=== PATIENT | male | born 1945 | race African-American/Black ===

== ENCOUNTER 2017-08-01 13:19 | Outpatient (CLI) | payer MEDICARE, MEDICAID ==
--- NOTE | 2017-08-01 15:31 | RAD ---
TWO VIEWS CHEST: Date: 08-01-17 Comparison: 05-01-15 History: Shortness of breath. FINDINGS: There is pulmonary vascular prominence, most significant in the region of the infrahilar region on th e right, a stable finding. There is perihilar and bibasilar interstitial prominence, left greater torsten n right, nonspecific and stable. No pneumothorax or pleural fluid. No lobar consolidation or alveolar edema. There is a questionable subtle nodule overlying the right lung apex at the level of the clavicle. IMPRESSION: 1. Question small nodular density in the right lung apex measuring in the 1.[address] examination to exclude an underlying right apical pulmonary nodule. 2. Stable interstitial prominence and pulmonary vascular prominence. Findings may be related to pulmo nary arterial hypertension. Code T POS: [facility]
== END 2017-08-01 13:20 | disposition home or self-care (01) ==
LOC: RAD 13:19
PROVIDERS: ATTEND Internal Medicine Critical Care Medicine
DX: R06.00 Dyspnea, unspecified (principal); R91.8 Other nonspecific abnormal finding of lung field
CPT/HCPCS: 71020

== ENCOUNTER 2017-09-05 12:34 | Outpatient (CLI) | payer MEDICARE, MEDICAID ==
--- NOTE | 2017-09-05 15:38 | CT ---
CT THORAX WITH IV CONTRAST: DATE: 09/05/17. HISTORY: Right apical pulmonary nodule noted on chest x-ray. COMPARISON: Chest x-ray on 08/01/17. FINDINGS: There is a noncalcified mass posterior aspect of the right upper lobe measuring 3.1 cm which is pleur al-based, and there is slight irregularity of the overlying posterior right third rib. There is a small pleural-based nodular density posterior aspect of the right lower lobe which measure s 13 mm x 6.5 mm. No additional discrete pulmonary nodule or mass is seen. There is minimal depende nt atelectasis bilaterally. A few peripheral blebs are seen at the medial aspect right upper lobe. Thoracic aorta is normal in caliber. No enlarged lymph nodes are seen by CT size criteria. There is a hypodense lesion at the anterior aspect lateral segment left hepatic lobe which was also s een on the prior CT thorax on 09/14/14. The right apical lesion was not seen on the prior exam. The remainder of the upper abdomen has a normal CT appearance. IMPRESSION: 1. Pleural-based right upper lobe mass posteriorly with slight irregularity of the inner table of th e right posterolateral third rib. Findings are worrisome for a neoplastic process. 2. Tiny pleural-based nodular density posterior aspect right lower lobe which could be related to a focal area of pleural thickening. CODE T POS: [facility]
[2017-09-05] MEDS ORDERED: Iopamidol 370 76% 100 ML VIAL ONE (16:22)
== END 2017-09-05 12:35 | disposition home or self-care (01) ==
LOC: CT 12:34
PROVIDERS: ATTEND Internal Medicine Critical Care Medicine
DX: R91.1 Solitary pulmonary nodule (principal); R91.8 Other nonspecific abnormal finding of lung field; J44.9 Chronic obstructive pulmonary disease, unspecified; G47.33 Obstructive sleep apnea (adult) (pediatric)
CPT/HCPCS: 71260

== ENCOUNTER 2017-09-14 07:27 | Day surgery (SDC) | payer MEDICARE, MEDICAID ==
[2017-09-13 14:19] VITALS: BMI 40.6
[2017-09-14 07:55] LABS: Hemoglobin 13.2 g/dL (14.0-18.0); Mean Corpuscular HGB CONC 30.4 g/dL (32.0-36.0); Mean Corpuscular Hemoglobin 29.5 pg (27.0-31.0); Mean Platelet Volume 7.2 fL (7.4-10.4); Platelet Count 269 thou/uL (130-400); Red Blood Cell (RBC) Count 4.48 mill/uL (4.70-6.10); White Blood Cell (WBC) Count 10.2 thou/uL (4.8-10.8)
[2017-09-14 08:00] LABS: INR-International Normal Ratio 0.9; PTT 27.3 SEC (22.9-36.1); Prothrombin Time 12.5 SEC (12.0-14.7)
[2017-09-14] MEDS ORDERED: Prevnar 13-Val Conj/PF 0.5 ML SYRINGE IM ONE (09:00)
[2017-09-14] MEDS ORDERED: FLU VACC TS2017-18 (>65YR) 0.5 ML SYRINGE IM ONE (09:00)
[2017-09-14 09:36] VITALS: BP 134/81; TEMP 98.1
[2017-09-14] MEDS ORDERED: Fentanyl 100 MCG/2 ML VIAL ONE (10:07)
[2017-09-14] MEDS ORDERED: Midazolam HCl 2 mg/2 ml Vial ONE (10:07)
[2017-09-14] MEDS ORDERED: Sodium Bicarbonate 2.4 MEQ/5 ML ONE (10:07)
--- NOTE | 2017-09-14 12:12 | RAD ---
SINGLE VIEW OF THE CHEST: COMPARISON: CT of the chest 09/14/17. HISTORY: Status post right upper lobe lung biopsy. FINDINGS: A single view of the chest shows a normal-size cardiomediastinal silhouette. There is a mass-like op acity in the right hilar region. No pneumothorax is seen. There is no evidence of consolidation or pleural effusion. IMPRESSION: 1. Status post right lung mass biopsy without evidence of complication. 2. Nodular-appearing region in the hilar region of the lung represents the patient's known lung mass . POS: [facility]
--- NOTE | 2017-09-14 12:16 | CT ---
CT GUIDED RIGHT LUNG MASS BIOPSY: HISTORY: Right lung mass. FINDINGS: After explaining the procedure and answering all questions, the patient was placed on the CT table in the left lateral decubitus position. A posterior approach was planned. A sterile technique, buffer ed local anesthesia, CT guidance, and a right posterior approach were used to carefully advance the t ip of a 19 gauge trocar needle into the posterolateral right upper lobe mass. Position was confirmed with CT. Three 20 gauge core biopsy specimens were obtained without difficulty and submitted to pat michelle for evaluation. The needle was removed. The patient tolerated the procedure well and was tra nsferred to the holding area, in good condition, for monitoring. IMPRESSION: Technically successful CT guided right lung mass biopsy. Pathology is pending. POS: [facility]
--- NOTE | 2017-09-14 12:47 | RAD ---
FRONTAL RADIOGRAPH CHEST: DATE: 09/14/17. TIME: 11:38 a.m. COMPARISON: 09/14/17. HISTORY: Evaluate chest following lung biopsy. FINDINGS: There is no pneumothorax, pleural fluid, lobar consolidation, or alveolar edema. Rounded density in the right hilar region is stable when compared to prior examination and appears to be on the basis of enlarged pulmonary arterial vasculature. There is a mass in the right lung apex, recently biopsied, suspicious for malignancy. IMPRESSION: No discrete pneumothorax seen. POS: [facility]
== END 2017-09-14 12:10 | disposition home or self-care (01) ==
LOC: CT 07:27
PROVIDERS: ATTEND Internal Medicine Critical Care Medicine
DX: C34.11 Malignant neoplasm of upper lobe, right bronchus or lung (principal); R91.8 Other nonspecific abnormal finding of lung field; G47.30 Sleep apnea, unspecified; M19.90 Unspecified osteoarthritis, unspecified site; E11.9 Type 2 diabetes mellitus without complications; J44.9 Chronic obstructive pulmonary disease, unspecified; I11.0 Hypertensive heart disease with heart failure; I50.9 Heart failure, unspecified; Z87.891 Personal history of nicotine dependence; Z85.038 Personal history of other malignant neoplasm of large intestine; Z79.84 Long term (current) use of oral hypoglycemic drugs; Z79.52 Long term (current) use of systemic steroids; Z79.899 Other long term (current) drug therapy
CPT/HCPCS: 32405; 36415; 71045; 77012; 85027; 85610; 85730; 88305; 88313; 88341; 88342; J2250; J3010

== ENCOUNTER 2017-10-04 13:06 | Outpatient (CLI) | payer MEDICARE, MEDICAID ==
--- NOTE | 2017-10-04 16:38 | PET ---
PET CT: INDICATION: History of right lung cancer. TECHNIQUE: PET CT images from the skull base to the mid thighs were obtained after administration of 12.6 mCi F1 8-FDG IV. CT images were obtained for attenuation correction purposes only. COMPARISON: Prior CT of the thorax dated 09/05/17 and 04/23/11. FINDINGS: The 3.5 cm mass within the right upper lobe abutting the pleural margin of the posterior segment of t he right upper lobe demonstrates prominent FDG uptake with a maximum SUV uptake of 28 and a mean valu e of 22. There is erosion of the mass into the adjacent posterior right 3rd rib. There is a new focal region of cortical osteolysis involving the posterior right 9th rib with associa ulisses maximum uptake of 7.22 and a mean uptake of 4.83. No additional hypermetabolic lymph node or lymphadenopathy is evident. No hypermetabolic lymphadenopathy or mass is seen within the abdomen and pelvis. There is a left hepa tic lobe cyst in place. There is postsurgical change of partial colectomy and rectosigmoid anastomosi s. No definite additional hypermetabolic or osseous skin lesion is identified. IMPRESSION: Abnormal PET CT. The mass within the right upper lobe is prominent hypermetabolic consistent with mal ignancy. There is some hypermetabolic extension into the pleural margin adjacent to the mass lesion. There some bony erosion involving the underlying right posterior third rib best seen on image 68 of s eries 3. There is a new focus of cortical osteolysis involving the right posterior 9th rib consistent with a n ew osseous metastatic lesion. POS: [facility]
== END 2017-10-04 13:07 | disposition home or self-care (01) ==
LOC: PET 13:06
PROVIDERS: ATTEND Internal Medicine Critical Care Medicine
DX: R91.1 Solitary pulmonary nodule (principal)
CPT/HCPCS: 78815; A9552

== ENCOUNTER 2018-01-11 10:45 | Outpatient (CLI) | payer MEDICARE, MEDICAID ==
[~2018-01-11 10:45] MED LIST: Iopamidol 370 76% 100 ML VIAL ONE
--- NOTE | 2018-01-11 13:43 | CT ---
CONTRAST ENHANCED CT IMAGES CHEST: 01/11/2018 COMPARISON: Previous CT chest from 09/05/2017. FINDINGS: A contrast enhanced CT of the chest demonstrates a posterior aspect right upper lobe area of soft tis sha density, compatible with a possible mass on the posterior aspect of the right upper lobe. Overal l size is slightly smaller than on the previous exam. Previously, the maximum dimension of this lesi on measured 3.1 cm and now it measures 2.4 cm. A small right-sided pleural effusion has now developed. There is a new expansile lytic mass involving the right posterior T9 rib, which was not present previ ously. This rib had an area of erosive change and a secondary pathologic fracture. There is a newly developed mass involving the right 9th rib, measuring 3.3 x 2.3 cm. There is also an enlarging right paratracheal lymph node. Previously, this lymph node measured 9 x 1 4 x 12 mm. It has significantly increased in size, now measuring 14 x [address] images of the rest of the abdomen and pelvis demonstrate extensive motion artifact, which does sig nificantly degrade the quality of this exam. IMPRESSION: 1. Slightly smaller right upper lobe pulmonary parenchymal mass. 2. Newly developed right ninth rib metastatic lesion with a secondary pathologic fracture. 3. Enlarging right paratracheal lymph node. POS: [facility]
== END 2018-01-11 10:46 | disposition home or self-care (01) ==
LOC: SCSCT 10:45
PROVIDERS: ATTEND Radiology Radiation Oncology
DX: C34.11 Malignant neoplasm of upper lobe, right bronchus or lung (principal); C79.51 Secondary malignant neoplasm of bone; M84.58XA Pathological fracture in neoplastic disease, other specified site, initial encounter for fracture
CPT/HCPCS: 71260; 82565

== ENCOUNTER → 2018-01-26 | Day surgery (SDC) | payer MEDICARE, MEDICAID ==
[2018-01-25 12:01] VITALS: BMI 40.2
[~2018-01-26] MED LIST changes: +Bupivacaine/Epinephrine 0.25% 30 ML VIAL ONE; +CEFAZOLIN/Water 2 GM/20 ML SYRINGE ONE; +Fentanyl 100 MCG/2 ML VIAL ONE; -Iopamidol 370 76% 100 ML VIAL ONE; +Ketorolac Tromethamine 30 MG/ML VIAL ONE; +Lidocaine 1% (PF) 30 ML VIAL ONE; +Midazolam HCl 2 mg/2 ml Vial ONE
[2018-01-26 10:02] LABS: Hemoglobin 12.7 g/dL (14.0-18.0); Mean Corpuscular Hemoglobin 29.1 pg (27.0-31.0); Mean Corpuscular Volume 96.9 fl (80.0-94.0); Mean Platelet Volume 7.8 fL (7.4-10.4); Platelet Count 222 thou/uL (130-400); RBC Distribution Width 19.3 % (11.5-14.5); Red Blood Cell (RBC) Count 4.37 mill/uL (4.70-6.10)
[2018-01-26 10:21] LABS: Anion Gap 11 mmol/L (10-20); BUN (Urea Nitrogen) 18 mg/dL (8.4-25.7); Calc. Creatinine Clearance 107 mL/min (70-130); Calcium 9.7 mg/dL (7.8-10.44); Carbon Dioxide 32 mmol/L (23-31); Chloride 103 mmol/L (98-107); Estimated GFR-MDRD 72; Glucose 98 mg/dL (83-110); Potassium 4.4 mmol/L (3.5-5.1); Sodium 142 mmol/L (136-145)
[2018-01-26 10:27] LABS: #Eosinphils 0.3 thou/uL (0.0-0.7); #Lymphocytes 0.7 thou/uL (1.20-3.40); #Monocytes 0.4 thou/uL (0.11-0.59); #Neutrophils 4.7 thou/uL (1.40-6.50); %Basophils 0.4 % (0.0-1.0); %Lymphocytes 11.4 % (21.0-51.0); %Monocytes 5.8 % (0.0-10.0); %Neutrophils 77.5 % (42.0-75.0); Anisocytosis SLIGHT = 6-15 cells (100X) (0-5/hpf); Hypochromia SLIGHT = 6-15 cells (100X) (0-5/hpf); MDiff Complete? YES; PLT Morphology Comment Appears Adequate
--- NOTE | 2018-01-26 13:10 | RAD ---
INTRAOPERATIVE IMAGING OF THE CHEST: DATE: 01/26/18. HISTORY: A 72-year-old male undergoing MediPort placement. FINDINGS: Without coned-down frontal images of the chest demonstrate a CT injectable Port-A-Cath inserted via a left subclavian approach, distal tip overlying the region of the proximal right atrium. IMPRESSION: Intraoperative imaging as above. POS: [facility]
--- NOTE | 2018-01-26 13:39 | RAD ---
PORTABLE CHEST 1 VIEW: DATE: 01/26/18. TIME: 11:42 a.m. HISTORY: MediPort placement. FINDINGS: Comparison is made with the exam 08/01/17. There has been interval placement of a left subclavian Port-A-Cath with tip in the projection of the SVC. No pneumothorax is seen. Heart size is normal. There are patchy infiltrates in the lower lung nassar bilaterally. There is pulmonary vascular congestion. POS: [facility]
--- NOTE | 2018-01-26 14:26 | EKG ---
Test Reason : PREOP Blood Pressure : / mmHG Vent. Rate : 065 BPM Atrial Rate : 065 BPM P-R Int : 154 ms QRS Dur : 092 ms QT Int : 428 ms P-R-T Axes : 077 -12 080 degrees QTc Int : 445 ms Normal sinus rhythm Nonspecific T wave abnormality Abnormal ECG When compared with ECG of 26-MAR-2015 07:39, T wave inversion less evident in Anterior leads Nonspecific T wave abnormality, worse in Lateral leads QT has shortened Confirmed by IZZY BELLE ([id number]) on 01/26/2018 2:25:57 PM Referred By: MJ Confirmed By:IZZY BELLE
--- NOTE | 2018-01-27 13:26 | OP ---
DATE OF PROCEDURE: 01/26/2018 PREOPERATIVE DIAGNOSIS: Lung cancer. POSTOPERATIVE DIAGNOSIS: Lung cancer. OPERATION PERFORMED: Placement of a left subclavian regular size power compatible MediPort. SURGEON: Akshat Fortune M.D. ANESTHESIA: Total intravenous anesthesia with local using 0.25% Marcaine with epinephrine. INDICATIONS: The patient is an obese 72-year-old black male who has new diagnosis of right lung canc er. I have treated previously for colon cancer as well. He presents at this time for [facility] for chemotherapy administration. DESCRIPTION OF OPERATION: Informed consent was obtained. The patient was taken to the operating nayeli m where total intravenous anesthesia was obtained with the patient in supine position. Left periclav icular area was prepped with ChloraPrep and draped in sterile fashion. Local anesthetic was infiltra ulisses and a large gauge needle was passed under the clavicle in the subclavian vein. Guidewire was pas sed through the needle and fluoroscopically confirmed to enter the superior vena cava. Additional lo evette anesthetic was infiltrated and transverse incision was created based on needle insertion site. A subcutaneous pocket was dissected inferiorly. Introducer dilator was passed over the guidewire unde r fluoroscopic guidance. The guidewire and dilator were removed, and the catheter was passed through the introducer. The tip of the catheter was positioned at the atriocaval junction and the catheter was trimmed to the appropriate length and secured to the locking hub of the MediPort. The port was t hen placed in the subcutaneous pocket where it was secured to the pectoral fascia with 2 interrupted sutures of 3-0 Prolene. The incision was then closed in layers with 3-0 and 4-0 Monocryl. Additiona l local anesthetic was infiltrated. The port was cannulated with a Meneses needle and it aspirated blo od freely and was flushed with heparinized saline. Dermabond was placed externally on the skin incis ion. There were no complications. Blood loss was negligible. The patient tolerated the procedure w ell and was taken to recovery room in stable condition. FINDINGS: I placed the port on the left side as the patient has right-sided lung cancer. I used a r egular size MediPort and access subclavian vein uneventfully. There were no complications and essent ially no blood loss. The patient tolerated the procedure well.
== END ==
LOC: SDC 09:11
PROVIDERS: ATTEND Specialist
PROC: 02H633Z Insertion of Infusion Device into Right Atrium, Percutaneous Approach (ICD-10-PCS; principal; 2018-01-26)
PROC: B2141ZZ Fluoroscopy of Right Heart using Low Osmolar Contrast (ICD-10-PCS; 2018-01-26)
DX: C34.11 Malignant neoplasm of upper lobe, right bronchus or lung (principal); M19.90 Unspecified osteoarthritis, unspecified site; F10.11 Alcohol abuse, in remission; J45.909 Unspecified asthma, uncomplicated; E78.00 Pure hypercholesterolemia, unspecified; I11.0 Hypertensive heart disease with heart failure; I50.9 Heart failure, unspecified; J44.9 Chronic obstructive pulmonary disease, unspecified; G47.30 Sleep apnea, unspecified; I48.91 Unspecified atrial fibrillation; F17.210 Nicotine dependence, cigarettes, uncomplicated; F19.11 Other psychoactive substance abuse, in remission; Z85.038 Personal history of other malignant neoplasm of large intestine; Z79.51 Long term (current) use of inhaled steroids; Z79.52 Long term (current) use of systemic steroids; Z79.84 Long term (current) use of oral hypoglycemic drugs; Z79.899 Other long term (current) drug therapy
CPT/HCPCS: 36561; 71045; 80048; 85025; 93005; C1788; 36415; 93010; J0131; J1642; J1885; J2001; J2250; J3010

== ENCOUNTER 2018-02-27 14:14 | Inpatient (IN) | payer MEDICARE, MEDICAID ==
[2018-02-27 14:56] LABS: Hemoglobin 14.4 g/dL (14.0-18.0); Mean Corpuscular HGB CONC 29.4 g/dL (32.0-36.0); Mean Corpuscular Hemoglobin 29.1 pg (27.0-31.0); Mean Corpuscular Volume 98.8 fL (78.0-98.0); Mean Platelet Volume 8.4 fL (7.4-10.4); Platelet Count 208 thou/uL (130-400); RBC Distribution Width 18.2 % (11.5-14.5); Red Blood Cell (RBC) Count 4.94 mill/uL (4.70-6.10)
[2018-02-27 15:10] LABS: Anisocytosis MODERATE=16-30 cells (100X) (0-5/hpf); Band 4 % (5-11); Lymphocytes 8 % (21-51); MDiff Complete? YES; Monocytes 4 % (0-10); Neutrophil 83 % (42-75); Ovalocytes SLIGHT = 2-5 cells (100X) (0-1/hpf); PLT Morphology Comment Appears Adequate; Polychromasia SLIGHT = 2-3 cells (100X) (0-2/hpf); White Blood Cell (WBC) Count 7.3 thou/uL (4.8-10.8)
[2018-02-27 15:17] LABS: ALT (SGPT) 21 U/L (8-55); AST (SGOT) 22 U/L (5-34); Albumin 3.8 g/dL (3.4-4.8); Alkaline Phosphatase 72 U/L (40-150); Anion Gap 12 mmol/L (10-20); BUN (Urea Nitrogen) 33 mg/dL (8.4-25.7); Bilirubin, Total 0.3 mg/dL (0.2-1.2); CK (CPK) 44 U/L (30-200); Calc. Creatinine Clearance 0 mL/min (70-130); Calcium 9.2 mg/dL (7.8-10.44); Carbon Dioxide 29 mmol/L (23-31); Chloride 104 mmol/L (98-107); Estimated GFR-MDRD 33; Glucose 118 mg/dL (83-110); Protein, Total 6.8 g/dL (5.8-8.1); Sodium 139 mmol/L (136-145)
--- NOTE | 2018-02-27 15:17 | RAD ---
SINGLE VIEW OF THE CHEST: COMPARISON: 01/26/18. HISTORY: Shortness of breath and weakness. Dyspnea. FINDINGS: A single view of the chest shows a cardiomediastinal silhouette which is enlarged but stable in size. The MediPort is unchanged in position. Opacity is seen in the right lung base which likely represe nts a combination of a pleural effusion and adjacent infiltrate. IMPRESSION: Right lower lobe infiltrate with adjacent pleural effusion. POS: [facility]
[2018-02-27 15:21] LABS: CKMB 2.2 ng/mL (0-6.6); Troponin I 0.019 ng/mL (< 0.028)
[2018-02-27 16:03] LABS: Actual Bicarbonate (HCO3a) 36.7 mEq/L (22-28); Base Excess (BEa) 1.5 mEq/L (-2.0 to +3.0); CO2 Tension 139.8 mmHg (35.0-45.0); Hematocrit-ABG 51.9 % (42.0-52.0); O2 Tension (PaO2) 106.6 mmHg (> 70.0); pH, Arterial 7.04 (7.35-7.45)
[2018-02-27 16:04] LABS: Analyzer IN Cardio ER; Calcium, Ionized 1.4 mmol/L (1.12-1.30); Puncture Site RRA
[2018-02-27] MEDS ORDERED: Piperacillin/Tazobactam 4.5 GM VIAL ONE (16:58)
[2018-02-27 17:08] LABS: CO2 Tension 50.9 mmHg (35.0-45.0); pH, Arterial 7.38 (7.35-7.45)
[2018-02-27 17:09] LABS: Actual Bicarbonate (HCO3a) 29.5 mEq/L (22-28); Analyzer IN Cardio ER; Base Excess (BEa) 3.3 mEq/L (-2.0 to +3.0); Calcium, Ionized 1.2 mmol/L (1.12-1.30); Hematocrit-ABG 48.9 % (42.0-52.0); Hemoglobin (Hb) 13.5 g/dL (14.0-18.0); O2 Tension (PaO2) 51.2 mmHg (> 70.0); Puncture Site RRA
[2018-02-27 17:10] LABS: ALV-art Gradient 168.375 (0-20)
[2018-02-27] MEDS ORDERED: Propofol 500 MG/50 ML VIAL ONE (17:23)
[2018-02-27] MEDS ORDERED: Propofol 1,000 MG/100 ML VIAL IV ONE (17:26)
[2018-02-27] MEDS ORDERED: Acetaminophen 325 MG TAB PO PRN (18:24)
[2018-02-27] MEDS ORDERED: Ondansetron HCl/PF 4 MG/2 ML Vial IVP PRN ×2 (18:24→18:41)
[2018-02-27] MEDS ORDERED: Ondansetron ODT 4 MG TAB SL PRN (18:24)
[2018-02-27 18:38] LABS: Bilirubin Small (Negative); Blood, Urine Negative (Negative); Clarity CLOUDY (Clear); Glucose, Urine (Dipstick) Negative (Negative); Leukocyte Trace (Negative); Nitrite Negative (Negative); Protein, Urine (Dipstick) 100 mg/dL (Neg-Trace); Specific Gravity, Urine 1.033 (1.002-1.036); pH, Urine 5.5 (5.0-9.0)
[2018-02-27 18:41] LABS: Bacteria/HPF None Seen HPF (None Seen); WBC/HPF 0-3 HPF (0-3); Yeast-AUWi Flag 9.8 (0-25.0)
[2018-02-27] MEDS ORDERED: Dextrose 5% in Water 1,000 ML IV PRN (18:41)
[2018-02-27] MEDS ORDERED: Dextrose 50% Abboject 50 ML SYRINGE SLOW IVP PRN (18:41)
[2018-02-27] MEDS ORDERED: Ventilator Sedation Protocol 1 EACH FS SCH (18:41)
[2018-02-27] MEDS ORDERED: Sodium Chloride 0.9% 1,000 ML IV SCH ×3 (18:45→21:58)
[2018-02-27 18:47] LABS: Pathc Cast-AUWi Flag 12.56 (0-2.49)
[2018-02-27 18:56] LABS: Hyaline Casts/LPF 7-10 HYALINE CAST LPF (0-3 Hyaline)
[2018-02-27 18:57] LABS: Crystals/HPF 2+ AMORPH URATES HPF (Negative)
[2018-02-27] MEDS ORDERED: Propofol BOLUS 1,000 MG/100 ML VIAL IV PRN (19:00)
[2018-02-27] MEDS ORDERED: DISCONTINUE PREVIOUS NARCOTIC PAIN MEDICATIONS AND BENZODIAZEPINES FS SCH (19:00)
[2018-02-27] MEDS ORDERED: fentaNYL Citrate/PF 2,000 MCG in Sodium Chloride 0.9% 60 ML IV SCH (19:00)
[2018-02-27] MEDS ORDERED: Fentanyl BOLUS 250 ML IVPB PRN (19:00)
[2018-02-27] MEDS ORDERED: Lorazepam 2 MG/ML VIAL SLOW IVP PRN (19:00)
[2018-02-27] MEDS ORDERED: Levofloxacin 750 mg/D5W 500 MG in Premix Bag 1 BAG IVPB SCH (20:00)
[2018-02-27] MEDS ORDERED: Famotidine/PF 20 mg/2ml Vial SLOW IVP SCH (21:00)
[2018-02-27] MEDS: Docusate 100 MG CAP PO SCH (21:02)
[2018-02-27] MEDS: Cefepime 1 GM in Sodium Chloride 0.9% 100 ML IVPB SCH (21:02)
[2018-02-27 21:57] LABS: Troponin I Less than 0.010 ng/mL (< 0.028)
--- NOTE | 2018-02-28 02:11 | HP ---
REASON FOR ADMISSION: Acute respiratory failure with hypercarbia and hypoxia, pneumonia, right pleural effusion, possible empyema, acute kidney injury. HISTORY OF PRESENT ILLNESS: Please note majority of this history is obtained by talking to ER physician and EMS records along with prior medical records as patient is currently intubated. Per records, family called EMS as patient was getting short of breath. This was getting worse by the time EMS arrived. His saturations were 76% on room air. He was placed on nonrebreather and it came up promptly to 97%. On arrival in the ER, patient was still lethargic and drowsy. He in fact refused IV to be placed. The ABG was done which showed a pH of 7.0 with a pCO2 of 139. The patient was getting more lethargic, a decision was made to intubate him. He has had a Perkins placed in the ER with retrieval of only 50 mL of urine, which is very high colored as well. He has had an ET tube #8 placed up to 26 inches at the incisor. The patient has had prior history of respiratory failure when he was hospitalized here in 04/[address] Lynn. He also has obesity hypoventilation, diabetes mellitus type 2, hypertension, CHF with diastolic dysfunction. He was intubated in the month of March in 2014, benign prostatic hypertrophy. He has had history of colon resection for colon cancer. PERSONAL HISTORY: Per prior records, he smokes 2 cigarettes a day, drinks on social occasions. Does not abuse drugs. FAMILY HISTORY: Per prior records, significant for heart disease and high blood pressure. PAST MEDICAL AND SURGICAL HISTORY: He has had a colonoscopy done in 01/2016, where he was said to have had a polyp in the cecum removed. He had normal anastomosis in the sigmoid colon. History of colorectal cancer, diagnosed in 2012, which was T2 N0 Mx0, had no adjuvant therapy for the same COPD, has had a lung biopsy done in 08/2017 for right upper lobe lung mass, which showed poorly differentiated non-small cell carcinoma. A PET scan done in 09/2017, shows a mass within the right upper lobe. There is also hypermetabolic extension seen into the pleural margin adjacent to the mass lesion. There is also bony erosion involving underlying right posterior 3rd rib and right posterior 9th rib consistent with metastatic lesion, had a left MediPort placed into the subclavian vein in 01/2018. CURRENT MEDICATIONS: Per prior records, patient is on Norvasc 10 mg daily, finasteride 5 mg daily, Lasix 40 mg twice daily, hydralazine 25 mg 3 times daily , DuoNeb q.4 hourly, metformin 1000 mg twice daily. Please note these are medications based on Xdynia from 2014 and will try to obtain a current medication list from family. REVIEW OF SYSTEMS: Cannot be obtained as patient is currently intubated. PHYSICAL EXAMINATION: GENERAL: Patient is a 72-year-old male who is currently on ventilator and is not conscious. VITAL SIGNS: Blood pressure 142/78, pulse 86 per minute, respiratory rate 22 per minute, temperature 97.9 degrees Fahrenheit, saturating 97% on ventilator and 40% FiO2 on the ventilator. NECK: Supple, no elevated JVD. HEENT: Eyes: Extraocular muscles intact. Pupils reacting to light. Oral cavity mucous membranes are dry. No exudates or congestion. CARDIOVASCULAR: S1, S2 heard. Regular rhythm. RESPIRATORY: Air entry 1+ bilateral. There is decreased air entry in the right infra-axillary area. Scattered rhonchi heard. ABDOMEN: Soft, bowel sounds heard. No tenderness, rigidity, or guarding. EXTREMITIES: There is mild peripheral edema. No calf tenderness. VASCULAR: Peripheral pulses are 1+ bilateral. No ischemic ulcerations or gangrene. CENTRAL NERVOUS SYSTEM: The patient apparently was moving all 4 extremities on arrival in the ER. There are no gross focal deficits noted. PSYCHIATRIC: Cannot be assessed as patient is intubated at present. LABORATORY AND DIAGNOSTIC DATA: Blood gas done on arrival showed a pH of 7.04, pCO2 of 139, pO2 106, bicarbonate 36. Repeat blood gas on vent shows a pH of 7.38, pCO2 of 50, pO2 of 51. Sodium 139, potassium 6.0, BUN 33, creatinine 2.3 , serum glucose 118. BNP 2747. Liver enzymes within normal limits. Albumin is 3.8. White count of 7, H and H 14 and 48, platelet count 208,000 with 83% neutrophils and 4% bands, MCV is 98. Chest x-ray done shows right lower lobe infiltrate with effusion. CLINICAL IMPRESSION AND PLAN: The patient will be admitted to ICU for acute respiratory failure with hypercarbia and hypoxia. Please note, patient also has significant history of non-small cell poorly differentiated carcinoma, diagnosed in August of this year. It is unclear if patient is on chemotherapy , he has a MediPort. His overall prognosis appears to be poor, given multiple medical conditions. As he is already intubated, we will place him on Levaquin and cefepime along with blood and sputum cultures. We will also place him on DuoNeb q.4 hourly along with Solu-Medrol. He will be gently hydrated as well with a very poor urine output at present. The patient has diastolic dysfunction as well and will be closely monitored. His code status for now is FULL CODE until I have a chance to talk to family. He has acute kidney injury as well and will be closely monitored for further worsening. MTDD
--- NOTE | 2018-02-28 03:37 | CON ---
DATE OF CONSULTATION: 02/27/2018 SERVICE: Pulmonary Medicine. REASON FOR CONSULTATION: Respiratory failure. HISTORY OF PRESENT ILLNESS: Patient is a 72-year-old -[place] male with past medical history significant for non-small cell lung cancer. He also has a difficult time controlling some volume st atus associated with mild diastolic heart failure. Either way, he was increasingly short of breath o alisia a couple of days. There is no reports of fevers. EMS services were contacted, they intubated hi m in the field. When he got into the emergency department, his PCO2 was 137. This was associated wi th a very low pH. The patient was encephalopathic and not able to provide any additional elements of the history. PAST MEDICAL HISTORY: 1. Asthma. 2. Venous thromboembolic disease. 3. Colon cancer. 4. Dyslipidemia. 5. Hypertension. 6. Type 2 diabetes mellitus. 7. Chronic diastolic heart failure. 8. Obstructive sleep apnea, severe. 9. Atrial fibrillation. 10. Chronic hypoxic and hypercapnic respiratory failure. 11. Non-small cell lung cancer. 12. History of alcohol and illicit drug use. PAST SURGICAL HISTORY: 1. Incision and drainage of left thigh abscess in 2009. 2. Laparoscopic LAR in 2012. 3. MediPort placement. FAMILY HISTORY: Noncontributory. SOCIAL HISTORY: The patient apparently has an extensive history of smoking. Otherwise, this is unkn own to me. ALLERGIES: No known drug allergies. MEDICATIONS: List of his inpatient medications were reviewed and heavily modified. REVIEW OF SYSTEMS: This cannot be obtained as the patient is currently intubated under the influence of sedation. PHYSICAL EXAMINATION: VITAL SIGNS: Afebrile, pulse 75, blood pressure 128/75, respirations in 19, saturation 97% on 37% FI O2 and a PEEP of 5. HEENT: Normocephalic, atraumatic. Sclerae white, conjunctivae pink. Oral and nasal mucosa is moist without lesions. LUNGS: Decreased air entry with a very prolonged expiratory phase. Expiratory wheezing and crackles are both identified. No rhonchi are appreciated. HEART: Normal rate and regular. ABDOMEN: Soft, nontender, nondistended. Bowel sounds are positive. MUSCULOSKELETAL: No cyanosis or clubbing. There is 1+ pitting throughout. GENITOURINARY: Perkins catheter in place. NEUROLOGIC: Grossly nonfocal. LABORATORY DATA: WBC 7.3, hemoglobin 14.4, platelets 208,000, neutrophils are 83% with 4% bands. A pH 7.38, pCO2 of 51, pO2 of 51, corresponding to saturation of 85%. This is much improved compared t o prior pH of 7.04 and pCO2 of 140. Creatinine 2.35, significantly above baseline of roughly 1.3. L iver function studies are unremarkable. BNP 2700 much above baseline of less than 50. Urinalysis is positive for ketones, protein, leukocyte esterase. Respiratory culture demonstrates moderate Gram-p ositive cocci in pairs and chains as well as a few Gram-negative rods. Many white blood cells are se en. No epithelials were identified. IMAGING: Chest x-ray demonstrates infiltrate in the right lower lobe with a right-sided pleural effu thony that was previously identified. There is a left-sided MediPort catheter in good position. Ther e is also fluffy bilateral pleural parenchymal opacifications present, consistent with some degree of possible volume overload. ASSESSMENT: 1. Acute on chronic hypoxic and hypercapnic respiratory failure. 2. Healthcare-associated pneumonia. 3. Acute on chronic diastolic heart failure. 4. Asthma with acute exacerbation. 5. Non-small cell lung cancer. 6. Acute kidney injury. PLAN: Agree with broad spectrum antibiotics. He likely has Streptococcus based on culture results f rom the sputum so far. Blood cultures are currently pending. We will let the dust settle for 24 je[address] paul rs. I would like to avoid giving him too much fluid. He has volume overloaded, we will likely need to get some fluid off him, but we will save this for 1-2 days in the future. Multiple adjustments bhakta ve been made to the ventilator. He did very prolonged expiratory time. We will back way off on the rate, and change him over to pressure control ventilation. This seemed to maximize or minute volumes without doing pressure damage to the lungs. Pulmonary Critical Care will continue to follow along f or the time being. In 24 hours, I will do an ultrasound of the chest. The pleural effusion has been there for quite some time based on the CT scan from December. That being said, we may need to prove that this space is not infected. CRITICAL CARE TIME: 30 minutes.
[2018-02-28 04:59] LABS: #Lymphocytes 0.4 thou/uL (1.20-3.40); #Monocytes 0.1 thou/uL (0.11-0.59); #Neutrophils 8.9 thou/uL (1.40-6.50); %Basophils 0.1 % (0.0-1.0); %Eosinophils 0.1 % (0.0-10.0); %Lymphocytes 3.7 % (21.0-51.0); %Monocytes 1.2 % (0.0-10.0); %Neutrophils 94.9 % (42.0-75.0); Hemoglobin 13.5 g/dL (14.0-18.0); Mean Corpuscular HGB CONC 30.2 g/dL (32.0-36.0); Mean Corpuscular Hemoglobin 28.8 pg (27.0-31.0); Mean Corpuscular Volume 95.1 fL (78.0-98.0); Mean Platelet Volume 8.9 fL (7.4-10.4); Platelet Count 182 thou/uL (130-400); Red Blood Cell (RBC) Count 4.67 mill/uL (4.70-6.10); White Blood Cell (WBC) Count 9.4 thou/uL (4.8-10.8)
[2018-02-28 05:09] LABS: Anion Gap 12 mmol/L (10-20); BUN (Urea Nitrogen) 36 mg/dL (8.4-25.7); Calc. Creatinine Clearance 70 mL/min (70-130); Calcium 9.4 mg/dL (7.8-10.44); Carbon Dioxide 30 mmol/L (23-31); Chloride 104 mmol/L (98-107); Estimated GFR-MDRD 40; Glucose 107 mg/dL (83-110); Potassium 5.4 mmol/L (3.5-5.1); Sodium 141 mmol/L (136-145)
[2018-02-28] MEDS: Furosemide 40 MG/4 ML VIAL SLOW IVP SCH (05:17)
--- NOTE | 2018-02-28 07:34 | PRG ---
DATE OF SERVICE: 02/28/2018. SERVICE: Pulmonary Medicine INTERVAL HISTORY: The patient is doing fine from a respiratory standpoint. There has been no signif icant overnight events. The patient cannot report any elements of the history because he is currentl y on some sedating medications. PHYSICAL EXAMINATION: VITAL SIGNS: T-max 100.5, pulse 75, blood pressure 130/72, respirations 81, saturation 93% on 41% Fi O2 and a PEEP of 5. GENERAL: Patient is intubated and sedated. HEENT: Normocephalic, atraumatic. Sclerae are white, conjunctivae pink. Oral mucosa is moist witho ut lesions. LUNGS: Reduced air entry with prolonged expiratory phase. There is wheezing today. I still hear cr ackles. HEART: Normal rate, regular. ABDOMEN: Soft, nontender, nondistended. Bowel sounds are positive. MUSCULOSKELETAL: No cyanosis or clubbing. There is 1+ pitting throughout. GENITOURINARY: Perkins catheter in place. NEUROLOGIC: Grossly nonfocal. LABORATORY DATA: WBC 9.4, hemoglobin 13.5, platelets 182,000. Neutrophil count is 95%. Creatinine 1.99 and gently down trending, BUN 36. Basic metabolic profile is otherwise unremarkable. Potassium is down trending to 5.4. Cardiac enzymes are negative x3, BNP 2700. Respiratory culture is positiv e for gram positive cocci in pairs and chains with few gram negative rods. There are many white bloo d cells present. ASSESSMENT: 1. Acute on chronic hypoxic and hypercapnic respiratory failure. 2. Healthcare-associated pneumonia. 3. Acute on chronic diastolic heart failure. 4. Asthma with acute exacerbation. 5. Non-small cell lung cancer. 6. Acute kidney injury. DISCUSSION AND PLAN: We will leave the patient on broad spectrum antibiotics. Streptococcus is the likely culprit here. We leave him on mechanical ventilation. Over the next 24 hours. Multiple adju stments have once again been made to the ventilator to turn a little bit more work of breathing over to the patient. At this point, obstructive airflow limitation is preventing extubation. CRITICAL CARE TIME: 30 minutes.
[2018-02-28] MEDS: Finasteride 5 MG TAB PO SCH (09:00)
[2018-02-28] MEDS: Cefepime 1 GM in Sodium Chloride 0.9% 100 ML IVPB SCH ×3 (09:00→20:07)
[2018-02-28] MEDS: Docusate 100 MG CAP PO SCH ×2 (10:54→20:05)
[2018-02-28] MEDS: Enoxaparin Sodium 30 MG/0.3 ML SYRINGE SC SCH (10:54)
[2018-02-28] MEDS: Famotidine/PF 20 mg/2ml Vial SLOW IVP SCH ×2 (10:55→20:05)
[2018-02-28] MEDS: Propofol 1,000 MG/100 ML VIAL IV PRN ×2 (11:21→18:32)
--- NOTE | 2018-02-28 13:20 | PDOC.PN ---
- Subjective Encounter Start Date: 02/28/18 Encounter Start Time: 08:40 Subjective: on vent, awake - Objective Resuscitation Status: Resuscitation Status FULL:Full Resuscitation MAR Reviewed: Yes Vital Signs & Weight: Vital Signs (12 hours) Temp Pulse Resp BP 02/28/18 13:00 82 02/28/18 10:39 79 02/28/18 07:11 74 02/28/18 06:00 10 L 02/28/18 04:00 100.4 F H 19 02/28/18 02:18 79 146/81 H 02/28/18 02:00 19 Weight Admit Weight 318 lb 9.072 oz Weight 318 lb 9.087 oz Most Recent Monitor Data Heart Rate from ECG 85 NIBP 147/89 NIBP BP-Mean 101 Respiration from ECG 18 SpO2 98 I&O: 02/27/18 02/28/18 03/01/18 06:59 06:59 06:59 Intake Total 474 Output Total 1595 Balance -1121 Result Diagrams: 02/28/18 04:25 02/28/18 04:25 Additional Labs: Accuchecks 02/28/18 02/27/18 05:15 23:58 POC Glucose 111 H 117 H Phys Exam - Physical Examination HEENT: PERRLA, sclera anicteric Neck: no JVD, supple Respiratory: no wheezing, no rales Cardiovascular: RRR, no significant murmur Gastrointestinal: soft, non-tender, positive bowel sounds Musculoskeletal: pulses present, edema present Neurological: non-focal, moves all 4 limbs Dx/Plan (1) Acute respiratory failure with hypoxia and hypercapnia Code(s): J96.01 - ACUTE RESPIRATORY FAILURE WITH HYPOXIA; J96.02 - ACUTE RESPIRATORY FAILURE WITH HYPERCAPNIA Status: Acute (2) PNA (pneumonia) Code(s): J18.9 - PNEUMONIA, UNSPECIFIED ORGANISM Status: Acute Qualifiers: Pneumonia type: due to unspecified organism Laterality: right (3) Non-small cell lung cancer Code(s): C34.90 - MALIGNANT NEOPLASM OF UNSP PART OF UNSP BRONCHUS OR LUNG Status: Chronic (4) COPD with exacerbation Code(s): J44.1 - CHRONIC OBSTRUCTIVE PULMONARY DISEASE W (ACUTE) EXACERBATION Status: Acute (5) LEORA (acute kidney injury) Code(s): N17.9 - ACUTE KIDNEY FAILURE, UNSPECIFIED Status: Acute (6) Metabolic acidosis Code(s): E87.2 - ACIDOSIS Status: Acute (7) Acute exacerbation of CHF (congestive heart failure) Code(s): I50.9 - HEART FAILURE, UNSPECIFIED Status: Acute Qualifiers: Heart failure type: diastolic Qualified Code(s): I50.33 - Acute on chronic diastolic (congestive) heart failure - Plan is on cefepime and levaq -: steroids, nebs -: gentle diuresis, echo shows normal ef with likely diastolic dysfunction -: has urine output of 1600mls from admission last evening -: prognosis guarded, weaning per pulm advice * . Review of Systems - Medications/Allergies Allergies/Adverse Reactions: Allergies Allergy/AdvReac Type Severity Reaction Status Date / Time No Known Drug Allergies Allergy Verified 01/25/18 12:01 Medications: Current Medications Albuterol/Ipratropium (Duoneb) 3 ml NEB [id number] [facility] Last Admin: 02/28/18 12:59 Dose: 3 ml Dextrose/Water (Dextrose 50%) 25 gm SLOW IVP PRN PRN PRN Reason: Hypoglycemia Docusate Sodium (Colace) 100 mg PO BID [facility] Last Admin: 02/28/18 10:54 Dose: 100 mg Enoxaparin Sodium (Lovenox) 30 mg SC 0900 [facility] Last Admin: 02/28/18 10:54 Dose: 30 mg Famotidine (Pepcid) 20 mg SLOW IVP Q12HR [facility] Last Admin: 02/28/18 10:55 Dose: 20 mg Finasteride (Proscar) 5 mg PO DAILY [facility] Last Admin: 02/28/18 09:00 Dose: Not Given Furosemide (Lasix) 40 mg SLOW IVP 0600 [facility] Last Admin: 02/28/18 05:17 Dose: 40 mg Glucagon (Glucagon) 1 mg IM PRN PRN PRN Reason: Hypoglycemia Cefepime HCl 1 gm/ Sodium (Chloride) 100 mls @ 200 mls/hr IVPB Q12HR [facility] Last Admin: 02/28/18 11:51 Dose: 100 mls Dextrose/Water (D5w) 1,000 mls @ 0 mls/hr IV .Q0M PRN; As Directed PRN Reason: Hypoglycemia Fentanyl Citrate 2,000 mcg/ (Sodium Chloride) 100 mls @ 0 mls/hr IV INF SHASHI; Per Protocol PRN Reason: Protocol Stop: 03/29/18 19:00 Fentanyl Citrate (Fentanyl Bolus) 250 mls @ 0 mls/hr IVPB PRN PRN; As Directed PRN Reason: Breakthrough pain/agitation Stop: 03/29/18 19:00 Sodium Chloride (Normal Saline 0.9%) 1,000 mls @ 0 mls/hr IV .Q0M SHASHI PRN Reason: KVO Levofloxacin 250 mg/ Device 50 mls @ 100 mls/hr IVPB Q24HR@2000 SHASHI Insulin Human Lispro (Humalog) 0 units SC .MILD SLIDING SCALE PRN PRN Reason: Mild Correctional Scale Methylprednisolone Sodium Succinate (Solu-Medrol) 40 mg IVP Q6HR [facility] Last Admin: 02/28/18 11:33 Dose: 40 mg Miscellaneous Medication (Ventilator Sedation Protocol) 1 each FS ONE [facility] Stop: 03/29/18 18:42 Discontinue Previous Narcotic Pain Medications And Benzodiazepines 1 each FS .ONE [facility] Stop: 03/29/18 19:00 Ondansetron HCl (Zofran) 4 mg IVP Q6H PRN PRN Reason: Nausea/Vomiting Propofol (Diprivan) 1,000 mg IV INF PRN; Protocol PRN Reason: TO ACHIEVE GOAL RASS Stop: 03/29/18 19:00 Last Admin: 02/28/18 11:21 Dose: 1,000 mg Propofol (Diprivan Bolus) 20 mg IV Q5MIN PRN PRN Reason: BREAKTHROUGH AGITATION Stop: 03/29/18 19:00 Sodium Chloride (Flush - Normal Saline) 10 ml IVF Q12HR [facility] Last Admin: 02/28/18 10:55 Dose: 10 ml Sodium Chloride (Flush - Normal Saline) 10 ml IVF PRN PRN PRN Reason: Saline Flush
[2018-03-01] MEDS: Furosemide 40 MG/4 ML VIAL SLOW IVP SCH (05:19)
[2018-03-01] MEDS: Cefepime 1 GM in Sodium Chloride 0.9% 100 ML IVPB SCH (09:34)
[2018-03-01] MEDS: Docusate 100 MG CAP PO SCH ×2 (09:34→20:59)
[2018-03-01] MEDS: Enoxaparin Sodium 30 MG/0.3 ML SYRINGE SC SCH (09:34)
[2018-03-01] MEDS: Finasteride 5 MG TAB PO SCH (09:34)
--- NOTE | 2018-03-01 09:59 | PRG ---
DATE OF SERVICE: 03/01/2018 SERVICE: Pulmonary Medicine INTERVAL HISTORY: The patient is doing great from a respiratory standpoint. He denies any chest ayesha n, nausea, vomiting, fevers or chills. He is wide awake on mechanical ventilation. He has been talk ing to people and writing things all night. Otherwise, there has been no interval change to his cond ition. He is breathing comfortably. PHYSICAL EXAMINATION: VITAL SIGNS: Afebrile with a T-max of 99.1, pulse 72, blood pressure 132/63, respirations 24, satura tion 98% on room air. GENERAL: The patient is awake, alert, in no apparent distress. LUNGS: Decent air entry. There is a prolonged expiratory phase, but it is significantly improved co mpared to prior. GENITOURINARY: No Perkins. NEUROLOGIC: Grossly nonfocal. LABORATORY DATA: Blood sugars ranged from 124 to 168. Blood cultures x2 and respiratory cultures a re unremarkable to date. Few normal respiratory nathan were isolated. IMAGING: Echocardiogram demonstrates normal ejection fraction. Moderately enlarged right atrium is noted with severely enlarged right ventricular cavity. IVC is dilated. ASSESSMENT: 1. Acute on chronic hypoxic and hypercapnic respiratory failure. 2. Acute on chronic diastolic heart failure. 3. Healthcare-associated pneumonia. 4. Pleural effusion, chronic. 5. Non-small cell lung cancer. 6. Asthma with acute exacerbation, improving. 7. Acute kidney injury. DISCUSSION AND PLAN: I will repeat laboratories tomorrow including basic metabolic profile, magnesiu m, and CBC. We will put him on a spontaneous breathing trial. At the end of 30 minutes, if he meets criteria, extubation will be considered. We will continue our broad spectrum antibiotics, but truth be told, he is responding very nicely to diuretics. Once he is liberated from mechanical ventilatio n, we will consider bedside ultrasound and thoracentesis as this has never been performed in him.
[2018-03-01] MEDS: Famotidine/PF 20 mg/2ml Vial SLOW IVP SCH (10:26)
--- NOTE | 2018-03-01 13:33 | PDOC.PN ---
- Subjective Encounter Start Date: 03/01/18 Encounter Start Time: 11:15 Subjective: got extubated this am -: is comfortable breathing -: oriented well - Objective Resuscitation Status: Resuscitation Status FULL:Full Resuscitation MAR Reviewed: Yes Vital Signs & Weight: Vital Signs (12 hours) Temp Pulse Resp BP Pulse Ox 03/01/18 13:15 83 24 H 99 03/01/18 12:00 98.7 F 92 L 03/01/18 09:05 92 L 03/01/18 08:00 99 F 72 15 95 03/01/18 06:54 76 03/01/18 06:00 16 03/01/18 04:00 99.1 F 14 03/01/18 02:13 72 131/69 03/01/18 02:00 21 H Weight Admit Weight 318 lb 9.072 oz Weight 305 lb 5.443 oz Most Recent Monitor Data Heart Rate from ECG 80 NIBP 141/72 NIBP BP-Mean 92 Respiration from ECG 21 SpO2 100 I&O: 02/28/18 03/01/18 03/02/18 06:59 06:59 06:59 Intake Total 474 1118 1160 Output Total 1595 4018 3280 Balance 1121 -2900 -2120 Result Diagrams: 02/28/18 04:25 02/28/18 04:25 Additional Labs: Accuchecks 03/01/18 03/01/18 02/28/18 05:30 00:28 18:21 POC Glucose 168 H 131 H 124 H 02/28/18 14:35 POC Glucose 118 H Phys Exam - Physical Examination HEENT: PERRLA, moist MMs Neck: no JVD, supple Respiratory: no wheezing, no rales Cardiovascular: RRR, no significant murmur Gastrointestinal: soft, non-tender, positive bowel sounds Musculoskeletal: no edema, pulses present Neurological: non-focal, moves all 4 limbs Psychiatric: normal affect, A&O x 3 Dx/Plan (1) Acute respiratory failure with hypoxia and hypercapnia Code(s): J96.01 - ACUTE RESPIRATORY FAILURE WITH HYPOXIA; J96.02 - ACUTE RESPIRATORY FAILURE WITH HYPERCAPNIA Status: Resolved Comment: extubated (2) PNA (pneumonia) Code(s): J18.9 - PNEUMONIA, UNSPECIFIED ORGANISM Status: Acute Qualifiers: Pneumonia type: due to unspecified organism Laterality: right (3) Non-small cell lung cancer Code(s): C34.90 - MALIGNANT NEOPLASM OF UNSP PART OF UNSP BRONCHUS OR LUNG Status: Chronic Qualifiers: Laterality: right Qualified Code(s): C34.91 - Malignant neoplasm of unspecified part of right bronchus or lung (4) COPD with exacerbation Code(s): J44.1 - CHRONIC OBSTRUCTIVE PULMONARY DISEASE W (ACUTE) EXACERBATION Status: Acute (5) LEORA (acute kidney injury) Code(s): N17.9 - ACUTE KIDNEY FAILURE, UNSPECIFIED Status: Acute (6) Metabolic acidosis Code(s): E87.2 - ACIDOSIS Status: Acute (7) Acute exacerbation of CHF (congestive heart failure) Code(s): I50.9 - HEART FAILURE, UNSPECIFIED Status: Acute Qualifiers: Heart failure type: diastolic Qualified Code(s): I50.33 - Acute on chronic diastolic (congestive) heart failure Comment: ef of 55% - Plan is doing well post extubation -: on levaquin and cefepime -: steroids, lasix -: oral diet to be initiated -: PT to mobilize as tolerated * . Review of Systems - Medications/Allergies Allergies/Adverse Reactions: Allergies Allergy/AdvReac Type Severity Reaction Status Date / Time No Known Drug Allergies Allergy Verified 01/25/18 12:01 Medications: Current Medications Albuterol/Ipratropium (Duoneb) 3 ml NEB [id number] [facility] Last Admin: 03/01/18 13:15 Dose: 3 ml Dextrose/Water (Dextrose 50%) 25 gm SLOW IVP PRN PRN PRN Reason: Hypoglycemia Docusate Sodium (Colace) 100 mg PO BID [facility] Last Admin: 03/01/18 09:34 Dose: 100 mg Enoxaparin Sodium (Lovenox) 30 mg SC 0900 [facility] Last Admin: 03/01/18 09:34 Dose: 30 mg Famotidine (Pepcid) 20 mg PO Q12HR [facility] Finasteride (Proscar) 5 mg PO DAILY [facility] Last Admin: 03/01/18 09:34 Dose: 5 mg Furosemide (Lasix) 40 mg SLOW IVP 0600 [facility] Last Admin: 03/01/18 05:19 Dose: 40 mg Glucagon (Glucagon) 1 mg IM PRN PRN PRN Reason: Hypoglycemia Cefepime HCl 1 gm/ Sodium (Chloride) 100 mls @ 200 mls/hr IVPB Q12HR [facility] Last Admin: 03/01/18 09:34 Dose: 100 mls Dextrose/Water (D5w) 1,000 mls @ 0 mls/hr IV .Q0M PRN; As Directed PRN Reason: Hypoglycemia Sodium Chloride (Normal Saline 0.9%) 1,000 mls @ 0 mls/hr IV .Q0M SHASHI PRN Reason: KVO Levofloxacin 250 mg/ Device 50 mls @ 100 mls/hr IVPB Q24HR@2000 [facility] Last Admin: 02/28/18 19:59 Dose: 50 mls Insulin Human Lispro (Humalog) 0 units SC .MILD SLIDING SCALE PRN PRN Reason: Mild Correctional Scale Miscellaneous Medication (Ventilator Sedation Protocol) 1 each FS ONE [facility] Stop: 03/29/18 18:42 Discontinue Previous Narcotic Pain Medications And Benzodiazepines 1 each FS .ONE [facility] Stop: 03/29/18 19:00 Ondansetron HCl (Zofran) 4 mg IVP Q6H PRN PRN Reason: Nausea/Vomiting Prednisone (Prednisone) 40 mg PO QAM-[facility] Sodium Chloride (Flush - Normal Saline) 10 ml IVF Q12HR [facility] Last Admin: 03/01/18 09:34 Dose: 10 ml Sodium Chloride (Flush - Normal Saline) 10 ml IVF PRN PRN PRN Reason: Saline Flush
[2018-03-01] MEDS: Famotidine 20 MG TAB PO SCH (20:59)
[2018-03-01] MEDS ORDERED: Cefepime 1 GM in Sodium Chloride 0.9% 100 ML IVPB SCH (21:00)
[2018-03-01] MEDS ORDERED: HumaLOG 300 UNITS/3 ML VIAL SC PRN (22:00)
[2018-03-02] MEDS: Furosemide 40 MG/4 ML VIAL SLOW IVP SCH (06:12)
[2018-03-02 08:56] LABS: #Eosinphils 0.1 thou/uL (0.0-0.7); #Lymphocytes 0.8 thou/uL (1.20-3.40); #Monocytes 0.5 thou/uL (0.11-0.59); #Neutrophils 7.4 thou/uL (1.40-6.50); %Eosinophils 0.8 % (0.0-10.0); %Lymphocytes 9.2 % (21.0-51.0); %Monocytes 5.3 % (0.0-10.0); %Neutrophils 84.6 % (42.0-75.0); Hemoglobin 14.6 g/dL (14.0-18.0); Mean Corpuscular HGB CONC 30.2 g/dL (32.0-36.0); Mean Corpuscular Hemoglobin 28.7 pg (27.0-31.0); Mean Corpuscular Volume 95.3 fL (78.0-98.0); Mean Platelet Volume 9.6 fL (7.4-10.4); Platelet Count 183 thou/uL (130-400); RBC Distribution Width 18.3 % (11.5-14.5); Red Blood Cell (RBC) Count 5.08 mill/uL (4.70-6.10); White Blood Cell (WBC) Count 8.7 thou/uL (4.8-10.8)
[2018-03-02] MEDS ORDERED: Acetaminophen/Codeine 30-300mg Tablet PO PRN (09:02)
[2018-03-02] MEDS: DULoxetine 30 MG CAP PO SCH (09:08)
[2018-03-02] MEDS: Docusate 100 MG CAP PO SCH ×2 (09:08→20:20)
[2018-03-02] MEDS: Clopidogrel Bisulfate 75 MG TAB PO SCH (09:09)
[2018-03-02] MEDS: Gabapentin 300 MG CAP PO SCH ×2 (09:09→20:20)
[2018-03-02] MEDS: Famotidine 20 MG TAB PO SCH ×2 (09:09→22:52)
[2018-03-02] MEDS: Cefdinir 300 MG CAP PO SCH ×2 (09:09→20:20)
[2018-03-02] MEDS: Amlodipine 10 MG TAB PO SCH (09:09)
[2018-03-02] MEDS: Finasteride 5 MG TAB PO SCH (09:10)
[2018-03-02] MEDS: predniSONE 20 MG TAB PO SCH (09:10)
[2018-03-02 09:11] LABS: Anion Gap 14 mmol/L (10-20); BUN (Urea Nitrogen) 29 mg/dL (8.4-25.7); Calc. Creatinine Clearance 79 mL/min (70-130); Calcium 9.5 mg/dL (7.8-10.44); Carbon Dioxide 37 mmol/L (23-31); Chloride 99 mmol/L (98-107); Estimated GFR-MDRD 51; Glucose 129 mg/dL (83-110); Potassium 4.5 mmol/L (3.5-5.1); Sodium 145 mmol/L (136-145)
[2018-03-02] MEDS: Enoxaparin Sodium 30 MG/0.3 ML SYRINGE SC SCH (09:16)
--- NOTE | 2018-03-02 11:56 | RAD ---
2 VIEWS CHEST: Date: 03/02/18 COMPARISON: 02/27/18. HISTORY: Pleural effusion and infiltrate. FINDINGS: Two views of the chest show an enlarged but stable cardiomediastinal silhouette. MediPort is unchange d in position. There is decreased size of the right pleural effusion. A small residual right pleural effusion and adjacent atelectasis are seen. Degenerative changes are seen in the spine. IMPRESSION: Smaller right pleural effusion with adjacent atelectasis. POS: COOKIE
[2018-03-02 12:05] LABS: CO2 Tension 86.9 mmHg (35.0-45.0); pH, Arterial 7.32 (7.35-7.45)
[2018-03-02 12:06] LABS: Actual Bicarbonate (HCO3a) 43.5 mEq/L (22-28); Base Excess (BEa) 12.9 mEq/L (-2.0 to +3.0); Hemoglobin (Hb) 14.9 g/dL (14.0-18.0); O2 Tension (PaO2) 61.7 mmHg (> 70.0)
--- NOTE | 2018-03-02 12:06 | PDOC.PN ---
- Subjective Encounter Start Date: 03/02/18 Encounter Start Time: 07:30 Subjective: awake, is ambulating in hallway -: no sob or chest pain -: ate his breakfast this am - Objective Resuscitation Status: Resuscitation Status FULL:Full Resuscitation MAR Reviewed: Yes Vital Signs & Weight: Vital Signs (12 hours) Temp Pulse Resp BP BP Pulse Ox 03/02/18 09:09 86 144/83 H 03/02/18 08:00 98.3 F 86 18 95 03/02/18 07:43 98.3 F 86 18 144/83 H 95 03/02/18 06:43 80 16 96 03/02/18 05:17 98.1 F 84 20 134/76 91 L Weight Admit Weight 318 lb 9.072 oz Weight 297 lb 4.8 oz Most Recent Monitor Data Heart Rate from ECG 75 NIBP 150/77 NIBP BP-Mean 113 Respiration from ECG 23 SpO2 97 I&O: 03/01/18 03/02/18 03/03/18 06:59 06:59 06:59 Intake Total 1118 2440 Output Total 4018 4605 Balance -2900 -2165 Result Diagrams: 03/02/18 08:45 03/02/18 08:45 Additional Labs: Accuchecks 03/02/18 03/01/18 03/01/18 05:11 21:13 16:32 POC Glucose 85 103 97 Phys Exam - Physical Examination HEENT: PERRLA, moist MMs Neck: no JVD, supple Respiratory: no wheezing, no rales Cardiovascular: RRR, no significant murmur Gastrointestinal: soft, non-tender, no distention, positive bowel sounds Musculoskeletal: pulses present, edema present Neurological: non-focal, moves all 4 limbs Psychiatric: normal affect, A&O x 3 Dx/Plan (1) Acute respiratory failure with hypoxia and hypercapnia Code(s): J96.01 - ACUTE RESPIRATORY FAILURE WITH HYPOXIA; J96.02 - ACUTE RESPIRATORY FAILURE WITH HYPERCAPNIA Status: Resolved Comment: extubated (2) PNA (pneumonia) Code(s): J18.9 - PNEUMONIA, UNSPECIFIED ORGANISM Status: Acute Qualifiers: Pneumonia type: due to unspecified organism Laterality: right (3) Non-small cell lung cancer Code(s): C34.90 - MALIGNANT NEOPLASM OF UNSP PART OF UNSP BRONCHUS OR LUNG Status: Chronic Qualifiers: Laterality: right Qualified Code(s): C34.91 - Malignant neoplasm of unspecified part of right bronchus or lung (4) COPD with exacerbation Code(s): J44.1 - CHRONIC OBSTRUCTIVE PULMONARY DISEASE W (ACUTE) EXACERBATION Status: Acute (5) LEORA (acute kidney injury) Code(s): N17.9 - ACUTE KIDNEY FAILURE, UNSPECIFIED Status: Resolved (6) Metabolic acidosis Code(s): E87.2 - ACIDOSIS Status: Resolved (7) Acute exacerbation of CHF (congestive heart failure) Code(s): I50.9 - HEART FAILURE, UNSPECIFIED Status: Acute Qualifiers: Heart failure type: diastolic Qualified Code(s): I50.33 - Acute on chronic diastolic (congestive) heart failure Comment: ef of 55% - Plan gentle diuresis -: has recovered very well post extubation yesterday, is seen amb in hallway -: on omnicef, steroid taper -: hemostable, thoracentesis per pulm advice -: outpt lee ann with cardio * . Review of Systems - Medications/Allergies Allergies/Adverse Reactions: Allergies Allergy/AdvReac Type Severity Reaction Status Date / Time No Known Drug Allergies Allergy Verified 01/25/18 12:01 Medications: Current Medications Acetaminophen/Codeine Phosphate (Tylenol #3) 2 tab PO Q8HR PRN PRN Reason: Pain Albuterol/Ipratropium (Duoneb) 3 ml NEB [id number] [facility] Last Admin: 03/02/18 06:43 Dose: 3 ml Amlodipine Besylate (Norvasc) 10 mg PO DAILY [facility] Last Admin: 03/02/18 09:09 Dose: 10 mg Cefdinir (Omnicef) 300 mg PO BID [facility] Last Admin: 03/02/18 09:09 Dose: 300 mg Clopidogrel Bisulfate (Plavix) 75 mg PO DAILY [facility] Last Admin: 03/02/18 09:09 Dose: 75 mg Dextrose/Water (Dextrose 50%) 25 gm SLOW IVP PRN PRN PRN Reason: Hypoglycemia Docusate Sodium (Colace) 100 mg PO BID [facility] Last Admin: 03/02/18 09:08 Dose: 100 mg Duloxetine HCl (Cymbalta) 30 mg PO DAILY [facility] Last Admin: 03/02/18 09:08 Dose: 30 mg Enoxaparin Sodium (Lovenox) 30 mg SC 0900 [facility] Last Admin: 03/02/18 09:16 Dose: 30 mg Famotidine (Pepcid) 20 mg PO Q12HR [facility] Last Admin: 03/02/18 09:09 Dose: 20 mg Finasteride (Proscar) 5 mg PO DAILY [facility] Last Admin: 03/02/18 09:10 Dose: 5 mg Furosemide (Lasix) 40 mg SLOW IVP 0600 [facility] Last Admin: 03/02/18 06:12 Dose: 40 mg Gabapentin (Neurontin) 300 mg PO BID [facility] Last Admin: 03/02/18 09:09 Dose: 300 mg Glucagon (Glucagon) 1 mg IM PRN PRN PRN Reason: Hypoglycemia Dextrose/Water (D5w) 1,000 mls @ 0 mls/hr IV .Q0M PRN; As Directed PRN Reason: Hypoglycemia Sodium Chloride (Normal Saline 0.9%) 1,000 mls @ 0 mls/hr IV .Q0M SHASHI PRN Reason: KVO Insulin Human Lispro (Humalog) 0 units SC .MILD SLIDING SCALE PRN PRN Reason: Mild Correctional Scale Insulin Human Lispro (Humalog) 0 units SC .BEDTIME SLIDING SC PRN; Protocol PRN Reason: BEDTIME SLIDING SCALE Discontinue Previous Narcotic Pain Medications And Benzodiazepines 1 each FS .ONE [facility] Stop: 03/29/18 19:00 Ondansetron HCl (Zofran) 4 mg IVP Q6H PRN PRN Reason: Nausea/Vomiting Prednisone (Prednisone) 40 mg PO QAM-WM [facility] Last Admin: 03/02/18 09:10 Dose: 40 mg Sodium Chloride (Flush - Normal Saline) 10 ml IVF Q12HR [facility] Last Admin: 03/02/18 06:12 Dose: 10 ml Sodium Chloride (Flush - Normal Saline) 10 ml IVF PRN PRN PRN Reason: Saline Flush
[2018-03-02 12:07] LABS: ALV-art Gradient 29.315 (0-20); Calcium, Ionized 1.2 mmol/L (1.12-1.30); Puncture Site L.R.
[2018-03-02] MEDS ORDERED: acetaZOLAMIDE Sodium 500 MG in Sodium Chloride 0.9% 50 ML IVPB SCH (14:00)
--- NOTE | 2018-03-02 14:34 | PRG ---
DATE OF SERVICE: 03/02/2018 SERVICE: Pulmonary Medicine. INTERVAL HISTORY: The patient was doing really well this morning. He was awake and alert. He has s tayed pretty late last night watching TV based on what he tells me. As such, he feels extra sleepy t his morning. Before chest x-ray, he was awake and conversive. After the chest x-ray, he was extreme ly somnolent. He wakes up and answers questions appropriately, currently. With no stimulation for m ore than 10 seconds, he will drift back off to sleep. Otherwise, there has been no interval change t o his condition. PHYSICAL EXAMINATION: VITAL SIGNS: Afebrile, pulse 86, blood pressure 144/83, respirations 18, saturation 95% on 2 liters nasal cannula. GENERAL: The patient is somnolent, but wakes up easily with minimal stimulation. HEENT: Normocephalic, atraumatic. Sclerae are white, conjunctivae pink. Oral and nasal mucosae vikas st without lesions. LUNGS: Decent air entry. Crackles are still present. There is a prolonged expiratory phase. That being said, I do not identify wheezing. Rhonchi are present, but clear with cough. HEART: Normal rate, regular. ABDOMEN: Soft, nontender, nondistended. Bowel sounds are positive. MUSCULOSKELETAL: No cyanosis or clubbing. No pitting in the bilateral lower extremities. NEUROLOGIC: Grossly nonfocal. LABORATORY DATA: WBC 8.7, hemoglobin 14.6, platelets 183,000. PH 7.32, pCO2 of 87, pO2 of 61, corre sponding to a saturation of 88%. Creatinine 1.63, continuing to trend downward; bicarbonate 37, has bumped up. Sodium 145. Blood cultures x2 remain negative. Respiratory culture is also unremarkable . IMAGING: Chest x-ray demonstrates interval improvement in the aeration of the right lung. The pleur al effusion is actually decreasing in size. ASSESSMENT: 1. Acute on chronic hypoxic and hypercapnic respiratory failure. 2. Acute on chronic diastolic heart failure. 3. Healthcare-associated pneumonia, possible. 4. Pleural effusion, chronic, but decreasing in size. 5. Non-small cell lung cancer. 6. Asthma with acute exacerbation, resolving. 7. Acute kidney injury, improving. DISCUSSION AND PLAN: We can back off on our diuretics to once daily dosing. The patient has develop ed a little bit of contraction alkalosis. As compensation, he is retaining a little bit more carbon dioxide the normal for him. He will need to continue his BiPAP in the outpatient setting. He wears it at home and we will make certain that he has it available to sleep with. Pulmonary Critical Care will continue to follow along while he remains in-house, but in 24 hours if he continues to make impr ovements, we can consider him for transition home on oral antibiotics.
[2018-03-02] MEDS: HumaLOG 300 UNITS/3 ML VIAL SC PRN (17:10)
[2018-03-03 04:28] LABS: Anion Gap 14 mmol/L (10-20); BUN (Urea Nitrogen) 31 mg/dL (8.4-25.7); Calc. Creatinine Clearance 90 mL/min (70-130); Carbon Dioxide 33 mmol/L (23-31); Chloride 99 mmol/L (98-107); Estimated GFR-MDRD 59; Glucose 108 mg/dL (83-110); Potassium 4.8 mmol/L (3.5-5.1); Sodium 141 mmol/L (136-145)
[2018-03-03] MEDS: Furosemide 40 MG/4 ML VIAL SLOW IVP SCH (06:42)
[2018-03-03] MEDS: predniSONE 20 MG TAB PO SCH (08:21)
[2018-03-03] MEDS: Finasteride 5 MG TAB PO SCH (08:22)
[2018-03-03] MEDS: Enoxaparin Sodium 30 MG/0.3 ML SYRINGE SC SCH (08:22)
[2018-03-03] MEDS: Gabapentin 300 MG CAP PO SCH ×2 (08:22→21:01)
[2018-03-03] MEDS: Famotidine 20 MG TAB PO SCH ×2 (08:22→21:01)
[2018-03-03] MEDS: Docusate 100 MG CAP PO SCH ×2 (08:22→21:01)
[2018-03-03] MEDS: Clopidogrel Bisulfate 75 MG TAB PO SCH (08:22)
[2018-03-03] MEDS: Amlodipine 10 MG TAB PO SCH (08:22)
[2018-03-03] MEDS: DULoxetine 30 MG CAP PO SCH (08:22)
[2018-03-03] MEDS: Cefdinir 300 MG CAP PO SCH ×2 (08:22→21:01)
[2018-03-03 11:53] VITALS: BMI 37.0
--- NOTE | 2018-03-03 15:56 | PDOC.PN ---
- Subjective Encounter Start Date: 03/03/18 Encounter Start Time: 07:45 Subjective: awake, is amb in room -: no sob, feels better, wants to go home - Objective Resuscitation Status: Resuscitation Status FULL:Full Resuscitation MAR Reviewed: Yes Vital Signs & Weight: Vital Signs (12 hours) Temp Pulse Resp BP BP BP Pulse Ox 03/03/18 13:28 75 12 94 L 03/03/18 11:38 98.1 F 85 16 128/78 92 L 03/03/18 08:22 98 F 80 16 137/80 137/80 92 L 03/03/18 08:00 98 F 73 16 92 L 03/03/18 06:12 73 03/03/18 06:10 73 11 L 90 L Weight Admit Weight 318 lb 9.072 oz Weight 273 lb Most Recent Monitor Data Heart Rate from ECG 75 NIBP 150/77 NIBP BP-Mean 113 Respiration from ECG 23 SpO2 97 I&O: 03/02/18 03/03/18 03/04/18 06:59 06:59 06:59 Intake Total 2440 315 Output Total 4605 500 Balance -2165 -185 Result Diagrams: 03/02/18 08:45 03/03/18 03:44 Additional Labs: Accuchecks 03/03/18 03/02/18 03/02/18 04:29 20:21 16:54 POC Glucose 91 197 H 206 H Phys Exam - Physical Examination HEENT: PERRLA, moist MMs Neck: no JVD, supple Respiratory: no wheezing, no rales rhonchi+ Cardiovascular: RRR, no significant murmur Gastrointestinal: soft, non-tender, positive bowel sounds Musculoskeletal: pulses present, edema present Neurological: non-focal, moves all 4 limbs Dx/Plan (1) Acute respiratory failure with hypoxia and hypercapnia Code(s): J96.01 - ACUTE RESPIRATORY FAILURE WITH HYPOXIA; J96.02 - ACUTE RESPIRATORY FAILURE WITH HYPERCAPNIA Status: Resolved Comment: extubated (2) PNA (pneumonia) Code(s): J18.9 - PNEUMONIA, UNSPECIFIED ORGANISM Status: Acute Qualifiers: Pneumonia type: due to unspecified organism Laterality: right (3) Non-small cell lung cancer Code(s): C34.90 - MALIGNANT NEOPLASM OF UNSP PART OF UNSP BRONCHUS OR LUNG Status: Chronic Qualifiers: Laterality: right Qualified Code(s): C34.91 - Malignant neoplasm of unspecified part of right bronchus or lung (4) COPD with exacerbation Code(s): J44.1 - CHRONIC OBSTRUCTIVE PULMONARY DISEASE W (ACUTE) EXACERBATION Status: Acute (5) LEORA (acute kidney injury) Code(s): N17.9 - ACUTE KIDNEY FAILURE, UNSPECIFIED Status: Resolved (6) Metabolic acidosis Code(s): E87.2 - ACIDOSIS Status: Resolved (7) Acute exacerbation of CHF (congestive heart failure) Code(s): I50.9 - HEART FAILURE, UNSPECIFIED Status: Acute Qualifiers: Heart failure type: diastolic Qualified Code(s): I50.33 - Acute on chronic diastolic (congestive) heart failure Comment: ef of 55% - Plan has diuresed well with iv lasix -: omnicef, steroid taper -: may dc home if ok with -: has home oxygen and cpap * . Review of Systems - Medications/Allergies Allergies/Adverse Reactions: Allergies Allergy/AdvReac Type Severity Reaction Status Date / Time No Known Drug Allergies Allergy Verified 01/25/18 12:01 Medications: Current Medications Acetaminophen/Codeine Phosphate (Tylenol #3) 2 tab PO Q8HR PRN PRN Reason: Pain Albuterol/Ipratropium (Duoneb) 3 ml NEB [id number] [facility] Last Admin: 03/03/18 13:28 Dose: 3 ml Amlodipine Besylate (Norvasc) 10 mg PO DAILY [facility] Last Admin: 03/03/18 08:22 Dose: 10 mg Cefdinir (Omnicef) 300 mg PO BID [facility] Last Admin: 03/03/18 08:22 Dose: 300 mg Clopidogrel Bisulfate (Plavix) 75 mg PO DAILY [facility] Last Admin: 03/03/18 08:22 Dose: 75 mg Dextrose/Water (Dextrose 50%) 25 gm SLOW IVP PRN PRN PRN Reason: Hypoglycemia Docusate Sodium (Colace) 100 mg PO BID [facility] Last Admin: 03/03/18 08:22 Dose: 100 mg Duloxetine HCl (Cymbalta) 30 mg PO DAILY [facility] Last Admin: 03/03/18 08:22 Dose: 30 mg Enoxaparin Sodium (Lovenox) 30 mg SC 0900 [facility] Last Admin: 03/03/18 08:22 Dose: 30 mg Famotidine (Pepcid) 20 mg PO Q12HR [facility] Last Admin: 03/03/18 08:22 Dose: 20 mg Finasteride (Proscar) 5 mg PO DAILY [facility] Last Admin: 03/03/18 08:22 Dose: 5 mg Furosemide (Lasix) 40 mg SLOW IVP 0600 [facility] Last Admin: 03/03/18 06:42 Dose: 40 mg Gabapentin (Neurontin) 300 mg PO BID [facility] Last Admin: 03/03/18 08:22 Dose: 300 mg Glucagon (Glucagon) 1 mg IM PRN PRN PRN Reason: Hypoglycemia Dextrose/Water (D5w) 1,000 mls @ 0 mls/hr IV .Q0M PRN; As Directed PRN Reason: Hypoglycemia Sodium Chloride (Normal Saline 0.9%) 1,000 mls @ 0 mls/hr IV .Q0M SHASHI PRN Reason: KVO Insulin Human Lispro (Humalog) 0 units SC .MILD SLIDING SCALE PRN PRN Reason: Mild Correctional Scale Last Admin: 03/02/18 17:10 Dose: 3 unit Insulin Human Lispro (Humalog) 0 units SC .BEDTIME SLIDING SC PRN; Protocol PRN Reason: BEDTIME SLIDING SCALE Discontinue Previous Narcotic Pain Medications And Benzodiazepines 1 each FS .ONE [facility] Stop: 03/29/18 19:00 Ondansetron HCl (Zofran) 4 mg IVP Q6H PRN PRN Reason: Nausea/Vomiting Prednisone (Prednisone) 40 mg PO QAM-WM [facility] Last Admin: 03/03/18 08:21 Dose: 40 mg Sodium Chloride (Flush - Normal Saline) 10 ml IVF Q12HR [facility] Last Admin: 03/03/18 08:23 Dose: 10 ml Sodium Chloride (Flush - Normal Saline) 10 ml IVF PRN PRN PRN Reason: Saline Flush
--- NOTE | 2018-03-03 16:43 | PRG ---
DATE OF SERVICE: 03/03/2018 SERVICE: Pulmonary Medicine. INTERVAL HISTORY: The patient is doing absolutely fantastic from a respiratory standpoint. He has b een up walking around the hallways. He does not have any dyspnea-limited activity. Otherwise, there has been no interval change to his condition. He is not coughing up any sputum. He feels that his breathing is back to baseline. PHYSICAL EXAMINATION: VITAL SIGNS: Afebrile, pulse 85, blood pressure 128/78, respirations 16, and saturation 94% on 2 lit ers nasal cannula. GENERAL: The patient is awake, alert, in no apparent distress. LUNGS: There is much improved air entry. No crackles are present. There is a prolonged expiratory phase, but I do not appreciate wheezing or rhonchi. HEART: Normal rate, regular. ABDOMEN: Soft, nontender, nondistended. Bowel sounds are positive. MUSCULOSKELETAL: No cyanosis or clubbing. No pitting in the bilateral lower extremities. NEUROLOGIC: Grossly nonfocal. LABORATORY DATA: Creatinine 1.43 and gently down trending, BUN 31. Basic metabolic profile is other montejo unremarkable. Blood cultures remain negative. ASSESSMENT: 1. Acute on chronic hypoxic and hypercapnic respiratory failure. 2. Acute on chronic diastolic heart failure. 3. Healthcare-associated pneumonia, unlikely. 4. Pleural effusion, chronic but decreasing in size with diuretics. 5. Nonsmall cell lung cancer. 6. Asthma with acute exacerbation, resolved. 7. Acute kidney injury, improving. DISCUSSION AND PLAN: From my perspective, the patient is stabilized to the point where he can likely be considered for transition home. We need to continue to diurese him in the outpatient setting on an as needed basis to prevent reaccumulation of fluid. Steroids can be limited to a 7-day course. I have cautioned him to continue using BiPAP as previously directed. He needs to follow up with Dr. Mayur field in the outpatient setting as previously directed. I will continue to follow if he remains in house, but from my perspective, he is stable for transition home, assuming all goes well.
[2018-03-03] MEDS: HumaLOG 300 UNITS/3 ML VIAL SC PRN (17:44)
[2018-03-04] MEDS: Furosemide 40 MG/4 ML VIAL SLOW IVP SCH (05:59)
[2018-03-04] MEDS: Amlodipine 10 MG TAB PO SCH (08:41)
[2018-03-04] MEDS: Finasteride 5 MG TAB PO SCH (08:41)
[2018-03-04] MEDS: Clopidogrel Bisulfate 75 MG TAB PO SCH (08:41)
[2018-03-04] MEDS: Famotidine 20 MG TAB PO SCH (08:41)
[2018-03-04] MEDS: predniSONE 20 MG TAB PO SCH (08:41)
[2018-03-04] MEDS: DULoxetine 30 MG CAP PO SCH (08:41)
[2018-03-04] MEDS: Cefdinir 300 MG CAP PO SCH (08:41)
[2018-03-04] MEDS: Gabapentin 300 MG CAP PO SCH (08:41)
[2018-03-04] MEDS: Docusate 100 MG CAP PO SCH (08:41)
[2018-03-04] MEDS: Enoxaparin Sodium 30 MG/0.3 ML SYRINGE SC SCH (08:42)
[2018-03-04 11:08] VITALS: BP 115/77; TEMP 98.6
--- NOTE | 2018-03-04 12:50 | PDOC.PN ---
- Subjective Encounter Start Date: 03/04/18 Encounter Start Time: 08:30 Subjective: breathing better, counselled to wear cpap when sleeping - Objective Resuscitation Status: Resuscitation Status FULL:Full Resuscitation MAR Reviewed: Yes Vital Signs & Weight: Vital Signs (12 hours) Temp Pulse Resp BP Pulse Ox 03/04/18 08:41 80 03/04/18 08:07 98.6 F 92 20 115/77 03/04/18 08:00 97.8 F 80 18 03/04/18 07:10 80 16 92 L Weight Admit Weight 318 lb 9.072 oz Weight 273 lb Most Recent Monitor Data Heart Rate from ECG 75 NIBP 150/77 NIBP BP-Mean 113 Respiration from ECG 23 SpO2 97 I&O: 03/03/18 03/04/18 03/05/18 06:59 06:59 06:59 Intake Total 315 520 Output Total 500 880 Balance -185 -360 Result Diagrams: 03/02/18 08:45 03/03/18 03:44 Additional Labs: Accuchecks 03/04/18 03/04/18 03/03/18 11:46 04:18 16:55 POC Glucose 144 H 90 267 H 03/03/18 11:40 POC Glucose 217 H Phys Exam - Physical Examination HEENT: PERRLA, moist MMs Neck: no JVD, supple Respiratory: no wheezing, no rales rhonchi+ Cardiovascular: RRR, no significant murmur Gastrointestinal: soft, non-tender, positive bowel sounds Musculoskeletal: no edema, pulses present Neurological: non-focal, moves all 4 limbs Psychiatric: normal affect, A&O x 3 Dx/Plan (1) Acute respiratory failure with hypoxia and hypercapnia Code(s): J96.01 - ACUTE RESPIRATORY FAILURE WITH HYPOXIA; J96.02 - ACUTE RESPIRATORY FAILURE WITH HYPERCAPNIA Status: Resolved Comment: extubated (2) PNA (pneumonia) Code(s): J18.9 - PNEUMONIA, UNSPECIFIED ORGANISM Status: Acute Qualifiers: Pneumonia type: due to unspecified organism Laterality: right (3) Non-small cell lung cancer Code(s): C34.90 - MALIGNANT NEOPLASM OF UNSP PART OF UNSP BRONCHUS OR LUNG Status: Chronic Qualifiers: Laterality: right Qualified Code(s): C34.91 - Malignant neoplasm of unspecified part of right bronchus or lung (4) COPD with exacerbation Code(s): J44.1 - CHRONIC OBSTRUCTIVE PULMONARY DISEASE W (ACUTE) EXACERBATION Status: Acute (5) LEORA (acute kidney injury) Code(s): N17.9 - ACUTE KIDNEY FAILURE, UNSPECIFIED Status: Resolved (6) Metabolic acidosis Code(s): E87.2 - ACIDOSIS Status: Resolved (7) Acute exacerbation of CHF (congestive heart failure) Code(s): I50.9 - HEART FAILURE, UNSPECIFIED Status: Acute Qualifiers: Heart failure type: diastolic Qualified Code(s): I50.33 - Acute on chronic diastolic (congestive) heart failure Comment: ef of 55% - Plan hemostable -: dc pt home when his family can pick him up -: has home oxygen and nebs -: omnicef, steroid taper along with oral lasix * . Review of Systems - Medications/Allergies Allergies/Adverse Reactions: Allergies Allergy/AdvReac Type Severity Reaction Status Date / Time No Known Drug Allergies Allergy Verified 01/25/18 12:01
--- NOTE | 2018-03-05 21:23 | DIS ---
DATE OF ADMISSION: 02/27/2018 DATE OF DISCHARGE: 03/04/2018 DISCHARGE DISPOSITION: To home. PRIMARY DISCHARGE DIAGNOSES: Acute respiratory failure with hypoxia and hypercarbia on ventilator, intubated and extubated, pneumonia, chronic obstructive pulmonary disease exacerbation, acute kidney injury, metabolic acidosis, acute congestive heart failure exacerbation with diastolic dysfunction with and an ejection fraction of 55%, history of non-small cell lung cancer on radiation and chemotherapy. PROCEDURES DONE DURING HOSPITALIZATION: Patient had chest x-ray done on the day of admission, which showed right lower lobe infiltrate with adjacent effusion. Echo with 2D Doppler showed EF of 55%-60%, moderately enlarged right atrium, severely enlarged RV cavity. Blood cultures x2 no growth. Respiratory culture grew normal respiratory nathan, hemoglobin and hematocrit 14 and 48, platelet count 183. Blood gas done on arrival showed a pH of 7.04, pCO2 139, pO2 106. Discharge BUN and creatinine is 31 and 1.4. Admitting BUN and creatinine were 33 and 2.3, potassium of 6.0, BNP was 2747. Troponin x2 negative. DISCHARGE MEDICATIONS: Prednisone 10 mg p.o. twice daily to taper over a course of 10 days, Omnicef 300 mg p.o. twice daily for 4 days, Norvasc 10 mg p.o. daily, Plavix 75 mg p.o. daily, Cymbalta 30 mg p.o. daily, finasteride 5 mg p.o. daily, Lasix 40 mg p.o. daily, Neurontin 300 mg p.o. twice daily, hydralazine 25 mg p.o. 3 times daily, DuoNebs q.4 hourly p.r.n., metformin 1000 mg p.o. twice daily. ALLERGIES: No known drug allergies. INPATIENT CONSULTS: Dr. Quinn for Pulmonology. BRIEF COURSE DURING HOSPITALIZATION: Patient initially got admitted on the with altered mental state and acute respiratory failure with hypoxia and hypercarbia. The patient had to be intubated in the ER for above. He had severe acidosis with pH of around 7.0. The patient was admitted to ICU. He has known history of non-small cell, poorly differentiated carcinoma diagnosed in August of this year. The patient had been receiving radiation and chemotherapy. He was successfully extubated after 72 hours on the ventilator. The patient has done remarkably well during his brief stay here. Prior to discharge, he is ambulating and eating well. The patient also got gently diuresed as well for his CHF exacerbation with diastolic dysfunction. The patient has grade C diastolic dysfunction. He has been advised to follow up with his oncologist in 2 weeks and primary care physician in 1 week. The patient is to continue antibiotics as prescribed along with steroid taper. Please see a [id number] documentation on [facility] for the day of discharge. MTDD
== END 2018-03-04 12:26 | disposition home or self-care (01) | DRG 208 ==
LOC: ERS 14:14 → CCU 16:45 → T4-B 03-01 16:01
PROVIDERS: ADMIT Internal Medicine; ATTEND Internal Medicine
PROC: 5A1945Z Respiratory Ventilation, 24-96 Consecutive Hours (ICD-10-PCS; principal; 2018-02-27)
PROC: 0BH17EZ Insertion of Endotracheal Airway into Trachea, Via Natural or Artificial Opening (ICD-10-PCS; 2018-02-27)
DX: J96.21 Acute and chronic respiratory failure with hypoxia (principal); J18.9 Pneumonia, unspecified organism; I50.33 Acute on chronic diastolic (congestive) heart failure; N17.9 Acute kidney failure, unspecified; C34.11 Malignant neoplasm of upper lobe, right bronchus or lung; C79.51 Secondary malignant neoplasm of bone; E66.2 Morbid (severe) obesity with alveolar hypoventilation; J44.0 Chronic obstructive pulmonary disease with (acute) lower respiratory infection; J44.1 Chronic obstructive pulmonary disease with (acute) exacerbation; E87.2 Acidosis; I11.0 Hypertensive heart disease with heart failure; J96.22 Acute and chronic respiratory failure with hypercapnia; I48.91 Unspecified atrial fibrillation; E11.9 Type 2 diabetes mellitus without complications; E78.5 Hyperlipidemia, unspecified; F17.210 Nicotine dependence, cigarettes, uncomplicated; Y95 Nosocomial condition; Z85.038 Personal history of other malignant neoplasm of large intestine; Z79.84 Long term (current) use of oral hypoglycemic drugs; Z68.37 Body mass index [BMI] 37.0-37.9, adult
CPT/HCPCS: 31500; 36415; 36416; 71045; 71046; 80048; 80053; 81003; 81015; 82553; 82805; 83880; 84484; 85025; 87070; 87205; 93005; 93306; 93798; 94002; 94003; 94640; 94660; 94760; 96365; 96367; 96368; A4216; G8981-GP-CJ; G8982-GP-CJ; G8983-GP-CJ; J0692; J1120; J1650; J1940; J1956; J2543; J2704; J2920; J3370; J7050; J7506; J7620; S0028

== ENCOUNTER 2018-06-23 07:58 | Outpatient (CLI) | payer MEDICARE, MEDICAID ==
[2018-06-23] MEDS ORDERED: Iopamidol 370 76% 100 ML VIAL ONE (09:00)
--- NOTE | 2018-06-23 11:12 | CT ---
CT OF THE THORAX WITH IV CONTRAST: INDICATION: Followup lung cancer. COMPARISON: Prior exam dated 09/05/2017 and 01/11/2018. FINDINGS: The pleural-based posterior segment right upper lobe pulmonary nodule has decreased in size with surr ounding radiation therapy pulmonary fibrosis and diffuse pleural thickening. The nodule now measures 1.4 cm whereas previously it measured 2.4 cm. However, there has been interval development of 2 new pulmonary nodules within the right upper lobe suspicious for regional metastatic disease. One is se en measuring 1 cm on image 16 of series 3. An additional is seen measuring 1.4 cm on image 17 of ser ies 3. There is some reticulonodularity involving the posterior right lower lobe which is nonspecific. No a dditional suspicious pulmonary nodule is evident. There is scattered paraseptal emphysema. The lytic lesion involving the posterior right 9th rib has enlarged and now measures 5 x 3.1 cm where it previously measured 3.3 x 2.2 cm. Enlarged lymph node seen within the right paratracheal region has slightly decreased in size now garret uring 1 cm where it previously measured 1.4 x 1.6 cm. There is a left chest wall port in place. There is a stable cyst within the left hepatic lobe. Adre nal glands are normal-appearing. There is scattered degenerative and osteoarthritic change. IMPRESSION: 1. Worsening metastatic disease. 2. The malignancy within the right lung apex has reduced in size with surrounding radiation-induced fibrotic change. However, there has been interval development of 2 new pulmonary nodules in the righ t upper lobe suspicious for localized spread of disease in the right upper lobe. 3. Enlarging metastatic lesion of the right posterior 9th rib. 4. Reticulonodularity of the right lower lobe is suspicious for respiratory bronchiolitis. This cou ld be related to prior aspiration as well. 5. Stable left hepatic lobe cyst. 6. Slightly reduced size of the enlarged right paratracheal lymph node seen on the prior examination now measuring just over [address] POS: [facility]
== END 2018-06-23 07:59 | disposition home or self-care (01) ==
LOC: SCSCT 07:58
PROVIDERS: ATTEND Internal Medicine Hematology & Oncology
DX: C34.91 Malignant neoplasm of unspecified part of right bronchus or lung (principal); C79.51 Secondary malignant neoplasm of bone; R91.1 Solitary pulmonary nodule; K76.89 Other specified diseases of liver
CPT/HCPCS: 71260

== ENCOUNTER 2018-07-19 12:31 | Day surgery (SDC) | payer MEDICARE, MEDICAID ==
[2018-07-19 14:57] LABS: #Eosinphils 0.2 thou/uL (0.0-0.7); #Lymphocytes 1.2 thou/uL (1.20-3.40); #Monocytes 0.6 thou/uL (0.11-0.59); #Neutrophils 5.3 thou/uL (1.40-6.50); %Basophils 0.6 % (0.0-1.0); %Eosinophils 2.4 % (0.0-10.0); %Lymphocytes 16.3 % (21.0-51.0); %Monocytes 8.3 % (0.0-10.0); %Neutrophils 72.4 % (42.0-75.0); Hemoglobin 11.4 g/dL (14.0-18.0); Mean Corpuscular HGB CONC 31.5 g/dL (32.0-36.0); Mean Corpuscular Hemoglobin 32.6 pg (27.0-31.0); Mean Platelet Volume 8.3 fL (7.4-10.4); Platelet Count 249 thou/uL (130-400); RBC Distribution Width 19.9 % (11.5-14.5); Red Blood Cell (RBC) Count 3.51 mill/uL (4.70-6.10); White Blood Cell (WBC) Count 7.3 thou/uL (4.8-10.8)
[2018-07-19 15:11] LABS: ALT (SGPT) 9 U/L (8-55); AST (SGOT) 16 U/L (5-34); Alkaline Phosphatase 84 U/L (40-150); Anion Gap 14 mmol/L (10-20); BUN (Urea Nitrogen) 27 mg/dL (8.4-25.7); Bilirubin, Total 0.2 mg/dL (0.2-1.2); Calc. Creatinine Clearance 64 mL/min (70-130); Calcium 9.5 mg/dL (7.8-10.44); Carbon Dioxide 30 mmol/L (23-31); Chloride 101 mmol/L (98-107); Estimated GFR-MDRD 39; Globulin 2.6 g/dL (2.4-3.5); Glucose 159 mg/dL (83-110); LDH 223 U/L (125-220); Potassium 4.2 mmol/L (3.5-5.1); Protein, Total 6.6 g/dL (5.8-8.1); Sodium 141 mmol/L (136-145); Uric Acid 8.5 mg/dL (3.5-7.2)
[2018-07-19 15:29] LABS: T4 5.5 ug/dL (4.87-11.72); Thyroid Stimulating Hormone 0.8892 uIU/mL (0.35-4.94)
[2018-07-19] MEDS ORDERED: Nivolumab 240 MG in Sodium Chloride 0.9% 250 ML 250 ML IVPB SCH (16:15)
== END 2018-07-19 18:06 | disposition home or self-care (01) ==
LOC: ONC/OP 12:31
PROVIDERS: ATTEND Internal Medicine Hematology & Oncology
DX: Z51.11 Encounter for antineoplastic chemotherapy (principal); C34.11 Malignant neoplasm of upper lobe, right bronchus or lung; C79.51 Secondary malignant neoplasm of bone; E11.9 Type 2 diabetes mellitus without complications; I11.0 Hypertensive heart disease with heart failure; I50.9 Heart failure, unspecified; I48.91 Unspecified atrial fibrillation; E78.00 Pure hypercholesterolemia, unspecified; M19.90 Unspecified osteoarthritis, unspecified site; J44.9 Chronic obstructive pulmonary disease, unspecified; G47.33 Obstructive sleep apnea (adult) (pediatric); N40.0 Benign prostatic hyperplasia without lower urinary tract symptoms; F17.210 Nicotine dependence, cigarettes, uncomplicated; Z85.038 Personal history of other malignant neoplasm of large intestine; Z79.02 Long term (current) use of antithrombotics/antiplatelets; Z79.84 Long term (current) use of oral hypoglycemic drugs; Z79.899 Other long term (current) drug therapy; Z99.89 Dependence on other enabling machines and devices; Z90.49 Acquired absence of other specified parts of digestive tract
CPT/HCPCS: 80053; 83615; 84436; 84443; 84550; 85025; 96413; J7050; J9299

== ENCOUNTER 2018-08-02 09:39 | Day surgery (SDC) | payer MEDICARE, MEDICAID ==
[2018-08-02] MEDS ORDERED: Sodium Chloride 0.9% 20 ML ONE (09:49)
[2018-08-02] MEDS ORDERED: Nivolumab 240 MG in Sodium Chloride 0.9% 250 ML 250 ML IVPB SCH (10:15)
[2018-08-02 11:54] VITALS: BP 121/64; TEMP 99.1
== END 2018-08-02 13:10 | disposition home or self-care (01) ==
LOC: ONC/OP 09:39
PROVIDERS: ATTEND Internal Medicine Hematology & Oncology
DX: Z51.11 Encounter for antineoplastic chemotherapy (principal); C34.11 Malignant neoplasm of upper lobe, right bronchus or lung; C79.51 Secondary malignant neoplasm of bone; E11.9 Type 2 diabetes mellitus without complications; I11.0 Hypertensive heart disease with heart failure; I50.9 Heart failure, unspecified; I48.91 Unspecified atrial fibrillation; E78.00 Pure hypercholesterolemia, unspecified; M19.90 Unspecified osteoarthritis, unspecified site; J44.9 Chronic obstructive pulmonary disease, unspecified; G47.33 Obstructive sleep apnea (adult) (pediatric); F17.210 Nicotine dependence, cigarettes, uncomplicated; Z85.038 Personal history of other malignant neoplasm of large intestine; Z79.02 Long term (current) use of antithrombotics/antiplatelets; Z79.84 Long term (current) use of oral hypoglycemic drugs; Z79.899 Other long term (current) drug therapy; Z99.89 Dependence on other enabling machines and devices; Z90.49 Acquired absence of other specified parts of digestive tract
CPT/HCPCS: 96413; J1642; J7050; J9299

== ENCOUNTER 2018-08-16 10:30 | Day surgery (SDC) | payer MEDICARE, MEDICAID ==
[2018-08-16] MEDS ORDERED: Nivolumab 240 MG in Sodium Chloride 0.9% 250 ML 250 ML IVPB SCH (10:45)
[2018-08-16] MEDS ORDERED: Sodium Chloride 0.9% 20 ML ONE (11:42)
[2018-08-16 11:54] VITALS: BP 126/74; TEMP 98.3
== END 2018-08-16 12:40 | disposition home or self-care (01) ==
LOC: ONC/OP 10:30
PROVIDERS: ATTEND Internal Medicine Hematology & Oncology
DX: Z51.11 Encounter for antineoplastic chemotherapy (principal); C34.11 Malignant neoplasm of upper lobe, right bronchus or lung; C79.51 Secondary malignant neoplasm of bone; J44.9 Chronic obstructive pulmonary disease, unspecified; E11.9 Type 2 diabetes mellitus without complications; I11.0 Hypertensive heart disease with heart failure; I50.9 Heart failure, unspecified; I48.91 Unspecified atrial fibrillation; E78.00 Pure hypercholesterolemia, unspecified; G47.33 Obstructive sleep apnea (adult) (pediatric); N40.0 Benign prostatic hyperplasia without lower urinary tract symptoms; F17.210 Nicotine dependence, cigarettes, uncomplicated; Z79.84 Long term (current) use of oral hypoglycemic drugs; Z79.899 Other long term (current) drug therapy; Z90.49 Acquired absence of other specified parts of digestive tract; Z99.89 Dependence on other enabling machines and devices
CPT/HCPCS: 80053; 82248; 83615; 84100; 84436; 84443; 84550; 96413; 96415; J1642; J7050; J9299

== ENCOUNTER 2018-08-30 11:18 | Day surgery (SDC) | payer MEDICARE, MEDICAID ==
[2018-08-30] MEDS ORDERED: Nivolumab 240 MG in Sodium Chloride 0.9% 250 ML 250 ML IVPB SCH (11:45)
[2018-08-30 11:46] VITALS: BP 135/84; TEMP 99.2
[2018-08-30] MEDS ORDERED: Sodium Chloride 0.9% 20 ML ONE (13:22)
== END 2018-08-30 13:31 | disposition home or self-care (01) ==
LOC: ONC/OP 11:18
PROVIDERS: ATTEND Internal Medicine Hematology & Oncology
DX: Z51.12 Encounter for antineoplastic immunotherapy (principal); C34.11 Malignant neoplasm of upper lobe, right bronchus or lung; C79.51 Secondary malignant neoplasm of bone; E11.9 Type 2 diabetes mellitus without complications; I11.0 Hypertensive heart disease with heart failure; I50.9 Heart failure, unspecified; I48.91 Unspecified atrial fibrillation; E78.00 Pure hypercholesterolemia, unspecified; M19.90 Unspecified osteoarthritis, unspecified site; J44.9 Chronic obstructive pulmonary disease, unspecified; G47.33 Obstructive sleep apnea (adult) (pediatric); N40.0 Benign prostatic hyperplasia without lower urinary tract symptoms; F17.210 Nicotine dependence, cigarettes, uncomplicated; Z85.038 Personal history of other malignant neoplasm of large intestine; Z79.84 Long term (current) use of oral hypoglycemic drugs; Z79.899 Other long term (current) drug therapy; Z90.49 Acquired absence of other specified parts of digestive tract
CPT/HCPCS: 96413; J1642; J7050; J9299

== ENCOUNTER 2018-09-27 01:09 | Day surgery (SDC) | payer MEDICARE, MEDICAID ==
[2018-09-27] MEDS ORDERED: Nivolumab 240 MG in Sodium Chloride 0.9% 250 ML 250 ML IVPB SCH (03:30)
[2018-09-27 09:42] VITALS: BP 152/85; TEMP 98.4
== END 2018-09-27 11:43 | disposition home or self-care (01) ==
LOC: ONC/OP 01:09
PROVIDERS: ATTEND Internal Medicine Hematology & Oncology
DX: Z51.11 Encounter for antineoplastic chemotherapy (principal); C34.11 Malignant neoplasm of upper lobe, right bronchus or lung; I11.0 Hypertensive heart disease with heart failure; I50.9 Heart failure, unspecified; I48.91 Unspecified atrial fibrillation; E11.9 Type 2 diabetes mellitus without complications; E78.00 Pure hypercholesterolemia, unspecified; J44.9 Chronic obstructive pulmonary disease, unspecified; M19.90 Unspecified osteoarthritis, unspecified site; G47.33 Obstructive sleep apnea (adult) (pediatric); N40.0 Benign prostatic hyperplasia without lower urinary tract symptoms; F17.210 Nicotine dependence, cigarettes, uncomplicated; Z99.89 Dependence on other enabling machines and devices; Z90.49 Acquired absence of other specified parts of digestive tract; Z79.52 Long term (current) use of systemic steroids; Z85.038 Personal history of other malignant neoplasm of large intestine; Z79.84 Long term (current) use of oral hypoglycemic drugs; Z79.2 Long term (current) use of antibiotics; Z79.899 Other long term (current) drug therapy
CPT/HCPCS: 96413; J1642; J7050; J9299

== ENCOUNTER 2018-10-11 00:15 | Day surgery (SDC) | payer MEDICARE, MEDICAID ==
[2018-10-11] MEDS ORDERED: Nivolumab 240 MG in Sodium Chloride 0.9% 250 ML 250 ML IVPB SCH (02:30)
[2018-10-11] MEDS ORDERED: Sodium Chloride 0.9% 20 ML ONE (10:37)
[2018-10-11 11:06] VITALS: BP 140/83; TEMP 98.9
== END 2018-10-11 12:14 | disposition home or self-care (01) ==
LOC: ONC/OP 00:15
PROVIDERS: ATTEND Internal Medicine Hematology & Oncology
DX: Z51.11 Encounter for antineoplastic chemotherapy (principal); C34.11 Malignant neoplasm of upper lobe, right bronchus or lung
CPT/HCPCS: 36415; 80053; 82248; 83615; 84100; 84436; 84443; 84550; 96413; J1642; J7050; J9299

== ENCOUNTER 2019-01-15 13:39 | Outpatient (CLI) | payer MEDICARE, MEDICAID ==
--- NOTE | 2019-01-15 14:36 | RAD ---
LEFT SUBCLAVIAN MEDIPORT CHECK: HISTORY: Nonfunctioning left subclavian Mediport. FINDINGS: Through a previously inserted Meneses needle approximally 5 cc of sterile iodinated contrast was inject ed into the needle. There is extravasation of contrast at the insertion of the catheter in the region of the subclavian vein. This is concerning for fracture of the catheter at the insertion site. Contrast does not pass into the mid and distal aspect of the Mediport catheter. IMPRESSION: Fracture of the Mediport catheter at the insertion site into the subclavian vein just inferior to the mid subclavian region. Transcribed Date/Time: 01/15/2019 2:39 PM
== END 2019-01-15 13:40 | disposition home or self-care (01) ==
LOC: RAD 13:39
PROVIDERS: ATTEND Internal Medicine Hematology & Oncology
DX: T82.598A Other mechanical complication of other cardiac and vascular devices and implants, initial encounter (principal); R07.9 Chest pain, unspecified
CPT/HCPCS: 36598; J1642

== ENCOUNTER → 2019-01-23 | Day surgery (SDC) | payer MEDICARE, MEDICAID ==
[2019-01-22 13:10] VITALS: BMI 38.2
[~2019-01-23] MED LIST changes: -CEFAZOLIN/Water 2 GM/20 ML SYRINGE ONE; -Midazolam HCl 2 mg/2 ml Vial ONE; +Propofol 500 MG/50 ML VIAL ONE
--- NOTE | 2019-01-23 07:34 | RAD ---
XR Chest Pa Lat STANDARD History: Preop. MediPort removal and replacement Comparison: CT chest 12/20/2018 Findings: There is a new right lower lobe airspace opacity. Abnormal lymphoma. The will bilaterally c onsistent with the known pulmonary arterial dilatation. No pneumothorax. No large effusion. Port catheter tip in SVC. Impression: New mild right infrahilar and lower lobe opacity. This may reflect infection, metastasis versus a dilated peripheral right lower lobe pulmonary artery.
[2019-01-23 08:00] LABS: Hemoglobin 10.3 g/dL (14.0-18.0); Mean Corpuscular HGB CONC 32.3 g/dL (32.0-36.0); Mean Corpuscular Hemoglobin 30.2 pg (27.0-31.0); Mean Corpuscular Volume 93.5 fL (78.0-98.0); Mean Platelet Volume 6.4 fL (7.4-10.4); Platelet Count 401 thou/uL (130-400); RBC Distribution Width 14.5 % (11.5-14.5); White Blood Cell (WBC) Count 5.4 thou/uL (4.8-10.8)
[2019-01-23 08:05] LABS: Anion Gap 11 mmol/L (10-20); BUN (Urea Nitrogen) 21 mg/dL (8.4-25.7); Calc. Creatinine Clearance 93 mL/min (70-130); Calcium 9.7 mg/dL (7.8-10.44); Carbon Dioxide 30 mmol/L (23-31); Chloride 106 mmol/L (98-107); Estimated GFR-MDRD 66; Glucose 99 mg/dL (83-110); Potassium 4.3 mmol/L (3.5-5.1); Sodium 143 mmol/L (136-145)
[2019-01-23 08:35] LABS: Band 2 % (5-11); Eosinophils 5 % (0-10); Lymphocytes 31 % (21-51); MDiff Complete? YES; Monocytes 8 % (0-10); Myelocyte 4 % (0-0); Neutrophil 50 % (42-75); Platelet Morphology Comment Appears Adequate; Polychromasia SLIGHT = 2-3 cells (100X) (0-2/hpf)
--- NOTE | 2019-01-23 10:14 | RAD ---
FRONTAL RADIOGRAPH CHEST: DATE: 01/23/2019. TIME: 10:06 AM. COMPARISON: 01/23/2019 at 7:29 AM. HISTORY: Mediport evaluation. FINDINGS: A CT injectable left-sided Port-A-Cath is present, distal tip overlying the cavoatrial junction. Ther e is focal opacity in the right perihilar region, suggesting dilated vascular structures when compared to prior CT examination. There is increased density in the right paratracheal region, also l ikely on the basis of vascular structures. The lung parenchyma is better assessed on the 12/20/2018 CT examination. No focal consolidation or alveolar edema. No pneumothorax. IMPRESSION: Chronic findings as detailed above. Transcribed Date/Time: 01/23/2019 10:17 AM
--- NOTE | 2019-01-24 10:51 | OP ---
DATE OF PROCEDURE: 01/23/2019 PREOPERATIVE DIAGNOSES: Left subclavian MediPort dysfunction with apparent fracture within the catheter. POSTOPERATIVE DIAGNOSES: Left subclavian MediPort dysfunction with apparent fracture within the catheter. PROCEDURES PERFORMED: Removal of left subclavian MediPort, placement of a new left subclavian standard size power compatible MediPort. ANESTHESIA: Total intravenous anesthesia with local using 0.25% Marcaine with epinephrine. INDICATIONS: The patient is a 73-year-old black male. He is receiving chemotherapy for lung cancer. His left subclavian MediPort was placed over year ago, but recently has had some problems and a port study revealed evidence of a fracture within the catheter. He is taken to the operating room for removal of his old port and catheter and placement of a new one. DESCRIPTION OF OPERATION: Informed consent was obtained. The patient was taken to the operating room, where total intravenous anesthesia obtained with the patient in supine position. Left chest was prepped with ChloraPrep and draped in sterile fashion. Local anesthetic was infiltrated over the prior incision using 0.25% Marcaine with epinephrine. Prior incision was reopened. Dissection was carried down to the port and catheter. These were each dissected free circumferentially using electrocautery and the port was removed from within its subcutaneous pocket. The catheter was transected and the port was passed off the field. A guidewire was passed uneventfully through the catheter and the catheter was removed over the guidewire. An introducer dilator was then passed over the guidewire. This proved to be relatively snug and there appeared to be some fibrotic scar tissue. I dissected down along the catheter tract, lysing the scar tissue with electrocautery as it was encountered. The guidewire was then removed. Catheter was passed through the introducer, and the introducer was removed in the usual peel-apart fashion. The catheter tip was positioned at the atriocaval junction. The catheter was trimmed to appropriate length and secured to the locking hub of the MediPort. The port was placed back in the same location that it had been previously. It was secured to pectoral fascia with 2 interrupted sutures of 3-0 Prolene. The port aspirated blood freely and was flushed with heparinized saline. The wound was closed in layers with 3-0 and 4-0 Monocryl. Dermabond was placed externally. The patient was going to receive chemotherapy right after this procedure. I therefore cannulated the port with the Meneses needle and flushed this with additional heparinized saline. Sterile occlusive dressing was applied over the Meneses needle. There were no complications. The patient tolerated the procedure well and was taken to recovery room in stable condition. Job ID: [id number]
== END ==
LOC: SDC 06:47
PROVIDERS: ATTEND Specialist
PROC: 05H633Z Insertion of Infusion Device into Left Subclavian Vein, Percutaneous Approach (ICD-10-PCS; principal; 2019-01-23)
DX: T82.514A Breakdown (mechanical) of infusion catheter, initial encounter (principal); C18.9 Malignant neoplasm of colon, unspecified; C34.90 Malignant neoplasm of unspecified part of unspecified bronchus or lung; J44.9 Chronic obstructive pulmonary disease, unspecified; F17.200 Nicotine dependence, unspecified, uncomplicated; E78.00 Pure hypercholesterolemia, unspecified; M19.90 Unspecified osteoarthritis, unspecified site; E11.9 Type 2 diabetes mellitus without complications; I50.9 Heart failure, unspecified; I48.91 Unspecified atrial fibrillation; G47.30 Sleep apnea, unspecified; Z79.51 Long term (current) use of inhaled steroids; Z79.84 Long term (current) use of oral hypoglycemic drugs; Z79.899 Other long term (current) drug therapy
CPT/HCPCS: 36415; 71045; 71046; 80048; 85025; 93005; 93010; C1788; J0131; J0690; J1642; J1885; J2001; J2704; J3010

== ENCOUNTER 2019-08-20 10:45 | Outpatient (CLI) | payer MEDICARE, MEDICAID ==
--- NOTE | 2019-08-20 13:02 | RAD ---
2 VIEWS CHEST: Date: 08/20/2019 COMPARISON: 01/23/2019. HISTORY: Dyspnea. FINDINGS: 2 views of the chest show normal sized cardiomediastinal silhouette. MediPort is unchanged in positio n. There is a stable right hilar mass. No consolidation or pleural effusion seen. IMPRESSION: Stable exam. POS: [facility]
== END 2019-08-20 10:46 | disposition home or self-care (01) ==
LOC: RAD 10:45
PROVIDERS: ATTEND Internal Medicine Critical Care Medicine
DX: R06.00 Dyspnea, unspecified (principal)
CPT/HCPCS: 71046; 80053; 82248; 83615; 84100; 84550

== ENCOUNTER 2019-09-12 13:07 | Inpatient (IN) | payer MEDICARE, MEDICAID ==
[2019-09-12] MEDS ORDERED: Fentanyl 100 MCG/2 ML VIAL ONE (13:23)
[2019-09-12] MEDS ORDERED: fentaNYL Citrate/PF 2,000 MCG in Sodium Chloride 0.9% 60 ML IV SCH (13:26)
[2019-09-12] MEDS ORDERED: Nitroglycerin 50 MG/250 ML BOT 250 ML ONE (13:28)
[2019-09-12 13:57] LABS: Actual Bicarbonate (HCO3a) 42.1 mEq/L (22-28); Analyzer IN Cardio ER; Base Excess (BEa) 13.5 mEq/L (-2.0 to +3.0); Calcium, Ionized 1.16 mmol/L (1.12-1.30); Carboxyhemoglobin (COHb) 4.4 gm% (0.0-3.0); Hemoglobin (Hb) 11.6 g/dL (14.0-18.0); pH, Arterial 7.35 (7.35-7.45)
--- NOTE | 2019-09-12 14:20 | RAD ---
EXAM: Single view of the chest HISTORY: Respiratory failure COMPARISON: 09/12/2019 FINDINGS: Single view of the chest shows an enlarged but stable cardiomediastinal silhouette. The en dotracheal tube is low-lying with its tip just above the lou. The Mediport is unchanged in position. Opacity in the right lung base may represent atelectasis. The bones are unremarkable. IMPRESSION: Low-lying endotracheal tube should be withdrawn approximately 3.5 cm.
[2019-09-12 15:00] LABS: CO2 Tension 77.5 mmHg (35.0-45.0); O2 Tension (PaO2) 38.6 mmHg (> 70.0); Puncture Site LRA
[2019-09-12 15:02] LABS: ALV-art Gradient 399.275 (0-20)
[2019-09-12 15:24] LABS: Troponin I 0.012 ng/mL (< 0.028)
[2019-09-12] MEDS ORDERED: Ondansetron PF 4 MG/2 ML Vial IVP PRN (16:39)
[2019-09-12] MEDS ORDERED: Ondansetron ODT 4 MG TAB SL PRN (16:39)
[2019-09-12] MEDS ORDERED: Acetaminophen 325 MG TAB PO PRN (16:39)
[2019-09-12] MEDS ORDERED: CCU Electrolyte Replacement 1 EACH FS SCH (16:45)
[2019-09-12] MEDS ORDERED: Ventilator Sedation Protocol 1 EACH FS SCH (16:45)
[2019-09-12] MEDS ORDERED: Bacteriostatic Water 30 ML VIAL FS PRN (16:51)
[2019-09-12] MEDS ORDERED: Potassium Phosphate 15 MMOL in Sodium Chloride 0.9% 250 ML 250 ML IV PRN (16:52)
[2019-09-12] MEDS ORDERED: Potassium Chloride 40 MEQ in Sodium Chloride 0.9% 250 ML 250 ML IVPB PRN (16:52)
[2019-09-12] MEDS ORDERED: Magnesium 2 GM/50 ML 2 GM in Premix Bag 1 BAG IVPB PRN (16:52)
[2019-09-12] MEDS ORDERED: Magnesium Oxide 400 MG TAB PO PRN ×2 (16:52)
[2019-09-12] MEDS ORDERED: PHOS-NAK 1 PKT PACK PO PRN ×2 (16:52)
[2019-09-12] MEDS ORDERED: Potassium Phosphate 9 MMOL in Sodium Chloride 0.9% 100 ML IVPB PRN (16:52)
[2019-09-12] MEDS ORDERED: Potassium Phosphate 12 MMOL in Sodium Chloride 0.9% 250 ML 250 ML IV PRN (16:52)
[2019-09-12] MEDS ORDERED: CCU ELECTROLYTE REPLACEMENT PROTOCOL FS PRN (16:52)
[2019-09-12] MEDS ORDERED: Potassium Chloride 20 MEQ TAB PO PRN (16:52)
[2019-09-12] MEDS ORDERED: Potassium Chloride 40 MEQ in Premix Bag 1 BAG IVPB PRN (16:52)
[2019-09-12] MEDS ORDERED: Morphine 2 MG/ML SYRINGE SLOW IVP PRN (16:53)
[2019-09-12] MEDS ORDERED: Propofol BOLUS 1,000 MG/100 ML VIAL IV PRN (16:53)
[2019-09-12] MEDS ORDERED: Fentanyl BOLUS 250 ML IVPB PRN (16:53)
[2019-09-12] MEDS ORDERED: DISCONTINUE PREVIOUS NARCOTIC PAIN MEDICATIONS AND BENZODIAZEPINES FS SCH (16:53)
[2019-09-12] MEDS ORDERED: Dextrose 5% in Water 1,000 ML IV PRN (17:04)
[2019-09-12] MEDS ORDERED: Dextrose 50% Abboject 50 ML SYRINGE SLOW IVP PRN (17:04)
[2019-09-12 17:44] LABS: Hemoglobin 10.4 g/dL (14.0-18.0); Mean Corpuscular HGB CONC 29.6 g/dL (32.0-36.0); Mean Corpuscular Hemoglobin 29.5 pg (27.0-31.0); Mean Corpuscular Volume 99.9 fL (78.0-98.0); Mean Platelet Volume 7.4 fL (7.4-10.4); Platelet Count 71 thou/uL (130-400); RBC Distribution Width 22.5 % (11.5-14.5); Red Blood Cell (RBC) Count 3.52 mill/uL (4.70-6.10); White Blood Cell (WBC) Count 7.7 thou/uL (4.8-10.8)
[2019-09-12 17:47] LABS: INR-International Normal Ratio 1.1; PTT 25.1 SEC (22.9-36.1)
[2019-09-12] MEDS: Propofol 1,000 MG/100 ML VIAL IV PRN ×2 (17:54→22:25)
[2019-09-12] MEDS: Piperacillin/Tazobactam 3.375 GM in Sodium Chloride 0.9% 100 ML IVPB SCH (17:55)
[2019-09-12] MEDS: methylPREDNISolone Sod Succ 40 MG VIAL IVP SCH (17:55)
[2019-09-12 18:13] LABS: Anisocytosis SLIGHT = 6-15 cells (100X) (0-5/hpf); Band 6 % (5-11); Hypochromia SLIGHT = 6-15 cells (100X) (0-5/hpf); Lymphocytes 9 % (21-51); MDiff Complete? YES; Macrocytosis SLIGHT = 6-15 cells (100X) (0-5/hpf); Monocytes 8 % (0-10); Neutrophil 74 % (42-75); Nucleated RBC 24 % (0); Platelet Morphology Comment Appears Decreased; Polychromasia MODERATE = 3-4 cells (100X) (0-2/hpf); Reactive Lymphocytes 3 % (0-10); Target Cells SLIGHT = 2-5 cells (100X) (0-1/hpf); Tear Drops SLIGHT = 2-5 cells (100X) (0-1/hpf)
[2019-09-12 19:54] LABS: Troponin I Less than 0.010 ng/mL (< 0.028)
[2019-09-12] MEDS: Vancomycin HCl 1 GM in Premix Bag 1 BAG IVPB SCH (20:57)
[2019-09-12] MEDS: Famotidine/PF 20 mg/2ml Vial SLOW IVP SCH (20:57)
--- NOTE | 2019-09-12 21:43 | CON ---
DATE OF CONSULTATION: HISTORY OF PRESENT ILLNESS: Matheus Vera is a 73-year-old male, clinically presented with respiratory failure, and was intubated. He has a long history of lung cancer. He has been seen from what I can tell by Dr. Lynn in the past. He is not surprisingly been in the hospital frequently. Last time I find that he was in the hospital was in March of 2015. At that time, he was admitted by Dr. Lynn with diastolic heart failure, respiratory failure, requiring mechanical ventilation, obstructive sleep apnea, obesity, hypertension, and a possible pneumonia. He went home on Plavix, Lasix, Levaquin, tamsulosin, amlodipine, hydralazine, and metformin. He is tentatively scheduled for followup with all of his physicians. He has primarily been followed by Dr. Cummins for what I can tell since that time. He was admitted here by the hospitalist with respiratory failure today. He has a history of lung cancer, being followed by Dr. Cummins. PAST MEDICAL HISTORY: Remarkable for, 1. COPD. 2. History of lipid disorder. 3. History of sleep apnea. 4. History of chemoradiotherapy for lung cancer in his right lung. 5. History of congestive heart failure. 6. History of diabetes. 7. History of hypertension. 8. History of colon cancer, requiring surgery. 9. History of arthritis. 10. History of medical access port in his left chest. SOCIAL HISTORY: He drinks rarely. He has been a marijuana smoker. He is currently cigarette smoker. REVIEW OF SYSTEMS: Not obtainable. PHYSICAL EXAMINATION: VITAL SIGNS: Currently blood pressure 141/84, heart rate 71, respiratory rate is 18, and oximetry is 95. HEENT: Pupils are reactive. Sclerae are anicteric. NECK: He has very large neck. He has no cervical lymphadenopathy. LUNGS: Remarkable for distant breath sounds. HEART: Regular rhythm. No S3. Distant S1, S2. ABDOMEN: Fairly large without guarding or tenderness. EXTREMITIES: Without clubbing, cyanosis, or edema. NEURO: Not assessable. LABORATORY DATA: White count 7.7, hemoglobin 10.4, and platelet 71,000. Sodium 141, potassium 4.1, chloride 95, bicarb 36, BUN 43, creatinine 1.41. Creatinine in 2015 was 1.41. Creatinine today here is 1.58. IMPRESSION: 1. Respiratory failure secondary to presenting with chronic obstructive pulmonary disease exacerbation. 2. History of lung cancer. 3. History of MediPort placement. We will be happy to follow the other physicians caring for him. Notify the Oncology of his admission. Job ID: [id number]
[2019-09-13] MEDS: Piperacillin/Tazobactam 3.375 GM in Sodium Chloride 0.9% 100 ML IVPB SCH ×4 (00:16→17:19)
[2019-09-13] MEDS: methylPREDNISolone Sod Succ 40 MG VIAL IVP SCH ×4 (00:17→17:18)
[2019-09-13 04:13] LABS: Band 1 % (5-11); Hemoglobin 10.8 g/dL (14.0-18.0); Lymphocytes 10 % (21-51); MDiff Complete? YES; Mean Corpuscular HGB CONC 29.1 g/dL (32.0-36.0); Mean Corpuscular Hemoglobin 28.7 pg (27.0-31.0); Mean Corpuscular Volume 98.6 fL (78.0-98.0); Mean Platelet Volume 7.1 fL (7.4-10.4); Monocytes 5 % (0-10); Neutrophil 84 % (42-75); Nucleated RBC 3 % (0); Platelet Count 74 thou/uL (130-400); Platelet Morphology Comment Appears Decreased; RBC Distribution Width 22.1 % (11.5-14.5); Red Blood Cell (RBC) Count 3.75 mill/uL (4.70-6.10); Target Cells SLIGHT = 2-5 cells (100X) (0-1/hpf); White Blood Cell (WBC) Count 6.8 thou/uL (4.8-10.8)
[2019-09-13 04:14] LABS: Anion Gap 18 mmol/L (10-20); BUN (Urea Nitrogen) 25 mg/dL (8.4-25.7); Calc. Creatinine Clearance 78 mL/min (70-130); Calcium 8.5 mg/dL (7.8-10.44); Carbon Dioxide 26 mmol/L (23-31); Chloride 102 mmol/L (98-107); Estimated GFR-MDRD 52; Glucose 102 mg/dL (83-110); Potassium 4.5 mmol/L (3.5-5.1); Sodium 141 mmol/L (136-145)
[2019-09-13] MEDS: Propofol 1,000 MG/100 ML VIAL IV PRN ×4 (04:45→23:35)
--- NOTE | 2019-09-13 07:22 | HP ---
CHIEF COMPLAINT: Respiratory failure. HISTORY OF PRESENT ILLNESS: This patient is a 73-year-old male, who initially presented to the emergency department in [place]. The patient reported shortness of breath and apparently had initial oxygen saturations in the 70s. He subsequently deteriorated further and required intubation. The patient was subsequently transferred to our facility. His chest x-ray was reported as largely unremarkable. He reported in [facility] that his shortness of breath started the previous night, history could be obtained. The patient is intubated and there is no family currently present. Apparently, there was a brother present at some point after his arrival, but could not be located. REVIEW OF SYSTEMS: Could not be obtained. PAST MEDICAL HISTORY: Based primarily on the patient's medical records indicate that he had a prior hospitalization in September 2017 with very similar setting, required intubation and was felt to have COPD exacerbation and diastolic heart failure during that hospitalization. The patient did have an echocardiogram with an ejection fraction estimated at 55% to 60% with a moderately enlarged right atrium, severely enlarged right ventricle cavity, and dilated IVC. The patient is also noted to have a history of non-small cell lung cancer with lesion on the right and some associated lymphadenopathy and metastases to the bones. He is followed by Dr. Cummins and is currently on Gemzar only. It appears as though he has had some followup with Dr. Pfeiffer of Rad[facility] as well. History of colorectal cancer diagnosed in 2012, COPD. PAST SURGICAL HISTORY: Notable for colon cancer resection, lung lesion biopsy and left-sided MediPort, hypoventilation of obesity syndrome, diabetes mellitus, hypertension . He has been on significant medications for these. FAMILY HISTORY: Per the record notable for hypertension and heart disease. SOCIAL HISTORY: Per the record indicates previously was a smoker and drink on social occasions and had some marijuana use. ALLERGIES: THERE ARE NONE KNOWN. CURRENT MEDICATIONS: Cannot be verified based on his pharmacy history in the last 90 days. Medication refills include: 1. Amlodipine 10 mg daily. 2. [place] 10/325 one to two q.4 hours p.r.n. pain. 3. Finasteride 5 mg daily. 4. Hydralazine 25 mg daily. 5. Metformin 1000 mg b.i.d. It appears that he had a prescription for cefdinir and prednisone filled by Dr. Lynn on August 20. PHYSICAL EXAMINATION: VITAL SIGNS: Temperature is 99.2, pulse 75, BP 163/89, O2 saturations 98% on the ventilator. GENERAL APPEARANCE: Large gentleman, age-appropriate, intubated, sedated. No distress. HEENT: Pupils are small and constrict, minimally reactive. ET tube is in place. NECK: Supple and symmetric. HEART: Regular without murmurs. No gallops or rubs. LUNGS: Very slightly diminished but actually fair air exchange allowing the ventilator to do the work. No wheezes or rales. ABDOMEN: Soft, nontender, and nondistended. EXTREMITIES: Have no cyanosis, clubbing, or edema. NEURO: The patient is sedated. LABORATORY DATA: White count 7.7, hemoglobin 10.4, platelets 71. INR is 1.1, PTT 25.1. ABG; pH 7.35, pCO2 of 77.5, bicarb 42. Sodium 142, potassium 4.6, chloride 100, CO2 is 32, anion gap 15, BUN 25, creatinine is 1.58, GFR 53, glucose 117, calcium 9.0, total bilirubin 0.3, AST 17, ALT 11, alkaline phosphatase 57. Troponin 0.012. BNP 1160. Albumin is 3.6. Most recent chest x-ray shows opacity in the right lung base, possibly atelectasis, also a low-lying endotracheal tube. This was apparently post intubation film. IMPRESSION AND PLAN: 1. Acute hypoxic respiratory failure. The patient presented with fairly abrupt decompensation in need for intubation. Therefore, not a lot of history can be obtained. It does appear that he had some antibiotics and steroids prescribed by Dr. Stas Lynn, but that was on August 20. He does have the history of the underlying lung cancer and he also has chronic obstructive pulmonary disease requiring intubation in February of 2018, as well as some history of diastolic congestive heart failure. The patient is currently stable on the ventilator. We will continue nebulizer treatments, steroids, and antibiotics. Pulmonary has been consulted. We will not aggressively hydrate nor diurese at this point. His chest x-ray needs to be followed and needs some rest at the moment. 2. The patient has thrombocytopenia. I notified Oncology of the patient's admission, inquired about his prior labs. Apparently, his most recent platelet count was 250 range about a week ago. He has no history of thrombocytopenia. Avoid anticoagulation until this can be further elucidated. 3. Lung cancer with a history of lung metastasis. Again, Oncology was made aware of the patient's admission. 4. Hematuria. Urinalysis did not reveal a significant amount of red blood cells, although there appears to be some gross hematuria. We will check myoglobin and CPK. 5. Chronic kidney disease stage 3, appears to be roughly at a stable baseline. 6. Potential congestive heart failure. We will repeat an echocardiogram, had a preserved ejection fraction in the past, although he appeared to have some pulmonary hypertension with some cor pulmonale and does have significantly elevated BNP. 7. Cannot rule out possibility of pulmonary embolus, although I think it is not likely as this seems to be more in line with a chronic obstructive pulmonary disease exacerbation. However, given his renal function, CTA would be somewhat risky for his kidneys and given his thrombocytopenia and hematuria, would not likely want to be aggressive with anticoagulation. Therefore, we will continue to monitor as long as he is stable on the ventilator. Job ID: [id number]
[2019-09-13 07:29] LABS: Actual Bicarbonate (HCO3a) 32.3 mEq/L (22-28); Base Excess (BEa) 8.2 mEq/L (-2.0 to +3.0); CO2 Tension 42.9 mmHg (35.0-45.0); Calcium, Ionized 1.09 mmol/L (1.12-1.30); Carboxyhemoglobin (COHb) 1.7 gm% (0.0-3.0); Hemoglobin (Hb) 10.8 g/dL (14.0-18.0); Potassium - ABG Lab 4.05 mmol/L (3.70-5.30); pH, Arterial 7.49 (7.35-7.45)
[2019-09-13 07:32] LABS: ALV-art Gradient 354.225 (0-20); O2 Tension (PaO2) 55.6 mmHg (> 70.0); Puncture Site LR
[2019-09-13] MEDS: fentaNYL Citrate/PF 2,000 MCG in Sodium Chloride 0.9% 60 ML IV SCH ×2 (07:35→20:59)
--- NOTE | 2019-09-13 08:28 | RAD ---
Chest AP view INDICATION: Intubation COMPARISON: September 12, 2019 FINDINGS: Lungs:Bilateral airspace disease is stable Cardiac silhouette:Moderate cardiomegaly is stable Pulmonary vasculature:Pulmonary vascular congestion persists Pleural spaces:Small bilateral pleural effusions persist, right greater than left. Upper abdomen:No abnormality seen. Osseous structures: No acute osseous abnormality. Additional findings:ET tube and gastric catheter unchanged. Left chest wall port is unchanged. IMPRESSION: Stable exam. No pneumothorax
[2019-09-13] MEDS ORDERED: Enoxaparin Sodium 40 MG/0.4 ML SYRINGE SC SCH ×2 (09:00→17:15)
--- NOTE | 2019-09-13 09:08 | PRG ---
DATE OF SERVICE: 09/13/2019 TIME SPENT: 30 minutes of critical care time. SUBJECTIVE: Mr. Matheus Vera is well known to me from followup in the office. He was admitted yesterday with [id number] respiratory failure. It looks like to me he has probably a diastolic heart failure given his elevated BNP at the outlying hospital. He has a history of medical noncompliance. He also has lung cancer, COPD, and sleep apnea. OBJECTIVE: VITAL SIGNS: Today, his temperature is 99.6, pulse 70, blood pressure 150/81, and O2 saturation 98%. HEENT: Unremarkable. NECK: No adenopathy or JVD. CHEST: Coarse breath sounds. CARDIAC: S1 and S2, regular. ABDOMEN: Soft. EXTREMITIES: Edematous. LABORATORY DATA: Sodium 140, potassium 4.5, chloride 102, CO2 of 26, BUN 25, creatinine 1.6, and glucose 102. A pH 7.49, pCO2 of 29, pO2 of 55 on SIMV rate 18, tidal volume 550, PEEP 7, pressure support 10, FiO2 of 65%. White blood cell count 6.8, hematocrit 37, and platelet count 74. Chest x-ray shows bilateral infiltrates. ASSESSMENT: 1. Acute hypoxic respiratory failure, which may be secondary to congestive heart failure or pneumonia. 2. Underlying lung cancer. 3. Obstructive sleep apnea. 4. Medical noncompliance in the past. PLAN: 1. In addition to the steroids and antibiotics, I will go ahead and add diuretics. Because of his hypoxemia, he is not weanable from mechanical ventilation yet, but I would guess we can probably work towards that tomorrow. 2. Initiate enteral tube feeds. Job ID: [id number]
[2019-09-13] MEDS: Famotidine/PF 20 mg/2ml Vial SLOW IVP SCH ×2 (10:16→20:22)
[2019-09-13] MEDS: Vancomycin HCl 1 GM in Premix Bag 1 BAG IVPB SCH ×2 (10:16→20:22)
[2019-09-13] MEDS: Furosemide 40 MG/4 ML VIAL SLOW IVP SCH ×2 (10:16→20:22)
--- NOTE | 2019-09-13 17:08 | PDOC.HOSPP ---
- Subjective Subjective: Sedated, but awake. Will shake his head. Indicates he is doing ok. - Objective Vital Signs & Weight: Vital Signs (12 hours) Temp Pulse Resp BP Pulse Ox 09/13/19 16:00 10 L 09/13/19 14:50 79 142/82 H 09/13/19 14:49 77 18 96 09/13/19 14:00 18 09/13/19 12:00 18 09/13/19 11:14 67 159/97 H 09/13/19 11:13 67 18 94 L 09/13/19 11:00 98.5 F 09/13/19 10:00 18 09/13/19 08:00 18 97 09/13/19 07:18 64 139/97 H 09/13/19 07:17 68 18 97 09/13/19 07:00 98.7 F Weight Admit Weight 288 lb Weight 288 lb 2.307 oz Most Recent Monitor Data Heart Rate from ECG 69 NIBP 134/75 NIBP BP-Mean 94 Respiration from ECG 12 SpO2 91 I&O: 09/12/19 09/13/19 09/14/19 06:59 06:59 06:59 Intake Total 902 303 Output Total 6405 8960 Balance -5696 -1205 Result Diagrams: 09/13/19 03:21 09/13/19 03:21 Additional Labs: Accuchecks 09/13/19 09/13/19 09/13/19 16:55 10:56 02:28 POC Glucose 162 H 128 H 106 09/12/19 17:34 POC Glucose 79 Hospitalist ROS - Medication Medications: Active Medications Generic Name Dose Route Start Last Admin Trade Name Nikolayq PRN Reason Stop Dose Admin Albuterol/Ipratropium 3 ml 09/12/19 18:30 09/13/19 14:49 Duoneb NEB 3 ml [id number] SHASHI Administration Famotidine 20 mg 09/12/19 21:00 09/13/19 10:16 Pepcid SLOW IVP 20 mg Q12HR SHASHI Administration Furosemide 40 mg 09/13/19 09:00 09/13/19 10:16 Lasix SLOW IVP 40 mg BID SHASHI Administration Fentanyl Citrate 2,000 mcg/ 100 mls @ 0 mls/hr 09/12/19 16:53 09/13/19 07:35 Sodium Chloride IV 10/12/19 16:53 100 mls INF SHASHI Administration Protocol Per Protocol Piperacillin Sod/Tazobactam 100 mls @ 200 mls/hr 09/12/19 18:00 09/13/19 12: 39 Sod 3.375 gm/ Sodium Chloride IVPB 100 mls Q6HR SHASHI Administration Vancomycin HCl 1 gm/ Device 200 mls @ 200 mls/hr 09/12/19 21:00 09/13/19 10: 16 IVPB 200 mls Q12HR SHASHI Administration Methylprednisolone Sodium Succinate 40 mg 09/12/19 18:00 09/13/19 12:40 Solu-Medrol IVP 40 mg Q6HR SHASHI Administration Propofol 1,000 mg 09/12/19 16:53 09/13/19 10:16 Diprivan IV 10/12/19 16:53 1,000 mg INF PRN Administration TO ACHIEVE GOAL RASS Protocol - Exam General Appearance: NAD General - other findings: Sedated, but awakens to verbal stim. Neck: supple, symmetric, no JVD, no thyromegaly, no lymphadenopathy, no carotid bruit Heart: RRR, no murmur, no gallops, no rubs, normal peripheral pulses Respiratory: CTAB, no wheezes, no rales, no ronchi, normal chest expansion, no tachypnea, normal percussion Gastrointestinal: soft, non-tender, non-distended, normal bowel sounds, no palpable masses, no hepatomegaly, no splenomegaly, no bruit Extremities: no cyanosis, no clubbing, no edema Skin: normal turgor Musculoskeletal: normal tone Hosp A/P (1) Respiratory acidosis Code(s): E87.2 - ACIDOSIS Status: Acute (2) Acute exacerbation of CHF (congestive heart failure) Code(s): I50.9 - HEART FAILURE, UNSPECIFIED Status: Acute Qualifiers: (3) COPD with exacerbation Code(s): J44.1 - CHRONIC OBSTRUCTIVE PULMONARY DISEASE W (ACUTE) EXACERBATION Status: Acute (4) Non-small cell lung cancer Code(s): C34.90 - MALIGNANT NEOPLASM OF UNSP PART OF UNSP BRONCHUS OR LUNG Status: Chronic Qualifiers: (5) Sleep apnea Code(s): G47.30 - SLEEP APNEA, UNSPECIFIED Status: Chronic - Plan Doing well. CXR with some pulm edema. Lasix given. Continue vent support per Pulm. cause of thrombocytopenia not apparent. New problem. Stable. Will add Lovenox and watch for bleeding. Echo pending.
[2019-09-13] MEDS: Lorazepam 2 MG/ML VIAL SLOW IVP PRN (17:18)
[2019-09-13] MEDS: HumaLOG 300 UNITS/3 ML VIAL SC PRN (17:42)
[2019-09-14] MEDS: Piperacillin/Tazobactam 3.375 GM in Sodium Chloride 0.9% 100 ML IVPB SCH ×5 (00:41→23:42)
[2019-09-14] MEDS: methylPREDNISolone Sod Succ 40 MG VIAL IVP SCH ×5 (00:46→23:43)
[2019-09-14] MEDS: HumaLOG 300 UNITS/3 ML VIAL SC PRN ×2 (01:14→10:16)
[2019-09-14 04:09] LABS: Anion Gap 16 mmol/L (10-20); BUN (Urea Nitrogen) 25 mg/dL (8.4-25.7); Calc. Creatinine Clearance 69 mL/min (70-130); Calcium 7.4 mg/dL (7.8-10.44); Carbon Dioxide 26 mmol/L (23-31); Chloride 94 mmol/L (98-107); Estimated GFR-MDRD 45; Glucose 164 mg/dL (83-110); Potassium 4.1 mmol/L (3.5-5.1); Sodium 132 mmol/L (136-145)
[2019-09-14] MEDS: Propofol 1,000 MG/100 ML VIAL IV PRN ×5 (04:41→23:17)
[2019-09-14 04:57] LABS: Anisocytosis SLIGHT = 6-15 cells (100X) (0-5/hpf); Band 9 % (5-11); Hemoglobin 10.5 g/dL (14.0-18.0); Lymphocytes 3 % (21-51); MDiff Complete? YES; Macrocytosis SLIGHT = 6-15 cells (100X) (0-5/hpf); Mean Corpuscular HGB CONC 31.5 g/dL (32.0-36.0); Mean Corpuscular Hemoglobin 31.5 pg (27.0-31.0); Mean Corpuscular Volume 99.9 fL (78.0-98.0); Mean Platelet Volume 6.7 fL (7.4-10.4); Neutrophil 88 % (42-75); Nucleated RBC 1 % (0); Platelet Count 89 thou/uL (130-400); Platelet Morphology Comment Appears Decreased; Polychromasia SLIGHT = 2-3 cells (100X) (0-2/hpf); RBC Distribution Width 23.5 % (11.5-14.5); Red Blood Cell (RBC) Count 3.32 mill/uL (4.70-6.10); White Blood Cell (WBC) Count 7.2 thou/uL (4.8-10.8)
[2019-09-14 06:43] LABS: Actual Bicarbonate (HCO3a) 34.4 mEq/L (22-28); Base Excess (BEa) 6.6 mEq/L (-2.0 to +3.0); Calcium, Ionized 1.05 mmol/L (1.12-1.30); Carboxyhemoglobin (COHb) 1.8 gm% (0.0-3.0); Hemoglobin (Hb) 11.2 g/dL (14.0-18.0); Potassium - ABG Lab 4.18 mmol/L (3.70-5.30); pH, Arterial 7.32 (7.35-7.45)
[2019-09-14 06:50] LABS: CO2 Tension 67.7 mmHg (35.0-45.0); O2 Tension (PaO2) 58.7 mmHg (> 70.0)
[2019-09-14 06:51] LABS: ALV-art Gradient 141.875 (0-20); Puncture Site RR
--- NOTE | 2019-09-14 08:18 | RAD ---
FRONTAL RADIOGRAPH CHEST: DATE: 09/14/2019. COMPARISON: 09/13/2019. HISTORY: Pneumonia. FINDINGS: Stable endotracheal tube, nasogastric tube, and CT injectable left-sided Port-a-Cath. There is left perihilar density which may be on the basis of vascular prominence of infiltrate. Partial consolidat ion/collapse of the medial aspect left lower lobe again noted. There is dense opacity in the right perihilar region and right base with obscuration of the right hea rt border and right hemidiaphragm consistent with nonspecific consolidation/collapse of right middle and right lower lobes. Underlying mass lesion cannot be excluded. Followup advised. IMPRESSION: No significant interval change. POS: OFF
--- NOTE | 2019-09-14 08:41 | PRG ---
DATE OF SERVICE: 09/14/2019 35 minutes critical time. SUBJECTIVE: The patient remains intubated on mechanical ventilation. He will wake up and follow commands. OBJECTIVE: VITAL SIGNS: His temperature is 98.6, pulse 70, blood pressure 106/65, O2 saturation 95%. He is currently on propofol and fentanyl. HEENT: Unremarkable. NECK: No adenopathy or JVD. LUNGS: Diminished breath sounds right base, left side clear. CARDIAC: S1, S2 regular. ABDOMEN: Soft. EXTREMITIES: No edema. LABORATORY DATA: PH 7.32, pCO2 of 67, PO2 of 58, on SIMV rate 10, tidal volume 500, PEEP 7, pressure support 12, FiO2 of 40%. White blood cell count 7.2, hematocrit 33.2, and platelet count 89. Sodium 132, potassium 4.1, chloride 94, CO2 of 26, BUN 25, creatinine 1.8, and glucose 164. ASSESSMENT: 1. Acute respiratory failure requiring mechanical ventilation. 2. Right middle lobe stenosis from lung cancer (see bronchoscopy note-no mucus plug present). 3. Underlying chronic obstructive pulmonary disease. 4. Underlying diastolic cardiac dysfunction. PLAN: 1. I am going to decrease his diuretic dose to once daily. 2. Because of his respiratory acidosis, I will go ahead and increase his respiratory rate. 3. He will continue antibiotics and steroids. 4. If he is not better by Tuesday, we will have to consider finding family members and discussing end of life measures. Job ID: [id number]
--- NOTE | 2019-09-14 08:57 | OP ---
DATE OF PROCEDURE: 09/14/2019 PROCEDURE: Bronchoscopy. PREOPERATIVE DIAGNOSIS: Possible mucus plugging, right middle lobe. POSTOPERATIVE DIAGNOSIS: Stenotic right middle lobe. No evidence of mucus plugging. ANESTHESIA: Propofol. DESCRIPTION OF PROCEDURE: This was done with the patient's verbal implied consent. The patient was already on mechanical ventilation. I took an Ambu bronchoscope and placed it down his endotracheal tube through an adapter. The patient has very prominent distal tracheomalacia. His left mainstem bronchus is clear, right mainstem bronchus is slightly stenotic. Right upper lobe was clear. Right lower lobe was clear. The right middle lobe was stenotic, but there was no mucus plug present. He tolerated the procedure well. Job ID: [id number]
[2019-09-14] MEDS: Vancomycin HCl 1 GM in Premix Bag 1 BAG IVPB SCH ×2 (09:40→23:57)
[2019-09-14] MEDS: Famotidine/PF 20 mg/2ml Vial SLOW IVP SCH ×2 (09:43→21:39)
[2019-09-14] MEDS: Furosemide 40 MG/4 ML VIAL SLOW IVP SCH (09:43)
[2019-09-14] MEDS: Enoxaparin Sodium 40 MG/0.4 ML SYRINGE SC SCH (09:43)
[2019-09-14] MEDS: fentaNYL Citrate/PF 2,000 MCG in Sodium Chloride 0.9% 60 ML IV SCH ×2 (11:33→23:47)
[2019-09-14] MEDS: Lorazepam 2 MG/ML VIAL SLOW IVP PRN ×2 (14:46→20:56)
--- NOTE | 2019-09-14 15:52 | PDOC.HOSPP ---
- Subjective Subjective: Intubated. Awake. non-verbal, but communication with head and hands. Indicates he wants to get out of the hospital. Nurse indicates he has been communicating that to him as well. - Objective Vital Signs & Weight: Vital Signs (12 hours) Temp Pulse Resp BP Pulse Ox 09/14/19 15:36 75 09/14/19 14:00 16 09/14/19 13:13 84 116/79 09/14/19 12:00 99.2 F 16 09/14/19 10:28 74 113/75 09/14/19 10:00 16 09/14/19 08:00 16 93 L 09/14/19 07:11 75 112/69 09/14/19 07:00 99.3 F 09/14/19 04:00 98.6 F Weight Admit Weight 288 lb Weight 287 lb 11.252 oz Most Recent Monitor Data Heart Rate from ECG 77 NIBP 135/78 NIBP BP-Mean 97 Respiration from ECG 16 SpO2 96 I&O: 09/13/19 09/14/19 09/15/19 06:59 06:59 06:59 Intake Total 902 2537.8 417 Output Total 2515 3692 2230 Balance -1613 -1154.2 -1813 Result Diagrams: 09/14/19 03:17 09/14/19 03:17 Additional Labs: Accuchecks 09/14/19 09/14/19 09/13/19 10:13 01:16 16:55 POC Glucose 171 H 178 H 162 H Hospitalist ROS - Medication Medications: Active Medications Generic Name Dose Route Start Last Admin Trade Name Nikolayq PRN Reason Stop Dose Admin Albuterol/Ipratropium 3 ml 09/12/19 18:30 09/14/19 15:36 Duoneb NEB 3 ml [id number] SHASHI Administration Enoxaparin Sodium 40 mg 09/14/19 09:00 09/14/19 09:43 Lovenox SC 40 mg 0900 SHASHI Administration Famotidine 20 mg 09/12/19 21:00 09/14/19 09:43 Pepcid SLOW IVP 20 mg Q12HR SHASHI Administration Furosemide 40 mg 09/14/19 09:00 09/14/19 09:43 Lasix SLOW IVP 40 mg DAILY SHASHI Administration Fentanyl Citrate 2,000 mcg/ 100 mls @ 0 mls/hr 09/12/19 16:53 09/14/19 11:33 Sodium Chloride IV 10/12/19 16:53 100 mls INF SHASHI Administration Protocol Per Protocol Piperacillin Sod/Tazobactam 100 mls @ 200 mls/hr 09/12/19 18:00 09/14/19 11: 31 Sod 3.375 gm/ Sodium Chloride IVPB 100 mls Q6HR SHASHI Administration Vancomycin HCl 1 gm/ Device 200 mls @ 200 mls/hr 09/12/19 21:00 09/14/19 09: 40 IVPB 200 mls Q12HR SHASHI Administration Insulin Human Lispro 0 units 09/12/19 17:04 09/14/19 10:16 Humalog SC 2 unit .MILD SLIDING SCALE PRN Administration Mild Correctional Scale Lorazepam 2 mg 09/12/19 16:53 09/14/19 14:46 Ativan SLOW IVP 10/12/19 16:53 2 mg Q1H PRN Administration Breakthrough agitation Methylprednisolone Sodium Succinate 40 mg 09/12/19 18:00 09/14/19 11:32 Solu-Medrol IVP 40 mg Q6HR SHASHI Administration Propofol 1,000 mg 09/12/19 16:53 09/14/19 15:11 Diprivan IV 10/12/19 16:53 1,000 mg INF PRN Administration TO ACHIEVE GOAL RASS Protocol Sodium Chloride 10 ml 09/13/19 21:00 09/14/19 10:16 Flush - Normal Saline IVF Not Given Q12HR SHASHI - Exam General Appearance: NAD, awake alert General - other findings: Intubated. Heart: RRR, no murmur, no gallops, no rubs, normal peripheral pulses Respiratory: CTAB, no wheezes, no rales, no ronchi, normal chest expansion, no tachypnea, normal percussion Gastrointestinal: soft, non-tender, non-distended, normal bowel sounds, no palpable masses, no hepatomegaly, no splenomegaly, no bruit Extremities: no cyanosis, no clubbing, no edema Musculoskeletal: normal tone Hosp A/P (1) Respiratory acidosis Code(s): E87.2 - ACIDOSIS Status: Acute (2) Acute exacerbation of CHF (congestive heart failure) Code(s): I50.9 - HEART FAILURE, UNSPECIFIED Status: Acute Qualifiers: (3) COPD with exacerbation Code(s): J44.1 - CHRONIC OBSTRUCTIVE PULMONARY DISEASE W (ACUTE) EXACERBATION Status: Acute (4) Non-small cell lung cancer Code(s): C34.90 - MALIGNANT NEOPLASM OF UNSP PART OF UNSP BRONCHUS OR LUNG Status: Chronic Qualifiers: (5) Sleep apnea Code(s): G47.30 - SLEEP APNEA, UNSPECIFIED Status: Chronic - Plan Stable. CXR with some pulm edema. Lasix was given. Continue vent support per Pulm. Had bedside bronch this morning to assess for mucous plug. Some airway occlusion from the tumor. Continue nebs, oxygen, abx, steroids. The cause of thrombocytopenia not apparent. New problem. Slightly better. Will add Lovenox and watch for bleeding. Echo without significant findings. Consistent with Diastolic dysfunction. Siblings have been around at times, but have not made contact.
[2019-09-14 20:22] LABS: Vancomycin, Trough 22.2 ug/mL
[2019-09-14] MEDS ORDERED: Vancomycin HCl 1 GM in Premix Bag 1 BAG IVPB SCH (21:30)
[2019-09-15] MEDS: Piperacillin/Tazobactam 3.375 GM in Sodium Chloride 0.9% 100 ML IVPB SCH ×4 (06:05→23:17)
[2019-09-15] MEDS: methylPREDNISolone Sod Succ 40 MG VIAL IVP SCH ×2 (06:05→11:43)
[2019-09-15] MEDS: Propofol 1,000 MG/100 ML VIAL IV PRN ×2 (06:05→11:44)
[2019-09-15 06:08] LABS: Anion Gap 13 mmol/L (10-20); BUN (Urea Nitrogen) 26 mg/dL (8.4-25.7); Calc. Creatinine Clearance 73 mL/min (70-130); Calcium 8.1 mg/dL (7.8-10.44); Carbon Dioxide 29 mmol/L (23-31); Chloride 101 mmol/L (98-107); Estimated GFR-MDRD 49; Glucose 163 mg/dL (83-110); Potassium 3.4 mmol/L (3.5-5.1); Sodium 140 mmol/L (136-145)
[2019-09-15] MEDS: HumaLOG 300 UNITS/3 ML VIAL SC PRN (06:18)
[2019-09-15 07:00] LABS: Actual Bicarbonate (HCO3a) 28.1 mEq/L (22-28); Base Excess (BEa) 4.3 mEq/L (-2.0 to +3.0); CO2 Tension 39.2 mmHg (35.0-45.0); Calcium, Ionized 1.05 mmol/L (1.12-1.30); Carboxyhemoglobin (COHb) 1.7 gm% (0.0-3.0); Hemoglobin (Hb) 11.4 g/dL (14.0-18.0); O2 Tension (PaO2) 65.1 mmHg (> 70.0); pH, Arterial 7.47 (7.35-7.45)
[2019-09-15 07:00] LABS: Anisocytosis SLIGHT = 6-15 cells (100X) (0-5/hpf); Band 11 % (5-11); Elliptocytes SLIGHT = 2-5 cells (100X) (0-1/hpf); Hemoglobin 11.2 g/dL (14.0-18.0); Lymphocytes 1 % (21-51); MDiff Complete? YES; Mean Corpuscular HGB CONC 30.3 g/dL (32.0-36.0); Mean Corpuscular Hemoglobin 29.6 pg (27.0-31.0); Mean Corpuscular Volume 97.7 fL (78.0-98.0); Mean Platelet Volume 7.4 fL (7.4-10.4); Monocytes 3 % (0-10); Neutrophil 85 % (42-75); Platelet Count 118 thou/uL (130-400); Platelet Morphology Comment Appears Decreased; RBC Distribution Width 24.3 % (11.5-14.5); Red Blood Cell (RBC) Count 3.77 mill/uL (4.70-6.10); White Blood Cell (WBC) Count 5.9 thou/uL (4.8-10.8)
[2019-09-15 07:01] LABS: Puncture Site RRA
[2019-09-15 08:26] LABS: Vancomycin, Random 13.2 ug/mL (See Comment)
--- NOTE | 2019-09-15 08:40 | RAD ---
CHEST ONE VIEW: HISTORY: Pneumonia followup. COMPARISON: 09/14/2019 FINDINGS: Life support tubes in place and stable. Cardiomegaly. Alveolar nodular parenchymal changes, particula rly in the right lower lobe, evidence for pneumonia, as well as some prominent nodularity and fullnes s to both hilar regions, in part prominent proximal pulmonary artery segments. IMPRESSION: Overall stable chest with abnormal opacity changes, particularly in the right mid and lower lung zone s and nodular fullness to both hilar regions, probably in part dilated proximal pulmonary artery segm ents. POS: AWILDA
[2019-09-15] MEDS: Vancomycin HCl 1.75 GM in Sodium Chloride 0.9% 500 ML IVPB SCH (09:28)
[2019-09-15] MEDS: Famotidine/PF 20 mg/2ml Vial SLOW IVP SCH ×2 (09:29→20:22)
[2019-09-15] MEDS: Enoxaparin Sodium 40 MG/0.4 ML SYRINGE SC SCH (09:29)
[2019-09-15] MEDS: Furosemide 40 MG/4 ML VIAL SLOW IVP SCH (09:29)
[2019-09-15] MEDS: fentaNYL Citrate/PF 2,000 MCG in Sodium Chloride 0.9% 60 ML IV SCH (11:07)
--- NOTE | 2019-09-15 15:00 | PRG ---
DATE OF SERVICE: 09/15/2019 SERVICE: Pulmonary Medicine. INTERVAL HISTORY: The patient is doing fine from respiratory standpoint. Oxygen requirements are improving. There has been no interval change to his condition. On a sedation holiday, he wakes up, nod yes and no appropriately. PHYSICAL EXAMINATION: VITAL SIGNS: Afebrile, pulse 69, blood pressure 154/105, respirations 18, saturation 98%, currently on 31% FiO2. GENERAL: The patient is intubated and sedated. HEENT: Normocephalic and atraumatic. Sclerae white. Conjunctivae pink. Oral mucosa is moist without lesions. LUNGS: Decent air entry. There is a slightly prolonged expiratory phase. I do not appreciate any wheezing or crackles. HEART: Normal rate, regular. ABDOMEN: Soft, nontender, nondistended, bowel sounds are positive. MUSCULOSKELETAL: No cyanosis or clubbing. There is trace pitting in bilateral lower extremities. NEUROLOGIC: Grossly nonfocal. LABORATORY DATA: WBC 5.9, hemoglobin 11.2, platelets 118,000 and rebounding. Band count 11% on top of 85% neutrophils. INR 1.1. PH 7.47, pCO2 of 39, and pO2 of 65. At this point, he is rate of 16 and a tidal volume of 550. Creatinine 1.69 and gently downtrending. BUN 26. Basic metabolic profile is otherwise unremarkable except for potassium of 3.4. IMAGING DATA: Chest x-ray demonstrates stable appearance of the chest in the right mid lower lung zones, small effusion on the left. Endotracheal tube is in good position. Left port catheter is in good position. There is an enteric catheter coursing midline below the level of the diaphragm, though I cannot see where it terminates. ASSESSMENT: 1. Acute on chronic hypoxic respiratory failure. 2. Lung cancer with stenosis of the right middle lobe bronchus. 3. Chronic obstructive pulmonary disease with acute exacerbation. 4. Chronic diastolic heart failure. DISCUSSION AND PLAN: I will continue to gently diurese him down to euvolemia. He is a touch alkalotic today and we will back off on his rate. I will turn more work of breathing over to the patient through time. We will give him a sedation holiday and if he meets criteria, extubation will be considered. Critical Care will continue to follow along. Job ID: [id number]
--- NOTE | 2019-09-15 23:12 | PDOC.HOSPP ---
- Subjective Encounter Date: 09/15/19 Encounter Time: 09:00 Subjective: no overnight events and no interval change. Continues to be intubated and sedated, undergoes sedation holidays, and oxygen requirement is decreasing. responsive to voice. - Objective Vital Signs & Weight: Vital Signs (12 hours) Temp Pulse Resp BP Pulse Ox 09/15/19 22:19 92 16 98 09/15/19 20:00 98.5 F 97 09/15/19 19:18 80 16 100 09/15/19 16:38 18 93 L 09/15/19 16:00 98.2 F 09/15/19 14:55 74 129/83 09/15/19 14:00 9 L 09/15/19 12:00 98.1 F 16 09/15/19 11:15 70 122/70 Weight Admit Weight 288 lb Weight 278 lb 3.574 oz Most Recent Monitor Data Heart Rate from ECG 88 NIBP 146/93 NIBP BP-Mean 110 Respiration from ECG 13 SpO2 97 I&O: 09/14/19 09/15/19 09/16/19 06:59 06:59 06:59 Intake Total 2537.8 2380.5 1803.4 Output Total 3692 5005 3012 Balance -1154.2 -2624.5 -1208.6 Result Diagrams: 09/15/19 05:27 09/15/19 05:27 Additional Labs: Accuchecks 09/15/19 09/15/19 09/14/19 17:05 09:30 23:44 POC Glucose 111 H 129 H 145 H Hospitalist ROS - Review of Systems ROS unobtainable: due to mental status - Medication Medications: Active Medications Generic Name Dose Route Start Last Admin Trade Name Freq PRN Reason Stop Dose Admin Albuterol/Ipratropium 3 ml 09/12/19 18:30 09/15/19 22:19 Duoneb NEB 3 ml [id number] SHASHI Administration Enoxaparin Sodium 40 mg 09/14/19 09:00 09/15/19 09:29 Lovenox SC 40 mg 0900 SHASHI Administration Famotidine 20 mg 09/12/19 21:00 09/15/19 20:22 Pepcid SLOW IVP 20 mg Q12HR SHASHI Administration Furosemide 40 mg 09/14/19 09:00 09/15/19 09:29 Lasix SLOW IVP 40 mg DAILY SHASHI Administration Fentanyl Citrate 2,000 mcg/ 100 mls @ 0 mls/hr 09/12/19 16:53 09/15/19 11:07 Sodium Chloride IV 10/12/19 16:53 100 mls INF SHASHI Administration Protocol Per Protocol Piperacillin Sod/Tazobactam 100 mls @ 200 mls/hr 09/12/19 18:00 09/15/19 17: 08 Sod 3.375 gm/ Sodium Chloride IVPB 100 mls Q6HR SHASHI Administration Vancomycin HCl 1.75 gm/ Sodium 500 mls @ 250 mls/hr 09/15/19 09:00 09/15/19 09:28 Chloride IVPB 500 mls 0900 SHASHI Administration Insulin Human Lispro 0 units 09/12/19 17:04 09/15/19 06:18 Humalog SC 2 unit .MILD SLIDING SCALE PRN Administration Mild Correctional Scale Lorazepam 2 mg 09/12/19 16:53 09/14/19 20:56 Ativan SLOW IVP 10/12/19 16:53 2 mg Q1H PRN Administration Breakthrough agitation Potassium Chloride 40 meq 09/12/19 16:52 09/15/19 09:30 Klor-Con PER TUBE 40 meq ASDIR PRN Administration FOR SERUM K+ 2.5-3.5 Propofol 1,000 mg 09/12/19 16:53 09/15/19 11:44 Diprivan IV 10/12/19 16:53 1,000 mg INF PRN Administration TO ACHIEVE GOAL RASS Protocol Sodium Chloride 10 ml 09/13/19 21:00 09/15/19 20:22 Flush - Normal Saline IVF 10 ml Q12HR SHASHI Administration Sterile Water 1 ml 09/12/19 16:51 09/15/19 11:44 Bacteriostatic Water FS 1 ml PRN PRN Administration RECONSTITUTION - Exam General Appearance: NAD General - other findings: intubated and sedated Neck: no JVD Heart: RRR, no murmur, no gallops Respiratory: no wheezes, no rales, normal chest expansion Respiratory - other findings: reduced oxygen requirements Gastrointestinal: soft, non-tender, non-distended, normal bowel sounds, no palpable masses, no hepatomegaly, no splenomegaly, no bruit Extremities - other findings: trace bilateral pitting edema Hosp A/P - Plan 1. Acute on chronic hypoxic respiratory failure. 2. Lung cancer with stenosis of the right middle lobe bronchus. 3. Chronic obstructive pulmonary disease with acute exacerbation. 4. Chronic diastolic heart failure. 1. Due to COPD exacerbation and decompensated HF; considering COPD, may be chronic CO2 retainer; ventilation managed by ICU; reduced oxygen requirements 2. will continue to attempt to reach family to discuss goals of care; new right mid and lower lobe opacities on CXR may represent postobstructive/aspiration pneumonia, on vanc and zosyn 3. currently on steroids; tapering down 4. mild hypervolemic; continuing diuresis
[2019-09-16 04:31] LABS: Anion Gap 16 mmol/L (10-20); BUN (Urea Nitrogen) 28 mg/dL (8.4-25.7); Calc. Creatinine Clearance 81 mL/min (70-130); Calcium 8.4 mg/dL (7.8-10.44); Carbon Dioxide 24 mmol/L (23-31); Chloride 105 mmol/L (98-107); Estimated GFR-MDRD 57; Glucose 82 mg/dL (83-110); Magnesium 2.2 mg/dL (1.6-2.6); Potassium 4.2 mmol/L (3.5-5.1); Sodium 141 mmol/L (136-145)
[2019-09-16 05:16] LABS: Anisocytosis MODERATE=16-30 cells (100X) (0-5/hpf); Band 1 % (5-11); Hemoglobin 12.6 g/dL (14.0-18.0); Hypochromia SLIGHT = 6-15 cells (100X) (0-5/hpf); Lymphocytes 9 % (21-51); MDiff Complete? YES; Macrocytosis SLIGHT = 6-15 cells (100X) (0-5/hpf); Mean Corpuscular HGB CONC 28.5 g/dL (32.0-36.0); Mean Corpuscular Hemoglobin 28.8 pg (27.0-31.0); Mean Platelet Volume 7.4 fL (7.4-10.4); Monocytes 9 % (0-10); Neutrophil 81 % (42-75); Nucleated RBC 1 % (0); Platelet Count 139 thou/uL (130-400); Polychromasia SLIGHT = 2-3 cells (100X) (0-2/hpf); RBC Distribution Width 24.3 % (11.5-14.5); Red Blood Cell (RBC) Count 4.35 mill/uL (4.70-6.10); Schistocytes SLIGHT = 2-5 cells (100X) (0-1/hpf); Target Cells SLIGHT = 2-5 cells (100X) (0-1/hpf); White Blood Cell (WBC) Count 7.8 thou/uL (4.8-10.8)
[2019-09-16] MEDS: Piperacillin/Tazobactam 3.375 GM in Sodium Chloride 0.9% 100 ML IVPB SCH ×5 (05:23→23:55)
[2019-09-16] MEDS: predniSONE 20 MG TAB PO SCH (09:05)
[2019-09-16] MEDS: Enoxaparin Sodium 40 MG/0.4 ML SYRINGE SC SCH (09:05)
[2019-09-16] MEDS: Furosemide 40 MG/4 ML VIAL SLOW IVP SCH (09:06)
[2019-09-16] MEDS: Famotidine/PF 20 mg/2ml Vial SLOW IVP SCH (09:07)
[2019-09-16] MEDS: HumaLOG 300 UNITS/3 ML VIAL SC PRN (10:15)
[2019-09-16] MEDS: Vancomycin HCl 1.75 GM in Sodium Chloride 0.9% 500 ML IVPB SCH (11:12)
--- NOTE | 2019-09-16 11:57 | PRG ---
DATE OF SERVICE: 09/16/2019 SERVICE: Pulmonary Medicine. INTERVAL HISTORY: The patient is doing really well from respiratory standpoint. He is breathing comfortably. There has been no interval change to his condition. He has cross-legged in bed. He is breathing comfortably and has no specific complaints. There were no overnight events. PHYSICAL EXAMINATION: VITAL SIGNS: Afebrile; pulse 82; blood pressure 158/123; respirations 24; and saturation 95%, currently on 2 L nasal cannula. GENERAL: The patient is awake and alert, in no apparent distress. LUNGS: Wonderful air entry. There is a prolonged expiratory phase, but no wheezing today. Dependent crackles are once again noted. HEART: Normal rate, regular. ABDOMEN: Soft, nontender, and nondistended. Bowel sounds are positive. MUSCULOSKELETAL: No cyanosis or clubbing. Pitting edema is improving, but is still 1+. LABORATORY DATA: WBC 7.8, hemoglobin 12.6, and platelets 139,000 beautifully rebounding. INR 1.1. Creatinine 1.48 and downtrending. Basic metabolic profile is otherwise unremarkable. Magnesium 2.2. ASSESSMENT: 1. Acute on chronic hypoxic respiratory failure, resolved to baseline. 2. Lung cancer with stenosis of the right middle lobe bronchus. 3. Chronic obstructive pulmonary disease with acute exacerbation, improving. 4. Acute on chronic diastolic heart failure. DISCUSSION AND PLAN: We will continue to gently diurese the patient down to euvolemia. Our goal will be to get him negative 1 to 2 L every day until he returns to euvolemia. He can be transitioned out of the ICU to the medical unit. Pulmonary will continue to follow, but Dr. Lynn will resume coverage in the morning. Job ID: [id number] [facility]
--- NOTE | 2019-09-16 14:56 | PDOC.HOSPP ---
- Subjective Encounter Date: 09/16/19 Encounter Time: 09:00 Subjective: Overnight, was extubated and doing well on 2L NC. Has no complaints - Objective Vital Signs & Weight: Vital Signs (12 hours) Temp Pulse Resp Pulse Ox 09/16/19 12:00 98.2 F 09/16/19 10:36 82 18 09/16/19 08:00 97 09/16/19 07:16 82 17 97 09/16/19 07:00 98.1 F 09/16/19 05:00 98.0 F 09/16/19 03:19 87 16 98 Weight Admit Weight 288 lb Weight 4.42 oz Most Recent Monitor Data Heart Rate from ECG 87 NIBP 114/69 NIBP BP-Mean 84 Respiration from ECG 22 SpO2 97 I&O: 09/15/19 09/16/19 09/17/19 06:59 06:59 06:59 Intake Total 2380.5 1903.4 816 Output Total 5005 3247 1005 Balance -2624.5 -1343.6 -189 Result Diagrams: 09/16/19 04:01 09/16/19 04:01 Additional Labs: Accuchecks 09/16/19 09/15/19 09/15/19 10:16 23:24 17:05 POC Glucose 248 H 114 H 111 H Radiology Reviewed by me: Yes Hospitalist ROS - Review of Systems Constitutional: denies: fever, chills, sweats, weakness, malaise, other Respiratory: denies: cough, dry, shortness of breath, hemoptysis, SOB with excertion, pleuritic pain, sputum, wheezing, other Cardiovascular: denies: chest pain, palpitations, orthopnea, paroxysmal noc. dyspnea, edema, light headedness, other Gastrointestinal: denies: nausea, vomiting, abdominal pain, diarrhea, constipation, melena, hematochezia, other Neurological: denies: weakness, numbness, incoordination, change in speech, confusion, seizures, other - Medication Medications: Active Medications Generic Name Dose Route Start Last Admin Trade Name Freq PRN Reason Stop Dose Admin Albuterol/Ipratropium 3 ml 09/12/19 18:30 09/16/19 10:36 Duoneb NEB 3 ml [id number] SHASHI Administration Enoxaparin Sodium 40 mg 09/14/19 09:00 09/16/19 09:05 Lovenox SC 40 mg 0900 SHASHI Administration Furosemide 40 mg 09/14/19 09:00 09/16/19 09:06 Lasix SLOW IVP 40 mg DAILY SHASHI Administration Furosemide 40 mg 09/16/19 15:00 09/16/19 14:48 Lasix SLOW IVP 09/16/19 17:00 40 mg NOW SHASHI Administration Piperacillin Sod/Tazobactam 100 mls @ 200 mls/hr 09/12/19 18:00 09/16/19 14: 00 Sod 3.375 gm/ Sodium Chloride IVPB 100 mls Q6HR SHASHI Administration Vancomycin HCl 1.75 gm/ Sodium 500 mls @ 250 mls/hr 09/15/19 09:00 09/16/19 11:12 Chloride IVPB 500 mls 0900 SHASHI Administration Insulin Human Lispro 0 units 09/12/19 17:04 09/16/19 10:15 Humalog SC 3 unit .MILD SLIDING SCALE PRN Administration Mild Correctional Scale Prednisone 40 mg 09/16/19 08:00 09/16/19 09:05 Prednisone PO 40 mg QAM-WM SHASHI Administration Sodium Chloride 10 ml 09/13/19 21:00 09/16/19 09:07 Flush - Normal Saline IVF Not Given Q12HR SHASHI Sterile Water 1 ml 09/12/19 16:51 09/15/19 11:44 Bacteriostatic Water FS 1 ml PRN PRN Administration RECONSTITUTION - Exam General Appearance: NAD, awake alert ENT: normocephalic atraumatic, no oropharyngeal lesions, moist mucosa Neck: supple, symmetric, no JVD Respiratory: no wheezes, no ronchi, normal chest expansion, no tachypnea Respiratory - other findings: bilateral inspiratory rales, lower nassar, left greater than right, improve Gastrointestinal: soft, non-tender, non-distended, normal bowel sounds, no palpable masses, no hepatomegaly, no splenomegaly, no bruit Extremities - other findings: b/l lower extremity pitting edema to knee level, improved Neurological: cranial nerve grossly intact, normal sensation to touch, no weakness, no focal deficits, no new deficit Psychiatric: normal affect, normal behavior, A&O x 3 Hosp A/P - Plan 1. Acute on chronic hypoxic respiratory failure. 2. Lung cancer with stenosis of the right middle lobe bronchus. 3. Chronic obstructive pulmonary disease with acute exacerbation. 4. Chronic diastolic heart failure. 1. Due to COPD exacerbation and decompensated HF; extubated (09/15) and doing well on 2L NC, will continue to diurese; will continue to taper down steroids and adjust insulin accordingly. 2. patient claims old CPAP at home, will attempt to arrange new CPAP for sake of adherence; 3. on vanc and zosyn (d5) for suspected aspiration/postobstructive pneumonia; will continue for total of 7 days
[2019-09-16] MEDS ORDERED: Furosemide 40 MG/4 ML VIAL SLOW IVP SCH (15:00)
[2019-09-16] MEDS ORDERED: Polyethylene Glycol 3350 17 GM Packet PO SCH (15:30)
[2019-09-16] MEDS: Nicotine 7 MG PATCH TOP SCH (15:36)
[2019-09-16] MEDS: Senokot S 8.6-50 MG TAB PO SCH (20:07)
[2019-09-17 04:45] LABS: Anion Gap 12 mmol/L (10-20); BUN (Urea Nitrogen) 41 mg/dL (8.4-25.7); Calc. Creatinine Clearance 0 mL/min (70-130); Calcium 8.9 mg/dL (7.8-10.44); Carbon Dioxide 33 mmol/L (23-31); Chloride 103 mmol/L (98-107); Estimated GFR-MDRD 39; Glucose 108 mg/dL (83-110); Magnesium 2.1 mg/dL (1.6-2.6); Potassium 3.5 mmol/L (3.5-5.1); Sodium 144 mmol/L (136-145)
[2019-09-17] MEDS ORDERED: HYDROcodone/Acetaminophen 5/325 mg Tablet PO SCH (04:45)
[2019-09-17] MEDS: Piperacillin/Tazobactam 3.375 GM in Sodium Chloride 0.9% 100 ML IVPB SCH (05:36)
[2019-09-17 08:21] LABS: Vancomycin, Trough 20.4 ug/mL
[2019-09-17 08:23] LABS: Anion Gap 14 mmol/L (10-20); BUN (Urea Nitrogen) 39 mg/dL (8.4-25.7); Calc. Creatinine Clearance 59 mL/min (70-130); Calcium 8.8 mg/dL (7.8-10.44); Carbon Dioxide 30 mmol/L (23-31); Chloride 103 mmol/L (98-107); Estimated GFR-MDRD 40; Glucose 135 mg/dL (83-110); Magnesium 1.9 mg/dL (1.6-2.6); Potassium 3.4 mmol/L (3.5-5.1); Sodium 144 mmol/L (136-145)
[2019-09-17] MEDS ORDERED: Vancomycin 1.5 GRAM/300 ML BAG 1.5 GM in Premix Bag 1 BAG IVPB SCH (09:00)
[2019-09-17] MEDS: predniSONE 20 MG TAB PO SCH (09:00)
--- NOTE | 2019-09-17 09:04 | PRG ---
DATE OF SERVICE: 09/17/2019 SUBJECTIVE: The patient is doing better. He is complaining of lack of sleep. OBJECTIVE: VITAL SIGNS: Temperature 97.8, pulse 72, respirations 12, O2 saturation 98% on 3 L, blood pressure 140/79. HEENT: Unremarkable. NECK: No adenopathy or JVD. CHEST: Coarse breath sounds. CARDIAC: S1 and S2. Regular. ABDOMEN: Soft. EXTREMITIES: No edema. ASSESSMENT: 1. Lung cancer. 2. Status post respiratory failure requiring mechanical ventilation. 3. Probable pneumonia. 4. History of diastolic heart failure. PLAN: 1. Change to oral diuretics. 2. Increase activity as tolerated. 3. Change to oral antibiotics in anticipation of discharge in a couple of days. Job ID: [id number]
[2019-09-17] MEDS: Senokot S 8.6-50 MG TAB PO SCH (09:22)
[2019-09-17] MEDS: Enoxaparin Sodium 40 MG/0.4 ML SYRINGE SC SCH (09:22)
[2019-09-17] MEDS: Amoxicillin/Potassium Clav 875 MG TAB PO SCH ×2 (09:24→20:59)
[2019-09-17] MEDS: Furosemide 20 MG TAB PO SCH (09:24)
--- NOTE | 2019-09-17 11:24 | PDOC.HOSPP ---
- Subjective Encounter Date: 09/17/19 Encounter Time: 11:22 Subjective: no overnight events. Breathing continues to improve and breathes well even on room air. However developed acutely worsening kidney function that requires further monitoring. Also will try to arrange CPAP. - Objective Vital Signs & Weight: Vital Signs (12 hours) Temp Pulse Resp BP Pulse Ox 09/17/19 10:00 88 20 09/17/19 08:35 97.4 F L 90 16 102/56 L 92 L 09/17/19 08:00 97 09/17/19 06:40 72 12 09/17/19 04:00 97.8 F 64 20 140/79 98 09/17/19 02:49 97 20 93 L 09/16/19 23:54 97.6 F 71 20 126/81 96 Weight Admit Weight 288 lb Weight 276 lb 3.827 oz Most Recent Monitor Data Heart Rate from ECG 87 NIBP 114/69 NIBP BP-Mean 84 Respiration from ECG 22 SpO2 97 I&O: 09/16/19 09/17/19 09/18/19 06:59 06:59 06:59 Intake Total 1903.4 1296 700 Output Total 3247 1855 Balance -1343.6 -559 700 Result Diagrams: 09/16/19 04:01 09/17/19 08:01 Additional Labs: Accuchecks 09/16/19 09/16/19 20:55 16:12 POC Glucose 112 H 141 H Hospitalist ROS - Review of Systems Constitutional: denies: fever, chills, sweats, weakness, malaise, other Respiratory: denies: cough, dry, shortness of breath, hemoptysis, SOB with excertion, pleuritic pain, sputum, wheezing, other Cardiovascular: denies: chest pain, palpitations, orthopnea, paroxysmal noc. dyspnea, edema, light headedness, other Gastrointestinal: denies: nausea, vomiting, abdominal pain, diarrhea, constipation, melena, hematochezia, other Genitourinary: denies: dysuria, frequency, incontinence, hematuria, retention, other Neurological: denies: weakness, numbness, incoordination, change in speech, confusion, seizures, other - Medication Medications: Active Medications Generic Name Dose Route Start Last Admin Trade Name Freq PRN Reason Stop Dose Admin Albuterol/Ipratropium 3 ml 09/12/19 18:30 09/17/19 10:00 Duoneb NEB 3 ml [id number] SHASHI Administration Amoxicillin/Clavulanate Potassium 875 mg 09/17/19 09:00 09/17/19 09:24 Augmentin PO 875 mg Q12HR SHASHI Administration Enoxaparin Sodium 40 mg 09/14/19 09:00 09/17/19 09:22 Lovenox SC 40 mg 0900 SHASHI Administration Furosemide 40 mg 09/17/19 09:00 09/17/19 09:24 Lasix PO 40 mg DAILY SHASHI Administration Vancomycin HCl 1.5 gm/ Device 300 mls @ 200 mls/hr 09/17/19 09:00 09/17/19 09 :22 IVPB 300 mls 0900 SHASHI Administration Insulin Human Lispro 0 units 09/12/19 17:04 09/16/19 10:15 Humalog SC 3 unit .MILD SLIDING SCALE PRN Administration Mild Correctional Scale Nicotine 7 mg 09/16/19 13:00 09/16/19 15:36 Nicoderm Patch TOP 7 mg Q24HR SHASHI Administration Prednisone 40 mg 09/16/19 08:00 09/17/19 09:00 Prednisone PO 40 mg QAM-WM SHASHI Administration Senna/Docusate Sodium 1 tab 09/16/19 21:00 09/17/19 09:22 Senokot S PO 1 tab BID SHASHI Administration Sodium Chloride 10 ml 09/13/19 21:00 09/17/19 09:22 Flush - Normal Saline IVF 10 ml Q12HR SHASHI Administration Sodium Chloride 10 ml 09/13/19 18:31 09/17/19 05:36 Flush - Normal Saline IVF 10 ml PRN PRN Administration Saline Flush Sterile Water 1 ml 09/12/19 16:51 09/15/19 11:44 Bacteriostatic Water FS 1 ml PRN PRN Administration RECONSTITUTION - Exam Respiratory: no wheezes, no ronchi, normal chest expansion Respiratory - other findings: mild bilateral lower field inspiratory rales Gastrointestinal: soft, non-tender, non-distended, normal bowel sounds Extremities - other findings: b/l LE pitting edema, unchanged Psychiatric: normal affect, normal behavior, A&O x 3 Hosp A/P - Plan * LEORA over CKD * acute worsening of renal function overnight * likely prerenal etiology to aggressive diuresis; switching to less aggressive oral diuresis * Acute on chronic hypoxic respiratory failure (resolved). * Chronic obstructive pulmonary disease with acute exacerbation (exacerbation resolved). * Chronic diastolic heart failure will continue to diurese via oral diuretics; will continue to taper down steroids and adjust insulin accordingly. patient claims old CPAP at home, will attempt to arrange new CPAP for sake of adherence; on vanc and zosyn (d5) for suspected aspiration/postobstructive pneumonia; will transition to oral for a total of 7 days
[2019-09-17 14:01] VITALS: BMI 38.5
[2019-09-17] MEDS: HumaLOG 300 UNITS/3 ML VIAL SC PRN ×2 (17:00→20:59)
[2019-09-17] MEDS: Nicotine 7 MG PATCH TOP SCH (17:03)
[2019-09-18 04:41] LABS: Anion Gap 10 mmol/L (10-20); BUN (Urea Nitrogen) 39 mg/dL (8.4-25.7); Calc. Creatinine Clearance 86 mL/min (70-130); Calcium 8.9 mg/dL (7.8-10.44); Carbon Dioxide 37 mmol/L (23-31); Chloride 100 mmol/L (98-107); Estimated GFR-MDRD 62; Glucose 84 mg/dL (83-110); Sodium 143 mmol/L (136-145)
--- NOTE | 2019-09-18 08:52 | PRG ---
DATE OF SERVICE: 09/18/2019 SUBJECTIVE: The patient seems to be feeling much better. He has been walking around the room. His catheter is out. OBJECTIVE: VITAL SIGNS: On exam, temperature is 98.9, pulse 101, respirations 18, O2 saturation 98% on 4 L, and blood pressure 118/69. HEENT: Unremarkable. NECK: No adenopathy or JVD. LUNGS: Coarse breath sounds. CARDIAC: S1 and S2. Regular. ABDOMEN: Soft, obese. EXTREMITIES: No edema. LABORATORY DATA: Sodium 143, potassium 4, chloride 100, CO2 of 37, BUN 39, creatinine 1.4, and glucose 84. ASSESSMENT: 1. Status post acute respiratory failure, requiring mechanical ventilation. 2. Diastolic heart failure. 3. Underlying chronic obstructive pulmonary disease. 4. History of lung cancer. PLAN: Mr. Vera is approaching his baseline, appears to be doing well. He is currently on oral antibiotics and oral steroids. He should be good to go home this afternoon or tomorrow. I would taper him back down to his baseline of 10 mg of prednisone over the next 10 days, finish out 7 to 10 days of oral antibiotics. Job ID: [id number]
[2019-09-18] MEDS: Amoxicillin/Potassium Clav 875 MG TAB PO SCH ×2 (08:59→20:21)
[2019-09-18] MEDS: Enoxaparin Sodium 40 MG/0.4 ML SYRINGE SC SCH (08:59)
[2019-09-18] MEDS: predniSONE 20 MG TAB PO SCH (08:59)
[2019-09-18] MEDS: Furosemide 20 MG TAB PO SCH (08:59)
[2019-09-18] MEDS: Nicotine 7 MG PATCH TOP SCH (12:42)
[2019-09-18] MEDS: HumaLOG 300 UNITS/3 ML VIAL SC PRN (16:46)
[2019-09-18] MEDS ORDERED: predniSONE 20 MG TAB PO SCH (20:38)
--- NOTE | 2019-09-18 20:42 | PDOC.HOSPP ---
- Subjective Encounter Date: 09/18/19 Encounter Time: 08:00 Subjective: No overnight events. This morning, patient about to be discharged however on encounter saturating in 60s upon waking from sleep despite 2L NC, breathing heavily. After waking up, sats increased to 80s, and then to low 90s after increasing NC to 5L. Patient and nurse informed patient has to be on CPAP when sleeps, day or night. Has no complaints - Objective Vital Signs & Weight: Vital Signs (12 hours) Temp Pulse Resp BP Pulse Ox Pulse Ox 09/18/19 19:59 97.9 F 91 24 H 134/72 94 L 09/18/19 18:29 94 18 99 09/18/19 15:59 91 20 90 L 09/18/19 13:16 94 L 09/18/19 12:00 89 L 09/18/19 11:44 20 92 L 09/18/19 10:45 86 20 96 Weight Admit Weight 290 lb 9.108 oz Weight 278 lb 14.4 oz Most Recent Monitor Data Heart Rate from ECG 87 NIBP 114/69 NIBP BP-Mean 84 Respiration from ECG 22 SpO2 97 I&O: 09/17/19 09/18/19 09/19/19 06:59 06:59 06:59 Intake Total 1296 1890 1000 Output Total 1855 1820 1500 Balance -559 70 -500 Result Diagrams: 09/16/19 04:01 09/18/19 04:07 Additional Labs: Accuchecks 09/18/19 09/18/19 09/18/19 20:10 16:37 11:15 POC Glucose 98 244 H 112 H Hospitalist ROS - Review of Systems Constitutional: denies: fever, chills, sweats, weakness, malaise, other Respiratory: reports: SOB with excertion. denies: cough, dry, shortness of breath, pleuritic pain, sputum, wheezing Cardiovascular: denies: chest pain, palpitations, orthopnea, paroxysmal noc. dyspnea, edema, light headedness, other Gastrointestinal: denies: nausea, vomiting, abdominal pain, diarrhea, constipation, melena, hematochezia, other Genitourinary: denies: dysuria, frequency, incontinence, hematuria, retention, other Neurological: denies: weakness, numbness, incoordination, change in speech, confusion, seizures, other - Medication Medications: Active Medications Generic Name Dose Route Start Last Admin Trade Name Freq PRN Reason Stop Dose Admin Albuterol/Ipratropium 3 ml 09/12/19 18:30 09/18/19 18:29 Duoneb NEB 3 ml [id number] SHASHI Administration Amoxicillin/Clavulanate Potassium 875 mg 09/17/19 09:00 09/18/19 20:21 Augmentin PO 875 mg Q12HR SHASHI Administration Enoxaparin Sodium 40 mg 09/14/19 09:00 09/18/19 08:59 Lovenox SC 40 mg 0900 SHASHI Administration Furosemide 40 mg 09/17/19 09:00 09/18/19 08:59 Lasix PO 40 mg DAILY SHASHI Administration Insulin Human Lispro 0 units 09/12/19 17:04 09/18/19 16:46 Humalog SC 3 unit .MILD SLIDING SCALE PRN Administration Mild Correctional Scale Nicotine 7 mg 09/16/19 13:00 09/18/19 12:42 Nicoderm Patch TOP 7 mg Q24HR SHASHI Administration Sodium Chloride 10 ml 09/13/19 21:00 09/18/19 20:21 Flush - Normal Saline IVF 10 ml Q12HR SHASHI Administration Sodium Chloride 10 ml 09/13/19 18:31 09/17/19 05:36 Flush - Normal Saline IVF 10 ml PRN PRN Administration Saline Flush Sterile Water 1 ml 09/12/19 16:51 09/15/19 11:44 Bacteriostatic Water FS 1 ml PRN PRN Administration RECONSTITUTION - Exam General Appearance: NAD, awake alert Neck: no JVD Heart: no murmur, no gallops Heart - other findings: regular rhythm, tachycardic Respiratory: no wheezes, no ronchi, rales Gastrointestinal: soft, non-tender, non-distended, normal bowel sounds, no palpable masses, no hepatomegaly, no splenomegaly, no bruit Extremities: 2+ LE edema Psychiatric: normal affect, normal behavior, A&O x 3 Hosp A/P - Plan * [facility] * patient requires CPAP when sleeping * right after sleeping, desats to 70s on 2L NC * * LEORA over CKD (resolved) * acute worsening of renal function overnight * likely prerenal etiology to aggressive diuresis; switching to less aggressive oral diuresis * Acute on chronic hypoxic respiratory failure (resolved). * Chronic obstructive pulmonary disease with acute exacerbation (exacerbation resolved). * Chronic diastolic heart failure will continue to diurese via oral diuretics; reduced to prednisone to 30mg. will continue to taper down patient claims old CPAP at home, will attempt to arrange new CPAP for sake of adherence; on vanc and zosyn (d6), now augmenting per pulmonology for suspected aspiration/ postobstructive pneumonia; total treatment for 7 days to be completed 09/19. patient refuses to be discharged anywhere but home despite explaining extensively his disease condition, treatment, and repercussions of nontreatment. CM attempted to reach family to mediate placement in skilled facility to no avail. Will discuss home w/ custodial with patient and CM
[2019-09-19] MEDS: Enoxaparin Sodium 40 MG/0.4 ML SYRINGE SC SCH (08:50)
[2019-09-19] MEDS: Furosemide 20 MG TAB PO SCH (08:51)
[2019-09-19] MEDS: Amoxicillin/Potassium Clav 875 MG TAB PO SCH (08:51)
[2019-09-19 09:21] VITALS: BP 122/66; TEMP 98.3
--- NOTE | 2019-09-19 12:18 | PRG ---
DATE OF SERVICE: 09/19/2019 SUBJECTIVE: He feels better and wants to go home. OBJECTIVE: VITAL SIGNS: Temperature 98.3, pulse 98, blood pressure 122/66, and O2 saturation in the low 90s on 4 L nasal cannula. HEENT: Unremarkable. NECK: No adenopathy or JVD. LUNGS: Crackles in the bases. CARDIAC: S1 and S2. Regular. ABDOMEN: Soft. EXTREMITIES: No edema. ASSESSMENT: 1. Status post respiratory failure, requiring mechanical ventilation. 2. Underlying chronic obstructive pulmonary disease. 3. Lung cancer. 4. Diastolic congestive heart failure. PLAN: The patient has gotten better very quickly, which would lead me to believe his heart failure was the reason for his decompensation. I think he is okay to go home. I would finish out 7 full days of antibiotics, wean his prednisone over a couple of weeks. He looks stable enough to go home. Job ID: [id number]
[2019-09-19] MEDS: Nicotine 7 MG PATCH TOP SCH (14:07)
[2019-09-19] MEDS: HumaLOG 300 UNITS/3 ML VIAL SC PRN (16:16)
--- NOTE | 2019-09-20 13:41 | DIS ---
DATE OF ADMISSION: 09/12/2019 DATE OF DISCHARGE: 09/19/2019 HISTORY OF PRESENT ILLNESS: Mr. Vera is a 73-year-old male who presented with shortness of breath and no respiratory distress. He was diagnosed with acute respiratory failure and required intubation at [place] then was transferred to [facility]. He was diagnosed with acute hypoxic respiratory failure due to progression of his lung cancer as well as COPD exacerbation. He was treated with antibiotics as well as steroid and improved over several days. Prior to discharge, the patient was advised that to be discharged to a rehab in order to be more closely monitored. However, the patient who was deemed to have decisional capacity refused to go anywhere, but home. We attempted to involve the family, but the family did not want to be involved in the patient's care. Therefore, the patient was discharged home with home health aide, and was instructed to discuss replacing his CPAP with the company. He was discharged home, was saturating at low 90s on 3 L nasal cannula, which is his baseline. PHYSICAL EXAMINATION: VITAL SIGNS: Unremarkable. GENERAL APPEARANCE: No apparent distress. Awake and alert. NECK: No JVD. HEART: Regular rate and rhythm. No murmurs, rubs, no gallops. RESPIRATORY: No wheezing. No rhonchi, but he did have mild bibasilar rales that were significantly improved compared to admission. GASTROINTESTINAL: Soft, nontender, nondistended. Normal bowel sounds. EXTREMITIES: Bilateral lower extremity pitting edema up to knee level that has improved compared to his presentation. PSYCHIATRIC: Normal affect. Normal behavior. Alert and oriented x3. Has decisional capacity. ASSESSMENT AND PLAN: Mr. Vera is a 73-year-old male who presented with [id number] respiratory failure due to progression of his lung cancer, decompensated [id number] heart failure with preserved ejection fraction, and chronic obstructive pulmonary disease exacerbation. The patient was diuresed for decompensated heart failure, he was treated with prednisone and antibiotics, which he completed prior to discharge for chronic obstructive pulmonary disease exacerbation and Oncology was made aware of the patient's deterioration with possible contribution of his lung cancer. He was discharged home with prednisone treatment that was tapered down and a followup appointment with his primary care physician to follow the patient's medical condition concerning he is a high-risk patient and the tapering down of his steroids. Job ID: [id number]
== END 2019-09-19 16:22 | disposition home health service (06) | DRG 208 ==
LOC: ERS 13:07 → CCU 16:18 → ONC 09-16 13:31
PROVIDERS: ADMIT Internal Medicine; ATTEND Internal Medicine
PROC: 5A1945Z Respiratory Ventilation, 24-96 Consecutive Hours (ICD-10-PCS; principal; 2019-09-14)
PROC: 0BJ08ZZ Inspection of Tracheobronchial Tree, Via Natural or Artificial Opening Endoscopic (ICD-10-PCS; 2019-09-14)
DX: J96.21 Acute and chronic respiratory failure with hypoxia (principal); I50.33 Acute on chronic diastolic (congestive) heart failure; J69.0 Pneumonitis due to inhalation of food and vomit; N17.9 Acute kidney failure, unspecified; E66.2 Morbid (severe) obesity with alveolar hypoventilation; I50.32 Chronic diastolic (congestive) heart failure; J44.1 Chronic obstructive pulmonary disease with (acute) exacerbation; I13.0 Hypertensive heart and chronic kidney disease with heart failure and stage 1 through stage 4 chronic kidney disease, or unspecified chronic kidney disease; C34.2 Malignant neoplasm of middle lobe, bronchus or lung; M19.90 Unspecified osteoarthritis, unspecified site; R31.0 Gross hematuria; N18.3 Chronic kidney disease, stage 3 (moderate); D69.6 Thrombocytopenia, unspecified; Z68.38 Body mass index [BMI] 38.0-38.9, adult; Z78.1 Physical restraint status; Z85.038 Personal history of other malignant neoplasm of large intestine; Z85.118 Personal history of other malignant neoplasm of bronchus and lung; Z79.899 Other long term (current) drug therapy; Z79.02 Long term (current) use of antithrombotics/antiplatelets; Z90.49 Acquired absence of other specified parts of digestive tract; Z91.19 Patient's noncompliance with other medical treatment and regimen
CPT/HCPCS: 36415; 36416; 71045; 80048; 80202; 82550; 82805; 83735; 83874; 85007; 85025; 85027; 85610; 85730; 93005; 93306; 93798; 94002; 94003; 94640; 94660; 96365; 96366; 96368; 96376; 99292; J1650; J1940; J2060; J2543; J2704; J2920; J3010; J3370; J3490; J7050; J7512; J7620; S0028

== ENCOUNTER 2019-11-07 09:29 | Inpatient (IN) | payer MEDICARE, MEDICAID, OTHER ==
[2019-11-07 10:30] LABS: Hemoglobin 9.5 g/dL (14.0-18.0); Mean Corpuscular Hemoglobin 29.7 pg (27.0-31.0); Mean Platelet Volume 7.6 fL (7.4-10.4); Platelet Count 447 thou/uL (130-400); RBC Distribution Width 21.1 % (11.5-14.5); Red Blood Cell (RBC) Count 3.19 mill/uL (4.70-6.10); White Blood Cell (WBC) Count 6.8 thou/uL (4.8-10.8)
[2019-11-07 10:33] LABS: Base Excess-Venous 6.6 mmol/L (-2.0 to 3.0); Bicarbonate (HCO3v) 36.8 mmol/L (22.0-28.0); CO2 Tension (PvCO2) 86.9 mmHg (40.0-50.0); Chloride 101 mmol/L (98-107); Hemoglobin - Calc 11.6 g/dL (14.0-18.0); Potassium 5.4 mmol/L (3.5-5.1); Sodium 143 mmol/L (138-145); T. Carbon Dioxide 39.4 mmol/L (22.0-28.0); vO2 Saturation-calc 49.3 % (60.0-85.0)
[2019-11-07] MEDS ORDERED: Rocuronium Bromide 10 MG/ML (10ML VIAL) ONE (10:42)
[2019-11-07] MEDS ORDERED: Ketamine 50 MG/ML (10ML VIAL) ONE (10:42)
[2019-11-07 10:58] LABS: Anisocytosis MODERATE=16-30 cells (100X) (0-5/hpf); Band 6 % (5-11); Eosinophils 3 % (0-10); Hypochromia SLIGHT = 6-15 cells (100X) (0-5/hpf); Lymphocytes 6 % (21-51); MDiff Complete? YES; Monocytes 5 % (0-10); Neutrophil 79 % (42-75); Nucleated RBC 6 % (0); Platelet Morphology Comment Appears Increased; Polychromasia MARKED = >4 cells (100X) (0-2/hpf); Schistocytes SLIGHT = 2-5 cells (100X) (0-1/hpf)
[2019-11-07 11:04] LABS: Albumin 3.8 g/dL (3.4-4.8)
[2019-11-07 11:05] LABS: Chloride 101 mmol/L (98-107); Potassium 5.9 mmol/L (3.5-5.1); Sodium 143 mmol/L (136-145)
[2019-11-07 11:06] LABS: Calcium 8.8 mg/dL (7.8-10.44)
[2019-11-07 11:07] LABS: Globulin 2.2 g/dL (2.4-3.5); Glucose 131 mg/dL (83-110)
[2019-11-07 11:08] LABS: Carbon Dioxide 35 mmol/L (23-31)
[2019-11-07 11:09] LABS: Alkaline Phosphatase 58 U/L (40-110); Bilirubin, Total 0.2 mg/dL (0.2-1.2)
[2019-11-07 11:10] LABS: Calc. Creatinine Clearance 0 mL/min (70-130); Estimated GFR-MDRD 66
[2019-11-07 11:11] LABS: BUN (Urea Nitrogen) 28 mg/dL (8.4-25.7)
[2019-11-07 11:12] LABS: AST (SGOT) 15 U/L (5-34)
[2019-11-07 11:13] LABS: ALT (SGPT) 10 U/L (8-55); CK (CPK) 49 U/L (30-200)
[2019-11-07 11:23] LABS: Anion Gap 13 mmol/L (10-20)
[2019-11-07] MEDS ORDERED: Propofol 1,000 MG/100 ML VIAL IV ONE ×2 (11:29→14:06)
--- NOTE | 2019-11-07 11:34 | RAD ---
CHEST 1 VIEW PORTABLE: Date: 11/07/2019 HISTORY: Dyspnea, shortness of breath. History of lung cancer. COMPARISON: 09/15/2019. FINDINGS: The NG tube and endotracheal tube have been removed. Left central line and injection port in place. P ersistent patchy alveolar and interstitial opacities in the left mid lung zone, as well as more homog eneous pleural and parenchymal changes in the right base with right-sided volume loss, with little ov erall change. Persistent dilated proximal pulmonary artery segments. IMPRESSION: Little change from prior study. NG tube and endotracheal tubes have been removed. Continue short-term follow-up. POS: [facility]
[2019-11-07 11:49] LABS: Analyzer IN Cardio ER; Base Excess (BEa) 5.5 mEq/L (-2.0 to +3.0); CO2 Tension 43.6 mmHg (35.0-45.0); Calcium, Ionized 1.12 mmol/L (1.12-1.30); Hemoglobin (Hb) 9.6 g/dL (14.0-18.0); Potassium - ABG Lab 5.28 mmol/L (3.70-5.30); pH, Arterial 7.46 (7.35-7.45)
[2019-11-07 12:01] LABS: O2 Tension (PaO2) 43.2 mmHg (> 70.0); Puncture Site LBA
[2019-11-07] MEDS ORDERED: Norepinephrine 8 MG/0.9% NS 250 ML IVPB SCH (12:04)
[2019-11-07] MEDS ORDERED: Furosemide 40 MG/4 ML VIAL ONE (12:10)
[2019-11-07] MEDS ORDERED: fentaNYL Citrate/PF 2,000 MCG in Sodium Chloride 0.9% 60 ML IV SCH (12:10)
[2019-11-07] MEDS ORDERED: Sodium Bicarb 50 MEQ/50 ML VIAL ONE (12:12)
[2019-11-07] MEDS ORDERED: Insulin Regular 300 UNITS/3 ML VIAL ONE (12:12)
[2019-11-07] MEDS ORDERED: Calcium Chloride 1 GM/10 ML Abboject SYRINGE ONE (12:12)
[2019-11-07] MEDS ORDERED: Dextrose 50% Abboject 50 ML SYRINGE ONE (12:12)
[2019-11-07] MEDS ORDERED: Sodium Bicarb 50 MEQ/50 ML Abboject 8.4% SYRINGE ONE (12:13)
[2019-11-07] MEDS ORDERED: Fentanyl 100 MCG/2 ML VIAL ONE (12:25)
--- NOTE | 2019-11-07 12:30 | RAD ---
SINGLE VIEW CHEST: Date: 11/07/2019 HISTORY: Post intubation. FINDINGS: Single view of the chest shows a normal sized cardiomediastinal silhouette. The MediPort is unchanged in position. Endotracheal tube is seen with its tip in good position above the lou. A NG tube cou rses off the inferior aspect of the film. There appears to be a moderate right pleural effusion with adjacent atelectasis versus infiltrate. There may be a small left pleural effusion. IMPRESSION: 1. Bilateral pleural effusions. 2. Appropriate position of endotracheal tube. POS: [facility]
[2019-11-07] MEDS ORDERED: Albuterol Sulfate 2.5 mg/3 ml Neb ONE (12:50)
[2019-11-07] MEDS ORDERED: Midazolam HCl 5 mg/ml Vial ONE (13:19)
[2019-11-07] MEDS ORDERED: Ondansetron PF 4 MG/2 ML Vial IVP PRN (13:37)
--- NOTE | 2019-11-07 16:45 | PDOC.HOSPP ---
- Subjective Encounter Date: 11/07/19 Encounter Time: 12:10 Subjective: pt is intubated, off levophed since last even. cw dopamine gtt; COVID-19 neg. - Objective Vital Signs & Weight: Vital Signs (12 hours) Temp Pulse Resp Pulse Ox 11/07/19 16:00 97.7 F 11/07/19 14:52 20 11/07/19 14:22 96 11/07/19 14:20 89 Weight Weight 288 lb 12.889 oz Most Recent Monitor Data Heart Rate from ECG 81 NIBP 104/65 NIBP BP-Mean 78 Respiration from ECG 17 SpO2 92 I&O: 11/06/19 11/07/19 11/08/19 06:59 06:59 06:59 Output Total 545 Balance -545 Result Diagrams: 11/07/19 10:15 11/07/19 10:15
[2019-11-07] MEDS ORDERED: SYSTANE 3.5 GM TUBE EA EYE PRN (17:11)
[2019-11-07] MEDS ORDERED: Furosemide 40 MG/4 ML VIAL SLOW IVP SCH (17:15)
[2019-11-07] MEDS ORDERED: Ventilator Sedation Protocol 1 EACH FS SCH (17:15)
[2019-11-07] MEDS ORDERED: Fentanyl BOLUS 250 ML IVPB PRN (17:17)
[2019-11-07] MEDS ORDERED: Propofol BOLUS 1,000 MG/100 ML VIAL IV PRN (17:17)
[2019-11-07] MEDS ORDERED: DISCONTINUE PREVIOUS NARCOTIC PAIN MEDICATIONS AND BENZODIAZEPINES FS SCH (17:17)
[2019-11-07] MEDS ORDERED: Morphine 2 MG/ML SYRINGE SLOW IVP PRN (17:17)
[2019-11-07] MEDS ORDERED: methylPREDNISolone Sod Succ 40 MG VIAL IVP SCH ×2 (17:30→18:00)
[2019-11-07] MEDS ORDERED: Insulin Regular 300 UNITS/3 ML VIAL IVP SCH (18:00)
[2019-11-07] MEDS ORDERED: Dextrose 50% Abboject 50 ML SYRINGE SLOW IVP SCH (18:00)
--- NOTE | 2019-11-07 18:45 | HP ---
CHIEF COMPLAINT: Altered mentation, hypoxic respiratory failure requiring intubation, and CHF exacerbation. HISTORY OF PRESENT ILLNESS: A 74-year-old male with a history of multiple medical problems including lung cancer, COPD, and CHF with diastolic dysfunction and recent hospitalization on with similar issues requiring intubation at that time, presenting today with CHF exacerbation, worsening shortness of breath, and ongoing chemo for his lung cancer. His last chemo was two weeks ago and he has not left home since then, presented with shortness of breath of few days' duration. Initially, he looked very tired and labile mentation. His blood gas showed pCO2 of 90, initially requiring intubation in the ER. The patient has a chemo port through which pressors will be started as suggested by the ER. His flu test was initially negative. His potassium was 5.9, given insulin, glucose, as well as albuterol in addition to bicarb. Somehow when the patient contacted his primary care physician, he has been instructed to go to the ER and also to rule out COVID-19. Please note that the patient has not left his house for the last couple of weeks and he has no exposed for anybody at risk. In the ER, airborne precaution has been adopted. REVIEW OF SYSTEMS: Not obtainable. PAST MEDICAL HISTORY: 1. COPD, respiratory failure requiring intubation , in August 2019 and in February 2018. 2. Non-small cell lung cancer on the right and associated lymphadenopathy as well as metastasis to the bones. 3. Colorectal cancer in 2012. 4. Hypoventilation obesity syndrome. 5. Type 2 diabetes mellitus. 6. Hypertension. PAST SURGICAL HISTORY: Colon cancer resection, lung lesion biopsy, and left- sided MediPort. SOCIAL HISTORY: He was ex-smoker. Occasional alcohol as well as marijuana use. FAMILY HISTORY: Significant for heart disease. ALLERGIES: HE HAS NO KNOWN DRUG ALLERGY. MEDICATIONS: He was on prednisone at home since he is discharged in August. Metformin 1000 mg twice a day, Spiriva, Lasix 40 mg daily, finasteride 5 mg daily, Pulmicort, amlodipine as well as albuterol. PHYSICAL EXAMINATION: VITAL SIGNS: Temperature 97.7. He is on vent with FiO2 of 50%, pulse at 83, sats 92, and his blood pressure 104/65. GENERAL: The patient is intubated. CARDIOVASCULAR: Regular rate and rhythm. No murmurs. LUNGS: He has crackles on both areas with anterior auscultation. ABDOMEN: Soft, nontender, and nondistended. Bowel sounds are positive. EXTREMITIES: I did not appreciate any pitting edema in his lower extremities. LABORATORY DATA: His hemoglobin 9.5, WBC 6.8, and platelets 447,000. Chemistry ; repeat potassium 5.4, and sodium 143. BNP 1270. BUN is 28, creatinine 1.3, and blood glucose 131. His chest x-ray showed bilateral pleural effusion and correct position of the ET tube. IMPRESSION AND PLAN: This is a 74-year-old male with history of coronary artery disease and diastolic dysfunction, presented with: 1. Hypercapnic respiratory failure secondary to probable congestive heart failure exacerbation, requiring intubation. 2. Acute respiratory failure requiring intubation related to hypovolemia requiring Levophed currently. He will be shortly moved to the ICU. Vent management per protozoologist. We will get a.m. x-ray as well as ABG. The patient is afebrile, no elevated white count, so his presentation and respiratory failure secondary to congestive heart failure exacerbation rather than infectious source, so I will refrain from adding antibiotics at this point. 3. The patient also had an echo in August 2019, showed EF of 60% and diastolic dysfunction, right ventricular dilatation, mild mitral regurgitation, aortic sclerosis and mild tricuspid regurgitation. He has elevated BNP with mild acute kidney injury, so he probably needed diuresis; however, his presentation of hypotension requiring pressors, refrain with all the blood pressure medications and diuretics as well for now. 4. Non-small cell lung cancer with metastasis to the bone. He follows with Dr. Cummins' group. We will consult them as the patient is on active chemo treatment and the last one 2 weeks ago. 5. Hyperkalemia. With insulin, glucose, as well as albuterol, it seems the repeat potassium is improving at 5.4. We will follow closely. We will give another small dose of insulin and glucose as well as albuterol treatment to reduce the potassium level. 6. Chronic kidney disease stage 3. Avoid nephrotoxins. 7. The patient is currently full code. COVID-19 rule out. Job ID: [id number] MTDD
[2019-11-07 21:33] LABS: Potassium 4.9 mmol/L (3.5-5.1)
[2019-11-07] MEDS: Famotidine/PF 20 mg/2ml Vial SLOW IVP SCH (22:11)
[2019-11-07] MEDS ORDERED: Dextrose 50% Abboject 50 ML SYRINGE IVP PRN (22:34)
[2019-11-07] MEDS ORDERED: Dextrose 5% in Water 1,000 ML IV PRN (22:34)
[2019-11-08] MEDS: Propofol 1,000 MG/100 ML VIAL IV PRN ×5 (00:19→19:12)
[2019-11-08] MEDS: fentaNYL Citrate/PF 2,000 MCG in Sodium Chloride 0.9% 60 ML IV SCH ×2 (03:04→23:34)
[2019-11-08 04:01] LABS: #Lymphocytes 0.8 thou/uL (1.20-3.40); #Monocytes 0.6 thou/uL (0.11-0.59); #Neutrophils 5.7 thou/uL (1.40-6.50); %Basophils 0.1 % (0.0-1.0); %Eosinophils 0.3 % (0.0-10.0); %Lymphocytes 10.6 % (21.0-51.0); %Monocytes 8.3 % (0.0-10.0); %Neutrophils 80.7 % (42.0-75.0); Hemoglobin 8.7 g/dL (14.0-18.0); Mean Corpuscular HGB CONC 30.3 g/dL (32.0-36.0); Mean Corpuscular Hemoglobin 29.7 pg (27.0-31.0); Mean Platelet Volume 8.5 fL (7.4-10.4); Platelet Count 425 thou/uL (130-400); Red Blood Cell (RBC) Count 2.94 mill/uL (4.70-6.10); White Blood Cell (WBC) Count 7.1 thou/uL (4.8-10.8)
[2019-11-08 04:19] LABS: Anion Gap 14 mmol/L (10-20); BUN (Urea Nitrogen) 32 mg/dL (8.4-25.7); Calc. Creatinine Clearance 73 mL/min (70-130); Carbon Dioxide 34 mmol/L (23-31); Chloride 99 mmol/L (98-107); Estimated GFR-MDRD 49; Glucose 116 mg/dL (83-110); Phosphorus 2.3 mg/dL (2.3-4.7); Sodium 142 mmol/L (136-145)
[2019-11-08 07:40] LABS: Actual Bicarbonate (HCO3a) 33.1 mEq/L (22-28); Base Excess (BEa) 8.8 mEq/L (-2.0 to +3.0); CO2 Tension 44.8 mmHg (35.0-45.0); Calcium, Ionized 1.15 mmol/L (1.12-1.30); Carboxyhemoglobin (COHb) 1.2 gm% (0.0-3.0); Hemoglobin (Hb) 9.1 g/dL (14.0-18.0); Potassium - ABG Lab 4.66 mmol/L (3.70-5.30); pH, Arterial 7.49 (7.35-7.45)
[2019-11-08 07:44] LABS: O2 Tension (PaO2) 53.8 mmHg (> 70.0); Puncture Site RRA
--- NOTE | 2019-11-08 08:15 | PRG ---
DATE OF SERVICE: 11/08/2019 35 minutes critical care time. SUBJECTIVE: Mr. Vera remains intubated on mechanical ventilation. He did rule out for COVID-19 with a negative PCR test. OBJECTIVE: VITAL SIGNS: His temperature is 98.3, pulse 76, blood pressure 98/64. I do not see any recorded fever in the last 24 hours. Intake 381, output 1905. HEENT: Unremarkable. NECK: No adenopathy or JVD. LUNGS: Coarse breath sounds anteriorly. CARDIOVASCULAR: S1-S2 regular without audible murmur. ABDOMEN: Soft, obese, nontender nondistended. EXTREMITIES: No clubbing or cyanosis. He has ankle edema. LABORATORY DATA: White blood cell count 7.1, hematocrit 28.8, and platelet count 425. PH of 7.49, pCO2 of 44, pO2 of 54 on SIMV rate 16, tidal volume 470, PEEP 5, pressure support 15, FiO2 45%. Chest x-ray shows probable pulmonary edema. ASSESSMENT: 1. Probable diastolic congestive heart failure. 2. Acute respiratory failure requiring mechanical ventilation. 3. History of lung cancer with metastasis. 4. Chronic kidney disease. PLAN: 1. I would continue with diuresis. 2. He is empirically on antibiotics, although I do not think we are dealing with pneumonia in this case. 3. Continue steroids and nebulization treatments. Anticipated that he will need intubation for 2-3 more days. 4. Initiate tube feeds. Job ID: [id number]
--- NOTE | 2019-11-08 08:22 | RAD ---
PORTABLE CHEST 1 VIEW: DATE: 11/08/2019. TIME: 5:45 AM. HISTORY: Respiratory failure. COMPARISON: Previous day. FINDINGS/IMPRESSION: Line and tube placements are unchanged in position. The heart size is stable. Bilateral lung opacit ies are again seen with accompanying small effusions. No pneumothoraces are identified. POS: [facility]
[2019-11-08] MEDS ORDERED: FLU VACC TS2019-20(65YR UP)/PF 180 MCG/0.5 ML SYRINGE IM ONE (09:00)
[2019-11-08] MEDS ORDERED: Prevnar 13-Val Conj/PF 0.5 ML SYRINGE IM ONE (09:00)
[2019-11-08] MEDS: acetaZOLAMIDE Sodium 500 mg Vial IVP SCH (09:28)
[2019-11-08] MEDS: methylPREDNISolone Sod Succ 40 MG VIAL IVP SCH (09:28)
[2019-11-08] MEDS: Furosemide 40 MG/4 ML VIAL SLOW IVP SCH (09:29)
[2019-11-08] MEDS: Famotidine/PF 20 mg/2ml Vial SLOW IVP SCH ×2 (09:34→20:15)
--- NOTE | 2019-11-08 12:02 | CON ---
DATE OF CONSULTATION: 11/07/2019 SERVICE: Pulmonary Medicine. REASON FOR CONSULTATION: ICU patient. HISTORY OF PRESENT ILLNESS: The patient is a 74-year-old male with past medical history significant for advanced COPD, [id number] lung cancer. He was in his usual state of health when he started having onset of respiratory difficulties. He is intubated, and everything is essentially obtained from chart review. This was associated with some leg swelling in the past couple of days. He was initially hypoxic to 58%. End-tidal CO2 was elevated. His saturations improved with a nonrebreather. Because of possible COVID, positive-pressure ventilation was not entertained, and the patient was subsequently intubated. At this point, I cannot get any additional elements of the history from him. PAST MEDICAL HISTORY: 1. Okj-ldhwf-jsvw lung cancer, poorly differentiated. 2. COPD. 3. Chronic diastolic heart failure. 4. History of colorectal cancer. 5. Type 2 diabetes mellitus. 6. Hypertension. PAST SURGICAL HISTORY: 1. Colon cancer resection. 2. Bronchoscopy. 3. Left-sided MediPort placement. FAMILY HISTORY: Noncontributory. SOCIAL HISTORY: He has a remote history of smoking. He drinks on some social occasions. He has a history of marijuana use. ALLERGIES: NO KNOWN DRUG ALLERGIES. MEDICATIONS: List of his inpatient medications was reviewed. Multiple updates were made at this time. REVIEW OF SYSTEMS: This cannot be obtained as the patient is currently intubated and sedated. PHYSICAL EXAMINATION: VITAL SIGNS: Afebrile, pulse 81, blood pressure 104/65, respirations 17, saturation 92%, currently on 57% FiO2 and a PEEP of 5. GENERAL: The patient is intubated and sedated. HEENT: Normocephalic and atraumatic. Sclerae white. Conjunctivae pink. Oral mucosa is moist without lesions. LUNGS: Decreased air entry on the right, but a prolonged expiratory phase is present. I do not appreciate any wheezing. Dependently, crackles are noted. HEART: Normal rate, regular. ABDOMEN: Soft, nontender, nondistended. Bowel sounds are positive. MUSCULOSKELETAL: No cyanosis or clubbing. There is 1+ pitting in the bilateral lower extremities. NEUROLOGIC: Grossly nonfocal. LABORATORY DATA: WBC 6.8, hemoglobin 9.5, and platelets 447,000. Neutrophil count is 79% on top of 6% bands. PH 7.46, pCO2 of 43, and pO2 of 43. Potassium 5.4, sodium 143. Basic metabolic profile is otherwise unremarkable. Creatinine 1.3, which is actually below his baseline. Liver function studies are unremarkable. BNP 1200 which is nearly an historic high for him. Troponin is unremarkable. Respiratory PCR is negative. Influenza A and B are unremarkable. IMAGING: Chest x-ray demonstrates likely right-sided pleural effusion, which is layering, giving homogeneous density to the right lung. I do not see any obvious infiltrates outside of the right upper lobe. Endotracheal tube terminates in good position. A port catheter is noted. Enteric catheter courses midline out of the field of view. Cardiomegaly is present as is pulmonary vascular congestion. Of note, this is an underpenetrated film. The one performed immediately prior to this was more characteristic of a pulmonary edema pattern. Compared to September 15, there was little change between this chest x-ray and the prior. ASSESSMENT: 1. Acute on chronic hypoxic respiratory failure. 2. Acute on chronic diastolic heart failure. 3. Chronic obstructive pulmonary disease with acute exacerbation, likely mild. 4. Lsp-gvruf-axba lung cancer, widely metastatic with a stenotic right mainstem and right middle lobe lesion. DISCUSSION AND PLAN: I will give the patient a dose of Lasix tonight and tomorrow morning. We will wean oxygen away as tolerated. COVID testing is currently pending. We will observe isolation procedures until this comes back, but I would frankly be surprised if this turned out to be coronavirus. Multiple adjustments have been made to the ventilator to hopefully improve comfort. Critical Care will follow, but Dr. Lynn has an established relationship with Mr. Vera and will be assuming care in the morning. CRITICAL CARE TIME: 30 minutes. Job ID: [id number]
--- NOTE | 2019-11-08 12:39 | CON ---
DATE OF CONSULTATION: REASON FOR CONSULTATION: Lung cancer. HISTORY OF PRESENT ILLNESS: Mr. 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 He was diagnosed in 2018. He has undergone multiple chemo regimens and is currently on single agent Gemzar. His last CT scan in July showed a mixed response to therapy with new bone lesions. He then underwent radiation to his right rib for rib pain. His last treatment of Gemzar was on 10/22/19. Over the last several days, he had worsening shortness of breath and presented to the emergency room for evaluation. He was hypoxic. His flu and COVID-19 tests were negative. He required intubation in the emergency room and is currently in the ICU. He was hypovolemic on admission and was briefly on Levophed drip. His BNP was 1270 on admission. PAST MEDICAL HISTORY: 1. Non-small cell right upper lobe lung cancer with bone metastasis. 2. Diabetes, type 2. 3. Hypertension. 4. Congestive heart failure. 5. Atrial fibrillation. 6. High cholesterol. 7. Arthritis. 8. Chronic obstructive pulmonary disease, oxygen dependent. 9. History of intubation. 10. History of colon cancer in 2013, stage I. 11. Obstructive sleep apnea, with CPAP. 12. Benign prostate hypertrophy. PAST SURGICAL HISTORY: 1. Colon resection in 2012. [address]-guided biopsy of his lung. ALLERGIES: NO KNOWN DRUG ALLERGIES. HOME MEDICATIONS: 1. Amlodipine 10. 2. Clopidogrel 75. 3. Finasteride 5. 4. Furosemide 40. 5. Gabapentin 300. 6. Hydralazine 25. 7. Hydrocodone 10/325 p.r.n. 8. Metformin 1000 b.i.d. 9. Naproxen 500 b.i.d. 10. Prednisone 20 b.i.d. 11. Tramadol 50 b.i.d. FAMILY HISTORY: History of colon cancer. SOCIAL HISTORY: Single, lives alone. Former smoker. REVIEW OF SYSTEMS: Unable to obtain secondary to intubation. PHYSICAL EXAMINATION: VITAL SIGNS: Temperature 98.5, pulse is 78, respiratory rate is 16, BP is 113/ 71. He is 96% on 50% FiO2. GENERAL: Obese male, in no acute distress. HEENT: Normocephalic and atraumatic. NECK: Supple. CV: Irregular rate and rhythm. LUNGS: Clear anterior, oral ET tube in place. ABDOMEN: Obese and nontender. Feeding tube in place. EXTREMITIES: No clubbing or cyanosis. SKIN: No rash. HEMATOLOGIC: No petechiae or purpura. NEUROLOGIC: He is sedated with Diprivan. PERTINENT LABS AND X-RAYS: Current WBCs are 7.1, hemoglobin 8.7, hematocrit 28.8, platelet count is 425,000. He has 80% neutrophils and 10% lymphocytes. Sodium is 142, potassium 5.0, chloride 99, CO2 is 34, BUN is 32, creatinine 1.67, calcium 9, phosphorus 2.3, magnesium 1.7, bilirubin is 0.2, AST is 15, ALT is 10, and alkaline phosphatase is 58. Troponin is negative. BNP is 1270. Serum total protein is 6, albumin 3.8, globulin 2.2. COVID negative. Flu swab negative. ASSESSMENT: 1. Acute respiratory failure. 2. Stage IV lung cancer, on single agent Gemzar. 3. Chronic obstructive pulmonary disease, oxygen dependent. DISCUSSION: The patient appears comfortable, appears to be resting comfortably on the vent. He is managed by Pulmonary Medicine. His last dose of Gemzar was 3-9-20. He is not neutropenic from this medication. He continues on antibiotics. He is mildly anemic, likely secondary to his lung cancer. We will monitor his CBC and follow the patient remotely. Thank you for the consult. Job ID: [id number] [facility]
[2019-11-08] MEDS: Lorazepam 2 MG/ML VIAL SLOW IVP PRN (14:18)
--- NOTE | 2019-11-08 15:04 | PDOC.HOSPP ---
- Subjective Encounter Date: 11/08/19 Encounter Time: 12:10 Subjective: pt off pressor, on vent, started on TF, still on propafal. he is awake. started on iv diuresis. urine in the bates clear. - Objective Vital Signs & Weight: Vital Signs (12 hours) Temp Pulse Resp BP Pulse Ox 11/08/19 14:00 16 11/08/19 13:28 70 122/80 11/08/19 13:23 74 16 99 11/08/19 12:00 98.4 F 11/08/19 10:34 78 113/71 11/08/19 08:00 98.5 F 98 11/08/19 07:33 75 109/75 11/08/19 07:22 73 17 98 11/08/19 06:00 17 11/08/19 04:51 74 11/08/19 04:00 98.3 F 17 Weight Admit Weight 286 lb Weight 286 lb 6.087 oz Most Recent Monitor Data Heart Rate from ECG 73 NIBP 120/74 NIBP BP-Mean 89 Respiration from ECG 16 SpO2 100 I&O: 11/07/19 11/08/19 11/09/19 06:59 06:59 06:59 Intake Total 381.0 Output Total 1905 945 Balance -1524.0 -945 Result Diagrams: 11/08/19 03:12 11/08/19 03:12 Additional Labs: Accuchecks 11/08/19 11/08/19 11/08/19 12:24 06:40 00:10 POC Glucose 105 92 121 H Hospitalist ROS - Medication Medications: Active Medications Generic Name Dose Route Start Last Admin Trade Name Ca PRN Reason Stop Dose Admin Acetazolamide Sodium 250 mg 11/08/19 09:00 11/08/19 09:28 Diamox IVP 250 mg DAILY SHASHI Administration Albuterol/Ipratropium 3 ml 11/07/19 19:00 11/08/19 13:23 Duoneb NEB 3 ml [id number] SHASHI Administration Famotidine 20 mg 11/07/19 21:00 11/08/19 09:34 Pepcid SLOW IVP 20 mg Q12HR SHASHI Administration Furosemide 40 mg 11/08/19 09:00 11/08/19 09:29 Lasix SLOW IVP 11/09/19 09:01 40 mg DAILY SHASHI Administration Levofloxacin 750 mg/ Device 150 mls @ 100 mls/hr 11/08/19 09:00 11/08/19 09: 29 IVPB 150 mls DAILY SHASHI Administration Fentanyl Citrate 2,000 mcg/ 100 mls @ 0 mls/hr 11/07/19 17:17 11/08/19 03:04 Sodium Chloride IV 12/07/19 17:17 100 mls INF SHASHI Administration Protocol Per Protocol Lorazepam 2 mg 11/07/19 17:17 11/08/19 14:18 Ativan SLOW IVP 12/07/19 17:17 2 mg Q1H PRN Administration Breakthrough agitation Methylprednisolone Sodium Succinate 40 mg 11/08/19 09:00 11/08/19 09:28 Solu-Medrol IVP 40 mg DAILY SHASHI Administration Propofol 1,000 mg 11/07/19 17:17 11/08/19 14:18 Diprivan IV 12/07/19 17:17 1,000 mg INF PRN Administration TO ACHIEVE GOAL RASS Protocol Sodium Chloride 10 ml 11/07/19 21:00 11/08/19 09:35 Flush - Normal Saline IVF 10 ml Q12HR SHASHI Administration - Exam General Appearance: awake alert General - other findings: on vent Eye: PERRL ENT: normocephalic atraumatic Neck: supple Heart: RRR, normal peripheral pulses Respiratory: CTAB Gastrointestinal: soft, normal bowel sounds Hosp A/P - Plan Hypercapnic resp failure acute resp failure requiring intubation CHF exacerbation with diastolic dysfn and echo of 09/03 EF of 60% --no abx necessary since admission as I admitted this pt w.. CHF exacerbation leading to worsening resp status -- led to intubation - now he is off pressors, and BP seems to be better, started on iv diuresis --echo not needed as he had in aug 2019 -requested cardiology consult this am NSCLC - stage 4 --appreciate Dr. albert's gp visit -- on chemo Anemia due to cancer -monitor for now Hyperkalemia - K better at 5.0 from 5.9 CKD 3 --caution w.. diuresis --expect cr to go up. -- daily close monitoring Full code
--- NOTE | 2019-11-08 16:59 | CON ---
DATE OF CONSULTATION: 11/08/2019 REASON FOR CONSULTATION: Heart failure. HISTORY OF PRESENT ILLNESS: Mr. Vera is a pleasant 74-year-old gentleman, who comes to the hospital for altered mentation and shortness of breath. He has a history of end-stage COPD and lung cancer. He was admitted for worsening shortness of breath, diagnosed with a COPD exacerbation as well as diastolic dysfunction. He has had a very elevated BNP. He came into the hospital with hypoxia and hypercapnia, thought to be secondary to COPD and some level of diastolic heart failure. He may have done well with the BiPAP only, but given the possibility of COVID-19, he was intubated directly to minimize exposure. He has since been ruled out for COVID-19. Currently, he remains intubated and sedated and is unable to provide any more history. He does have a non-small cell lung cancer. His last chemotherapy was about 2 weeks ago. He has been at home ever since. PAST MEDICAL HISTORY: 1. COPD, end stage apparently. 2. Non-small cell lung cancer on the right lung with lymphadenopathy and metastasis to the bones. 3. Colorectal cancer in 2012. 4. Hypoventilation-obesity syndrome. 5. Type-2 diabetes. 6. Hypertension. 7. Diastolic heart failure. PAST SURGICAL HISTORY: 1. Colon cancer resection. 2. Lung lesion biopsy. 3. Left-sided MediPort. SOCIAL HISTORY: Former smoker. Occasional alcohol use. Positive marijuana use. FAMILY HISTORY: Early coronary artery disease. ALLERGIES: NO KNOWN DRUG ALLERGIES. OUTPATIENT MEDICATIONS: 1. Prednisone. 2. Metformin. 3. Spiriva. 4. [place] p.r.n. 5. Lasix. 6. Finasteride. 7. Pulmicort. 8. Amlodipine 10 mg a day. 9. Albuterol p.r.n. REVIEW OF SYSTEMS: Unobtainable as the patient is sedated and intubated. PHYSICAL EXAMINATION: VITAL SIGNS: Temperature 98.4, pulse 74, respiratory rate 16, saturating 95% on 50% FiO2, and blood pressure 104/64. GENERAL: Sedated and intubated. NECK: Supple. LUNGS: Reduced breath sounds bilaterally. CARDIOVASCULAR: S1 and S2. No S3 or S4. ABDOMEN: Soft. Positive bowel sounds. EXTREMITIES: Trace edema. SKIN: Warm and dry. LABORATORY DATA: Laboratory work was reviewed. CBC with a white count of 7.1, hemoglobin of 8.7, hematocrit of 28, and platelet count of 425. ABG was reviewed. Chemistries were reviewed. Creatinine of 1.67 up from 1.3, GFR of 49. COVID-19 serology was negative. DIAGNOSTIC DATA: Chest x-ray on admission showed bilateral lung opacities with small pleural effusions. ASSESSMENT AND PLAN: 1. Chronic obstructive pulmonary disease with acute exacerbation. 2. Dubwd-fu-lqqstek diastolic heart failure. 3. Acute hypoxic hypercapnic respiratory insufficiency, requiring mechanical ventilation. 4. Non-small cell lung cancer with metastatic disease to the bones. 5. Chronic kidney disease. PLAN: 1. Continue IV Lasix. 2. IV antibiotics per Primary Team at their discretion whether to continue or not. 3. Steroids and nebs for COPD therapies. 4. We will repeat echocardiogram to assess any changes in LV function. He had a normal LV systolic function on echo just 2 months ago. His RVSP was 38 mmHg at that point and hopefully it will be similar now or less. Thank you for letting us to participate in the care of your patient. We will follow. 45 minutes of critical care time. Job ID: [id number]
[2019-11-09] MEDS: Amiodarone 450 MG, Admixture Fee 1 EACH in Dextrose 5% in Water 250 ML IVPB SCH ×2 (02:30→09:40)
[2019-11-09 06:58] LABS: Actual Bicarbonate (HCO3a) 31.5 mEq/L (22-28); Base Excess (BEa) 6.2 mEq/L (-2.0 to +3.0); CO2 Tension 49.4 mmHg (35.0-45.0); Calcium, Ionized 1.15 mmol/L (1.12-1.30); Carboxyhemoglobin (COHb) 1.7 gm% (0.0-3.0); Hemoglobin (Hb) 9.9 g/dL (14.0-18.0); Potassium - ABG Lab 3.82 mmol/L (3.70-5.30); pH, Arterial 7.42 (7.35-7.45)
[2019-11-09 07:00] LABS: O2 Tension (PaO2) 51.4 mmHg (> 70.0); Puncture Site RRA
[2019-11-09 07:07] LABS: Anion Gap 14 mmol/L (10-20); BUN (Urea Nitrogen) 33 mg/dL (8.4-25.7); Calc. Creatinine Clearance 64 mL/min (70-130); Calcium 8.5 mg/dL (7.8-10.44); Carbon Dioxide 30 mmol/L (23-31); Chloride 99 mmol/L (98-107); Estimated GFR-MDRD 43; Glucose 103 mg/dL (83-110); Magnesium 1.8 mg/dL (1.6-2.6); Potassium 4.1 mmol/L (3.5-5.1); Sodium 139 mmol/L (136-145)
[2019-11-09 07:14] LABS: Phosphorus 3.5 mg/dL (2.3-4.7)
[2019-11-09 07:20] LABS: Anisocytosis SLIGHT = 6-15 cells (100X) (0-5/hpf); Band 4 % (5-11); Eosinophils 3 % (0-10); Hemoglobin 9.5 g/dL (14.0-18.0); Hypochromia SLIGHT = 6-15 cells (100X) (0-5/hpf); Lymphocytes 11 % (21-51); MDiff Complete? YES; Mean Corpuscular HGB CONC 30.4 g/dL (32.0-36.0); Mean Corpuscular Hemoglobin 29.7 pg (27.0-31.0); Mean Corpuscular Volume 97.7 fL (78.0-98.0); Mean Platelet Volume 8.3 fL (7.4-10.4); Monocytes 14 % (0-10); Neutrophil 68 % (42-75); Nucleated RBC 3 % (0); Platelet Count 457 thou/uL (130-400); Platelet Morphology Comment Appears Increased; Polychromasia SLIGHT = 2-3 cells (100X) (0-2/hpf); RBC Distribution Width 21.3 % (11.5-14.5); Schistocytes SLIGHT = 2-5 cells (100X) (0-1/hpf); White Blood Cell (WBC) Count 6.7 thou/uL (4.8-10.8)
--- NOTE | 2019-11-09 07:39 | RAD ---
PORTABLE CHEST 1 VIEW: DATE: 11/09/2019. TIME: 4:58 AM. HISTORY: Pneumonia. COMPARISON: Previous day. FINDINGS/IMPRESSION: Allowing for differences in technique, no significant interval changes are seen. POS: [facility]
[2019-11-09] MEDS: methylPREDNISolone Sod Succ 40 MG VIAL IVP SCH (09:39)
[2019-11-09] MEDS: Famotidine/PF 20 mg/2ml Vial SLOW IVP SCH ×2 (09:39→20:57)
[2019-11-09] MEDS: acetaZOLAMIDE Sodium 500 mg Vial IVP SCH (09:39)
[2019-11-09] MEDS: Furosemide 40 MG/4 ML VIAL SLOW IVP SCH (09:39)
--- NOTE | 2019-11-09 10:13 | PRG ---
DATE OF SERVICE: 11/09/2019 SUBJECTIVE: The patient remains intubated on mechanical ventilation. He is awake, follows commands. OBJECTIVE: VITAL SIGNS: Temperature 99.6, pulse 112, blood pressure 114/94, respiratory rate 18. HEENT: Unremarkable. NECK: No adenopathy or JVD. LUNGS: Coarse breath sounds. CARDIAC: S1, S2. Regular. ABDOMEN: Soft. EXTREMITIES: No edema. IMAGING STUDIES: X-ray shows some changes in the right mid lung, which are consistent with his previous cancer. LABORATORY DATA: White blood cell count 6.7, hematocrit 31.3, and platelet count 457. PH of 7.42, pCO2 of 49, pO2 of 52. I suspect this is a mixed gas. It was obtained on SIMV rate of 16, tidal volume of 500, PEEP 5, pressure support 15, FiO2 of 50%. Sodium 139, potassium 4.1, chloride 99, CO2 of 30, BUN 33, creatinine 1.8, and glucose 103. COVID test was negative. ASSESSMENT: 1. Acute respiratory failure requiring mechanical ventilation. 2. Likely exacerbation of his diastolic heart failure. 3. Chronic obstructive pulmonary disease. 4. Lung cancer. PLAN: 1. I would expect he can be extubated in a day or 2. I have come down on his ventilatory rate. He is currently on amiodarone for control of his atrial fibrillation, which I believe is chronic. He is not requiring vasopressors. 2. I have signed out to Dr. Quinn. I have told him that I would not hesitate to extubate the patient even his pO2 is around the 50s, because he does quite well with low oxygenation on a chronic basis. We will follow. Job ID: [id number]
[2019-11-09] MEDS: Lorazepam 2 MG/ML VIAL SLOW IVP PRN (12:38)
--- NOTE | 2019-11-09 13:19 | PDOC.MOPN ---
Interval History: remains on vent, o2 requirement less - Vital Signs Vital Signs: Vital Signs (12 hours) Temp Pulse Resp BP Pulse Ox 11/09/19 12:00 99.0 F 18 11/09/19 10:35 102 H 107/67 11/09/19 10:00 21 H 11/09/19 08:00 99.1 F 18 95 11/09/19 06:48 100 108/72 11/09/19 06:47 95 16 97 11/09/19 06:00 16 11/09/19 04:00 99.6 F 16 11/09/19 02:00 16 Weight Admit Weight 286 lb Weight 283 lb 1.176 oz Most Recent Monitor Data Heart Rate from ECG 78 NIBP 117/76 NIBP BP-Mean 89 Respiration from ECG 14 SpO2 95 - Physical Exam General: No acute distress HEENT: Atraumatic, PERRLA, EOMI, Mucous membr. moist/pink Lungs: Clear to auscultation, Normal air movement Cardiovascular: Regular rate, Normal S1, Normal S2, No murmurs, Gallops, Rubs Abdomen: Normal bowel sounds, Soft, No tenderness, No hepatospenomegaly, No masses Neurological: Other (sedated) - Labs Result Diagrams: 11/09/19 06:35 11/09/19 06:35 Lab results: Laboratory Results - last 24 hr 11/09/19 12:12: POC Glucose 130 H 11/09/19 06:50: Specimen Type ARTERIAL, Puncture Site RRA, Bicarbonate Actual 31.5 H, ABG pH 7.42, ABG pCO2 49.4 H, ABG pO2 51.4 L*, ABG O2 Sat Calc/Nikkie 84.5 L*, ABG O2 Content 11.6 L, ABG Base Excess 6.2 H, ABG Hematocrit 29.0 L, ABG Hemoglobin 9.9 L, ABG Oxyhemoglobin 82.8 L, ABG Carboxyhemoglobin 1.7, ABG Methemoglobin 0.30, ABG Deoxyhemoglobin 15.2 H, Avinash Test POSITIVE, A-a O2 Gradient 243.350 H, Ionized Calcium 1.15, Mode of Support SIMV.PSV, Mechanical Rate 16, Inspired O2 50, Tidal Volume 500, Pressure Support 15, PEEP or CPAP 5.0 , Sodium 138, Potassium 3.82, Chloride 99 11/09/19 06:39: POC Glucose 115 H 11/09/19 06:35: Phosphorus 3.5 11/09/19 06:35: WBC 6.7, RBC 3.20 L, Hgb 9.5 L, Hct 31.3 L, MCV 97.7, MCH 29.7, MCHC 30.4 L, RDW 21.3 H, Plt Count 457 H, MPV 8.3, Neutrophils % (Manual) 68, Band Neuts % (Manual) 4 L, Lymphocytes % (Manual) 11 L, Monocytes % (Manual) 14 H, Eosinophils % (Manual) 3, Nucleated RBCs # (Man) 3 H, Hypochromia SLIGHT = 6- 15 cells, Plt Morphology Comment Appears Increased H, Polychromasia SLIGHT = 2- 3 cells, Anisocytosis SLIGHT = 6-15 cells, Schistocytes SLIGHT = 2-5 cells 11/09/19 06:35: Sodium 139, Potassium 4.1, Chloride 99, Carbon Dioxide 30, Anion Gap 14, BUN 33 H, Creatinine 1.88 H, Estimated GFR (MDRD) 43, Glucose 103 , Calcium 8.5, Magnesium 1.8 11/09/19 00:26: POC Glucose 94 11/08/19 18:21: POC Glucose 122 H Status: lab reviewed by me A/P - Problem (1) Acute exacerbation of CHF (congestive heart failure) Current Visit: No Code(s): I50.9 - HEART FAILURE, UNSPECIFIED Status: Acute Qualifiers: (2) Non-small cell lung cancer Current Visit: No Code(s): C34.90 - MALIGNANT NEOPLASM OF UNSP PART OF UNSP BRONCHUS OR LUNG Status: Chronic Qualifiers: (3) Respiratory failure, [id number] Current Visit: No Code(s): J96.20 - ACUTE AND CHR RESP FAILURE, UNSP W HYPOXIA OR HYPERCAPNIA Status: Chronic - Plan Plan: Mildly anemic, no transfusion required Daily CBC will follow remotely, call if needed.
--- NOTE | 2019-11-09 13:53 | PDOC.CPN ---
- Subjective Date: 11/09/19 Time: 13:48 Interval history: He is awake, following commands. Remains intubated. - Review of Systems ROS unobtainable: due to endotracheal tube - Objective Allergies/Adverse Reactions: Allergies Allergy/AdvReac Type Severity Reaction Status Date / Time No Known Drug Allergies Allergy Verified 11/06/19 13:58 Visit Medications: Current Medications Acetaminophen (Tylenol) 650 mg PO Q4H PRN PRN Reason: Headache/Fever/Mild Pain (1-3) Acetazolamide Sodium (Diamox) 250 mg IVP DAILY [facility] Last Admin: 11/09/19 09:39 Dose: 250 mg Albuterol/Ipratropium (Duoneb) 3 ml NEB [id number] SHASHI Last Admin: 11/09/19 06:47 Dose: 3 ml Dextrose/Water (Dextrose 50%) 25 gm IVP PRN PRN PRN Reason: HYPOGLYCEMIA PROTOCOL Famotidine (Pepcid) 20 mg SLOW IVP Q12HR SHASHI Last Admin: 11/09/19 09:39 Dose: 20 mg Glucagon (Glucagon) 1 mg IM PRN PRN PRN Reason: HYPOGLYCEMIA PROTOCOL Levofloxacin 750 mg/ Device 150 mls @ 100 mls/hr IVPB DAILY SHASHI Last Admin: 11/09/19 09:38 Dose: 150 mls Fentanyl Citrate 2,000 mcg/ (Sodium Chloride) 100 mls @ 0 mls/hr IV INF SHASHI; Protocol Stop: 12/07/19 17:17 Last Admin: 11/08/19 23:34 Dose: 100 mls Fentanyl Citrate (Fentanyl Bolus) 250 mls @ 0 mls/hr IVPB PRN PRN PRN Reason: Breakthrough pain/agitation Stop: 12/07/19 17:17 Dextrose/Water (D5w) 1,000 mls @ 0 mls/hr IV INF PRN PRN Reason: HYPOGLYCEMIA PROTOCOL Amiodarone HCl 450 mg/Miscellaneous Medication 1 each/ Dextrose/Water 259 mls @ 0 mls/hr IVPB INF SHASHI; Protocol Last Admin: 11/09/19 09:40 Dose: 259 mls Insulin Human Lispro (Humalog) 0 units SC .MODERATE SLIDING SC PRN; Protocol PRN Reason: MODERATE SLIDING SCALE Lorazepam (Ativan) 2 mg SLOW IVP Q1H PRN PRN Reason: Breakthrough agitation Stop: 12/07/19 17:17 Last Admin: 03/27/20 12:38 Dose: 2 mg Methylprednisolone Sodium Succinate (Solu-Medrol) 40 mg IVP DAILY [facility] Last Admin: 11/09/19 09:39 Dose: 40 mg Mineral Oil/White Petrolatum (Systane Nighttime Eye Ointment) 0 gm EA EYE PRN PRN PRN Reason: Dry Eyes Morphine Sulfate (Morphine) 2 mg SLOW IVP Q1H PRN PRN Reason: BREAKTHROUGH PAIN/Agitation Stop: 12/07/19 17:17 Discontinue Previous Narcotic Pain Medications And Benzodiazepines 1 each FS .ONE SHASHI Stop: 12/07/19 17:17 Ondansetron HCl (Zofran) 4 mg IVP Q6H PRN PRN Reason: Nausea/Vomiting Propofol (Diprivan) 1,000 mg IV INF PRN; Protocol PRN Reason: TO ACHIEVE GOAL RASS Stop: 12/07/19 17:17 Last Admin: 11/08/19 19:12 Dose: 1,000 mg Propofol (Diprivan Bolus) 20 mg IV Q5MIN PRN PRN Reason: BREAKTHROUGH AGITATION Stop: 12/07/19 17:17 Sodium Chloride (Flush - Normal Saline) 10 ml IVF Q12HR [facility] Last Admin: 11/09/19 09:39 Dose: 10 ml Sodium Chloride (Flush - Normal Saline) 10 ml IVF PRN PRN PRN Reason: Saline Flush Vital Signs & Weight: Vital Signs Temp Pulse Resp BP Pulse Ox 11/09/19 12:00 99.0 F 18 11/09/19 10:35 102 H 107/67 11/09/19 10:00 21 H 11/09/19 08:00 99.1 F 18 95 11/09/19 06:48 100 108/72 11/09/19 06:47 95 16 97 11/09/19 06:00 16 11/09/19 04:00 99.6 F 16 11/09/19 02:00 16 Admit Weight 286 lb Weight 283 lb 1.176 oz - Physical Exam General: other (Intubated.) HEENT: mucus membranes moist Neck: supple neck Cardiac: irregularly regular Lungs: decreased breath sounds Neuro: no lateralizing findings Abdomen: active bowel sounds Extremities: no edema Skin: clear Musculoskeletal: normal range of motion - Labs Result Diagrams: 11/09/19 06:35 11/09/19 06:35 Troponin/CKMB Troponin I Less than 0.010 ng/mL (< 0.028) 11/07/19 10:15 - Telemetry Sinus rhythms and dysrhythmias: sinus tachycardia - Assessment/Plan Assessment/Plan: 1. COPD with acute exacerbation. 2. Acute on chronic diastolic CHF. 3. Acute hypoxic hypercapnic respiratory insufficiency. 4. Non small cell lung Ca. 5. CKD 6. Afib RVR. PLAN: - Continue rate control with amiodarone. - Would hold off on more diuresis. - Will get echo make sure LV function remains normal.
--- NOTE | 2019-11-09 14:50 | PDOC.HOSPP ---
- Subjective Encounter Date: 11/09/19 Encounter Time: 12:40 non-verbal Subjective: he is on vent, requirng both propofal and fentanyl, still seeking attn, when we walk into the room. HR in 100to 130s, good urine output. on amio drip. d/w RN. - Objective Vital Signs & Weight: Vital Signs (12 hours) Temp Pulse Resp BP Pulse Ox 11/09/19 14:00 13 11/09/19 12:00 99.0 F 18 11/09/19 10:35 102 H 107/67 11/09/19 10:00 21 H 11/09/19 08:00 99.1 F 18 95 11/09/19 06:48 100 108/72 11/09/19 06:47 95 16 97 11/09/19 06:00 16 11/09/19 04:00 99.6 F 16 Weight Admit Weight 286 lb Weight 283 lb 1.176 oz Most Recent Monitor Data Heart Rate from ECG 87 NIBP 112/74 NIBP BP-Mean 86 Respiration from ECG 12 SpO2 94 I&O: 11/08/19 11/09/19 11/10/19 06:59 06:59 06:59 Intake Total 381.0 1333 120 Output Total 1905 1275 1465 Balance -1524.0 -1222 -1345 Result Diagrams: 11/09/19 06:35 11/09/19 06:35 Additional Labs: Accuchecks 11/09/19 11/09/19 11/09/19 12:12 06:39 00:26 POC Glucose 130 H 115 H 94 11/08/19 18:21 POC Glucose 122 H Hospitalist ROS - Medication Medications: Active Medications Generic Name Dose Route Start Last Admin Trade Name Freq PRN Reason Stop Dose Admin Acetazolamide Sodium 250 mg 11/08/19 09:00 11/09/19 09:39 Diamox IVP 250 mg DAILY SHASHI Administration Albuterol/Ipratropium 3 ml 11/07/19 19:00 11/09/19 06:47 Duoneb NEB 3 ml [id number] SHASHI Administration Famotidine 20 mg 11/07/19 21:00 11/09/19 09:39 Pepcid SLOW IVP 20 mg Q12HR SHASHI Administration Levofloxacin 750 mg/ Device 150 mls @ 100 mls/hr 11/08/19 09:00 11/09/19 09: 38 IVPB 150 mls DAILY SHASHI Administration Fentanyl Citrate 2,000 mcg/ 100 mls @ 0 mls/hr 11/07/19 17:17 11/08/19 23:34 Sodium Chloride IV 12/07/19 17:17 100 mls INF SHASHI Administration Protocol Per Protocol Amiodarone HCl 450 mg/ 259 mls @ 0 mls/hr 11/09/19 02:15 11/09/19 09:40 Miscellaneous Medication 1 IVPB 259 mls each/ Dextrose/Water INF SHASHI Administration Protocol As Directed Lorazepam 2 mg 11/07/19 17:17 11/09/19 12:38 Ativan SLOW IVP 12/07/19 17:17 2 mg Q1H PRN Administration Breakthrough agitation Methylprednisolone Sodium Succinate 40 mg 11/08/19 09:00 11/09/19 09:39 Solu-Medrol IVP 40 mg DAILY SHASHI Administration Propofol 1,000 mg 11/07/19 17:17 11/08/19 19:12 Diprivan IV 12/07/19 17:17 1,000 mg INF PRN Administration TO ACHIEVE GOAL RASS Protocol Sodium Chloride 10 ml 11/07/19 21:00 11/09/19 09:39 Flush - Normal Saline IVF 10 ml Q12HR SHASHI Administration - Exam General Appearance: awake alert General - other findings: vent ENT: normocephalic atraumatic Neck: supple Heart: RRR Respiratory: CTAB, normal chest expansion Gastrointestinal: soft, normal bowel sounds Neurological: no focal deficits Hosp A/P - Plan Hypercapnic resp failure acute resp failure requiring intubation CHF exacerbation with diastolic dysfn and echo of 09/03 EF of 60% --no abx necessary since admission as I admitted this pt w.. CHF exacerbation leading to worsening resp status -- led to intubation - now he is off pressors, and BP seems to be better, started on iv diuresis --echo not needed as he had in aug 2019 -cardiology following w.. us. NSCLC - stage 4 --appreciate Dr. albert's gp visit -- on chemo Anemia due to cancer -monitor for now Hyperkalemia - K better at 5.0 from 5.9--->4.1 CKD 3 --caution w.. diuresis --expect cr to go up. -- daily close monitoring, incl..urine output. DVt ppx -heprain bid [as ckd] pepcid Full code
[2019-11-09] MEDS ORDERED: Heparin 5,000 UNITS/ML VIAL SC SCH (15:00)
--- NOTE | 2019-11-09 16:49 | EKG ---
Test Reason : STAT Blood Pressure : / mmHG Vent. Rate : 105 BPM Atrial Rate : 111 BPM P-R Int : 000 ms QRS Dur : 094 ms QT Int : 390 ms P-R-T Axes : 000 021 -39 degrees QTc Int : 515 ms Atrial fibrillation with rapid ventricular response with premature ventricular or aberrantly conducte d complexes Abnormal ECG When compared with ECG of 07-NOV-2019 09:54, (Unconfirmed) Atrial fibrillation has replaced Atrial flutter ST no longer elevated in Inferior leads Nonspecific T wave abnormality has replaced inverted T waves in Inferior leads Inverted T waves have replaced nonspecific T wave abnormality in Lateral leads Confirmed by Beck WATERS ([id number]) on 11/09/2019 4:48:26 PM Referred By: AMADO Confirmed By:Beck WATERS
[2019-11-09] MEDS: fentaNYL Citrate/PF 2,000 MCG in Sodium Chloride 0.9% 60 ML IV SCH (18:33)
[2019-11-09] MEDS: Heparin 5,000 UNITS/ML VIAL SC SCH (20:58)
[2019-11-10] MEDS: Amiodarone 450 MG, Admixture Fee 1 EACH in Dextrose 5% in Water 250 ML IVPB SCH ×2 (00:23→16:25)
[2019-11-10 04:45] LABS: Anion Gap 15 mmol/L (10-20); BUN (Urea Nitrogen) 41 mg/dL (8.4-25.7); Calc. Creatinine Clearance 65 mL/min (70-130); Calcium 8.5 mg/dL (7.8-10.44); Carbon Dioxide 32 mmol/L (23-31); Chloride 98 mmol/L (98-107); Estimated GFR-MDRD 44; Glucose 113 mg/dL (83-110); Magnesium 2.1 mg/dL (1.6-2.6); Potassium 3.7 mmol/L (3.5-5.1); Sodium 141 mmol/L (136-145)
[2019-11-10 04:46] LABS: Phosphorus 5.2 mg/dL (2.3-4.7)
[2019-11-10 05:55] LABS: Anisocytosis MODERATE=16-30 cells (100X) (0-5/hpf); Band 7 % (5-11); Eosinophils 2 % (0-10); Hemoglobin 9.6 g/dL (14.0-18.0); Hypochromia SLIGHT = 6-15 cells (100X) (0-5/hpf); Lymphocytes 13 % (21-51); MDiff Complete? YES; Mean Corpuscular HGB CONC 29.5 g/dL (32.0-36.0); Mean Corpuscular Hemoglobin 29.2 pg (27.0-31.0); Mean Corpuscular Volume 98.8 fL (78.0-98.0); Mean Platelet Volume 8.4 fL (7.4-10.4); Monocytes 18 % (0-10); Neutrophil 60 % (42-75); Nucleated RBC 4 % (0); Platelet Count 486 thou/uL (130-400); Platelet Morphology Comment Appears Increased; Polychromasia SLIGHT = 2-3 cells (100X) (0-2/hpf); Schistocytes SLIGHT = 2-5 cells (100X) (0-1/hpf); White Blood Cell (WBC) Count 6.7 thou/uL (4.8-10.8)
[2019-11-10 07:21] LABS: Actual Bicarbonate (HCO3a) 33.6 mEq/L (22-28); Base Excess (BEa) 5.5 mEq/L (-2.0 to +3.0); Calcium, Ionized 1.14 mmol/L (1.12-1.30); Carboxyhemoglobin (COHb) 1.9 gm% (0.0-3.0); Potassium - ABG Lab 3.62 mmol/L (3.70-5.30); pH, Arterial 7.29 (7.35-7.45)
[2019-11-10 08:39] LABS: CO2 Tension 70.9 mmHg (35.0-45.0); O2 Tension (PaO2) 50.4 mmHg (> 70.0)
[2019-11-10 08:40] LABS: ALV-art Gradient 167.565 (0-20); Puncture Site RRA
--- NOTE | 2019-11-10 08:58 | RAD ---
CHEST ONE VIEW: HISTORY: Pneumonia. Follow-up evaluation. COMPARISON: 11/08/2019 FINDINGS: Endotracheal tube and nasogastric tube remain in place. A left subclavian Mediport catheter is also a gain present. Small bilateral pleural effusions are present. There are interstitial and alveolar opac ities again seen within the lungs bilaterally, which may represent either asymmetric pulmonary edema or an infectious process. There is greater parenchymal density now seen at the right lung base. [place] tion of the right hemidiaphragm is present. No other interval change. IMPRESSION: 1. Increased interstitial and alveolar opacities bilaterally with greater band-like area of opacity n ow present at the right lung base. Findings may be related to worsening infectious process. 2. Small bilateral pleural effusions. 3. Continued followup to resolution is recommended. POS: OFF
[2019-11-10] MEDS: methylPREDNISolone Sod Succ 40 MG VIAL IVP SCH (09:04)
[2019-11-10] MEDS: acetaZOLAMIDE Sodium 500 mg Vial IVP SCH (09:04)
[2019-11-10] MEDS: Heparin 5,000 UNITS/ML VIAL SC SCH ×2 (09:05→20:22)
[2019-11-10] MEDS: Famotidine/PF 20 mg/2ml Vial SLOW IVP SCH ×2 (09:05→20:21)
--- NOTE | 2019-11-10 09:07 | PRG ---
DATE OF SERVICE: 11/10/2019 SERVICE: Pulmonary Medicine. INTERVAL HISTORY: The patient is doing fairly well from respiratory standpoint. Breathing comfortably. No complaints of chest discomfort, nausea or vomiting. On the mechanical ventilator, he is awake and alert. He is pretty cool, calm and collected, but his tidal volumes are puny. He cannot provide much in the way of details because he is currently intubated. Otherwise, there were no significant overnight events. PHYSICAL EXAMINATION: VITAL SIGNS: Afebrile, pulse 119, blood pressure 119/71, respirations 19, saturation 92%, currently on 37% FiO2 and a PEEP of 5. GENERAL: The patient is intubated and sedated. HEENT: Normocephalic and atraumatic. Sclerae white. Conjunctivae pink. Oral mucosa is moist without lesions. LUNGS: Decent air entry with a prolonged expiratory phase. Rhonchi are present on the right. No crackles are appreciated. HEART: Normal rate, regular. ABDOMEN: Soft, nontender, nondistended. Bowel sounds are positive. MUSCULOSKELETAL: No cyanosis or clubbing. There is no pitting in the bilateral lower extremities. NEUROLOGIC: Grossly nonfocal. LABORATORY DATA: WBC 6.7, hemoglobin 9.6, platelets 486,000. Neutrophil count is 60% on top of 7% bands. Creatinine 1.82, which is roughly stable, BUN 41. Basic metabolic profile is unremarkable. Bicarb is likely into the normal range for him at 32. Magnesium 2.1, phosphorus 5.2. COVID is negative. Influenza A and B are unremarkable, respiratory virus PCR is also negative. IMAGING DATA: Chest x-ray demonstrates no significant interval change. The endotracheal tube is in good position. The left-sided port catheter terminates in the inferior vena cava. There is likely atelectasis of the right middle lobe with volume loss on the right. Multifocal alveolar infiltrates are present. Enteric catheter courses midline below the level of the diaphragm. ASSESSMENT: 1. Acute on chronic hypoxic and hypercapnic respiratory failure. 2. Acute on chronic diastolic heart failure, returned to baseline. 3. Chronic obstructive pulmonary disease with acute exacerbation. 4. Lung cancer, advanced. 5. Atrial fibrillation with rapid ventricular response, paroxysmal. DISCUSSION AND PLAN: The patient will be placed on a spontaneous breathing trial. If he meets criteria, extubation will be considered. He will likely require BiPAP intermittently while he remains in the ICU. Oxygen requirements are elevated, but this is a chronic condition for him. CRITICAL CARE TIME: 30 minutes. Job ID: [id number]
[2019-11-10] MEDS ORDERED: Digoxin 0.5 MG/2 ML AMP SLOW IVP SCH ×2 (12:45→19:00)
[2019-11-10] MEDS: Lorazepam 2 MG/ML VIAL SLOW IVP PRN (13:51)
--- NOTE | 2019-11-10 15:53 | PDOC.HOSPP ---
- Subjective Encounter Date: 11/10/19 Encounter Time: 10:00 Subjective: F/u: respiratory failure Patient is currently intubated. He has no chest pain, no shortness of breath. He feels irritation from the breathing tube and wants to get the tube out, states he has been waiting a long time. - Objective Vital Signs & Weight: Vital Signs (12 hours) Temp Pulse Resp BP Pulse Ox 11/10/19 15:36 90 11/10/19 13:07 127 H 11/10/19 13:05 151 H 11/10/19 12:28 127 H 29 H 93 L 11/10/19 12:09 91 19 93 L 11/10/19 12:00 99.3 F 94 L 11/10/19 08:00 98.8 F 93 L 11/10/19 07:12 91 100/71 11/10/19 07:10 90 19 93 L 11/10/19 06:00 13 11/10/19 04:00 98.6 F 13 Weight Admit Weight 286 lb Weight 279 lb 8.738 oz Most Recent Monitor Data Heart Rate from ECG 123 NIBP 104/74 NIBP BP-Mean 84 Respiration from ECG 22 SpO2 86 I&O: 11/09/19 11/10/19 11/11/19 06:59 06:59 06:59 Intake Total 1333 2419.2 30 Output Total 2555 2370 640 Balance -1222 49.2 -610 Result Diagrams: 11/10/19 03:52 11/10/19 03:52 Additional Labs: Accuchecks 11/10/19 11/10/19 11/09/19 12:22 05:31 23:54 POC Glucose 143 H 120 H 118 H 11/09/19 18:22 POC Glucose 141 H Hospitalist ROS - Review of Systems Constitutional: denies: fever, chills - Medication Medications: Active Medications Generic Name Dose Route Start Last Admin Trade Name Freq PRN Reason Stop Dose Admin Acetazolamide Sodium 250 mg 11/08/19 09:00 11/10/19 09:04 Diamox IVP 250 mg DAILY SHASHI Administration Albuterol/Ipratropium 3 ml 11/07/19 19:00 11/10/19 12:28 Duoneb NEB 3 ml [id number] SHASHI Administration Famotidine 20 mg 11/07/19 21:00 11/10/19 09:05 Pepcid SLOW IVP 20 mg Q12HR SHASHI Administration Heparin Sodium (Porcine) 5,000 units 11/09/19 21:00 11/10/19 09:05 Heparin SC 5,000 units BID SHASHI Administration Levofloxacin 750 mg/ Device 150 mls @ 100 mls/hr 11/08/19 09:00 11/10/19 09: 04 IVPB 150 mls DAILY SHASHI Administration Fentanyl Citrate 2,000 mcg/ 100 mls @ 0 mls/hr 11/07/19 17:17 11/09/19 18:33 Sodium Chloride IV 12/07/19 17:17 100 mls INF SHASHI Administration Protocol Per Protocol Amiodarone HCl 450 mg/ 259 mls @ 0 mls/hr 11/09/19 02:15 11/10/19 00:23 Miscellaneous Medication 1 IVPB 259 mls each/ Dextrose/Water INF SHASHI Administration Protocol As Directed Lorazepam 2 mg 11/07/19 17:17 11/10/19 13:51 Ativan SLOW IVP 12/07/19 17:17 2 mg Q1H PRN Administration Breakthrough agitation Methylprednisolone Sodium Succinate 40 mg 11/08/19 09:00 11/10/19 09:04 Solu-Medrol IVP 40 mg DAILY SHASHI Administration Morphine Sulfate 2 mg 11/07/19 17:17 11/10/19 12:46 Morphine SLOW IVP 12/07/19 17:17 2 mg Q1H PRN Administration BREAKTHROUGH PAIN/Agitation Propofol 1,000 mg 11/07/19 17:17 11/08/19 19:12 Diprivan IV 12/07/19 17:17 1,000 mg INF PRN Administration TO ACHIEVE GOAL RASS Protocol Sodium Chloride 10 ml 11/07/19 21:00 11/10/19 09:11 Flush - Normal Saline IVF 10 ml Q12HR SHASHI Administration - Exam General Appearance: NAD, awake alert Eye: PERRL, anicteric sclera ENT: normocephalic atraumatic, no oropharyngeal lesions Neck: no JVD Heart: RRR, no murmur, no gallops, no rubs Respiratory: CTAB, no wheezes Respiratory - other findings: scattered rhonchi Gastrointestinal: soft, non-tender, non-distended, normal bowel sounds Extremities: no cyanosis, no clubbing, no edema Hosp A/P - Plan Chest X ray: pulmonary edema vs infectious process, small bilateral pleural effusions This is a 74 year old male with past medical history of lung cancer on gemzar who presented with CHF exacerbation #Acute hypoxic and hypercapneic respiratory failure secondary to CHF exacerbation vs COPD exacerbatio n #Atrial fibrillation #Lung cancer s/p gemzar - patient is now extubated. Chest X ray shows worsening pulmonary edema vs infectious process - continue amidoarone drip per cardiology, diamox - continue IV levaquin, IV methylprednisolone #Bronchial cancer #Anemia - Hb 9.6, stable #LEORA - creatinine 1.83, baseline 1.3 - continue diamox. Likely cardiorenal Code status: full code
[2019-11-10] MEDS ORDERED: Lorazepam 2 MG/ML VIAL SLOW IVP PRN (20:14)
[2019-11-10] MEDS ORDERED: Haloperidol Lactate 5 MG/ML VIAL IM PRN (20:14)
[2019-11-11 04:05] LABS: Hemoglobin 9.9 g/dL (14.0-18.0); Mean Corpuscular HGB CONC 29.3 g/dL (32.0-36.0); Mean Platelet Volume 8.6 fL (7.4-10.4); Platelet Count 460 thou/uL (130-400); RBC Distribution Width 20.6 % (11.5-14.5); White Blood Cell (WBC) Count 5.9 thou/uL (4.8-10.8)
[2019-11-11 04:08] LABS: Anion Gap 15 mmol/L (10-20); BUN (Urea Nitrogen) 36 mg/dL (8.4-25.7); Calc. Creatinine Clearance 88 mL/min (70-130); Calcium 8.8 mg/dL (7.8-10.44); Carbon Dioxide 29 mmol/L (23-31); Chloride 101 mmol/L (98-107); Estimated GFR-MDRD 63; Glucose 106 mg/dL (83-110); Potassium 3.7 mmol/L (3.5-5.1); Sodium 141 mmol/L (136-145)
[2019-11-11 05:11] LABS: Digoxin 0.55 ng/mL (0.8-2.0)
[2019-11-11] MEDS: Amiodarone 450 MG, Admixture Fee 1 EACH in Dextrose 5% in Water 250 ML IVPB SCH ×2 (07:47→21:57)
[2019-11-11] MEDS: acetaZOLAMIDE Sodium 500 mg Vial IVP SCH (08:41)
[2019-11-11] MEDS: Famotidine/PF 20 mg/2ml Vial SLOW IVP SCH ×2 (08:44→20:09)
[2019-11-11] MEDS: Heparin 5,000 UNITS/ML VIAL SC SCH ×2 (08:45→20:08)
[2019-11-11] MEDS: methylPREDNISolone Sod Succ 40 MG VIAL IVP SCH (08:46)
--- NOTE | 2019-11-11 09:27 | PRG ---
DATE OF SERVICE: 11/11/2019 SERVICE: Pulmonary Medicine. INTERVAL HISTORY: The patient is doing okay from a respiratory standpoint. Yesterday, he got confused in the brain, however. He got significantly agitated , requiring some degree of sedation. This morning, he is a little bit more cool, calm and collected, but still quite confused. He believes that he is in long term, he is really not certain what the circumstances are of his presentation here. PHYSICAL EXAMINATION: VITAL. Afebrile, pulse 63, blood pressure 128/64, respirations 16, saturation 95%, currently on BiPAP with 40% FiO2 and a PEEP of 5. GENERAL: The patient is awake and alert. No apparent distress. LUNGS: Decent air entry on the left. There is decreased air entry on the right. There is a slightly prolonged expiratory phase and rhonchi present. HEART: Normal rate, regular. ABDOMEN: Soft, nontender, nondistended. Bowel sounds are positive. MUSCULOSKELETAL: No cyanosis or clubbing. There is no pitting in the bilateral lower extremities. NEUROLOGIC: Grossly nonfocal. LABORATORY DATA: WBC 5.9, hemoglobin 9.9, platelets 460,000, roughly stable. PH 7.29, pCO2 71, PO2 50. Creatinine 1.34 is gently downtrending. Basic metabolic profile is otherwise unremarkable. Respiratory virus panel is negative. ASSESSMENT: Chest x-ray demonstrates increased interstitial and alveolar opacifications bilaterally. Bilateral pleural effusions are small. There is likely some atelectasis in the right middle lobe. At this time, endotracheal tube was in good position. ASSESSMENT: 1. [id number] hypoxic and hypercapnic respiratory failure. 2. Ympdz-uf-siytrcs diastolic heart failure, currently at euvolemia. 3. Chronic obstructive pulmonary disease with acute exacerbation. 4. Lung cancer, advanced with stenosis of the right middle lobe bronchus, and right mainstem bronchus. 5. Atrial fibrillation with rapid ventricular rate, paroxysmal, currently sinus rhythm. DISCUSSION AND PLAN: We will continue using the BiPAP on a p.r.n. basis. We will give him a breaks 3 times daily and increase as tolerated. We will continue supportive care including antibiotics, nebulized medications, and steroids. Ultimately, I believe that he has advanced lung disease in conjunction with advancing cancer process causing decreased real estate for healthy lung tissue. From a respiratory standpoint, at baseline, he is at the point of no return. I fear that without reclaiming some of that lost lung function, he will not make a meaningful recovery moving forward. Dr. Lynn will resume care in the morning. Job ID: [id number] [id number]
--- NOTE | 2019-11-11 15:24 | PDOC.HOSPP ---
- Subjective Encounter Date: 11/11/19 Encounter Time: 13:00 Subjective: Mj is s/p extubation. He wants to ambulate and has not yet. Has restraints put on him per RT since kept trying to get out of bed, patient wants them removed, states " I am no longer incarcerated" - Objective Vital Signs & Weight: Vital Signs (12 hours) Temp Pulse Resp Pulse Ox 11/11/19 13:16 75 24 H 94 L 11/11/19 11:00 98.2 F 11/11/19 10:09 59 L 11/11/19 07:12 97 11/11/19 07:00 97.7 F 11/11/19 06:49 55 L 11/11/19 06:47 56 L 12 95 11/11/19 04:34 59 L 11/11/19 04:00 97.6 F Weight Admit Weight 286 lb Weight 276 lb 0.3 oz Most Recent Monitor Data Heart Rate from ECG 78 NIBP 109/55 NIBP BP-Mean 73 Respiration from ECG 19 SpO2 91 I&O: 11/10/19 11/11/19 11/12/19 06:59 06:59 06:59 Intake Total 2419.2 951 220 Output Total 2370 2245 770 Balance 49.2 -1294 -550 Result Diagrams: 11/11/19 03:15 11/11/19 03:15 Additional Labs: Accuchecks 11/11/19 11/11/19 11/11/19 12:39 06:13 00:04 POC Glucose 129 H 102 124 H 11/10/19 18:23 POC Glucose 160 H Hospitalist ROS - Review of Systems Constitutional: denies: fever, chills Respiratory: denies: cough, dry, sputum - Medication Medications: Active Medications Generic Name Dose Route Start Last Admin Trade Name Freq PRN Reason Stop Dose Admin Acetazolamide Sodium 250 mg 11/08/19 09:00 11/11/19 08:41 Diamox IVP 250 mg DAILY SHASHI Administration Albuterol/Ipratropium 3 ml 11/07/19 19:00 11/11/19 13:16 Duoneb NEB 3 ml [id number] SHASHI Administration Famotidine 20 mg 11/07/19 21:00 11/11/19 08:44 Pepcid SLOW IVP 20 mg Q12HR SHASHI Administration Haloperidol Lactate 10 mg 11/10/19 20:14 11/10/19 20:23 Haldol IM 10 mg Q4H PRN Administration Agitation Heparin Sodium (Porcine) 5,000 units 11/09/19 21:00 11/11/19 08:45 Heparin SC 5,000 units BID SHASHI Administration Levofloxacin 750 mg/ Device 150 mls @ 100 mls/hr 11/08/19 09:00 11/11/19 08: 46 IVPB 150 mls DAILY SHASHI Administration Amiodarone HCl 450 mg/ 259 mls @ 0 mls/hr 11/09/19 02:15 11/11/19 07:47 Miscellaneous Medication 1 IVPB 259 mls each/ Dextrose/Water INF SHASHI Administration Protocol As Directed Dexmedetomidine HCl 400 mcg/ 100 mls @ 0 mls/hr 11/10/19 15:30 11/10/19 23:48 Sodium Chloride IVPB 100 mls INF SHASHI Administration Protocol Titrate Methylprednisolone Sodium Succinate 40 mg 11/08/19 09:00 11/11/19 08:46 Solu-Medrol IVP 40 mg DAILY SHASHI Administration Sodium Chloride 10 ml 11/07/19 21:00 11/11/19 08:48 Flush - Normal Saline IVF 10 ml Q12HR SHASHI Administration - Exam General Appearance: NAD, awake alert Eye: PERRL, anicteric sclera ENT: normocephalic atraumatic, no oropharyngeal lesions Neck: no JVD Heart: RRR, no murmur, no gallops, no rubs Respiratory: tachypneic Respiratory - other findings: mild rales at bases Gastrointestinal: soft, non-tender, non-distended, normal bowel sounds Extremities: no cyanosis, no clubbing, no edema Hosp A/P - Plan Chest X ray: pulmonary edema vs infectious process, small bilateral pleural effusions This is a 74 year old male with past medical history of lung cancer on gemzar who presented with CHF exacerbation #Acute hypoxic and hypercapneic respiratory failure secondary to CHF exacerbation vs COPD exacerbation #Atrial fibrillation #Lung cancer s/p gemzar - patient is now extubated on 4L . Chest X ray 11/09 shows worsening pulmonary edema vs infectious process. Will repeat Xray today - continue amidoarone drip per cardiology, diamox - continue IV levaquin, IV methylprednisolone #Bronchial cancer #Anemia - Hb 9.6, stable #LEORA -improving -resolved Code status: full code
[2019-11-11] MEDS: HumaLOG 300 UNITS/3 ML VIAL SC PRN (17:20)
--- NOTE | 2019-11-11 18:06 | RAD ---
XR Chest 1 View Portable History: Pulmonary edema Comparison: Radiograph prior day Findings: Port catheter tip sits at the cavoatrial junction. Patient has been excluded and the enteri c tube has been removed. Worsening aeration of the right lower lobe and right middle lobe. The left lung has slightly improved aeration. Impression: Worsening aeration of the right middle lobe and lower lobe suggesting collapse from atele ctasis/endobronchial debris.
[2019-11-12 06:00] LABS: Hemoglobin 9.3 g/dL (14.0-18.0); Mean Corpuscular HGB CONC 28.7 g/dL (32.0-36.0); Mean Corpuscular Hemoglobin 28.6 pg (27.0-31.0); Mean Corpuscular Volume 99.7 fL (78.0-98.0); Platelet Count 438 thou/uL (130-400); RBC Distribution Width 20.3 % (11.5-14.5); Red Blood Cell (RBC) Count 3.27 mill/uL (4.70-6.10); White Blood Cell (WBC) Count 5.9 thou/uL (4.8-10.8)
[2019-11-12 06:14] LABS: Anion Gap 13 mmol/L (10-20); BUN (Urea Nitrogen) 32 mg/dL (8.4-25.7); Calc. Creatinine Clearance 88 mL/min (70-130); Calcium 8.6 mg/dL (7.8-10.44); Carbon Dioxide 27 mmol/L (23-31); Chloride 106 mmol/L (98-107); Estimated GFR-MDRD 62; Glucose 98 mg/dL (83-110); Potassium 3.9 mmol/L (3.5-5.1); Sodium 142 mmol/L (136-145)
--- NOTE | 2019-11-12 07:59 | PRG ---
DATE OF SERVICE: 11/12/2019 SUBJECTIVE: He was extubated over the weekend and is doing well. OBJECTIVE: GENERAL: He is awake and alert, no distress. VITAL SIGNS: Temperature 98.7, pulse 67, blood pressure 132/66. HEENT: Unremarkable. NECK: No adenopathy or JVD. LUNGS: Clear anteriorly. CARDIAC: S1, S2. Regular. ABDOMEN: Soft. EXTREMITIES: Trace edema. LABORATORY DATA: Sodium 142, potassium 3.9, chloride 106, CO2 of 27, BUN 32, creatinine 1.4, and glucose 98. White blood cell count 5.9, hematocrit 32.6, and platelet count 438. ASSESSMENT: 1. Status post respiratory failure, requiring mechanical ventilation. 2. Pneumonia versus exacerbation of heart failure. 3. Underlying obstructive sleep apnea. 4. Underlying lung cancer. 5. Chronic obstructive pulmonary disease. PLAN: 1. The patient can be transferred out to the telemetry floor. 2. We will go ahead and stop the Precedex and amiodarone drips. 3. Continue Levaquin. 4. Increase activity as tolerated. 5. Change to oral steroids. Job ID: [id number]
[2019-11-12] MEDS: Heparin 5,000 UNITS/ML VIAL SC SCH (09:10)
[2019-11-12] MEDS: acetaZOLAMIDE Sodium 500 mg Vial IVP SCH (09:12)
[2019-11-12] MEDS: Famotidine 20 MG TAB PO SCH ×2 (09:13→20:39)
[2019-11-12] MEDS: predniSONE 20 MG TAB PO SCH (09:13)
[2019-11-12] MEDS ORDERED: Polyethylene Glycol 3350 17 GM Packet PER TUBE SCH ×2 (12:21→12:30)
--- NOTE | 2019-11-12 13:08 | PDOC.CPN ---
- Subjective Date: 11/12/19 Time: 13:06 Interval history: He is doing better. Breathing better. No angina. - Review of Systems General: denies: fever/chills, weight/appetite/sleep changes, night sweats, fatigue Respiratory: reports: cough, shortness of breath, exercise intolerance. denies : congestion Cardiovascular: denies: chest pain, palpitation, edema, paroxysmal nocturnal dyspnea, orthopnea Gastrointestinal: denies: nausea, vomiting, diarrhea, constipation, abd pain, GI bleeding Musculoskeletal: denies: pain, tenderness, stiffness, swelling, arthritis/ arthralgias Neurological: denies: numbness, syncope, seizure, weakness - Objective Allergies/Adverse Reactions: Allergies Allergy/AdvReac Type Severity Reaction Status Date / Time No Known Drug Allergies Allergy Verified 11/06/19 13:58 Visit Medications: Current Medications Acetaminophen (Tylenol) 650 mg PO Q4H PRN PRN Reason: Headache/Fever/Mild Pain (1-3) Acetazolamide Sodium (Diamox) 250 mg IVP DAILY [facility] Last Admin: 11/12/19 09:12 Dose: 250 mg Albuterol/Ipratropium (Duoneb) 3 ml NEB [id number] [facility] Last Admin: 11/12/19 07:39 Dose: 3 ml Dextrose/Water (Dextrose 50%) 25 gm IVP PRN PRN PRN Reason: HYPOGLYCEMIA PROTOCOL Famotidine (Pepcid) 20 mg PO BID [facility] Last Admin: 11/12/19 09:13 Dose: 20 mg Glucagon (Glucagon) 1 mg IM PRN PRN PRN Reason: HYPOGLYCEMIA PROTOCOL Heparin Sodium (Porcine) (Heparin) 5,000 units SC BID [facility] Last Admin: 11/12/19 09:10 Dose: 5,000 units Levofloxacin 750 mg/ Device 150 mls @ 100 mls/hr IVPB DAILY [facility] Last Admin: 11/12/19 09:10 Dose: 150 mls Dextrose/Water (D5w) 1,000 mls @ 0 mls/hr IV INF PRN PRN Reason: HYPOGLYCEMIA PROTOCOL Amiodarone HCl 450 mg/ (Dextrose/Water) 259 mls @ 0 mls/hr IVPB INF [facility]; Protocol Insulin Human Lispro (Humalog) 0 units SC .MODERATE SLIDING SC PRN; Protocol PRN Reason: MODERATE SLIDING SCALE Last Admin: 11/11/19 17:20 Dose: 4 unit Mineral Oil/White Petrolatum (Systane Nighttime Eye Ointment) 0 gm EA EYE PRN PRN PRN Reason: Dry Eyes Ondansetron HCl (Zofran) 4 mg IVP Q6H PRN PRN Reason: Nausea/Vomiting Polyethylene Glycol (Miralax) 17 gm PER TUBE DAILY [facility] Polyethylene Glycol (Miralax) 17 gm PER TUBE NOW [facility] Stop: 11/12/19 15:00 Prednisone (Prednisone) 40 mg PO DAILY [facility] Last Admin: 11/12/19 09:13 Dose: 40 mg Sodium Chloride (Flush - Normal Saline) 10 ml IVF Q12HR SHASHI Last Admin: 11/12/19 09:16 Dose: 10 ml Sodium Chloride (Flush - Normal Saline) 10 ml IVF PRN PRN PRN Reason: Saline Flush Vital Signs & Weight: Vital Signs Temp Pulse Resp Pulse Ox 11/12/19 07:39 74 26 H 98 11/12/19 07:20 92 L 11/12/19 07:00 98.7 F 11/12/19 04:00 98.7 F 11/12/19 03:59 68 96 Admit Weight 286 lb Weight 282 lb 13.649 oz - Physical Exam General: alert & oriented x3 HEENT: mucus membranes moist Neck: supple neck Cardiac: irregularly regular Lungs: other (Absend breath sounds right lung) Neuro: grossly intact Abdomen: active bowel sounds Extremities: 1+ LE edema Skin: clear Musculoskeletal: normal range of motion - Labs Result Diagrams: 11/12/19 05:30 11/12/19 05:30 Troponin/CKMB Troponin I Less than 0.010 ng/mL (< 0.028) 11/07/19 10:15 - Telemetry Sinus rhythms and dysrhythmias: sinus rhythm Supraventricular conduction: atrial fibrillation - Assessment/Plan Assessment/Plan: 1. COPD with acute exacerbation. 2. Acute on chronic diastolic CHF. 3. Acute hypoxic hypercapnic respiratory insufficiency. 4. Non small cell lung Ca. 5. CKD 6. Paroxysmal afib. PLAN: - Having runs of rapid afib HR in the 140's to 170's. . - Will restart amio drip. Will switch to PO tomorrow. - PO metoprolol.
--- NOTE | 2019-11-12 13:48 | PDOC.HOSPP ---
- Subjective Encounter Date: 11/12/19 Encounter Time: 10:30 Subjective: The patient is doing better. Has mild congestion. No significant shortness of breath. He hasn't ambulated much. He feels constipated and hasn't had a bowel movement in the past few days. The patient wears 2.5L of oxygen at home, prior to his hospitalization he was wearing 4-5L of oxygen The patient complains that his left arm is swollen - Objective Vital Signs & Weight: Vital Signs (12 hours) Temp Pulse Resp Pulse Ox 11/12/19 07:39 74 26 H 98 11/12/19 07:20 92 L 11/12/19 07:00 98.7 F 11/12/19 04:00 98.7 F 11/12/19 03:59 68 96 Weight Admit Weight 286 lb Weight 282 lb 13.649 oz Most Recent Monitor Data Heart Rate from ECG 78 NIBP 132/66 NIBP BP-Mean 88 Respiration from ECG 17 SpO2 78 I&O: 11/11/19 11/12/19 11/13/19 06:59 06:59 06:59 Intake Total 951 1737 240 Output Total 2245 1875 245 Balance -1294 -138 -5 Result Diagrams: 11/12/19 05:30 11/12/19 05:30 Additional Labs: Accuchecks 11/12/19 11/11/19 11/11/19 05:39 19:59 17:17 POC Glucose 96 169 H 216 H Hospitalist ROS - Review of Systems Constitutional: denies: fever, chills - Medication Medications: Active Medications Generic Name Dose Route Start Last Admin Trade Name Ca PRN Reason Stop Dose Admin Acetazolamide Sodium 250 mg 11/08/19 09:00 11/12/19 09:12 Diamox IVP 250 mg DAILY SHASHI Administration Albuterol/Ipratropium 3 ml 11/07/19 19:00 11/12/19 07:39 Duoneb NEB 3 ml [id number] SHASHI Administration Famotidine 20 mg 11/12/19 09:00 11/12/19 09:13 Pepcid PO 20 mg BID SHASHI Administration Heparin Sodium (Porcine) 5,000 units 11/09/19 21:00 11/12/19 09:10 Heparin SC 5,000 units BID SHASHI Administration Levofloxacin 750 mg/ Device 150 mls @ 100 mls/hr 11/08/19 09:00 11/12/19 09: 10 IVPB 150 mls DAILY SHASHI Administration Insulin Human Lispro 0 units 11/07/19 22:34 11/11/19 17:20 Humalog SC 4 unit .MODERATE SLIDING SC PRN Administration MODERATE SLIDING SCALE Protocol Prednisone 40 mg 11/12/19 09:00 11/12/19 09:13 Prednisone PO 40 mg DAILY SHASHI Administration Sodium Chloride 10 ml 11/12/19 09:00 11/12/19 09:16 Flush - Normal Saline IVF 10 ml Q12HR SHASHI Administration - Exam General Appearance: NAD, awake alert Eye: PERRL, anicteric sclera ENT: normocephalic atraumatic, no oropharyngeal lesions Neck: supple, no JVD Heart: RRR, no murmur, no gallops, no rubs Respiratory: CTAB, no rales, no ronchi Respiratory - other findings: wheezing bilaterally . On 4.5L nasal cannula Gastrointestinal: soft, non-tender, non-distended, normal bowel sounds Extremities: no cyanosis, no clubbing Extremities - other findings: left upper extremity edema and mild tenderness Skin: normal turgor, no lesions, no rashes Hosp A/P - Plan Chest X ray: pulmonary edema vs infectious process, small bilateral pleural effusions Chest X ray 11/10: worsening aeration of RML and lower lobe from atelectasis/ endobronchial debris. This is a 74 year old male with past medical history of lung cancer on gemzar who presented with CHF exacerbation #Acute hypoxic and hypercapneic respiratory failure secondary due to CHF and COPD exacerbation #Lung cancer s/p gemzar - patient is now extubated on 4L . Chest X ray 11/10 shows worsening aeration of RML and lower lobe from possible endobronchial debris. - continue IV levaquin, IV methylprednisolone since wheezing - will add mucinex - add incentive spirometry q2 hours - PT - wean oxygen saturation to 92%. Patient on 2.5L at home - pt is on IV diamox. Will repeat BNP today if improving switch to oral diamox #LEORA -resolved - creatinine back down to 1.3 #Atrial fibrillation - restarted amiodarone drip per cardiology due to heart rate 140-170 - continue metoprolol 12.5 mg bid #Anemia - Hb 9.6, stable Code status: full code
[2019-11-12] MEDS ORDERED: guaiFENesin ER 600 MG TAB PO SCH (13:52)
--- NOTE | 2019-11-12 15:35 | PDOC.MOPN ---
Interval History: no complaints. - Vital Signs Vital Signs: Vital Signs (12 hours) Temp Pulse Resp Pulse Ox 11/12/19 14:44 143 H 11/12/19 07:39 74 26 H 98 11/12/19 07:20 92 L 11/12/19 07:00 98.7 F 11/12/19 04:00 98.7 F 11/12/19 03:59 68 96 Weight Admit Weight 286 lb Weight 282 lb 13.649 oz Most Recent Monitor Data Heart Rate from ECG 78 NIBP 132/66 NIBP BP-Mean 88 Respiration from ECG 17 SpO2 78 - Physical Exam General: Alert, Oriented x3, No acute distress Lungs: Clear to auscultation, Normal air movement Cardiovascular: Other (tachy) Extremities: Other (BLE edema) Neurological: Normal speech - Labs Result Diagrams: 11/12/19 05:30 11/12/19 05:30 Lab results: Laboratory Results - last 24 hr 11/12/19 14:25: B-Natriuretic Peptide 399.3 H 11/12/19 05:39: POC Glucose 96 11/12/19 05:30: Sodium 142, Potassium 3.9, Chloride 106, Carbon Dioxide 27, Anion Gap 13, BUN 32 H, Creatinine 1.36 H, Estimated GFR (MDRD) 62, Glucose 98, Calcium 8.6 11/12/19 05:30: WBC 5.9, RBC 3.27 L, Hgb 9.3 L, Hct 32.6 L, MCV 99.7 H, MCH 28.6 , MCHC 28.7 L, RDW 20.3 H, Plt Count 438 H, MPV 8.0 11/11/19 19:59: POC Glucose 169 H 11/11/19 17:17: POC Glucose 216 H Status: lab reviewed by me A/P - Problem (1) Acute exacerbation of CHF (congestive heart failure) Current Visit: No Code(s): I50.9 - HEART FAILURE, UNSPECIFIED Status: Acute Qualifiers: (2) Non-small cell lung cancer Current Visit: No Code(s): C34.90 - MALIGNANT NEOPLASM OF UNSP PART OF UNSP BRONCHUS OR LUNG Status: Chronic Qualifiers: (3) Respiratory failure, [id number] Current Visit: No Code(s): J96.20 - ACUTE AND CHR RESP FAILURE, UNSP W HYPOXIA OR HYPERCAPNIA Status: Chronic - Plan Plan: 1. Due for Gemzar chemo tomorrow, will postpone until recovered from hospitalization 2. monitor CBC, no indication for transfusion 3. call if needed.
[2019-11-12] MEDS: Amiodarone 450 MG in Dextrose 5% in Water 250 ML IVPB SCH (15:36)
[2019-11-12] MEDS: Acetaminophen 325 MG TAB PO PRN (16:27)
[2019-11-12] MEDS: Enoxaparin Sodium 100 MG/ML SYRINGE SC SCH (20:38)
[2019-11-12] MEDS: Enoxaparin Sodium 30 MG/0.3 ML SYRINGE SC SCH (20:38)
[2019-11-12] MEDS: Metoprolol Tartrate 25 MG TAB PO SCH (20:39)
[2019-11-12] MEDS: guaiFENesin ER 600 MG TAB PO SCH (20:46)
[2019-11-13] MEDS: Amiodarone 450 MG in Dextrose 5% in Water 250 ML IVPB SCH ×2 (02:05→18:18)
[2019-11-13 04:35] LABS: Hemoglobin 11.5 g/dL (14.0-18.0); Platelet Count 384 thou/uL (130-400)
[2019-11-13 04:40] LABS: Anion Gap 12 mmol/L (10-20); BUN (Urea Nitrogen) 36 mg/dL (8.4-25.7); Calc. Creatinine Clearance 83 mL/min (70-130); Calcium 8.5 mg/dL (7.8-10.44); Carbon Dioxide 26 mmol/L (23-31); Chloride 107 mmol/L (98-107); Estimated GFR-MDRD 59; Glucose 120 mg/dL (83-110); Potassium 4.2 mmol/L (3.5-5.1); Sodium 141 mmol/L (136-145)
[2019-11-13] MEDS ORDERED: Furosemide 20 MG TAB PO SCH (09:00)
[2019-11-13] MEDS ORDERED: Polyethylene Glycol 3350 17 GM Packet PER TUBE SCH (09:00)
--- NOTE | 2019-11-13 09:15 | PRG ---
DATE OF SERVICE: 11/13/2019 SUBJECTIVE: The patient is doing well except for left upper extremity swelling. OBJECTIVE: VITAL SIGNS: Temperature 98.2, pulse 83, respirations 20, O2 saturation 89% on 4 L, blood pressure 148/83. HEENT: Unremarkable. NECK: No adenopathy or JVD. CHEST: Clear. CARDIAC: S1, S2. Regular. ABDOMEN: Soft. EXTREMITIES: Left upper extremity swelling. LABORATORY DATA: Hematocrit 41.3, and platelet count 384. Sodium 141, potassium 4.2, chloride 107, CO2 of 26, BUN 36, creatinine 1.4, glucose 120. ASSESSMENT: 1. Atrial fibrillation. 2. Status post respiratory failure requiring mechanical ventilation. 3. Presumed diastolic heart failure. 4. Lung cancer. 5. Left upper extremity swelling. PLAN: 1. He is getting an ultrasound of his left upper extremity today. 2. His Diamox has been stopped and he is on furosemide. I would be very careful about causing too much of a contraction alkalosis in this patient. 3. I would recommend weaning his steroids slowly over a couple of weeks. Job ID: [id number]
[2019-11-13] MEDS: Enoxaparin Sodium 100 MG/ML SYRINGE SC SCH (09:40)
[2019-11-13] MEDS: Polyethylene Glycol 3350 17 GM Packet PER TUBE SCH (09:40)
[2019-11-13] MEDS: Enoxaparin Sodium 30 MG/0.3 ML SYRINGE SC SCH (09:40)
[2019-11-13] MEDS: Famotidine 20 MG TAB PO SCH ×2 (09:41→20:30)
[2019-11-13] MEDS: guaiFENesin ER 600 MG TAB PO SCH ×2 (09:41→20:31)
[2019-11-13] MEDS: predniSONE 20 MG TAB PO SCH (09:41)
[2019-11-13] MEDS: Metoprolol Tartrate 25 MG TAB PO SCH ×2 (09:41→20:30)
[2019-11-13] MEDS: Acetaminophen 325 MG TAB PO PRN (09:45)
--- NOTE | 2019-11-13 10:38 | ULT ---
ULTRASOUND LEFT UPPER EXTREMITY VENOUS DOPPLER: HISTORY: Left upper extremity swelling. COMPARISON: None. FINDINGS: Real-time, monk scale, color Doppler, and spectral analysis of the left upper extremity venous system was performed. Internal jugular, subclavian, axillary veins, as well as the basilic, brachiocephali c veins were interrogated. There is extensive soft tissue swelling in the subcutaneous soft tissues. There is a thrombus within the left cephalic vein throughout the upper arm. The deep veins are patent. IMPRESSION: 1. Superficial venous thrombosis of the cephalic vein. The deep veins are patent. 2. Extensive subcutaneous soft tissue edema. POS: HOME
--- NOTE | 2019-11-13 12:57 | PDOC.HOSPP ---
- Subjective Encounter Date: 11/13/19 Encounter Time: 11:00 Subjective: CC: shortness of breath, LUE swelling Per nurse patient converted to sinus rhythm overnight. Heart rate stable on amiodarone drip. Per nurse, hypoxic to 89% on 4L. patient states he lives by himself and has a home health aide at home. Has some shortness of breath and mild congestion. LUE still swollen, ultrasound done today - Objective Vital Signs & Weight: Vital Signs (12 hours) Temp Pulse Pulse Resp BP BP Pulse Ox 11/13/19 12:12 63 20 93 L 11/13/19 11:15 98.0 F 75 19 116/67 95 11/13/19 09:00 81 120/60 11/13/19 07:59 98.2 F 83 20 148/83 H 89 L 11/13/19 07:33 90 L 11/13/19 07:29 90 20 90 L 11/13/19 04:05 97.9 F 70 20 128/65 82 L Weight Admit Weight 286 lb Weight 256 lb 8 oz Most Recent Monitor Data Heart Rate from ECG 78 NIBP 132/66 NIBP BP-Mean 88 Respiration from ECG 17 SpO2 78 I&O: 11/12/19 11/13/19 11/14/19 06:59 06:59 06:59 Intake Total 1737 873 716 Output Total 1875 745 675 Balance -138 128 41 Result Diagrams: 11/13/19 04:11 11/13/19 04:11 Additional Labs: Accuchecks 11/13/19 11/13/19 11/12/19 12:48 05:11 20:34 POC Glucose 171 H 320 H 234 H 11/12/19 11/12/19 16:58 08:40 POC Glucose 146 H 233 H Hospitalist ROS - Review of Systems Gastrointestinal: denies: nausea, vomiting, abdominal pain - Medication Medications: Active Medications Generic Name Dose Route Start Last Admin Trade Name Freq PRN Reason Stop Dose Admin Acetaminophen 650 mg 11/07/19 13:37 11/13/19 09:45 Tylenol PO 650 mg Q4H PRN Administration Headache/Fever/Mild Pain (1-3) Albuterol/Ipratropium 3 ml 11/07/19 19:00 11/13/19 12:12 Duoneb NEB 3 ml [id number] SHASHI Administration Enoxaparin Sodium 100 mg 11/12/19 21:00 11/13/19 09:40 Lovenox SC 100 mg [id number] SHASHI Administration Enoxaparin Sodium 30 mg 11/12/19 21:00 11/13/19 09:40 Lovenox SC 30 mg [id number] SHASHI Administration Famotidine 20 mg 11/12/19 09:00 11/13/19 09:41 Pepcid PO 20 mg BID SHASHI Administration Guaifenesin 600 mg 11/12/19 21:00 11/13/19 09:41 Mucinex PO 600 mg Q12HR SHASHI Administration Amiodarone HCl 450 mg/ 259 mls @ 0 mls/hr 11/12/19 13:15 11/13/19 02:05 Dextrose/Water IVPB 259 mls INF SHASHI Administration Protocol Per Protocol Insulin Human Lispro 0 units 11/07/19 22:34 11/11/19 17:20 Humalog SC 4 unit .MODERATE SLIDING SC PRN Administration MODERATE SLIDING SCALE Protocol Metoprolol Tartrate 12.5 mg 11/12/19 21:00 11/13/19 09:41 Lopressor PO 12.5 mg BID SHASHI Administration Polyethylene Glycol 17 gm 11/13/19 09:00 11/13/19 09:40 Miralax PER TUBE 17 gm DAILY SHASHI Administration Prednisone 40 mg 11/12/19 09:00 11/13/19 09:41 Prednisone PO 40 mg DAILY SHASHI Administration Sodium Chloride 10 ml 11/12/19 09:00 11/13/19 09:43 Flush - Normal Saline IVF 10 ml Q12HR SHASHI Administration - Exam General Appearance: NAD, awake alert General - other findings: on 4L of oxygen Eye: PERRL ENT: normocephalic atraumatic, no oropharyngeal lesions Neck: supple, no JVD Heart: RRR, no murmur, no gallops, no rubs Respiratory - other findings: bilateral crackles at the bases Gastrointestinal: soft, non-tender, non-distended, normal bowel sounds Extremities: no cyanosis, no clubbing Extremities - other findings: LUE edema, tender to palpation Skin: normal turgor, no lesions, no rashes Hosp A/P - Plan Chest X ray: pulmonary edema vs infectious process, small bilateral pleural effusions Chest X ray 11/10: worsening aeration of RML and lower lobe from atelectasis/ endobronchial debris. LUE ultrasound 11/12: superficial thrombosis of the cephalic vein This is a 74 year old male with past medical history of lung cancer on gemzar who presented with CHF exacerbation #Acute hypoxic and hypercapneic respiratory failure secondary due to CHF and COPD exacerbation #Lung cancer s/p gemzar - patient is now extubated on 4L . Chest X ray 11/10 shows worsening aeration of RML and lower lobe from possible endobronchial debris. - was on IV levaquin, switch to oral levaquin for one more day - was on IV steroids, switched to oral prednisone [address] Lynn - continue mucinex - incentive spirometry 12 hours - continue PT - continue daily weaning of oxygen - will discontinue diuretics #LEORA on CKD - creatinine around 1.44, close to baseline #Atrial fibrillation - restarted amiodarone drip per cardiology due to heart rate 140-170. Appreciate recs with regard to switching to oral - continue metoprolol 12.5 mg bid #Anemia - Hb 9.6, stable Code status: full code
[2019-11-13] MEDS: HumaLOG 300 UNITS/3 ML VIAL SC PRN ×2 (13:50→18:17)
--- NOTE | 2019-11-13 16:48 | PDOC.CPN ---
- Subjective Date: 11/13/19 Time: 16:45 Interval history: Left arm remains swollen. No angina. SOB at baseline. - Review of Systems General: denies: fever/chills, weight/appetite/sleep changes, night sweats, fatigue Respiratory: denies: cough, congestion, shortness of breath, exercise intolerance Cardiovascular: denies: chest pain, palpitation, edema, paroxysmal nocturnal dyspnea, orthopnea Gastrointestinal: denies: nausea, vomiting, diarrhea, constipation, abd pain, GI bleeding Musculoskeletal: denies: pain, tenderness, stiffness, swelling, arthritis/ arthralgias Neurological: denies: numbness, syncope, seizure, weakness - Objective Allergies/Adverse Reactions: Allergies Allergy/AdvReac Type Severity Reaction Status Date / Time No Known Drug Allergies Allergy Verified 11/06/19 13:58 Visit Medications: Current Medications Acetaminophen (Tylenol) 650 mg PO Q4H PRN PRN Reason: Headache/Fever/Mild Pain (1-3) Last Admin: 11/13/19 09:45 Dose: 650 mg Albuterol/Ipratropium (Duoneb) 3 ml NEB [id number] [facility] Last Admin: 11/13/19 12:12 Dose: 3 ml Dextrose/Water (Dextrose 50%) 25 gm IVP PRN PRN PRN Reason: HYPOGLYCEMIA PROTOCOL Enoxaparin Sodium (Lovenox) 120 mg SC 0900,2100 [facility] Famotidine (Pepcid) 20 mg PO BID [facility] Last Admin: 11/13/19 09:41 Dose: 20 mg Glucagon (Glucagon) 1 mg IM PRN PRN PRN Reason: HYPOGLYCEMIA PROTOCOL Guaifenesin (Mucinex) 600 mg PO Q12HR [facility] Last Admin: 11/13/19 09:41 Dose: 600 mg Dextrose/Water (D5w) 1,000 mls @ 0 mls/hr IV INF PRN PRN Reason: HYPOGLYCEMIA PROTOCOL Amiodarone HCl 450 mg/ (Dextrose/Water) 259 mls @ 0 mls/hr IVPB INF [facility]; Protocol Last Admin: 11/13/19 02:05 Dose: 259 mls Insulin Human Lispro (Humalog) 0 units SC .MODERATE SLIDING SC PRN; Protocol PRN Reason: MODERATE SLIDING SCALE Last Admin: 11/13/19 13:50 Dose: 2 unit Levofloxacin (Levaquin) 750 mg PO 0600 [facility] Metoprolol Tartrate (Lopressor) 12.5 mg PO BID [facility] Last Admin: 11/13/19 09:41 Dose: 12.5 mg Mineral Oil/White Petrolatum (Systane Nighttime Eye Ointment) 0 gm EA EYE PRN PRN PRN Reason: Dry Eyes Ondansetron HCl (Zofran) 4 mg IVP Q6H PRN PRN Reason: Nausea/Vomiting Polyethylene Glycol (Miralax) 17 gm PER TUBE DAILY [facility] Last Admin: 11/13/19 09:40 Dose: 17 gm Prednisone (Prednisone) 40 mg PO DAILY [facility] Last Admin: 11/13/19 09:41 Dose: 40 mg Sodium Chloride (Flush - Normal Saline) 10 ml IVF Q12HR [facility] Last Admin: 11/13/19 09:43 Dose: 10 ml Sodium Chloride (Flush - Normal Saline) 10 ml IVF PRN PRN PRN Reason: Saline Flush Vital Signs & Weight: Vital Signs Temp Pulse Pulse Resp BP BP Pulse Ox 11/13/19 12:20 93 L 11/13/19 12:12 63 20 93 L 11/13/19 11:15 98.0 F 75 19 116/67 95 11/13/19 09:00 81 120/60 11/13/19 08:10 89 L 11/13/19 07:59 98.2 F 83 20 148/83 H 89 L 11/13/19 07:33 90 L 11/13/19 07:29 90 20 90 L Admit Weight 286 lb Weight 266 lb 11.2 oz - Physical Exam General: alert & oriented x3 HEENT: mucus membranes moist Neck: supple neck Cardiac: regular rate and rhythm Lungs: normal breath sounds Neuro: grossly intact Abdomen: active bowel sounds Extremities: other: (2+ edema.) Skin: clear Musculoskeletal: no pain - Labs Result Diagrams: 11/13/19 04:11 11/13/19 04:11 Troponin/CKMB Troponin I Less than 0.010 ng/mL (< 0.028) 11/07/19 10:15 - Telemetry Sinus rhythms and dysrhythmias: sinus rhythm Supraventricular conduction: atrial fibrillation - Assessment/Plan Assessment/Plan: 1. COPD with acute exacerbation. 2. Acute on chronic diastolic CHF. 3. Acute hypoxic hypercapnic respiratory insufficiency. 4. Non small cell lung Ca. 5. CKD 6. Paroxysmal afib. 7. Supperficial thrombosis of upper extremity. PLAN: - No more runs of afib since yesterday. - Will switch amiodarone to PO load at 400 mg BID for 7 days then 200 mg daily. - Continue metoprolol. - Will need full anticoagulation for Afib - Switch to Eliquis 5 mg BID on discharge but make sure it will affordable otherwise will need warfarin.
[2019-11-13] MEDS: Amiodarone 200 MG TAB PO SCH (20:30)
[2019-11-13] MEDS: Enoxaparin Sodium 120 MG/0.8 ML SYRINGE SC SCH (20:31)
[2019-11-14 05:17] LABS: Anion Gap 10 mmol/L (10-20); BUN (Urea Nitrogen) 35 mg/dL (8.4-25.7); Calc. Creatinine Clearance 93 mL/min (70-130); Calcium 8.9 mg/dL (7.8-10.44); Carbon Dioxide 31 mmol/L (23-31); Chloride 107 mmol/L (98-107); Estimated GFR-MDRD 71; Glucose 83 mg/dL (83-110); Potassium 4.4 mmol/L (3.5-5.1); Sodium 144 mmol/L (136-145)
[2019-11-14] MEDS: predniSONE 20 MG TAB PO SCH (09:14)
[2019-11-14] MEDS: Acetaminophen 325 MG TAB PO PRN (09:14)
[2019-11-14] MEDS: Enoxaparin Sodium 120 MG/0.8 ML SYRINGE SC SCH ×2 (09:14→20:55)
[2019-11-14] MEDS: guaiFENesin ER 600 MG TAB PO SCH ×2 (09:14→20:54)
[2019-11-14] MEDS: Amiodarone 200 MG TAB PO SCH ×2 (09:14→20:54)
[2019-11-14] MEDS: Metoprolol Tartrate 25 MG TAB PO SCH ×2 (09:15→20:54)
[2019-11-14] MEDS: Polyethylene Glycol 3350 17 GM Packet PER TUBE SCH (09:16)
[2019-11-14] MEDS: Famotidine 20 MG TAB PO SCH ×2 (09:16→20:55)
--- NOTE | 2019-11-14 11:14 | PRG ---
DATE OF SERVICE: 11/14/2019 SUBJECTIVE: Mr. Vera is complaining of left arm pain. I am told that he has a DVT in that arm and that he has been started on anticoagulation. The patient reports that his breathing is at baseline. OBJECTIVE: VITAL SIGNS: His temperature is 97.9, pulse 85, respirations 20, O2 saturation 89% on 4 L, blood pressure 114/59. HEENT: Unremarkable. NECK: No adenopathy or JVD. LUNGS: Clear. CARDIAC: S1 and S2. Regular. ABDOMEN: Soft. EXTREMITIES: Swelling in the left arm noted. LABORATORY DATA: Sodium 144, potassium 4.4, chloride 107, CO2 of 31, BUN 35, creatinine 1.2, glucose 83. ASSESSMENT: 1. Status post respiratory failure, requiring mechanical ventilation. I think the underlying problem was diastolic heart failure and pulmonary edema. 2. Chronic obstructive pulmonary disease. 3. Lung cancer. 4. Superficial vein clot in the left arm. RECOMMENDATION: At this point, the patient just needs physical therapy. I am not sure how long he needs to be anticoagulated for the superficial clot. He can be weaned off his prednisone over a period of about 2 weeks. Job ID: [id number]
--- NOTE | 2019-11-14 14:08 | PDOC.HOSPP ---
- Subjective Encounter Date: 11/14/19 Encounter Time: 11:30 Subjective: The patient states his left arm is still hurting and swollen. He denies chest pain. He states that his lungs are hurting. He is supposed to get chemotherapy today. Today is last day of antibiotics. He is currently on 4L of oxygen. He does not want to go home today because he has no ride and needs someone to assist him with getting a bus - Objective Vital Signs & Weight: Vital Signs (12 hours) Temp Pulse Resp BP BP Pulse Ox 11/14/19 11:14 97.4 F L 64 20 125/63 98 11/14/19 08:00 97.9 F 85 20 114/59 L 93 L 11/14/19 07:35 74 20 93 L 11/14/19 04:00 95 11/14/19 03:32 97.8 F 71 18 131/71 95 Weight Admit Weight 288 lb 12.889 oz Weight 268 lb Most Recent Monitor Data Heart Rate from ECG 78 NIBP 132/66 NIBP BP-Mean 88 Respiration from ECG 17 SpO2 78 I&O: 11/13/19 11/14/19 11/15/19 06:59 06:59 06:59 Intake Total 873 1872 Output Total 745 1300 Balance 128 572 Result Diagrams: 11/13/19 04:11 11/14/19 04:24 Additional Labs: Accuchecks 11/14/19 11/13/19 11/13/19 05:33 21:07 17:16 POC Glucose 85 176 H 208 H Hospitalist ROS - Review of Systems Constitutional: denies: fever, chills Respiratory: denies: cough, dry - Medication Medications: Active Medications Generic Name Dose Route Start Last Admin Trade Name Freq PRN Reason Stop Dose Admin Acetaminophen 650 mg 11/07/19 13:37 11/14/19 09:14 Tylenol PO 650 mg Q4H PRN Administration Headache/Fever/Mild Pain (1-3) Albuterol/Ipratropium 3 ml 11/07/19 19:00 11/14/19 07:35 Duoneb NEB 3 ml [id number] SHASHI Administration Amiodarone HCl 400 mg 11/13/19 21:00 11/14/19 09:14 Cordarone PO 400 mg BID SHASHI Administration Enoxaparin Sodium 120 mg 11/13/19 21:00 11/14/19 09:14 Lovenox SC 120 mg 0900,2100 SHASHI Administration Famotidine 20 mg 11/12/19 09:00 11/14/19 09:16 Pepcid PO 20 mg BID SHASHI Administration Guaifenesin 600 mg 11/12/19 21:00 11/14/19 09:14 Mucinex PO 600 mg Q12HR SHASHI Administration Insulin Human Lispro 0 units 11/07/19 22:34 11/13/19 18:17 Humalog SC 4 unit .MODERATE SLIDING SC PRN Administration MODERATE SLIDING SCALE Protocol Levofloxacin 750 mg 11/14/19 06:00 11/14/19 06:44 Levaquin PO 750 mg 0600 SHASHI Administration Metoprolol Tartrate 12.5 mg 11/12/19 21:00 11/14/19 09:15 Lopressor PO 12.5 mg BID SHASHI Administration Polyethylene Glycol 17 gm 11/13/19 09:00 11/14/19 09:16 Miralax PER TUBE 17 gm DAILY SHASHI Administration Prednisone 40 mg 11/12/19 09:00 11/14/19 09:14 Prednisone PO 40 mg DAILY SHASHI Administration Sodium Chloride 10 ml 11/12/19 09:00 11/14/19 09:17 Flush - Normal Saline IVF 10 ml Q12HR SHASHI Administration - Exam General Appearance: NAD, awake alert Eye: PERRL, anicteric sclera Neck: supple, no JVD Heart: RRR, no murmur, no gallops, no rubs Respiratory: CTAB, no wheezes Respiratory - other findings: mild rales bilaterally Gastrointestinal: soft, non-tender, non-distended, normal bowel sounds Extremities: no cyanosis, no clubbing, no edema Hosp A/P - Plan Chest X ray: pulmonary edema vs infectious process, small bilateral pleural effusions Chest X ray 11/10: worsening aeration of RML and lower lobe from atelectasis/ endobronchial debris. LUE ultrasound 11/12: superficial thrombosis of the cephalic vein This is a 74 year old male with past medical history of lung cancer on gemzar who presented with CHF exacerbation #Acute hypoxic and hypercapneic respiratory failure secondary due to CHF and COPD exacerbation #Lung cancer s/p gemzar - patient is now extubated on 4L . Chest X ray 11/10 shows worsening aeration of RML and lower lobe from possible endobronchial debris. - was on IV levaquin, will complete levaquin 7 days today - was on IV steroids, switched to oral prednisone 40 mg. PLan to wean over a course of two weeks - continue mucinex - incentive spirometry 12 hours - continue PT - continue daily weaning of oxygen. Will likely need to go home on 4L of oxygen . Plan to d/c possibly tomorrow #LEORA on CKD - resolved, down to 1.27 #Atrial fibrillation - off amiodarone drip. Per cardiology load with amiodaron 400 mg bid for seven days then 200 mg daily after that - continue metoprolol 12.5 mg bid #Anemia - Hb 11.5, stable Code status: full code
--- NOTE | 2019-11-14 17:20 | PDOC.CPN ---
- Subjective Date: 11/14/19 Time: 17:19 Interval history: SOB at baseline, no angina. - Review of Systems General: denies: fever/chills, weight/appetite/sleep changes, night sweats, fatigue Respiratory: denies: cough, congestion, shortness of breath, exercise intolerance Cardiovascular: denies: chest pain, palpitation, edema, paroxysmal nocturnal dyspnea, orthopnea Musculoskeletal: reports: swelling. denies: pain, tenderness, stiffness, arthritis/arthralgias Neurological: denies: numbness, syncope, seizure, weakness - Objective Allergies/Adverse Reactions: Allergies Allergy/AdvReac Type Severity Reaction Status Date / Time No Known Drug Allergies Allergy Verified 11/06/19 13:58 Visit Medications: Current Medications Acetaminophen (Tylenol) 650 mg PO Q4H PRN PRN Reason: Headache/Fever/Mild Pain (1-3) Last Admin: 11/14/19 09:14 Dose: 650 mg Albuterol/Ipratropium (Duoneb) 3 ml NEB [id number] [facility] Last Admin: 11/14/19 14:18 Dose: 3 ml Amiodarone HCl (Cordarone) 400 mg PO BID [facility] Last Admin: 11/14/19 09:14 Dose: 400 mg Dextrose/Water (Dextrose 50%) 25 gm IVP PRN PRN PRN Reason: HYPOGLYCEMIA PROTOCOL Enoxaparin Sodium (Lovenox) 120 mg SC 0900,2100 [facility] Last Admin: 11/14/19 09:14 Dose: 120 mg Famotidine (Pepcid) 20 mg PO BID [facility] Last Admin: 11/14/19 09:16 Dose: 20 mg Glucagon (Glucagon) 1 mg IM PRN PRN PRN Reason: HYPOGLYCEMIA PROTOCOL Guaifenesin (Mucinex) 600 mg PO Q12HR [facility] Last Admin: 11/14/19 09:14 Dose: 600 mg Dextrose/Water (D5w) 1,000 mls @ 0 mls/hr IV INF PRN PRN Reason: HYPOGLYCEMIA PROTOCOL Insulin Human Lispro (Humalog) 0 units SC .MODERATE SLIDING SC PRN; Protocol PRN Reason: MODERATE SLIDING SCALE Last Admin: 11/13/19 18:17 Dose: 4 unit Levofloxacin (Levaquin) 750 mg PO 0600 [facility] Last Admin: 11/14/19 06:44 Dose: 750 mg Metoprolol Tartrate (Lopressor) 12.5 mg PO BID [facility] Last Admin: 11/14/19 09:15 Dose: 12.5 mg Mineral Oil/White Petrolatum (Systane Nighttime Eye Ointment) 0 gm EA EYE PRN PRN PRN Reason: Dry Eyes Ondansetron HCl (Zofran) 4 mg IVP Q6H PRN PRN Reason: Nausea/Vomiting Polyethylene Glycol (Miralax) 17 gm PER TUBE DAILY [facility] Last Admin: 11/14/19 09:16 Dose: 17 gm Prednisone (Prednisone) 40 mg PO DAILY [facility] Last Admin: 11/14/19 09:14 Dose: 40 mg Sodium Chloride (Flush - Normal Saline) 10 ml IVF Q12HR [facility] Last Admin: 11/14/19 09:17 Dose: 10 ml Sodium Chloride (Flush - Normal Saline) 10 ml IVF PRN PRN PRN Reason: Saline Flush Vital Signs & Weight: Vital Signs Temp Pulse Resp BP Pulse Ox 11/14/19 15:54 99.6 F 71 18 139/65 94 L 11/14/19 14:18 67 18 97 11/14/19 11:14 97.4 F L 64 20 125/63 98 11/14/19 08:00 97.9 F 85 20 114/59 L 93 L 11/14/19 07:35 74 20 93 L Admit Weight 288 lb 12.889 oz Weight 268 lb - Physical Exam General: alert & oriented x3 HEENT: mucus membranes moist Neck: supple neck Cardiac: regular rate and rhythm Lungs: clear to auscultation Neuro: grossly intact Abdomen: active bowel sounds Extremities: other: (LUE edema.) Skin: clear Musculoskeletal: no pain - Labs Result Diagrams: 11/13/19 04:11 11/14/19 04:24 Troponin/CKMB Troponin I Less than 0.010 ng/mL (< 0.028) 11/07/19 10:15 - Telemetry Sinus rhythms and dysrhythmias: sinus rhythm - Assessment/Plan Assessment/Plan: 1. COPD with acute exacerbation. 2. Acute on chronic diastolic CHF. 3. Acute hypoxic hypercapnic respiratory insufficiency. 4. Non small cell lung Ca. 5. CKD 6. Paroxysmal afib. 7. Supperficial thrombosis of upper extremity. PLAN: - No more runs of afib. - Continue amiodarone PO load at 400 mg BID for 6 days then 200 mg daily. - Continue metoprolol. - Will need full anticoagulation for Afib - Switch to Eliquis 5 mg BID on discharge but make sure it will be affordable otherwise will need warfarin.
[2019-11-14] MEDS: HumaLOG 300 UNITS/3 ML VIAL SC PRN ×2 (18:50→21:53)
[2019-11-15] MEDS: Acetaminophen 325 MG TAB PO PRN ×2 (06:28→20:49)
[2019-11-15] MEDS: Enoxaparin Sodium 120 MG/0.8 ML SYRINGE SC SCH ×2 (09:00→20:50)
[2019-11-15] MEDS: Amiodarone 200 MG TAB PO SCH ×2 (09:00→20:50)
[2019-11-15] MEDS: Metoprolol Tartrate 25 MG TAB PO SCH ×2 (09:00→20:48)
[2019-11-15] MEDS: predniSONE 20 MG TAB PO SCH (09:01)
[2019-11-15] MEDS: Famotidine 20 MG TAB PO SCH ×2 (09:01→20:49)
[2019-11-15] MEDS: guaiFENesin ER 600 MG TAB PO SCH ×2 (09:01→20:49)
[2019-11-15] MEDS: Polyethylene Glycol 3350 17 GM Packet PER TUBE SCH (09:02)
--- NOTE | 2019-11-15 11:25 | PRG ---
DATE OF SERVICE: 11/15/2019 SUBJECTIVE: The patient wants to go home. He is having problems with desaturation at night, but I do not think he has been wearing a CPAP at night. OBJECTIVE: VITAL SIGNS: Temperature 97.7, pulse 85, respirations 14, O2 saturation 94% on 5 L, and blood pressure 131/70. HEENT: Unremarkable. NECK: No adenopathy or JVD. LUNGS: Fairly clear. CARDIAC: S1, S2. Regular. ABDOMEN: Soft. EXTREMITIES: Edematous. LABORATORY DATA: No labs were obtained today. ASSESSMENT: The patient has many end-stage problems including chronic obstructive pulmonary disease, diastolic heart failure, and lung cancer. RECOMMENDATION: He is fairly close to his baseline, but I am not sure he is strong enough to go home. He is being anticoagulated and I think he probably can be converted over to a novel anticoagulant. I would recommend weaning steroid over 2 weeks. Job ID: [id number]
[2019-11-15 11:51] LABS: Anion Gap 13 mmol/L (10-20); BUN (Urea Nitrogen) 33 mg/dL (8.4-25.7); Calc. Creatinine Clearance 94 mL/min (70-130); Calcium 9.1 mg/dL (7.8-10.44); Carbon Dioxide 28 mmol/L (23-31); Chloride 105 mmol/L (98-107); Estimated GFR-MDRD 71; Glucose 112 mg/dL (83-110); Potassium 4.8 mmol/L (3.5-5.1); Sodium 141 mmol/L (136-145)
[2019-11-15 13:18] LABS: Actual Bicarbonate (HCO3a) 33.7 mEq/L (22-28); Base Excess (BEa) 3.6 mEq/L (-2.0 to +3.0); Carboxyhemoglobin (COHb) 1.6 gm% (0.0-3.0); Hemoglobin (Hb) 10.6 g/dL (14.0-18.0); O2 Tension (PaO2) 71.2 mmHg (> 70.0); Potassium - ABG Lab 5.26 mmol/L (3.70-5.30)
[2019-11-15 13:24] LABS: CO2 Tension 89.5 mmHg (35.0-45.0); Puncture Site RRAD; pH, Arterial 7.19 (7.35-7.45)
--- NOTE | 2019-11-15 13:28 | EKG ---
Test Reason : DYSPNEA Blood Pressure : / mmHG Vent. Rate : 119 BPM Atrial Rate : 300 BPM P-R Int : 000 ms QRS Dur : 108 ms QT Int : 306 ms P-R-T Axes : 073 -03 -11 degrees QTc Int : 430 ms Atrial flutter with variable A-V block Abnormal ECG Reconfirmed by PABLO JAMESON ([id number]), pictures editor CAROLINA BRIAN ([id number]) on 11/15/2019 1:28:07 PM Referred By: EMS Confirmed By:PABLO [place]
--- NOTE | 2019-11-15 14:18 | PDOC.CPN ---
- Subjective Date: 11/15/19 Time: 14:17 Interval history: No new issues. No chest pain. Left arm less swelling. - Review of Systems General: denies: fever/chills, weight/appetite/sleep changes, night sweats, fatigue Respiratory: denies: cough, congestion, shortness of breath, exercise intolerance Cardiovascular: reports: edema. denies: chest pain, palpitation, paroxysmal nocturnal dyspnea, orthopnea Gastrointestinal: denies: nausea, vomiting, diarrhea, constipation, abd pain, GI bleeding Musculoskeletal: denies: pain, tenderness, stiffness, swelling, arthritis/ arthralgias Neurological: denies: numbness, syncope, seizure, weakness - Objective Allergies/Adverse Reactions: Allergies Allergy/AdvReac Type Severity Reaction Status Date / Time No Known Drug Allergies Allergy Verified 11/06/19 13:58 Visit Medications: Current Medications Acetaminophen (Tylenol) 650 mg PO Q4H PRN PRN Reason: Headache/Fever/Mild Pain (1-3) Last Admin: 11/15/19 06:28 Dose: 650 mg Albuterol/Ipratropium (Duoneb) 3 ml NEB [id number] [facility] Last Admin: 11/15/19 12:16 Dose: Not Given Amiodarone HCl (Cordarone) 400 mg PO BID [facility] Last Admin: 11/15/19 09:00 Dose: 400 mg Dextrose/Water (Dextrose 50%) 25 gm IVP PRN PRN PRN Reason: HYPOGLYCEMIA PROTOCOL Enoxaparin Sodium (Lovenox) 120 mg SC 0900,2100 [facility] Last Admin: 11/15/19 09:00 Dose: 120 mg Famotidine (Pepcid) 20 mg PO BID [facility] Last Admin: 11/15/19 09:01 Dose: 20 mg Glucagon (Glucagon) 1 mg IM PRN PRN PRN Reason: HYPOGLYCEMIA PROTOCOL Guaifenesin (Mucinex) 600 mg PO Q12HR [facility] Last Admin: 11/15/19 09:01 Dose: 600 mg Dextrose/Water (D5w) 1,000 mls @ 0 mls/hr IV INF PRN PRN Reason: HYPOGLYCEMIA PROTOCOL Insulin Human Lispro (Humalog) 0 units SC .MODERATE SLIDING SC PRN; Protocol PRN Reason: MODERATE SLIDING SCALE Last Admin: 11/14/19 18:50 Dose: 4 unit Insulin Human Lispro (Humalog) 0 units SC .BEDTIME SLIDING SC PRN PRN Reason: Bedtime Correctional Scale Last Admin: 11/14/19 21:53 Dose: 4 unit Metoprolol Tartrate (Lopressor) 12.5 mg PO BID [facility] Last Admin: 11/15/19 09:00 Dose: 12.5 mg Mineral Oil/White Petrolatum (Systane Nighttime Eye Ointment) 0 gm EA EYE PRN PRN PRN Reason: Dry Eyes Ondansetron HCl (Zofran) 4 mg IVP Q6H PRN PRN Reason: Nausea/Vomiting Polyethylene Glycol (Miralax) 17 gm PER TUBE DAILY [facility] Last Admin: 11/15/19 09:02 Dose: 17 gm Prednisone (Prednisone) 40 mg PO DAILY [facility] Last Admin: 11/15/19 09:01 Dose: 40 mg Sodium Chloride (Flush - Normal Saline) 10 ml IVF Q12HR [facility] Last Admin: 11/15/19 09:02 Dose: 10 ml Sodium Chloride (Flush - Normal Saline) 10 ml IVF PRN PRN PRN Reason: Saline Flush Vital Signs & Weight: Vital Signs Temp Pulse Resp BP Pulse Ox 11/15/19 12:02 98.4 F 71 20 133/69 95 11/15/19 08:00 97.7 F 75 14 131/70 94 L 11/15/19 07:38 75 20 95 11/15/19 03:52 97.8 F 77 18 122/61 90 L Admit Weight 288 lb 12.889 oz Weight 272 lb 7 oz - Physical Exam General: alert & oriented x3 HEENT: mucus membranes moist Neck: supple neck Cardiac: regular rate and rhythm Lungs: clear to auscultation Neuro: grossly intact Abdomen: active bowel sounds Extremities: other: (LUE edema.) Skin: clear Musculoskeletal: no pain - Labs Result Diagrams: 11/13/19 04:11 11/15/19 11:21 Troponin/CKMB Troponin I Less than 0.010 ng/mL (< 0.028) 11/07/19 10:15 - Telemetry Sinus rhythms and dysrhythmias: sinus rhythm - Assessment/Plan Assessment/Plan: 1. COPD with acute exacerbation. 2. Acute on chronic diastolic CHF. 3. Acute hypoxic hypercapnic respiratory insufficiency. 4. Non small cell lung Ca. 5. CKD 6. Paroxysmal afib. 7. Superficial thrombosis of upper extremity. PLAN: - Remains in sinus. - Continue amiodarone PO load at 400 mg BID for 5 days then 200 mg daily. - Continue metoprolol. - Will need full anticoagulation for Afib - Switch to Eliquis 5 mg BID on discharge but make sure it will be affordable otherwise will need warfarin. - Likely will need rehab and placement.
--- NOTE | 2019-11-15 14:40 | PDOC.HOSPP ---
- Subjective Encounter Date: 11/15/19 Encounter Time: 12:00 Subjective: The patient was noted to be very drowsy this morning and could barely keep his eyes open. Per nursing staff, patient is noncompliant with CPAP and BIPAP. He told nursing staff he would like to be a full code still however. Per nursing staff patient was also hypoxic to 70% on 4L nasal cannula, they bumped it up to 5. Patient states he wears 2-5L of oxygen at home. ABG done by respiratory showed pH 7.19 and PCO2 of 89. I explained to patient that if he doesn't wear BIPAP that he would eventually be not responsive and could eventually end up intubated again and he needs to wear the mask. Patient states that he will try to but lives at home alone. He is requesting for a bus to take him home and says he doesn't have family live with him and just has his siblings. He states he calls the ambulance himself when he is not feeling well Patient complains, my "ribs hurt." Also complains that his left arm still hurts and swelling wont' go down. - Objective Vital Signs & Weight: Vital Signs (12 hours) Temp Pulse Pulse Pulse Resp BP BP 11/15/19 13:12 73 79 127/67 128/83 11/15/19 12:02 98.4 F 71 20 11/15/19 08:00 97.7 F 75 14 11/15/19 07:38 75 20 11/15/19 03:52 97.8 F 77 18 BP Pulse Ox 11/15/19 13:12 11/15/19 12:02 133/69 95 11/15/19 08:00 131/70 94 L 11/15/19 07:38 95 11/15/19 03:52 122/61 90 L Weight Admit Weight 288 lb 12.889 oz Weight 272 lb 7 oz Most Recent Monitor Data Heart Rate from ECG 78 NIBP 132/66 NIBP BP-Mean 88 Respiration from ECG 17 SpO2 78 I&O: 11/14/19 11/15/19 11/16/19 06:59 06:59 06:59 Intake Total 1872 1030 Output Total 1300 1875 Balance 572 -845 Result Diagrams: 11/13/19 04:11 11/15/19 11:21 Additional Labs: Accuchecks 11/15/19 11/14/19 11/14/19 11:01 21:57 20:28 POC Glucose 129 H 318 H 380 H 11/14/19 11/14/19 17:22 11:16 POC Glucose 203 H 160 H Hospitalist ROS - Review of Systems Constitutional: denies: fever, chills Gastrointestinal: denies: nausea, vomiting - Medication Medications: Active Medications Generic Name Dose Route Start Last Admin Trade Name Freq PRN Reason Stop Dose Admin Acetaminophen 650 mg 11/07/19 13:37 11/15/19 06:28 Tylenol PO 650 mg Q4H PRN Administration Headache/Fever/Mild Pain (1-3) Albuterol/Ipratropium 3 ml 11/07/19 19:00 11/15/19 12:16 Duoneb NEB Not Given [id number] SHASHI Amiodarone HCl 400 mg 11/13/19 21:00 11/15/19 09:00 Cordarone PO 400 mg BID SHASHI Administration Enoxaparin Sodium 120 mg 11/13/19 21:00 11/15/19 09:00 Lovenox SC 120 mg 0900,2100 SHASHI Administration Famotidine 20 mg 11/12/19 09:00 11/15/19 09:01 Pepcid PO 20 mg BID SHASHI Administration Guaifenesin 600 mg 11/12/19 21:00 11/15/19 09:01 Mucinex PO 600 mg Q12HR SHASHI Administration Insulin Human Lispro 0 units 11/07/19 22:34 11/14/19 18:50 Humalog SC 4 unit .MODERATE SLIDING SC PRN Administration MODERATE SLIDING SCALE Protocol Insulin Human Lispro 0 units 11/14/19 21:38 11/14/19 21:53 Humalog SC 4 unit .BEDTIME SLIDING SC PRN Administration Bedtime Correctional Scale Metoprolol Tartrate 12.5 mg 11/12/19 21:00 11/15/19 09:00 Lopressor PO 12.5 mg BID SHASHI Administration Polyethylene Glycol 17 gm 11/13/19 09:00 11/15/19 09:02 Miralax PER TUBE 17 gm DAILY SHASHI Administration Prednisone 40 mg 11/12/19 09:00 11/15/19 09:01 Prednisone PO 40 mg DAILY SHASHI Administration Sodium Chloride 10 ml 11/12/19 09:00 11/15/19 09:02 Flush - Normal Saline IVF 10 ml Q12HR SHASHI Administration - Exam General Appearance: NAD General - other findings: lethargic but an hour later patient able to hold a conversation Eye: PERRL, anicteric sclera ENT: normocephalic atraumatic, no oropharyngeal lesions Neck: no JVD Heart: RRR, no murmur, no gallops, no rubs Respiratory: CTAB, no wheezes, no rales, no ronchi Gastrointestinal: soft, non-tender, non-distended, normal bowel sounds, no palpable masses Extremities: no cyanosis, no clubbing, no edema Skin: normal turgor, no lesions, no rashes Neurological: cranial nerve grossly intact, normal sensation to touch, no focal deficits, no new deficit Hosp A/P - Plan Chest X ray: pulmonary edema vs infectious process, small bilateral pleural effusions Chest X ray 11/10: worsening aeration of RML and lower lobe from atelectasis/ endobronchial debris. LUE ultrasound 11/12: superficial thrombosis of the cephalic vein This is a 74 year old male with past medical history of lung cancer on gemzar who presented with CHF exacerbation #Acute hypoxic and hypercapneic respiratory failure secondary due to CHF and COPD exacerbation #Lung cancer s/p gemzar #NGHIA - patient is now extubated on 4L . Chest X ray 11/10 shows worsening aeration of RML and lower lobe from possible endobronchial debris. - was on IV levaquin, s/p 7 days of IV levaquin - was on IV steroids, switched to oral prednisone 40 mg. PLan to wean over a course of two weeks - continue mucinex - incentive spirometry 12 hours - continue PT - continue daily weaning of oxygen. Will likely need to go home on 4L of oxygen . Plan to d/c possibly tomorrow #LEORA on CKD - resolved, down to 1.27 #Atrial fibrillation - off amiodarone drip. Per cardiology load with amiodaron 400 mg bid for seven days then 200 mg daily after that - continue metoprolol 12.5 mg bid #Anemia - Hb 11.5, stable Code status: full code
[2019-11-15] MEDS: HumaLOG 300 UNITS/3 ML VIAL SC PRN (16:52)
--- NOTE | 2019-11-15 18:11 | RAD ---
SINGLE VIEW OF THE CHEST: 11/15/19 COMPARISON: 11/11/19 HISTORY: Rib pain and hypoxia. FINDINGS: Single view of the chest shows an enlarged but stable cardiomediastinal silhouette. The Mediport is u nchanged in position. There is a moderate right pleural effusion with adjacent atelectasis. A small l eft pleural effusion may also be present. IMPRESSION: Bilateral pleural effusions. POS: C
[2019-11-15] MEDS ORDERED: Furosemide 20 MG/2 ML VIAL SLOW IVP SCH (18:30)
[2019-11-16] MEDS: Acetaminophen 325 MG TAB PO PRN ×3 (02:42→20:48)
[2019-11-16 04:47] LABS: Hemoglobin 9.9 g/dL (14.0-18.0); Platelet Count 367 thou/uL (130-400)
[2019-11-16 05:00] LABS: Anion Gap 9 mmol/L (10-20); BUN (Urea Nitrogen) 33 mg/dL (8.4-25.7); Calc. Creatinine Clearance 93 mL/min (70-130); Calcium 9.2 mg/dL (7.8-10.44); Carbon Dioxide 36 mmol/L (23-31); Chloride 103 mmol/L (98-107); Estimated GFR-MDRD 69; Glucose 84 mg/dL (83-110); Potassium 4.7 mmol/L (3.5-5.1); Sodium 143 mmol/L (136-145)
[2019-11-16] MEDS: Enoxaparin Sodium 120 MG/0.8 ML SYRINGE SC SCH (08:24)
[2019-11-16] MEDS: predniSONE 20 MG TAB PO SCH (08:24)
[2019-11-16] MEDS: Metoprolol Tartrate 25 MG TAB PO SCH ×2 (08:25→20:47)
[2019-11-16] MEDS: Amiodarone 200 MG TAB PO SCH ×2 (08:25→20:47)
[2019-11-16] MEDS: Polyethylene Glycol 3350 17 GM Packet PER TUBE SCH (08:25)
[2019-11-16] MEDS: guaiFENesin ER 600 MG TAB PO SCH ×2 (08:25→20:46)
[2019-11-16] MEDS: Famotidine 20 MG TAB PO SCH ×2 (08:26→20:46)
--- NOTE | 2019-11-16 08:50 | RAD ---
EXAM: XR Forearm Lt 2 View STANDARD PROVIDED CLINICAL HISTORY: Pain FINDINGS: There is no evidence for fracture or other acute osseous abnormality. Alignment appears anatomic. Xochilt nt spaces appear preserved. IMPRESSION: No evidence for an acute osseous abnormality. If there is persistent clinical concern, conservative m anagement and follow-up imaging advised.
[2019-11-16] MEDS ORDERED: Furosemide 20 MG/2 ML VIAL SLOW IVP SCH (09:00)
--- NOTE | 2019-11-16 09:05 | RAD ---
CHEST 1 VIEW: INDICATION: History of pulmonary edema. COMPARISON: Prior exam of 11/15/2019. FINDINGS: Cardiomegaly persists. Pulmonary vascular congestion appears slightly worsened. Moderate right and small left pleural effusions persist. Right basilar airspace opacity is similar appearing. Left mary st wall port is unchanged. No pneumothorax is evident. IMPRESSION: 1. Worsening pulmonary vascular congestion. Persistent cardiomegaly with moderate right small left pleural effusion. 2. Persistent right basilar airspace opacity, possibly reflective of atelectasis or pneumonia. POS: [facility]
--- NOTE | 2019-11-16 09:09 | RAD ---
LEFT ELBOW 2 VIEWS: INDICATION: Elbow swelling. FINDINGS: There is soft tissue swelling of the proximal forearm and distal left arm. There are reticular-type calcifications seen within the soft tissues overlying the anterior and lateral aspect of the elbow po ssibly related to skin surface artifact from a skin product. There is enthesopathic change off the o lecranon. T here is mild osteoarthrosis of the left elbow joint. No joint capsular distention is stephanie dent. IMPRESSION: Soft tissue swelling of the left arm. No acute osseous abnormality. POS: [facility]
--- NOTE | 2019-11-16 09:39 | PDOC.HOSPP ---
- Subjective Encounter Date: 11/16/19 Encounter Time: 10:00 Subjective: The patient is much more alert today. He states he wore the BIPAP for four hours last night. His oxygen is being weaned down. Xray today shows worsening pulmonary vascular congestion. He got IV lasix once yesterday however now bicarb up to 36 Per nursing, they felt his left arm swelling was worst and patient reporting more pain. - Objective Vital Signs & Weight: Vital Signs (12 hours) Temp Pulse Resp BP Pulse Ox 11/16/19 07:41 96 11/16/19 07:38 77 16 11/16/19 07:23 98.0 F 82 20 142/83 H 95 11/16/19 02:52 70 20 132/67 92 L 11/16/19 02:44 72 11/16/19 00:27 64 20 92 L Weight Admit Weight 288 lb 12.889 oz Weight 272 lb 3.2 oz Most Recent Monitor Data Heart Rate from ECG 78 NIBP 132/66 NIBP BP-Mean 88 Respiration from ECG 17 SpO2 78 I&O: 11/15/19 11/16/19 11/17/19 06:59 06:59 06:59 Intake Total 1030 780 Output Total 7975 1650 Balance -845 -870 Result Diagrams: 11/16/19 03:58 11/16/19 03:58 Additional Labs: Accuchecks 11/16/19 11/15/19 11/15/19 05:38 20:47 16:37 POC Glucose 106 214 H 225 H 11/15/19 11:01 POC Glucose 129 H Hospitalist ROS - Review of Systems Constitutional: denies: fever, chills Eyes: denies: pain ENT: denies: ear discharge - Medication Medications: Active Medications Generic Name Dose Route Start Last Admin Trade Name Freq PRN Reason Stop Dose Admin Acetaminophen 650 mg 11/07/19 13:37 11/16/19 08:26 Tylenol PO 650 mg Q4H PRN Administration Headache/Fever/Mild Pain (1-3) Albuterol/Ipratropium 3 ml 11/07/19 19:00 11/16/19 07:38 Duoneb NEB 3 ml [id number] SHASHI Administration Amiodarone HCl 400 mg 11/13/19 21:00 11/16/19 08:25 Cordarone PO 400 mg BID SHASHI Administration Enoxaparin Sodium 120 mg 11/13/19 21:00 11/16/19 08:24 Lovenox SC 120 mg 0900,2100 SHASHI Administration Famotidine 20 mg 11/12/19 09:00 11/16/19 08:26 Pepcid PO 20 mg BID SHASHI Administration Guaifenesin 600 mg 11/12/19 21:00 11/16/19 08:25 Mucinex PO 600 mg Q12HR SAHSHI Administration Insulin Human Lispro 0 units 11/07/19 22:34 11/15/19 16:52 Humalog SC 4 unit .MODERATE SLIDING SC PRN Administration MODERATE SLIDING SCALE Protocol Insulin Human Lispro 0 units 11/14/19 21:38 11/14/19 21:53 Humalog SC 4 unit .BEDTIME SLIDING SC PRN Administration Bedtime Correctional Scale Metoprolol Tartrate 12.5 mg 11/12/19 21:00 11/16/19 08:25 Lopressor PO 12.5 mg BID SHASHI Administration Polyethylene Glycol 17 gm 11/13/19 09:00 11/16/19 08:25 Miralax PER TUBE 17 gm DAILY SHASHI Administration Prednisone 40 mg 11/12/19 09:00 11/16/19 08:24 Prednisone PO 40 mg DAILY SHASHI Administration Sodium Chloride 10 ml 11/12/19 09:00 11/16/19 08:27 Flush - Normal Saline IVF 10 ml Q12HR SHASHI Administration - Exam General Appearance: NAD, awake alert Eye: PERRL, anicteric sclera ENT: normocephalic atraumatic, no oropharyngeal lesions Neck: no JVD Heart: RRR, no murmur, no gallops, no rubs Respiratory - other findings: crackles noted at the left bsae, right base and right mid lung Gastrointestinal: soft, non-tender, non-distended Extremities: no cyanosis, no clubbing Extremities - other findings: LUE firm to palpation around elbow, more swelling around the elbow noted Skin: normal turgor, no lesions, no rashes Neurological: cranial nerve grossly intact, normal sensation to touch, no focal deficits, no new deficit Musculoskeletal: normal tone, normal strength, no muscle wasting Psychiatric: normal affect, normal behavior, A&O x 3 Hosp A/P - Plan Chest X ray: pulmonary edema vs infectious process, small bilateral pleural effusions Chest X ray 11/10: worsening aeration of RML and lower lobe from atelectasis/ endobronchial debris. LUE ultrasound 11/12: superficial thrombosis of the cephalic vein LUE follow up ultrasound: occlusive, acute superficial venous thrombosis of left cephalic vein Chest X Ray 11/15: worsening pulmonary edema Left forearm Xray/elbow X ray : soft tissue swelling of the left arm. No fracture This is a 74 year old male with past medical history of lung cancer on gemzar who presented with CHF exacerbation #Acute hypoxic and hypercapneic respiratory failure secondary due to CHF and COPD exacerbation #Lung cancer s/p gemzar #NGHIA - patient was intubated, s/p extubation. He is on 4L nasal cannula with plans to wean down - . Chest X ray 11/15 shows worsening pulmonary edema. S/IV lasix 11/14 and 11/15. Will switch to IV diamox again. Cardiology is following - was on IV levaquin, s/p 7 days of IV levaquin - was on IV steroids for COPD, switched to oral prednisone 40 mg. PLan to wean over a course of two weeks - continue mucinex - incentive spirometry 12 hours - continue PT - continue chemotherapy as an outpatient LUE swelling secondary to supervicial venous thrombosis of left cephalic vein vs hematoma - LUE ultrasound showed cephalic vein thrombosis, however swelling worsening today. US mentions possible hematoma. - left forearm X ray 11/15 and elbow Xray shows no fracture - ortho was consulted, recommended to continue warm compresses -will hold anticoagulation for now #Atrial fibrillation - off amiodarone drip. On amiodarone 400 mg bid for an additional 4 days, then 200 mg daily - holding lovenox due to hematoma. May need to resume eliquis on discharge when hematoma improves - continue metoprolol 12.5 mg bid #LEORA on CKD - resolved #Anemia - Hb 11.5, stable Code status: full code
--- NOTE | 2019-11-16 10:05 | PRG ---
DATE OF SERVICE: 11/16/2019 SUBJECTIVE: Mr. Vera was off the floor today. I reviewed his data in the computer. His oxygenation is much better. His O2 saturation is 96% on 5 L, temperature 98.0, pulse 77, respirations 16, and blood pressure 142/83. His x-ray continues to show changes in the right lower lobe consistent of atelectasis from his lung cancer and possibly pulmonary edema from diastolic heart failure. His labs show a white blood cell count of 5.9, hematocrit 34.4, and platelet count 367. Sodium 143, potassium 4.7, chloride 103, CO2 of 36, BUN 33, creatinine 1.2, and glucose 84. ASSESSMENT: 1. Lung cancer. 2. Chronic obstructive pulmonary disease. 3. Status post acute respiratory failure, requiring mechanical ventilation. 4. Diastolic heart failure. 5. Atrial fibrillation. PLAN: I would recommend putting on Diamox as he is starting to develop a metabolic alkalosis. Hopefully, he will be able to go home sometime in the next several days. Job ID: [id number]
--- NOTE | 2019-11-16 10:05 | ULT ---
Ultrasound Doppler duplex venous left upper extremity: DATE: 11/16/2019 HISTORY: 74-year-old male with left upper extremity thrombophlebitis. Worsening edema and pain. COMPARISON: 11/13/2019 TECHNIQUE: Grayscale, color-flow, and spectral analysis, of major veins of left upper extremity. Compression and release applied to all veins except the subclavian. FINDINGS: Again noted is the superficial soft tissue edema in the left upper extremity, mostly in the arm, and less in the forearm. In the antecubital fossa, there has been interval enlargement of a broad, thick, moderately hypoechoi c plate that is up to 7 mm thick, probably representing hematoma. The soft tissue edema in the forearm has also worsened. Again noted is the noncompressibility and expansion of the cephalic vein, with lack of blood flow, fr om the mid forearm to its junction with the subclavian vein. The cephalic vein in the distal forearm is patent. There is patency, with no evidence of thrombosis, of the subclavian, internal jugular, axillary, brac hial, basilic, radial, and ulnar, veins. IMPRESSION: 1. Occlusive, acute, Superficial venous thrombosis of the left cephalic vein, from its junction with the subclavian vein to the mid forearm. 2. Edema in the soft tissues of the arm and antecubital fossa. 3. Interval growth of broad, platelike band of material, probably a hematoma, slightly less likely to be phlegmon, in the antecubital fossa.
--- NOTE | 2019-11-16 12:07 | PDOC.CPN ---
- Subjective Date: 11/16/19 Time: 12:03 Interval history: Breathing unchanged still requiring O2. No angina. - Review of Systems General: denies: fever/chills, weight/appetite/sleep changes, night sweats, fatigue Respiratory: reports: shortness of breath. denies: cough, congestion, exercise intolerance Cardiovascular: denies: chest pain, palpitation, edema, paroxysmal nocturnal dyspnea, orthopnea Gastrointestinal: denies: nausea, vomiting, diarrhea, constipation, abd pain, GI bleeding Musculoskeletal: denies: pain, tenderness, stiffness, swelling, arthritis/ arthralgias Neurological: denies: numbness, syncope, seizure, weakness - Objective Allergies/Adverse Reactions: Allergies Allergy/AdvReac Type Severity Reaction Status Date / Time No Known Drug Allergies Allergy Verified 11/06/19 13:58 Visit Medications: Current Medications Acetaminophen (Tylenol) 650 mg PO Q4H PRN PRN Reason: Headache/Fever/Mild Pain (1-3) Last Admin: 11/16/19 08:26 Dose: 650 mg Acetazolamide (Diamox) 250 mg PO BID [facility] Albuterol/Ipratropium (Duoneb) 3 ml NEB [id number] [facility] Last Admin: 11/16/19 07:38 Dose: 3 ml Amiodarone HCl (Cordarone) 400 mg PO BID [facility] Last Admin: 11/16/19 08:25 Dose: 400 mg Dextrose/Water (Dextrose 50%) 25 gm IVP PRN PRN PRN Reason: HYPOGLYCEMIA PROTOCOL Famotidine (Pepcid) 20 mg PO BID [facility] Last Admin: 11/16/19 08:26 Dose: 20 mg Glucagon (Glucagon) 1 mg IM PRN PRN PRN Reason: HYPOGLYCEMIA PROTOCOL Guaifenesin (Mucinex) 600 mg PO Q12HR [facility] Last Admin: 11/16/19 08:25 Dose: 600 mg Dextrose/Water (D5w) 1,000 mls @ 0 mls/hr IV INF PRN PRN Reason: HYPOGLYCEMIA PROTOCOL Insulin Human Lispro (Humalog) 0 units SC .MODERATE SLIDING SC PRN; Protocol PRN Reason: MODERATE SLIDING SCALE Last Admin: 11/15/19 16:52 Dose: 4 unit Insulin Human Lispro (Humalog) 0 units SC .BEDTIME SLIDING SC PRN PRN Reason: Bedtime Correctional Scale Last Admin: 04/01/20 21:53 Dose: 4 unit Metoprolol Tartrate (Lopressor) 12.5 mg PO BID [facility] Last Admin: 11/16/19 08:25 Dose: 12.5 mg Mineral Oil/White Petrolatum (Systane Nighttime Eye Ointment) 0 gm EA EYE PRN PRN PRN Reason: Dry Eyes Ondansetron HCl (Zofran) 4 mg IVP Q6H PRN PRN Reason: Nausea/Vomiting Oxycodone HCl (Oxycodone Ir) 2.5 mg PO Q6H PRN PRN Reason: Breakthrough Pain Polyethylene Glycol (Miralax) 17 gm PER TUBE DAILY [facility] Last Admin: 11/16/19 08:25 Dose: 17 gm Prednisone (Prednisone) 40 mg PO DAILY [facility] Last Admin: 11/16/19 08:24 Dose: 40 mg Sodium Chloride (Flush - Normal Saline) 10 ml IVF Q12HR [facility] Last Admin: 11/16/19 08:27 Dose: 10 ml Sodium Chloride (Flush - Normal Saline) 10 ml IVF PRN PRN PRN Reason: Saline Flush Vital Signs & Weight: Vital Signs Temp Pulse Resp BP Pulse Ox 11/16/19 07:41 96 11/16/19 07:38 77 16 11/16/19 07:23 98.0 F 82 20 142/83 H 95 11/16/19 02:52 70 20 132/67 92 L 11/16/19 02:44 72 11/16/19 00:27 64 20 92 L Admit Weight 288 lb 12.889 oz Weight 272 lb 3.2 oz - Physical Exam General: alert & oriented x3 HEENT: mucus membranes moist Neck: supple neck Cardiac: regular rate and rhythm Lungs: rales - right Neuro: grossly intact Abdomen: active bowel sounds Extremities: no edema Skin: clear Musculoskeletal: no pain - Labs Result Diagrams: 11/16/19 03:58 11/16/19 03:58 Troponin/CKMB Troponin I Less than 0.010 ng/mL (< 0.028) 11/07/19 10:15 - Telemetry Sinus rhythms and dysrhythmias: sinus rhythm - Assessment/Plan Assessment/Plan: 1. COPD with acute exacerbation. 2. Acute on chronic diastolic CHF. 3. Acute hypoxic hypercapnic respiratory insufficiency. 4. Non small cell lung Ca. 5. CKD 6. Paroxysmal afib. 7. Superficial thrombosis of upper extremity. PLAN: - Remains in sinus. - Continue amiodarone PO load at 400 mg BID for 4 days then 200 mg daily. - Continue metoprolol. - Will need full anticoagulation for Afib. He has developed what looks like a hematoma on the left ante-cubital fossa, Agree with holding full anticoag for now. - Agree with restarting acetazolamide for worsening pulmonary edema. - Likely will need rehab and placement.
--- NOTE | 2019-11-16 12:28 | CON ---
DATE OF CONSULTATION: 11/16/2019 REQUESTING PHYSICIAN: Dr. Aragon. BRIEF HISTORY OF PRESENT ILLNESS: Mr. Vera is a 74-year-old gentleman, who was admitted on November 07, 2019 for exacerbation of his COPD as well as history of congestive heart failure, diastolic dysfunction with history of lung cancer. During the course of his hospitalization, he has developed some left arm pain and swelling. He reports that about two weeks ago, he first noted some mild arm swelling, but did not think much of it. However, a few days ago, the swelling became more intense and he also has had some palpable discomfort along the antecubital fossa and anterior upper arm. The patient has had IVs in this arm. He does not report any falls. He does not report any puncture wounds or bites. Workup has included x-rays of elbow and forearm, which I have reviewed and these are remarkable for a very small enthesopathy at the tip of the olecranon, but no joint effusion and no evidence of fracture. He also has had an ultrasound of this arm that does show a thrombus in the antecubital fossa and upper arm. Orthopedic consultation requested. PAST MEDICAL HISTORY: Remarkable for COPD, non-small cell lung cancer, colorectal cancer, type 2 diabetes, and hypertension. PAST SURGICAL HISTORY: Colon resection, lung biopsy, and a left-sided MediPort. MEDICATIONS: I will refer you to the medication reconciliation form at this time. At the time of admission, the patient was on prednisone, metformin, Spiriva, Lasix, finasteride, Pulmicort, amlodipine, and albuterol. ALLERGIES: NONE KNOWN. FAMILY HISTORY: Noncontributory. SOCIAL HISTORY: He is an ex smoker. Drinks alcohol occasionally. PHYSICAL EXAMINATION: VITAL SIGNS: The patient is found to have a temperature of 98, heart rate of 77, respiratory rate of 16, and blood pressure of 142/83. GENERAL: The patient is examined in his hospital bed in [facility]. He is awake, alert, and a very pleasant 74-year-old black gentleman. HEENT: Atraumatic and normocephalic. CHEST: Nontender and he does not appear to be in any acute shortness of breath. EXTREMITIES: Remarkable for this left upper extremity with edema extending into the dorsum of the hand including the forearm, antecubital fossa, and upper arm. He is nontender to palpation at the hand and forearm. He has intact sensation in the radial, median, and ulnar distributions and good capillary refill. He is found to have some mild ecchymosis along the antecubital fossa and this appears to correlate with a recently placed IV. Palpation in this area does show some [place] edema, however, as I palpate more up along the biceps, he is found to have a palpable cord that is tender to palpation. I do not appreciate any lymph edema in the axilla. IMAGING: X-rays of the left elbow and forearm are as stated in the history of present illness. An ultrasound was performed earlier today and this is remarkable for an occlusive acute superficial venous thrombus of the left cephalic vein from its junction of the subclavian vein down to the mid forearm, which is consistent with this clinical exam. ASSESSMENT: A 74-year-old gentleman with thrombus of the left upper extremity vein with subsequent edema within the arm. PLAN: Today, I discussed with the patient that based on x-rays, we did not see any findings for a surgical lesion within this arm. He clearly does have an occlusive thrombus within the cephalic vein, which I think accounts for his current clinical symptomatology. Today, we did discuss with Dr. Aragon the fact there is no musculoskeletal pathology present either on clinical exam or x-ray finding. We will defer treatment of this thrombus to the Medical Service and will be signing off on this case for now. If any further or new problems arise, please Reconsult us. Job ID: [id number]
[2019-11-16] MEDS: oxyCODONE 5 MG TAB PO PRN ×2 (13:05→20:48)
[2019-11-16] MEDS: HumaLOG 300 UNITS/3 ML VIAL SC PRN ×2 (17:00→20:50)
--- NOTE | 2019-11-16 17:27 | PDOC.PALCO ---
Palliative Care Consult - Consult Details Requesting Physician: Dr Rne Reason for Consult: goals of care, advance directives assistance, assistance with communication prognosis/disease - Allergies Allergies/Adverse Reactions: Allergies Allergy/AdvReac Type Severity Reaction Status Date / Time No Known Drug Allergies Allergy Verified 11/06/19 13:58 - Objective Vital Signs: Vital Signs - Most Recent Temp Pulse Resp BP Pulse Ox 98.0 F 71 20 123/64 91 L 11/16/19 15:32 11/16/19 15:32 11/16/19 15:32 11/16/19 15:32 11/16/19 15:32 - Plan/Recommendations Plan: Lengthy visit with Mr Vera. Discussed multiple morbidities and his Goal of Care. He states "he is doing everyting he is supposed to". Wishes to remain with full resuscitation measures in place. Discussed that if he desires full resuscitation to continue to be compliant. Attempted to discuss disease trajectory, he was focused on his left arm. *Continue with aggressive measures and Full resuscitation. [50] minutes spent on this encounter with >50% of the time in counseling and coordination of care. Thank you for this very appropriate consult.
[2019-11-16] MEDS: AcetaZOLAMIDE 250 MG TAB PO SCH (20:46)
[2019-11-17 04:49] LABS: Hemoglobin 9.8 g/dL (14.0-18.0); Mean Corpuscular HGB CONC 28.1 g/dL (32.0-36.0); Mean Corpuscular Hemoglobin 28.5 pg (27.0-31.0); Mean Platelet Volume 8.6 fL (7.4-10.4); Platelet Count 338 thou/uL (130-400); Red Blood Cell (RBC) Count 3.43 mill/uL (4.70-6.10); White Blood Cell (WBC) Count 15.4 thou/uL (4.8-10.8)
[2019-11-17 05:11] LABS: BUN (Urea Nitrogen) 33 mg/dL (8.4-25.7); Calc. Creatinine Clearance 96 mL/min (70-130); Calcium 9.3 mg/dL (7.8-10.44); Estimated GFR-MDRD 72; Glucose 83 mg/dL (83-110)
[2019-11-17 05:21] LABS: Anion Gap 12 mmol/L (10-20); Carbon Dioxide 34 mmol/L (23-31); Chloride 102 mmol/L (98-107); Potassium 4.9 mmol/L (3.5-5.1); Sodium 143 mmol/L (136-145)
[2019-11-17] MEDS ORDERED: acetaZOLAMIDE Sodium 500 mg Vial IVP SCH (09:00)
[2019-11-17] MEDS ORDERED: Iopamidol-370 76% 500 ML 1 ML ONE (09:24)
--- NOTE | 2019-11-17 10:05 | PRG ---
DATE OF SERVICE: 11/17/2019 SUBJECTIVE: Mr. Vera is doing okay. He complains of a lot of left arm pain. No shortness of breath. He is on oxygen. OBJECTIVE: VITAL SIGNS: Blood pressure 132/60. LUNGS: Clear. CARDIAC: Normal S1, S2. ABDOMEN: Soft, nontender. EXTREMITIES: No edema. ASSESSMENT: 1. Hematoma of the left arm. 2. Paroxysmal atrial fibrillation. PLAN: 1. Anticoagulation is being held due to the hematoma. 2. He is on amiodarone and metoprolol. Job ID: [id number]
[2019-11-17] MEDS: Polyethylene Glycol 3350 17 GM Packet PER TUBE SCH (10:15)
[2019-11-17] MEDS: Famotidine 20 MG TAB PO SCH ×2 (10:15→20:55)
[2019-11-17] MEDS: Metoprolol Tartrate 25 MG TAB PO SCH ×2 (10:15→20:54)
[2019-11-17] MEDS: AcetaZOLAMIDE 250 MG TAB PO SCH ×2 (10:15→20:55)
[2019-11-17] MEDS: Amiodarone 200 MG TAB PO SCH ×2 (10:15→20:54)
[2019-11-17] MEDS: predniSONE 20 MG TAB PO SCH (10:16)
[2019-11-17] MEDS: HumaLOG 300 UNITS/3 ML VIAL SC PRN ×3 (10:17→21:57)
[2019-11-17] MEDS: guaiFENesin ER 600 MG TAB PO SCH ×2 (10:17→20:55)
[2019-11-17] MEDS ORDERED: Furosemide 20 MG/2 ML VIAL SLOW IVP SCH (11:15)
[2019-11-17 11:35] LABS: Actual Bicarbonate (HCO3a) 38.2 mEq/L (22-28); Base Excess (BEa) 8.7 mEq/L (-2.0 to +3.0); Calcium, Ionized 1.28 mmol/L (1.12-1.30); Hemoglobin (Hb) 9.8 g/dL (14.0-18.0); O2 Tension (PaO2) 63.8 mmHg (> 70.0); Potassium - ABG Lab 4.58 mmol/L (3.70-5.30)
[2019-11-17 11:36] LABS: CO2 Tension 89.8 mmHg (35.0-45.0); Puncture Site RRA; pH, Arterial 7.25 (7.35-7.45)
--- NOTE | 2019-11-17 12:27 | CT ---
CTA head without and with IV contrast HISTORY: Worsening lethargy. Lung cancer. FINDINGS: No comparison. There is no evidence of acute intracranial hemorrhage or infarct. Very mild chronic ischemic small ve ssel disease within the periventricular white matter. There is no mass effect, shift of midline structures, or abnormal areas of contrast enhancement. IMPRESSION : No acute intracranial abnormalities are demonstrated.
--- NOTE | 2019-11-17 14:14 | PDOC.HOSPP ---
- Subjective Encounter Date: 11/17/19 Encounter Time: 10:00 Subjective: feels cold, d/w RN - pt was little lethargic. stat ABG showed pCO2 of 89. will try bipap; he is reuled out COVID. O2 90% with 4 li O2 - Objective Vital Signs & Weight: Vital Signs (12 hours) Temp Pulse Pulse Resp BP BP BP 11/17/19 10:35 75 111/53 L 132/62 11/17/19 08:00 98.3 F 71 21 H 132/61 11/17/19 07:07 73 20 Pulse Ox 11/17/19 10:35 11/17/19 08:00 91 L 11/17/19 07:07 Weight Admit Weight 288 lb 12.889 oz Weight 272 lb 3.2 oz Most Recent Monitor Data Heart Rate from ECG 78 NIBP 132/66 NIBP BP-Mean 88 Respiration from ECG 17 SpO2 78 I&O: 11/16/19 11/17/19 11/18/19 06:59 06:59 06:59 Intake Total 780 1140 Output Total 1650 1525 Balance -870 -385 Result Diagrams: 11/17/19 04:34 11/17/19 04:34 Additional Labs: Accuchecks 11/17/19 11/17/19 11/17/19 10:41 09:12 05:41 POC Glucose 186 H 155 H 88 11/16/19 11/16/19 20:10 16:10 POC Glucose 314 H 275 H Hospitalist ROS - Medication Medications: Active Medications Generic Name Dose Route Start Last Admin Trade Name Freq PRN Reason Stop Dose Admin Acetaminophen 650 mg 11/07/19 13:37 11/16/19 20:48 Tylenol PO 650 mg Q4H PRN Administration Headache/Fever/Mild Pain (1-3) Acetazolamide 250 mg 11/16/19 21:00 11/17/19 10:15 Diamox PO 250 mg BID SHASHI Administration Albuterol/Ipratropium 3 ml 11/07/19 19:00 11/17/19 07:07 Duoneb NEB 3 ml [id number] SHASHI Administration Amiodarone HCl 400 mg 11/13/19 21:00 11/17/19 10:15 Cordarone PO 400 mg BID SHASHI Administration Famotidine 20 mg 11/12/19 09:00 11/17/19 10:15 Pepcid PO 20 mg BID SHASHI Administration Guaifenesin 600 mg 11/12/19 21:00 11/17/19 10:17 Mucinex PO 600 mg Q12HR SHASHI Administration Insulin Human Lispro 0 units 11/07/19 22:34 11/17/19 10:17 Humalog SC 2 unit .MODERATE SLIDING SC PRN Administration MODERATE SLIDING SCALE Protocol Insulin Human Lispro 0 units 11/14/19 21:38 11/14/19 21:53 Humalog SC 4 unit .BEDTIME SLIDING SC PRN Administration Bedtime Correctional Scale Metoprolol Tartrate 12.5 mg 11/12/19 21:00 11/17/19 10:15 Lopressor PO 12.5 mg BID SHASHI Administration Oxycodone HCl 2.5 mg 11/16/19 09:08 11/16/19 20:48 Oxycodone Ir PO 2.5 mg Q6H PRN Administration Breakthrough Pain Polyethylene Glycol 17 gm 11/13/19 09:00 11/17/19 10:15 Miralax PER TUBE 17 gm DAILY SHASHI Administration Prednisone 40 mg 11/12/19 09:00 11/17/19 10:16 Prednisone PO 40 mg DAILY SHASHI Administration Sodium Chloride 10 ml 11/12/19 09:00 11/17/19 10:18 Flush - Normal Saline IVF 10 ml Q12HR SHASHI Administration - Exam General Appearance: NAD, awake alert Eye: PERRL ENT: normocephalic atraumatic Neck: supple Heart: RRR, normal peripheral pulses Respiratory: CTAB, normal chest expansion Gastrointestinal: soft, normal bowel sounds Hosp A/P - Plan Hypercapnic resp failure acute resp failure requiring intubation---s/p extubation CHF exacerbation with diastolic dysfn and echo of 09/03 EF of 60% Worsening pulmoary edema --- on IV diamox, --no abx necessary since admission as I admitted this pt w.. CHF exacerbation leading to worsening resp status - now he is off pressors, and BP seems to be better, started on iv diuresis --echo not needed as he had in aug 2019 Hypercapnic resp failure - will try bipap on the floor -repeat abg in 2hrs - pulmonary following with us. Afib -cardiology following w.. us. - off amio drip, 400 mg bid-----------> 200 mg q d. and metoprolol 12.5 bid. NSCLC - stage 4 --appreciate Dr. albert's gp visit -- on chemo as OP LUE hematoma/venous throbosis, superficial vein, L cephalic -xray of 11/15 - n fx -on hold AC, warm compress. Anemia due to cancer -monitor for now Hyperkalemia - K better at 5.0 from 5.9--->4.1 CKD 3 -- daily close monitoring, incl..urine output. DVt ppx -heprain bid [as ckd] pepcid Full code
--- NOTE | 2019-11-17 15:39 | PRG ---
DATE OF SERVICE: 11/17/2019 SUBJECTIVE: Mr. Vera is using BiPAP here continuously. He will nod his head, but he is sleepy and otherwise not engaged in conversation. He denies pain. OBJECTIVE: VITAL SIGNS: Blood pressure 111/53, heart rate is 75, saturation 91% on 4 L nasal oxygen. GENERAL: He is sleepy, but arousable. He is an obese gentleman with BMI of 37. LUNGS: Shows rhonchi. He has decreased breath sounds in the right lower chest. HEART: Regular rate and rhythm. ABDOMEN: Obese and soft. EXTREMITIES: He has 1+ edema. IMPRESSION: Carcinoma of the lung with atelectasis involving the right middle and lower lung consistent with progressive disease. The patient has been seen in palliative care consultation, but has declined hospice at this time. There is probable obstructive sleep apnea plus-minus obesity hypoventilation syndrome. He continues to receive BiPAP therapy and most recent blood gas shows pH 7.25 with pCO2 of 90, bicarbonate 38, and pO2 of 63. This is consistent with his obesity hypoventilation syndrome/chronic obstructive pulmonary disease with Pickwickian disease. PLAN: We will continue current medicines. Unfortunately, the patient has declined DNR status. One consideration would be use of a home noninvasive ventilator. Job ID: [id number]
[2019-11-17] MEDS: oxyCODONE 5 MG TAB PO PRN (21:01)
[2019-11-18 04:30] LABS: #Eosinphils 0.2 thou/uL (0.0-0.7); #Lymphocytes 1.4 thou/uL (1.20-3.40); #Monocytes 1.6 thou/uL (0.11-0.59); #Neutrophils 15.1 thou/uL (1.40-6.50); %Basophils 0.2 % (0.0-1.0); %Lymphocytes 7.8 % (21.0-51.0); %Monocytes 8.9 % (0.0-10.0); %Neutrophils 82.1 % (42.0-75.0); Hemoglobin 9.7 g/dL (14.0-18.0); Mean Corpuscular HGB CONC 28.6 g/dL (32.0-36.0); Mean Platelet Volume 8.9 fL (7.4-10.4); Platelet Count 319 thou/uL (130-400); RBC Distribution Width 21.3 % (11.5-14.5); Red Blood Cell (RBC) Count 3.35 mill/uL (4.70-6.10); White Blood Cell (WBC) Count 18.4 thou/uL (4.8-10.8)
--- NOTE | 2019-11-18 08:45 | PDOC.CPN ---
- Subjective Date: 11/18/19 Time: 08:30 Interval history: Mr. Vera is awake, sitting up on side of the bed. Denies any chest pain or shortness of breath. Describes pain to left arm hematoma. No overnight events on telemetry. - Objective Allergies/Adverse Reactions: Allergies Allergy/AdvReac Type Severity Reaction Status Date / Time No Known Drug Allergies Allergy Verified 11/06/19 13:58 Visit Medications: Current Medications Acetaminophen (Tylenol) 650 mg PO Q4H PRN PRN Reason: Headache/Fever/Mild Pain (1-3) Last Admin: 11/16/19 20:48 Dose: 650 mg Acetazolamide (Diamox) 250 mg PO BID [facility] Last Admin: 11/17/19 20:55 Dose: 250 mg Albuterol/Ipratropium (Duoneb) 3 ml NEB [id number] [facility] Last Admin: 11/18/19 07:15 Dose: 3 ml Amiodarone HCl (Cordarone) 400 mg PO BID [facility] Last Admin: 11/17/19 20:54 Dose: 400 mg Dextrose/Water (Dextrose 50%) 25 gm IVP PRN PRN PRN Reason: HYPOGLYCEMIA PROTOCOL Famotidine (Pepcid) 20 mg PO BID [facility] Last Admin: 11/17/19 20:55 Dose: 20 mg Glucagon (Glucagon) 1 mg IM PRN PRN PRN Reason: HYPOGLYCEMIA PROTOCOL Guaifenesin (Mucinex) 600 mg PO Q12HR [facility] Last Admin: 11/17/19 20:55 Dose: 600 mg Dextrose/Water (D5w) 1,000 mls @ 0 mls/hr IV INF PRN PRN Reason: HYPOGLYCEMIA PROTOCOL Insulin Human Lispro (Humalog) 0 units SC .MODERATE SLIDING SC PRN; Protocol PRN Reason: MODERATE SLIDING SCALE Last Admin: 11/17/19 17:39 Dose: 10 unit Insulin Human Lispro (Humalog) 0 units SC .BEDTIME SLIDING SC PRN PRN Reason: Bedtime Correctional Scale Last Admin: 11/17/19 21:57 Dose: 3 unit Metoprolol Tartrate (Lopressor) 12.5 mg PO BID [facility] Last Admin: 11/17/19 20:54 Dose: 12.5 mg Mineral Oil/White Petrolatum (Systane Nighttime Eye Ointment) 0 gm EA EYE PRN PRN PRN Reason: Dry Eyes Ondansetron HCl (Zofran) 4 mg IVP Q6H PRN PRN Reason: Nausea/Vomiting Oxycodone HCl (Oxycodone Ir) 2.5 mg PO Q6H PRN PRN Reason: Breakthrough Pain Last Admin: 11/17/19 21:01 Dose: 2.5 mg Polyethylene Glycol (Miralax) 17 gm PER TUBE DAILY [facility] Last Admin: 11/17/19 10:15 Dose: 17 gm Prednisone (Prednisone) 40 mg PO DAILY [facility] Last Admin: 11/17/19 10:16 Dose: 40 mg Sodium Chloride (Flush - Normal Saline) 10 ml IVF Q12HR [facility] Last Admin: 11/17/19 20:56 Dose: 10 ml Sodium Chloride (Flush - Normal Saline) 10 ml IVF PRN PRN PRN Reason: Saline Flush Vital Signs & Weight: Vital Signs Temp Pulse Resp BP Pulse Ox 11/18/19 07:15 89 16 11/18/19 05:15 91 L 11/18/19 04:00 98.9 F 89 18 149/90 H 86 L Admit Weight 288 lb 12.889 oz Weight 272 lb 5.392 oz - CHADS-VASc Congestive heart failure: 1 Hypertension: 1 Age 65-74: 1 Diabetes mellitus: 1 Risk Score: 4 - Quality Measures Condition: Atrial Fibrillation/Flutter (hx or current), Heart Failure CV meds: Beta Elena: Yes, MILLA/ARB: No, Statin: No, ASA: No, Plavix/Effient/ Brilinta: No, Anticoagulant: No (on hold 2/2 hematoma) - Physical Exam General: alert & oriented x3, appears well, no apparent distress HEENT: mucus membranes moist Neck: supple neck, no JVD/HJR, no bruit Cardiac: regular rate and rhythm, no murmur Lungs: clear to auscultation, normal breath sounds, oxygen Neuro: grossly intact Abdomen: unremarkable, active bowel sounds, soft Extremities: no edema - Labs Result Diagrams: 11/18/19 03:59 11/17/19 04:34 Troponin/CKMB Troponin I Less than 0.010 ng/mL (< 0.028) 11/07/19 10:15 - Assessment/Plan Assessment/Plan: 1. COPD with acute exacerbation. 2. Acute on chronic diastolic CHF. 3. Acute hypoxic hypercapnic respiratory insufficiency. 4. Non small cell lung Ca. 5. CKD 6. Paroxysmal afib. 7. Superficial thrombosis of upper extremity. PLAN: - Maintaining SR - Continue amiodarone PO load at 400 mg BID for 2 days then 200 mg daily. - Continue metoprolol. - OAC on hold 2/2 resolving hematoma to left UE - Likely will need rehab and placement.
[2019-11-18] MEDS: Polyethylene Glycol 3350 17 GM Packet PER TUBE SCH (08:47)
[2019-11-18] MEDS: predniSONE 20 MG TAB PO SCH (08:47)
[2019-11-18] MEDS: AcetaZOLAMIDE 250 MG TAB PO SCH ×2 (08:47→20:21)
[2019-11-18] MEDS: guaiFENesin ER 600 MG TAB PO SCH ×2 (08:47→20:21)
[2019-11-18] MEDS: Amiodarone 200 MG TAB PO SCH ×2 (08:47→20:20)
[2019-11-18] MEDS: Famotidine 20 MG TAB PO SCH ×2 (08:47→20:22)
[2019-11-18] MEDS: Metoprolol Tartrate 25 MG TAB PO SCH ×2 (08:48→20:22)
--- NOTE | 2019-11-18 13:04 | PDOC.HOSPP ---
- Subjective Encounter Date: 11/18/19 Encounter Time: 10:20 Subjective: sitting in the bed, looks quite fatigued. no acute events o/n. - Objective Vital Signs & Weight: Vital Signs (12 hours) Temp Pulse Resp BP BP Pulse Ox 11/18/19 12:00 97.9 F 72 20 130/86 93 L 11/18/19 08:35 97.3 F L 70 16 131/90 92 L 11/18/19 07:15 89 16 11/18/19 05:15 91 L 11/18/19 04:00 98.9 F 89 18 149/90 H 86 L Weight Admit Weight 288 lb 12.889 oz Weight 272 lb 5.392 oz Most Recent Monitor Data Heart Rate from ECG 78 NIBP 132/66 NIBP BP-Mean 88 Respiration from ECG 17 SpO2 78 I&O: 11/17/19 11/18/19 11/19/19 06:59 06:59 06:59 Intake Total 1140 1450 Output Total 1525 1350 Balance -385 100 Result Diagrams: 11/18/19 03:59 11/17/19 04:34 Additional Labs: Accuchecks 11/18/19 11/17/19 10:52 16:34 POC Glucose 183 H 366 H Hospitalist ROS - Medication Medications: Active Medications Generic Name Dose Route Start Last Admin Trade Name Freq PRN Reason Stop Dose Admin Acetaminophen 650 mg 11/07/19 13:37 11/16/19 20:48 Tylenol PO 650 mg Q4H PRN Administration Headache/Fever/Mild Pain (1-3) Acetazolamide 250 mg 11/16/19 21:00 11/18/19 08:47 Diamox PO 250 mg BID SHASHI Administration Albuterol/Ipratropium 3 ml 11/07/19 19:00 11/18/19 07:15 Duoneb NEB 3 ml [id number] SHASHI Administration Amiodarone HCl 400 mg 11/13/19 21:00 11/18/19 08:47 Cordarone PO 400 mg BID SHASHI Administration Famotidine 20 mg 11/12/19 09:00 11/18/19 08:47 Pepcid PO 20 mg BID SHASHI Administration Guaifenesin 600 mg 11/12/19 21:00 11/18/19 08:47 Mucinex PO 600 mg Q12HR SHASHI Administration Insulin Human Lispro 0 units 11/07/19 22:34 11/17/19 17:39 Humalog SC 10 unit .MODERATE SLIDING SC PRN Administration MODERATE SLIDING SCALE Protocol Insulin Human Lispro 0 units 11/14/19 21:38 11/17/19 21:57 Humalog SC 3 unit .BEDTIME SLIDING SC PRN Administration Bedtime Correctional Scale Metoprolol Tartrate 12.5 mg 11/12/19 21:00 11/18/19 08:48 Lopressor PO 12.5 mg BID SHASHI Administration Oxycodone HCl 2.5 mg 11/16/19 09:08 11/17/19 21:01 Oxycodone Ir PO 2.5 mg Q6H PRN Administration Breakthrough Pain Polyethylene Glycol 17 gm 11/13/19 09:00 11/18/19 08:47 Miralax PER TUBE 17 gm DAILY SHASHI Administration Prednisone 40 mg 11/12/19 09:00 11/18/19 08:47 Prednisone PO 40 mg DAILY SHASHI Administration Sodium Chloride 10 ml 11/12/19 09:00 11/18/19 08:48 Flush - Normal Saline IVF 10 ml Q12HR SHASHI Administration - Exam General Appearance: ill appearing Eye: PERRL ENT: normocephalic atraumatic Neck: supple Heart: RRR Respiratory: CTAB, normal chest expansion Gastrointestinal: soft, normal bowel sounds Neurological: no focal deficits Hosp A/P - Plan Hypercapnic resp failure acute resp failure requiring intubation---s/p extubation CHF exacerbation with diastolic dysfn and echo of 09/03 EF of 60% Worsening pulmoary edema --- on IV diamox, worsening Lung cancer -- RML and RLL --no abx necessary since admission as I admitted this pt w.. CHF exacerbation leading to worsening resp status - now he is off pressors, and BP seems to be better, started on iv diuresis --echo not needed as he had in aug 2019 Hypercapnic resp failure - will try bipap on the floor--------on -- pt had rough time using bipap. - pulmonary following with us. Afib -cardiology following w.. us. - off amio drip, 400 mg bid-----------> 200 mg q d. and metoprolol 12.5 bid. NSCLC - stage 4 --appreciate Dr. albert's gp visit -- on chemo as OP LUE hematoma/venous throbosis, superficial vein, L cephalic -xray of 11/15 - no fx -on hold AC, warm compress. Anemia due to worsening lung cancer -monitor for now Hyperkalemia - K better at 5.0 from 5.9--->4.1 CKD 3 -- daily close monitoring, incl..urine output. DVt ppx -heparin bid [has ckd] pepcid Full code pt remained full code, and wants to be in full code. Worsening comorbidities, incl. lung canc spread and resp..failure, survived recent intubation. -neg COVID -placed palliative c/s, who would likely see him tomorrow/tuesday. -PT and rehap options consulted.
[2019-11-18] MEDS: HumaLOG 300 UNITS/3 ML VIAL SC PRN (17:00)
--- NOTE | 2019-11-18 19:37 | PRG ---
DATE OF SERVICE: 11/18/2019 SUBJECTIVE: Mr. Vera is not requiring BiPAP today when I went to the room, but still not particularly conversant. I have not had the opportunity to see him out of the bed. His main complaint today is continuing pain and infiltration of the left upper arm. PHYSICAL EXAMINATION: VITAL SIGNS: Blood pressure 140/63, saturation 92% on 4 L, he is afebrile, and temperature 97.4. GENERAL: He is an obese gentleman with habitus of obesity hypoventilation syndrome. He has enlarged neck. LUNGS: He has decreased breath sounds in the right mid and lower lung zones. EXTREMITIES: He has some cellulitis and edema of the left arm involving the elbow and the adjacent portions of the arm with edema and decrease in flexion and extension. He does not feel warm to me and there is no obvious drainage. LABORATORY DATA: White count 18,400, increased slightly from yesterday; hemoglobin is 9.7, stable. IMPRESSION: 1. [id number] carcinoma involving the right lung with evidence of atelectasis and volume loss of the right middle and lower lobe, consistent with endobronchial tumor. 2. Cellulitis of the arm. 3. Probable obstructive sleep apnea and obesity hypoventilation syndrome. PLAN: We will continue current therapies. It seems as though the dominant symptom keeping him here in the hospital as the cellulitis of the arm. He has associated leukocytosis from that. Pulmonary Service will continue to follow. Job ID: [id number]
--- NOTE | 2019-11-19 08:46 | RAD ---
Chest one view HISTORY: Leukocytosis. COMPARISON: 11/16/2019. FINDINGS: Cardiac silhouette is magnified, enlarged, and remains partially obscured by opacity at the right base and ill-defined left basilar infiltrate. Pulmonary vasculature remains slightly engorged. Slight leftward deviation of the mediastinum is stable. Right pleural fluid has decreased slightly. R ight basilar infiltrate overall unchanged. Left hemidiaphragm is now more visible. Slight interval decrease in intensity of consolidation of the left lower lobe. No evidence of pneumothorax. Other findings are stable. IMPRESSION : Slight interval improvement. Partial clearing of the left lower lobe infiltrate. Slight interval decr ease in right pleural fluid.
[2019-11-19 08:49] LABS: Anion Gap 10 mmol/L (10-20); BUN (Urea Nitrogen) 32 mg/dL (8.4-25.7); Calc. Creatinine Clearance 90 mL/min (70-130); Calcium 9.3 mg/dL (7.8-10.44); Carbon Dioxide 37 mmol/L (23-31); Chloride 99 mmol/L (98-107); Estimated GFR-MDRD 67; Glucose 102 mg/dL (83-110); Potassium 4.7 mmol/L (3.5-5.1); Sodium 141 mmol/L (136-145)
[2019-11-19 08:56] LABS: Hemoglobin 9.8 g/dL (14.0-18.0); Mean Corpuscular HGB CONC 29.1 g/dL (32.0-36.0); Mean Corpuscular Hemoglobin 29.3 pg (27.0-31.0); Mean Platelet Volume 8.6 fL (7.4-10.4); Platelet Count 289 thou/uL (130-400); RBC Distribution Width 21.5 % (11.5-14.5); Red Blood Cell (RBC) Count 3.33 mill/uL (4.70-6.10); White Blood Cell (WBC) Count 22.1 thou/uL (4.8-10.8)
[2019-11-19 09:15] LABS: Band 8 % (5-11); Eosinophils 2 % (0-10); Lymphocytes 5 % (21-51); MDiff Complete? YES; Monocytes 13 % (0-10); Myelocyte 4 % (0-0); Neutrophil 68 % (42-75); Nucleated RBC 4 % (0); Platelet Morphology Comment Appears Adequate; Polychromasia SLIGHT = 2-3 cells (100X) (0-2/hpf)
[2019-11-19] MEDS: Polyethylene Glycol 3350 17 GM Packet PER TUBE SCH (09:30)
[2019-11-19] MEDS: AcetaZOLAMIDE 250 MG TAB PO SCH ×2 (09:30→19:53)
[2019-11-19] MEDS: guaiFENesin ER 600 MG TAB PO SCH ×2 (09:30→19:53)
[2019-11-19] MEDS: Amiodarone 200 MG TAB PO SCH ×2 (09:30→19:53)
[2019-11-19] MEDS ORDERED: predniSONE 20 MG TAB PO SCH (09:30)
[2019-11-19] MEDS: Famotidine 20 MG TAB PO SCH ×2 (09:30→19:53)
[2019-11-19] MEDS: Metoprolol Tartrate 25 MG TAB PO SCH ×2 (09:30→19:53)
[2019-11-19] MEDS: cefTRIAXone\\ROCEPHIN 1 GM in Sodium Chloride 0.9% 100 ML IVPB SCH (09:31)
--- NOTE | 2019-11-19 09:39 | PRG ---
DATE OF SERVICE: 11/19/2019 SUBJECTIVE: Mr. Vera is still bothered by the clot in his left arm and swelling that has resulted from that. OBJECTIVE: VITAL SIGNS: His temperature 97.2, pulse 73, respirations 18, O2 saturation 92% on 5 L, blood pressure 132/63. HEENT: Unremarkable. NECK: No adenopathy or JVD. LUNGS: Diminished breath sounds in the right base compared to left. CARDIAC: S1 and S2, regular. ABDOMEN: Soft. EXTREMITIES: Left arm swelling, particularly in the antecubital fossa. LABORATORY DATA: White blood cell count 22.1, hematocrit 33.6, and platelet count 289. Sodium 141, potassium 4.7, chloride 99, CO2 of 37, BUN 32, creatinine 1.2, and glucose 102. ASSESSMENT: 1. Left arm deep venous thrombosis/cellulitis. 2. Non-small cell carcinoma of the right lung with atelectasis and volume loss. 3. Obstructive sleep apnea with obesity hypoventilation syndrome. PLAN: 1. Not much we can do, but continue nocturnal BiPAP. Continue treatment of the superficial thrombosis with supportive care. 2. I will decrease his prednisone dose. Job ID: [id number]
[2019-11-19 10:44] LABS: Actual Bicarbonate (HCO3a) 34.8 mEq/L (22-28); Calcium, Ionized 1.26 mmol/L (1.12-1.30); Hemoglobin (Hb) 10.2 g/dL (14.0-18.0); Potassium - ABG Lab 4.68 mmol/L (3.70-5.30)
--- NOTE | 2019-11-19 10:57 | PDOC.HOSPP ---
- Subjective Encounter Date: 11/19/19 Encounter Time: 10:40 Subjective: pt seen this am, he was sitting in the side of the bed, responds to verbal stimuli. AOx2. later on rapid response called due to his somnolence. sats went up after putting O2 by NC. ABG consistently hypercapnic. - Objective Vital Signs & Weight: Vital Signs (12 hours) Temp Pulse Resp BP BP Pulse Ox 11/19/19 09:15 97.2 F L 73 18 132/63 92 L 11/19/19 07:16 69 16 11/19/19 04:00 98.4 F 67 15 126/73 93 L 11/19/19 00:14 95 11/19/19 00:06 62 20 94 L Weight Admit Weight 288 lb 12.889 oz Weight 270 lb 4.8 oz Most Recent Monitor Data Heart Rate from ECG 78 NIBP 132/66 NIBP BP-Mean 88 Respiration from ECG 17 SpO2 78 I&O: 11/18/19 11/19/19 11/20/19 06:59 06:59 06:59 Intake Total 1450 2780 Output Total 1350 1300 Balance 100 1480 Result Diagrams: 11/19/19 08:11 11/19/19 08:11 Additional Labs: Accuchecks 11/19/19 11/18/19 11/18/19 10:32 16:50 10:52 POC Glucose 178 H 326 H 183 H 11/18/19 11/17/19 06:17 20:05 POC Glucose 104 282 H Hospitalist ROS - Medication Medications: Active Medications Generic Name Dose Route Start Last Admin Trade Name Freq PRN Reason Stop Dose Admin Acetaminophen 650 mg 11/07/19 13:37 11/16/19 20:48 Tylenol PO 650 mg Q4H PRN Administration Headache/Fever/Mild Pain (1-3) Acetazolamide 250 mg 11/16/19 21:00 11/19/19 09:30 Diamox PO 250 mg BID SHASHI Administration Albuterol/Ipratropium 3 ml 11/07/19 19:00 11/19/19 07:16 Duoneb NEB 3 ml [id number] SHASHI Administration Amiodarone HCl 400 mg 11/13/19 21:00 11/19/19 09:30 Cordarone PO 400 mg BID SHASHI Administration Famotidine 20 mg 11/12/19 09:00 11/19/19 09:30 Pepcid PO 20 mg BID SHASHI Administration Guaifenesin 600 mg 11/12/19 21:00 11/19/19 09:30 Mucinex PO 600 mg Q12HR SHASHI Administration Ceftriaxone Sodium 1 gm/ 100 mls @ 200 mls/hr 11/19/19 09:00 11/19/19 09:31 Sodium Chloride IVPB 100 mls Q24HR SHASHI Administration Insulin Human Lispro 0 units 11/07/19 22:34 11/18/19 17:00 Humalog SC 8 unit .MODERATE SLIDING SC PRN Administration MODERATE SLIDING SCALE Protocol Insulin Human Lispro 0 units 11/14/19 21:38 11/17/19 21:57 Humalog SC 3 unit .BEDTIME SLIDING SC PRN Administration Bedtime Correctional Scale Metoprolol Tartrate 12.5 mg 11/12/19 21:00 11/19/19 09:30 Lopressor PO 12.5 mg BID SHASHI Administration Oxycodone HCl 2.5 mg 11/16/19 09:08 11/17/19 21:01 Oxycodone Ir PO 2.5 mg Q6H PRN Administration Breakthrough Pain Polyethylene Glycol 17 gm 11/13/19 09:00 11/19/19 09:30 Miralax PER TUBE 17 gm DAILY SHASHI Administration Prednisone 20 mg 11/19/19 09:30 11/19/19 09:39 Prednisone PO 11/19/19 11:30 20 mg NOW SHASHI Administration Sodium Chloride 10 ml 11/12/19 09:00 11/19/19 09:31 Flush - Normal Saline IVF 10 ml Q12HR SHASHI Administration - Exam General Appearance: ill appearing Eye: PERRL ENT: normocephalic atraumatic Heart: RRR Respiratory: CTAB, normal chest expansion Gastrointestinal: soft, normal bowel sounds Neurological: no focal deficits Hosp A/P - Plan Hypercapnic resp failure acute resp failure requiring intubation---s/p extubation CHF exacerbation with diastolic dysfn and echo of 09/03 EF of 60% Worsening pulmoary edema --- on IV diamox, worsening Lung cancer -- RML and RLL --no abx necessary since admission as I admitted this pt w.. CHF exacerbation leading to worsening resp status - now he is off pressors, and BP seems to be better, started on iv diuresis --echo not needed as he had in aug 2019 Hypercapnic resp failure - will try bipap on the floor--------on -- pt had rough time using bipap. - pulmonary following with us. Afib -cardiology following w.. us. - off amio drip, 400 mg bid-----------> 200 mg q d. and metoprolol 12.5 bid. NSCLC - stage 4 --appreciate Dr. albert's gp visit -- on chemo as OP LUE hematoma/venous throbosis, superficial vein, L cephalic -xray of 11/15 - no fx -on hold AC, warm compress. Anemia due to worsening lung cancer -monitor for now Hyperkalemia - K better at 5.0 from 5.9--->4.1 CKD 3 -- daily close monitoring, incl..urine output. DVt ppx -heparin bid [has ckd] pepcid Full code pt remained full code, and wants to be in full code. Worsening comorbidities, incl. lung canc spread and resp..failure, survived recent intubation. -neg COVID -placed palliative c/s, who would likely see him tomorrow/tuesday. -PT and rehap options consulted. 6th pt had unresponsiveness with low O2 sat. Alert and oriented x 2, slightly lethargic, responds to verbal stimuli. pt quite uncooperative to keep the NC for O2, dropping sats and build up of hypercapnia---->somnolent/lethargy. pt wants to be full code. will keep him in IMCU, continue encouraging NC O2 abd/or nocturnal bipap. Leukocytosis - pt without sign of infection at this point -am cxr -- shows slight improvement than prior one- - will fw UA study - empiric CTX - ID help appreciated. his main issue and ongoing labile mentation etc.. due to hypercapnia and requires ongoing O2 supplement and/or bipap support - will keep in IMCU - pt needs LTAC - will request CM to look into this.
--- NOTE | 2019-11-19 10:58 | PDOC.CPN ---
- Subjective Date: 11/19/19 Time: 10:57 Interval history: No new issues. Left arm less swollen. - Review of Systems General: denies: fever/chills, weight/appetite/sleep changes, night sweats, fatigue Respiratory: denies: cough, congestion, shortness of breath, exercise intolerance Cardiovascular: denies: chest pain, palpitation, edema, paroxysmal nocturnal dyspnea, orthopnea Gastrointestinal: denies: nausea, vomiting, diarrhea, constipation, abd pain, GI bleeding Musculoskeletal: denies: pain, tenderness, stiffness, swelling, arthritis/ arthralgias Neurological: denies: numbness, syncope, seizure, weakness - Objective Allergies/Adverse Reactions: Allergies Allergy/AdvReac Type Severity Reaction Status Date / Time No Known Drug Allergies Allergy Verified 11/06/19 13:58 Visit Medications: Current Medications Acetaminophen (Tylenol) 650 mg PO Q4H PRN PRN Reason: Headache/Fever/Mild Pain (1-3) Last Admin: 11/16/19 20:48 Dose: 650 mg Acetazolamide (Diamox) 250 mg PO BID [facility] Last Admin: 11/19/19 09:30 Dose: 250 mg Albuterol/Ipratropium (Duoneb) 3 ml NEB [id number] [facility] Last Admin: 11/19/19 07:16 Dose: 3 ml Amiodarone HCl (Cordarone) 400 mg PO BID [facility] Last Admin: 11/19/19 09:30 Dose: 400 mg Dextrose/Water (Dextrose 50%) 25 gm IVP PRN PRN PRN Reason: HYPOGLYCEMIA PROTOCOL Famotidine (Pepcid) 20 mg PO BID [facility] Last Admin: 11/19/19 09:30 Dose: 20 mg Glucagon (Glucagon) 1 mg IM PRN PRN PRN Reason: HYPOGLYCEMIA PROTOCOL Guaifenesin (Mucinex) 600 mg PO Q12HR [facility] Last Admin: 11/19/19 09:30 Dose: 600 mg Dextrose/Water (D5w) 1,000 mls @ 0 mls/hr IV INF PRN PRN Reason: HYPOGLYCEMIA PROTOCOL Ceftriaxone Sodium 1 gm/ (Sodium Chloride) 100 mls @ 200 mls/hr IVPB Q24HR [facility] Last Admin: 11/19/19 09:31 Dose: 100 mls Insulin Human Lispro (Humalog) 0 units SC .MODERATE SLIDING SC PRN; Protocol PRN Reason: MODERATE SLIDING SCALE Last Admin: 11/18/19 17:00 Dose: 8 unit Insulin Human Lispro (Humalog) 0 units SC .BEDTIME SLIDING SC PRN PRN Reason: Bedtime Correctional Scale Last Admin: 11/17/19 21:57 Dose: 3 unit Metoprolol Tartrate (Lopressor) 12.5 mg PO BID [facility] Last Admin: 11/19/19 09:30 Dose: 12.5 mg Mineral Oil/White Petrolatum (Systane Nighttime Eye Ointment) 0 gm EA EYE PRN PRN PRN Reason: Dry Eyes Ondansetron HCl (Zofran) 4 mg IVP Q6H PRN PRN Reason: Nausea/Vomiting Oxycodone HCl (Oxycodone Ir) 2.5 mg PO Q6H PRN PRN Reason: Breakthrough Pain Last Admin: 11/17/19 21:01 Dose: 2.5 mg Polyethylene Glycol (Miralax) 17 gm PER TUBE DAILY [facility] Last Admin: 11/19/19 09:30 Dose: 17 gm Prednisone (Prednisone) 20 mg PO DAILY [facility] Prednisone (Prednisone) 20 mg PO NOW [facility] Stop: 11/19/19 11:30 Last Admin: 11/19/19 09:39 Dose: 20 mg Sodium Chloride (Flush - Normal Saline) 10 ml IVF Q12HR [facility] Last Admin: 11/19/19 09:31 Dose: 10 ml Sodium Chloride (Flush - Normal Saline) 10 ml IVF PRN PRN PRN Reason: Saline Flush Vital Signs & Weight: Vital Signs Temp Pulse Resp BP BP Pulse Ox 11/19/19 10:56 63 11/19/19 09:15 97.2 F L 73 18 132/63 92 L 11/19/19 07:16 69 16 11/19/19 04:00 98.4 F 67 15 126/73 93 L 11/19/19 00:14 95 11/19/19 00:06 62 20 94 L Admit Weight 288 lb 12.889 oz Weight 270 lb 4.8 oz - Quality Measures Condition: Atrial Fibrillation/Flutter (hx or current), Heart Failure CV meds: Beta Elena: Yes, MILLA/ARB: No, Statin: No, ASA: No, Plavix/Effient/ Brilinta: No, Anticoagulant: No (on hold 2/2 hematoma) - Physical Exam General: no apparent distress HEENT: mucus membranes moist Neck: supple neck Cardiac: regular rate and rhythm Lungs: decreased breath sounds Neuro: grossly intact Abdomen: active bowel sounds Extremities: no edema Skin: clear Musculoskeletal: no pain - Labs Result Diagrams: 11/19/19 08:11 11/19/19 08:11 Troponin/CKMB Troponin I Less than 0.010 ng/mL (< 0.028) 11/07/19 10:15 - Telemetry Sinus rhythms and dysrhythmias: sinus rhythm - Assessment/Plan Assessment/Plan: 1. COPD with acute exacerbation. 2. Acute on chronic diastolic CHF. 3. Acute hypoxic hypercapnic respiratory insufficiency. 4. Non small cell lung Ca, RLL witrh volume loss. 5. CKD 6. Paroxysmal afib. 7. Superficial thrombosis of upper extremity. PLAN: - Maintaining SR - Continue amiodarone PO load at 400 mg BID for 1 days then 200 mg daily. - Continue BB.
[2019-11-19 10:59] LABS: CO2 Tension 88.7 mmHg (35.0-45.0); pH, Arterial 7.21 (7.35-7.45)
[2019-11-19 11:00] LABS: ALV-art Gradient 64.985 (0-20); O2 Tension (PaO2) 52.3 mmHg (> 70.0); Puncture Site RRA
[2019-11-19] MEDS ORDERED: cefTRIAXone\\ROCEPHIN 1 GM in Sodium Chloride 0.9% 100 ML IVPB SCH (11:00)
[2019-11-19] MEDS: predniSONE 20 MG TAB PO SCH (11:04)
[2019-11-19 12:11] LABS: Anion Gap 11 mmol/L (10-20); BUN (Urea Nitrogen) 33 mg/dL (8.4-25.7); Calc. Creatinine Clearance 85 mL/min (70-130); Calcium 9.2 mg/dL (7.8-10.44); Carbon Dioxide 37 mmol/L (23-31); Chloride 99 mmol/L (98-107); Estimated GFR-MDRD 63; Glucose 163 mg/dL (83-110); Potassium 4.6 mmol/L (3.5-5.1); Sodium 142 mmol/L (136-145)
[2019-11-19 12:16] LABS: Anisocytosis MODERATE=16-30 cells (100X) (0-5/hpf); Band 11 % (5-11); Eosinophils 2 % (0-10); Hemoglobin 9.4 g/dL (14.0-18.0); Hypochromia SLIGHT = 6-15 cells (100X) (0-5/hpf); Lymphocytes 10 % (21-51); MDiff Complete? YES; Mean Corpuscular HGB CONC 28.1 g/dL (32.0-36.0); Mean Corpuscular Hemoglobin 28.3 pg (27.0-31.0); Mean Platelet Volume 9.4 fL (7.4-10.4); Monocytes 5 % (0-10); Myelocyte 4 % (0-0); Neutrophil 68 % (42-75); Nucleated RBC 2 % (0); Platelet Count 311 thou/uL (130-400); Platelet Morphology Comment Appears Adequate; Polychromasia MARKED = >4 cells (100X) (0-2/hpf); RBC Distribution Width 21.5 % (11.5-14.5); Red Blood Cell (RBC) Count 3.33 mill/uL (4.70-6.10); Schistocytes SLIGHT = 2-5 cells (100X) (0-1/hpf); Stomatocytes SLIGHT = 2-5 cells (100X) (0-1/hpf); Tear Drops SLIGHT = 2-5 cells (100X) (0-1/hpf); White Blood Cell (WBC) Count 21.9 thou/uL (4.8-10.8)
[2019-11-19 12:40] VITALS: BMI 36.6
--- NOTE | 2019-11-19 14:49 | CON ---
DATE OF CONSULTATION: 11/19/2019 REASON FOR CONSULTATION: Leukocytosis and concern with infection. HISTORY OF PRESENT ILLNESS: A 74-year-old, who has a history of hyperlipidemia and primary lung cancer, right side, who has been treated with chemoradiation therapy, as well as ischemic cardiomyopathy and type 2 diabetes, brought into the emergency room because of shortness of breath associated with leg swelling for the past few days before admission. The admission occurred on November 06. His last session of Gemzar chemotherapy was around mid October and he did not have any sputum production, although he did have some cough. On arrival, his O2 saturations were 58% and he was placed on nonrebreathing mask with some improvement, and then COVID testing was submitted and that was negative. He has been afebrile for the past many days and he has been receiving inhalers, amiodarone, ceftriaxone, Mucinex, insulin, Lopressor, prednisone 20 mg daily, polyethylene glycol. The prednisone had been at 40 mg daily and now it looks like they are tapering the dose, which started actually on the day of this consultation. He had received 40 mg for about a week before this visit. There has been noticeable increase in his white cell count and we are asked to evaluate the patient because of this neutrophilia. He has a BiPAP mask at the moment. He denies headaches. No visual symptoms or sore throat. Not much coughing spells. No chest pain. No abdominal pain. He is urinating in the urinal without difficulty. PAST MEDICAL HISTORY: Non-small cell lung cancer, right upper lobe with bone mets; type 2 diabetes; hypertension; ischemic cardiomyopathy; COPD, O2 dependent; colon cancer, stage I, 2013; BPH. SURGICAL HISTORY: Colon resection, partial; and CT-guided biopsy for the malignancy diagnosis. ALLERGIES: NONE. FAMILY HISTORY: Colon cancer. SOCIAL HISTORY: Lives in the area by himself. Former smoker. CURRENT MEDICATIONS: 1. Diamox. 2. DuoNeb. 3. Cordarone. 4. Ceftriaxone. 5. Pepcid. 6. Mucinex. 7. Insulin. 8. Lopressor. 9. Oxycodone. 10. Zofran. 11. MiraLAX. PHYSICAL EXAMINATION: VITAL SIGNS: Current temperature 98.4 to 97.2, blood pressure 160/80, heart rate 61, respiratory rate 17, O2 saturation 87 to 93. SKIN: There is a shallow non-stageable ulceration in the lateral aspect of the left 5th MPJ skin site with a dark scab covering the area. There is a similar ulcer in the right side first MPJ skin site, and those are likely pressure areas. The patient has a peripheral IV access. HEENT: Some periorbital edema. Pupils are about 2 mm and reactive, symmetric. Sclerae are white. Oral cavity difficult to evaluate because of BiPAP mask. NECK: Some jugular vein distention. LUNGS: With symmetric air entry. Diminished breath sounds. No wheezing. HEART: S1 and S2, diminished heart sounds. ABDOMEN: Somewhat distended, but soft. No guarding noted. Bowel sounds are diminished. No bladder distention or organomegaly. No ascites noted. EXTREMITIES: The patient is able to move extremities on command, and he has 1+ edema in lower extremities. Plantar responses are flexor. NEUROLOGIC: His is somewhat obtunded, he will wake up when stimulated, but falls back asleep. LABORATORY DATA: White cell count was 22,000, which was the peak white cell count since admission, and now is down to 21.9; hemoglobin 9.8; platelets 289. The differential shows 68% neutrophils, 8% bands, and 5% lymphocytes. COVID PCR not detected on November 06. The creatinine peaked at 1.88, it is down to 1.35 at the moment. His liver profile with last evaluation within normal limits on November 06, which was on admission. BNP was 1270. Albumin 3.8. TSH 0.85. Microbiology with respiratory virus PCR panel negative. Influenza A and B, negative. The last chest x-ray from 11/18 with enlarged cardiac silhouette, opacity in right base, and left basilar infiltrate, engorged pulmonary vasculature. This reflects interval improvement with partial clearing of the left lower lobe infiltrate and decrease of the right pleural fluid. The patient had a brain CT scan, which did not show any acute intracranial abnormalities. ASSESSMENT: 1. Type 2 diabetes. 2. Hypertension. 3. Hyperlipidemia. 4. Cardiomyopathy, probably ischemic. 5. Metastatic lung cancer, non-small cell, on Gemzar with palliative intent. 6. Chronic obstructive pulmonary disease. 7. Chronic hypoxemia with O2 supplementation in the home setting. 8. Worsening dyspnea with pulmonary infiltrates, possibly a combination of pulmonary edema with some early pneumonia. The patient has not been neutropenic and the latest increase in neutrophil count is most likely secondary to the corticosteroids that have been initiated about a week before this latest numbers. If that is the case, then we should see a progressive decrease in neutrophil count since the prednisone dose has been halved and likely going to continue to be tapered and eventually discontinued. We will go ahead and submit a procalcitonin to help confirm that assessment. Job ID: [id number]
[2019-11-19] MEDS ORDERED: Lorazepam 2 MG/ML VIAL SLOW IVP SCH (15:15)
--- NOTE | 2019-11-19 16:05 | PDOC.PALPN ---
Palliative Progress Note - Subjective Patient experienced respiratory decline and code dann was called, he was transferred to [facility] for higher level of care. Patient, even in the hospital refuses to be compliant and not wear his Bipap. - Objective Vital Signs: Vital Signs - Most Recent Temp Pulse Resp BP Pulse Ox 97.2 F L 62 17 136/66 97 11/19/19 09:15 11/19/19 11:56 11/19/19 11:56 11/19/19 10:31 11/19/19 11:56 - Physical Exam Constitutional: confusion, ill appearing HEENT: EOMI, moist MMs, sclera anicteric Respiratory: diminished lung sound, labored respirations Cardiovascular: RRR Gastrointestinal: non-tender Deviation from normal: obtunded Musculoskeletal: edema present Neurology: moves all 4 limbs Skin: cap refill <2 seconds Deviation from normal: erythema to left arm anticubital area Deviation from normal: confused - Assessment (1) Palliative care encounter Code(s): Z51.5 - ENCOUNTER FOR PALLIATIVE CARE Current Visit: Yes Status: Acute (2) Non-compliance Code(s): Z91.19 - PATIENT'S NONCOMPLIANCE W OTH MEDICAL TREATMENT AND REGIMEN Current Visit: Yes Status: Acute (3) Acute exacerbation of CHF (congestive heart failure) Code(s): I50.9 - HEART FAILURE, UNSPECIFIED Current Visit: No Status: Acute Qualifiers: (4) COPD with exacerbation Code(s): J44.1 - CHRONIC OBSTRUCTIVE PULMONARY DISEASE W (ACUTE) EXACERBATION Current Visit: No Status: Acute (5) Non-small cell lung cancer Code(s): C34.90 - MALIGNANT NEOPLASM OF UNSP PART OF UNSP BRONCHUS OR LUNG Current Visit: No Status: Chronic Qualifiers: (6) Respiratory failure, [id number] Code(s): J96.20 - ACUTE AND CHR RESP FAILURE, UNSP W HYPOXIA OR HYPERCAPNIA Current Visit: No Status: Chronic (7) Sleep apnea Code(s): G47.30 - SLEEP APNEA, UNSPECIFIED Current Visit: No Status: Chronic - Plan Plan: Patient had previously expressed to staff that he wished to be a DNAR, expressed the same during my assessment, however confusion increased and patient not able to sign DNAR. Non compliant with Bipap. BiPap placed back on patient in an attempt to prevent intubation. Called patient sister, she states that his "children at step children and that his is ". There are 12 siblings including patient. Uncertain of participation in decision making for patient. Will reach out to CM to assist with siblings designating a surrogate decision maker. Communicated with Dr Bingham, as patient previously states he would desire to be a DNAR and that she and another physician who is not involved in care could designate DNAR if needed. Confirmed with Dr Florian. [40] minutes spent on this encounter with >50% of the time in counseling and coordination of care. - ROS Non Response: due to mental status
[2019-11-20 07:10] LABS: Bacteria/HPF None Seen HPF (None Seen); Bilirubin Negative (Negative); Blood, Urine Negative (Negative); Clarity Clear (Clear); Glucose, Urine (Dipstick) Normal (Negative); Leukocyte Negative Leu/uL (Negative); Nitrite Negative (Negative); Protein, Urine (Dipstick) 10 mg/dL (Neg-Trace); RBC/HPF 0-3 HPF (0-3); Squamous Epithelial 0-3 HPF (0-3); WBC/HPF 0-3 HPF (0-3)
[2019-11-20 07:13] LABS: Urine Culture Reflex No No
[2019-11-20] MEDS ORDERED: Sterile Water 10 ML VIAL FS PRN (07:53)
--- NOTE | 2019-11-20 08:02 | PRG ---
DATE OF SERVICE: 11/20/2019 SUBJECTIVE: Mr. Vera was moved over to the [facility] yesterday for continued issues with hypercapnia. An ABG yesterday showed a pH of 7.21, pCO2 of 88, and PO2 of 79. He was placed on BiPAP but did not like that very much and has been difficult to keep it on during the night. I find him confused this morning, he can talk to me but he is disoriented. OBJECTIVE: VITAL SIGNS: His temperature is 98.0, pulse 62, blood pressure 159/77, 24-hour intake 512, output 1200. HEENT: Unremarkable. NECK: No JVD. LUNGS: Actually fairly clear anteriorly. CARDIAC: S1 and S2, regular. ABDOMEN: Soft. EXTREMITIES: Edematous left arm. LABORATORY DATA: No labs were obtained today. Chest x-ray from yesterday demonstrates atelectasis in the right base probably from an endobronchial obstruction from the tumor. ASSESSMENT: 1. This patient is suffering from progressive respiratory failure related to worsening of his pulmonary status from lung cancer and probably postobstructive pneumonitis. 2. Underlying obstructive sleep apnea/obesity hypoventilation syndrome. 3. Chronic obstructive pulmonary disease. 4. Diastolic heart failure. RECOMMENDATIONS: Mr. Vera is probably near the end of his life. I do not find him capable of making decisions. I would suggest getting his involved. I would withhold any strong medications that could be altering his mental status. Await the results of today's labs. Continue BiPAP p.r.n. Job ID: [id number]
[2019-11-20] MEDS: AcetaZOLAMIDE 250 MG TAB PO SCH ×2 (09:56→20:43)
[2019-11-20] MEDS: Metoprolol Tartrate 25 MG TAB PO SCH ×2 (09:56→20:43)
[2019-11-20] MEDS: Famotidine 20 MG TAB PO SCH ×2 (09:56→20:43)
[2019-11-20] MEDS: Amiodarone 200 MG TAB PO SCH ×2 (09:56→20:43)
[2019-11-20] MEDS: Polyethylene Glycol 3350 17 GM Packet PER TUBE SCH (09:59)
[2019-11-20] MEDS: predniSONE 20 MG TAB PO SCH (09:59)
[2019-11-20] MEDS: guaiFENesin ER 600 MG TAB PO SCH ×2 (09:59→20:43)
[2019-11-20] MEDS: cefTRIAXone\\ROCEPHIN 1 GM in Sodium Chloride 0.9% 100 ML IVPB SCH (09:59)
[2019-11-20 10:20] LABS: #Eosinphils 0.3 thou/uL (0.0-0.7); #Monocytes 1.3 thou/uL (0.11-0.59); #Neutrophils 14.6 thou/uL (1.40-6.50); %Basophils 0.1 % (0.0-1.0); %Eosinophils 1.6 % (0.0-10.0); %Lymphocytes 11.1 % (21.0-51.0); %Neutrophils 80.2 % (42.0-75.0); Hemoglobin 9.7 g/dL (14.0-18.0); Mean Corpuscular HGB CONC 29.3 g/dL (32.0-36.0); Mean Corpuscular Hemoglobin 29.1 pg (27.0-31.0); Mean Corpuscular Volume 99.5 fL (78.0-98.0); Mean Platelet Volume 8.6 fL (7.4-10.4); Platelet Count 269 thou/uL (130-400); RBC Distribution Width 21.8 % (11.5-14.5); Red Blood Cell (RBC) Count 3.33 mill/uL (4.70-6.10); White Blood Cell (WBC) Count 18.2 thou/uL (4.8-10.8)
[2019-11-20 10:36] LABS: Anion Gap 10 mmol/L (10-20); BUN (Urea Nitrogen) 30 mg/dL (8.4-25.7); Calc. Creatinine Clearance 90 mL/min (70-130); Calcium 9.1 mg/dL (7.8-10.44); Carbon Dioxide 35 mmol/L (23-31); Chloride 102 mmol/L (98-107); Estimated GFR-MDRD 64; Glucose 129 mg/dL (83-110); Potassium 4.8 mmol/L (3.5-5.1); Sodium 142 mmol/L (136-145)
[2019-11-20 11:11] LABS: Band 6 % (5-11); Eosinophils 1 % (0-10); Lymphocytes 9 % (21-51); MDiff Complete? YES; Monocytes 5 % (0-10); Myelocyte 2 % (0-0); Neutrophil 76 % (42-75); Nucleated RBC 5 % (0); Platelet Morphology Comment Appears Adequate; Polychromasia MODERATE = 3-4 cells (100X) (0-2/hpf)
[2019-11-20] MEDS: Acetaminophen 325 MG TAB PO PRN ×2 (11:29→18:07)
[2019-11-20] MEDS: HumaLOG 300 UNITS/3 ML VIAL SC PRN ×2 (11:30→16:15)
--- NOTE | 2019-11-20 13:16 | PDOC.HOSPP ---
- Subjective Encounter Date: 11/20/19 Encounter Time: 09:40 Subjective: pt sitting in the side of the bed. much more pleasant and conversing today. feels better. d/w RN. cw warm compression on his left arm, still swollen. use dhis bipap o/n. - Objective Vital Signs & Weight: Vital Signs (12 hours) Temp Pulse Resp Pulse Ox 11/20/19 12:57 69 11/20/19 10:30 98.6 F 11/20/19 08:04 72 16 87 L 11/20/19 08:00 100 11/20/19 07:30 97.7 F 11/20/19 03:33 98.0 F Weight Admit Weight 288 lb 12.889 oz Weight 282 lb 8 oz Most Recent Monitor Data Heart Rate from ECG 71 NIBP 126/92 NIBP BP-Mean 103 Respiration from ECG 15 SpO2 91 I&O: 11/19/19 11/20/19 11/21/19 06:59 06:59 06:59 Intake Total 2780 512 Output Total 1300 1200 Balance 1480 -688 Result Diagrams: 11/20/19 10:08 11/20/19 10:08 Additional Labs: Accuchecks 11/20/19 11/20/19 11/19/19 10:23 05:50 19:53 POC Glucose 174 H 173 H 145 H 11/19/19 16:47 POC Glucose 175 H Hospitalist ROS - Medication Medications: Active Medications Generic Name Dose Route Start Last Admin Trade Name Freq PRN Reason Stop Dose Admin Acetaminophen 650 mg 11/07/19 13:37 11/20/19 11:29 Tylenol PO 650 mg Q4H PRN Administration Headache/Fever/Mild Pain (1-3) Acetazolamide 250 mg 11/16/19 21:00 11/20/19 09:56 Diamox PO 250 mg BID SH[facility]I Administration Albuterol/Ipratropium 3 ml 11/07/19 19:00 11/20/19 12:56 Duoneb NEB 3 ml [id number] SHASHI Administration Amiodarone HCl 400 mg 11/13/19 21:00 11/20/19 09:56 Cordarone PO 11/20/19 23:59 400 mg BID [facility] Administration Famotidine 20 mg 11/12/19 09:00 11/20/19 09:56 Pepcid PO 20 mg BID [facility] Administration Guaifenesin 600 mg 11/12/19 21:00 11/20/19 09:59 Mucinex PO 600 mg Q12HR [facility]I Administration Ceftriaxone Sodium 1 gm/ 100 mls @ 200 mls/hr 11/19/19 09:00 11/20/19 09:59 Sodium Chloride IVPB 100 mls Q24HR [facility]I Administration Insulin Human Lispro 0 units 11/07/19 22:34 11/20/19 11:30 Humalog SC 2 unit .MODERATE SLIDING SC PRN Administration MODERATE SLIDING SCALE Protocol Insulin Human Lispro 0 units 11/14/19 21:38 11/17/19 21:57 Humalog SC 3 unit .BEDTIME SLIDING SC PRN Administration Bedtime Correctional Scale Metoprolol Tartrate 12.5 mg 11/12/19 21:00 11/20/19 09:56 Lopressor PO 12.5 mg BID [facility]I Administration Polyethylene Glycol 17 gm 11/13/19 09:00 11/20/19 09:59 Miralax PER TUBE 17 gm DAILY [facility] Administration Prednisone 20 mg 11/20/19 09:00 11/20/19 09:59 Prednisone PO 20 mg DAILY [facility] Administration Sodium Chloride 10 ml 11/12/19 09:00 11/19/19 19:53 Flush - Normal Saline IVF 10 ml Q12HR SH[facility]I Administration - Exam General Appearance: NAD, awake alert, ill appearing Eye: PERRL ENT: normocephalic atraumatic Neck: supple Heart: RRR Respiratory: CTAB, normal chest expansion Gastrointestinal: soft, normal bowel sounds Neurological: no focal deficits Hosp A/P - Plan Hypercapnic resp failure acute resp failure requiring intubation---s/p extubation CHF exacerbation with diastolic dysfn and echo of 09/03 EF of 60% Worsening pulmoary edema --- on IV diamox, worsening Lung cancer -- RML and RLL --no abx necessary since admission as I admitted this pt w.. CHF exacerbation leading to worsening resp status - now he is off pressors, and BP seems to be better, started on iv diuresis --echo not needed as he had in aug 2019 Hypercapnic resp failure - will try bipap on the floor--------on -- pt had rough time using bipap. - pulmonary following with us. Afib -cardiology following w.. us. - off amio drip, 400 mg bid-----------> 200 mg q d. and metoprolol 12.5 bid. NSCLC - stage 4 --appreciate Dr. albert's gp visit -- on chemo as OP LUE hematoma/venous throbosis, superficial vein, L cephalic -xray of 11/15 - no fx -on hold AC, warm compress. Anemia due to worsening lung cancer -monitor for now Hyperkalemia - K better at 5.0 from 5.9--->4.1 CKD 3 -- daily close monitoring, incl..urine output. DVt ppx -heparin bid [has ckd] pepcid Full code pt remained full code, and wants to be in full code. Worsening comorbidities, incl. lung canc spread and resp..failure, survived recent intubation. -neg COVID -palliative on board -PT and rehap options consulted. 6th pt had unresponsiveness with low O2 sat. Alert and oriented x 2, slightly lethargic, responds to verbal stimuli. pt quite uncooperative to keep the NC for O2, dropping sats and build up of hypercapnia---->somnolent/lethargy. pt wants to be full code. will keep him in IMCU, continue encouraging NC O2 abd/or nocturnal bipap. Leukocytosis - pt without sign of infection at this point -am cxr -- shows slight improvement than prior one- - will fw UA study--------------->-benign - empiric CTX - ID help appreciated. his main issue not able to keep the biap and ongoing labile mentation etc.. due to hypercapnia and requires ongoing O2 supplement and/or bipap support - will keep in IMCU - pt needs LTAC - CM following.
[2019-11-20] MEDS: Ziprasidone 20 MG VIAL IM PRN (14:49)
--- NOTE | 2019-11-20 17:25 | PDOC.CPN ---
- Subjective Date: 11/20/19 Time: 17:23 Interval history: He is currently sleeping, just received a dose of Geodon and is resting on BiPAP. Still confused. - Review of Systems ROS unobtainable: due to mental status - Objective Allergies/Adverse Reactions: Allergies Allergy/AdvReac Type Severity Reaction Status Date / Time No Known Drug Allergies Allergy Verified 11/06/19 13:58 Visit Medications: Current Medications Acetaminophen (Tylenol) 650 mg PO Q4H PRN PRN Reason: Headache/Fever/Mild Pain (1-3) Last Admin: 11/20/19 11:29 Dose: 650 mg Acetazolamide (Diamox) 250 mg PO BID [facility] Last Admin: 11/20/19 09:56 Dose: 250 mg Albuterol/Ipratropium (Duoneb) 3 ml NEB [id number] [facility] Last Admin: 11/20/19 12:56 Dose: 3 ml Amiodarone HCl (Cordarone) 400 mg PO BID [facility] Stop: 11/20/19 23:59 Last Admin: 11/20/19 09:56 Dose: 400 mg Amiodarone HCl (Cordarone) 200 mg PO DAILY [facility] Dextrose/Water (Dextrose 50%) 25 gm IVP PRN PRN PRN Reason: HYPOGLYCEMIA PROTOCOL Famotidine (Pepcid) 20 mg PO BID [facility] Last Admin: 11/20/19 09:56 Dose: 20 mg Glucagon (Glucagon) 1 mg IM PRN PRN PRN Reason: HYPOGLYCEMIA PROTOCOL Guaifenesin (Mucinex) 600 mg PO Q12HR [facility] Last Admin: 11/20/19 09:59 Dose: 600 mg Dextrose/Water (D5w) 1,000 mls @ 0 mls/hr IV INF PRN PRN Reason: HYPOGLYCEMIA PROTOCOL Ceftriaxone Sodium 1 gm/ (Sodium Chloride) 100 mls @ 200 mls/hr IVPB Q24HR [facility] Last Admin: 11/20/19 09:59 Dose: 100 mls Insulin Human Lispro (Humalog) 0 units SC .MODERATE SLIDING SC PRN; Protocol PRN Reason: MODERATE SLIDING SCALE Last Admin: 11/20/19 16:15 Dose: 10 unit Insulin Human Lispro (Humalog) 0 units SC .BEDTIME SLIDING SC PRN PRN Reason: Bedtime Correctional Scale Last Admin: 11/17/19 21:57 Dose: 3 unit Metoprolol Tartrate (Lopressor) 12.5 mg PO BID [facility] Last Admin: 11/20/19 09:56 Dose: 12.5 mg Mineral Oil/White Petrolatum (Systane Nighttime Eye Ointment) 0 gm EA EYE PRN PRN PRN Reason: Dry Eyes Ondansetron HCl (Zofran) 4 mg IVP Q6H PRN PRN Reason: Nausea/Vomiting Polyethylene Glycol (Miralax) 17 gm PER TUBE DAILY [facility] Last Admin: 11/20/19 09:59 Dose: 17 gm Prednisone (Prednisone) 20 mg PO DAILY [facility] Last Admin: 11/20/19 09:59 Dose: 20 mg Sodium Chloride (Flush - Normal Saline) 10 ml IVF Q12HR [facility] Last Admin: 11/20/19 15:04 Dose: Not Given Sodium Chloride (Flush - Normal Saline) 10 ml IVF PRN PRN PRN Reason: Saline Flush Sterile Water (Water For Injection) 1.2 ml FS PRN PRN PRN Reason: RECONSTITUTION Ziprasidone (Geodon) 20 mg IM Q6H PRN PRN Reason: Agitation Last Admin: 11/20/19 14:49 Dose: 20 mg Vital Signs & Weight: Vital Signs Temp Pulse Resp Pulse Ox 11/20/19 15:20 98.6 F 11/20/19 12:57 69 11/20/19 10:30 98.6 F 11/20/19 08:04 72 16 87 L 11/20/19 08:00 100 11/20/19 07:30 97.7 F Admit Weight 288 lb 12.889 oz Weight 282 lb 8 oz - Quality Measures Condition: Atrial Fibrillation/Flutter (hx or current), Heart Failure CV meds: Beta Elena: Yes, MILLA/ARB: No, Statin: No, ASA: No, Plavix/Effient/ Brilinta: No, Anticoagulant: No (on hold 2/2 hematoma) - Physical Exam General: no apparent distress HEENT: normocephaly Neck: midline trachea Cardiac: regular rate and rhythm Lungs: decreased breath sounds Neuro: no lateralizing findings Abdomen: active bowel sounds Extremities: no edema Skin: clear Musculoskeletal: no pain - Labs Result Diagrams: 11/20/19 10:08 11/20/19 10:08 Troponin/CKMB Troponin I Less than 0.010 ng/mL (< 0.028) 11/07/19 10:15 - Telemetry Sinus rhythms and dysrhythmias: sinus rhythm - Assessment/Plan Assessment/Plan: 1. COPD with acute exacerbation. 2. Acute on chronic diastolic CHF. 3. Acute hypoxic hypercapnic respiratory insufficiency. 4. Non small cell lung Ca, RLL with volume loss. 5. CKD 6. Paroxysmal afib. 7. Superficial thrombosis of upper extremity. PLAN: - Maintaining SR - Continue amiodarone now at 200 mg daily. - Continue BB. - Will follow.
[2019-11-21 04:13] LABS: Anion Gap 9 mmol/L (10-20); BUN (Urea Nitrogen) 30 mg/dL (8.4-25.7); Calc. Creatinine Clearance 93 mL/min (70-130); Calcium 8.6 mg/dL (7.8-10.44); Carbon Dioxide 35 mmol/L (23-31); Chloride 105 mmol/L (98-107); Estimated GFR-MDRD 67; Glucose 116 mg/dL (83-110); Sodium 144 mmol/L (136-145)
--- NOTE | 2019-11-21 07:58 | PRG ---
DATE OF SERVICE: 11/21/2019 SUBJECTIVE: Mr. Vera was up in a chair, eating breakfast this morning. He looks far better than he has the last several days and is far less confused. I also had the opportunity to speak to his sister on the phone. OBJECTIVE: VITAL SIGNS: Temperature is 98.2, pulse 67, blood pressure 127/68. A 24-hour intake 1344, output 850. HEENT: Unremarkable. NECK: No adenopathy or JVD. CHEST: Shows diminished breath sounds in the right base. Left side is clear. CARDIAC: S1 and S2, regular. ABDOMEN: Soft. EXTREMITIES: No edema. LABORATORY DATA: Sodium 144, potassium 5, chloride 105, CO2 of 35, BUN 30, creatinine 1.2, glucose 116. ASSESSMENT: 1. Improved encephalopathy. 2. Chronic hypercapnic and hypoxic respiratory failure secondary to chronic obstructive pulmonary disease, lung cancer, and diastolic heart failure. PLAN: 1. I would avoid the oxycodone. Continue Geodon as needed for psychotic symptoms. Increase activity as tolerated. Continue BiPAP at night. 2. Discussed code status with the patient and his sister and told them they needed to urgently think through things because Mr. Vera's short-term and long-term prognosis are poor. Job ID: [id number]
[2019-11-21] MEDS: Amiodarone 200 MG TAB PO SCH (08:36)
[2019-11-21] MEDS: guaiFENesin ER 600 MG TAB PO SCH ×2 (08:36→20:37)
[2019-11-21] MEDS: Famotidine 20 MG TAB PO SCH ×2 (08:36→20:37)
[2019-11-21] MEDS: predniSONE 20 MG TAB PO SCH (08:36)
[2019-11-21] MEDS: AcetaZOLAMIDE 250 MG TAB PO SCH ×2 (08:36→20:37)
[2019-11-21] MEDS: Polyethylene Glycol 3350 17 GM Packet PER TUBE SCH (08:36)
[2019-11-21] MEDS: Metoprolol Tartrate 25 MG TAB PO SCH ×2 (08:36→20:37)
[2019-11-21] MEDS: cefTRIAXone\\ROCEPHIN 1 GM in Sodium Chloride 0.9% 100 ML IVPB SCH (08:36)
--- NOTE | 2019-11-21 10:46 | PDOC.PALPN ---
Palliative Progress Note - Subjective Sleeping, on Bipap, arousable but continues with some confusion. - Objective Vital Signs: Vital Signs - Most Recent Temp Pulse Resp BP Pulse Ox 98.2 F 68 18 136/66 97 11/21/19 07:17 11/21/19 07:19 11/21/19 07:19 11/19/19 10:31 11/21/19 08:00 - Physical Exam Constitutional: ill appearing, mild distress HEENT: EOMI, moist MMs Respiratory: diminished lung sound, labored respirations Cardiovascular: RRR Gastrointestinal: soft, non-tender Musculoskeletal: pulses present Neurology: moves all 4 limbs Skin: cap refill <2 seconds Deviation from normal: Oriented to self and place - Assessment (1) Palliative care encounter Code(s): Z51.5 - ENCOUNTER FOR PALLIATIVE CARE Current Visit: Yes Status: Acute (2) Non-compliance Code(s): Z91.19 - PATIENT'S NONCOMPLIANCE W OTH MEDICAL TREATMENT AND REGIMEN Current Visit: Yes Status: Acute (3) Acute exacerbation of CHF (congestive heart failure) Code(s): I50.9 - HEART FAILURE, UNSPECIFIED Current Visit: No Status: Acute Qualifiers: (4) COPD with exacerbation Code(s): J44.1 - CHRONIC OBSTRUCTIVE PULMONARY DISEASE W (ACUTE) EXACERBATION Current Visit: No Status: Acute (5) Non-small cell lung cancer Code(s): C34.90 - MALIGNANT NEOPLASM OF UNSP PART OF UNSP BRONCHUS OR LUNG Current Visit: No Status: Chronic Qualifiers: (6) Respiratory failure, [id number] Code(s): J96.20 - ACUTE AND CHR RESP FAILURE, UNSP W HYPOXIA OR HYPERCAPNIA Current Visit: No Status: Chronic (7) Sleep apnea Code(s): G47.30 - SLEEP APNEA, UNSPECIFIED Current Visit: No Status: Chronic - Plan Plan: Patient with labored respirations. Although confused intermittently her remains adamant, as he was prior to intermittent confusion that he remain with full resuscitation. Also in asking about a MPOA he states that he does not want his family called, or consulted for any medical decisions. He refuses to designate a MPOA. Prior to current health situation he also relayed these wishes. Palliative Care will sign off as his goal of care remains all aggressive measures and not to designate a MPOA. [30] minutes spent on this encounter with >50% of the time in counseling and coordination of care. - ROS Non Response: due to mental status
[2019-11-21] MEDS: HumaLOG 300 UNITS/3 ML VIAL SC PRN ×2 (11:05→16:42)
--- NOTE | 2019-11-21 12:30 | PDOC.HOSPP ---
- Subjective Encounter Date: 11/21/19 Encounter Time: 09:30 Subjective: pt is walking with Ptherapy. he likes to know whether he will be getting chemo as inpt or in the clinic. Paged ms. Crain. able to keep his bipap at night. REmarkable improvement. - Objective Vital Signs & Weight: Vital Signs (12 hours) Temp Pulse Resp Pulse Ox 11/21/19 11:09 98.6 F 11/21/19 08:00 97 11/21/19 07:19 68 18 95 11/21/19 07:17 98.2 F 11/21/19 03:37 98.6 F 11/21/19 00:29 64 20 94 L Weight Admit Weight 288 lb 12.889 oz Weight 278 lb 9 oz Most Recent Monitor Data Heart Rate from ECG 61 NIBP 156/78 NIBP BP-Mean 104 Respiration from ECG 26 SpO2 95 I&O: 11/20/19 11/21/19 11/22/19 06:59 06:59 06:59 Intake Total 512 1344 Output Total 1200 850 Balance -688 494 Result Diagrams: 11/20/19 10:08 11/21/19 03:34 Additional Labs: Accuchecks 11/21/19 11/21/19 11/20/19 10:41 05:59 19:56 POC Glucose 197 H 102 171 H 11/20/19 16:16 POC Glucose 357 H Hospitalist ROS - Medication Medications: Active Medications Generic Name Dose Route Start Last Admin Trade Name Freq PRN Reason Stop Dose Admin Acetaminophen 650 mg 11/07/19 13:37 11/20/19 18:07 Tylenol PO 650 mg Q4H PRN Administration Headache/Fever/Mild Pain (1-3) Acetazolamide 250 mg 11/16/19 21:00 11/21/19 08:36 Diamox PO 250 mg BID SHASHI Administration Albuterol/Ipratropium 3 ml 11/07/19 19:00 11/21/19 07:19 Duoneb NEB 3 ml [id number] SHASHI Administration Amiodarone HCl 200 mg 11/21/19 09:00 11/21/19 08:36 Cordarone PO 200 mg DAILY SHASHI Administration Famotidine 20 mg 11/12/19 09:00 11/21/19 08:36 Pepcid PO 20 mg BID SHASHI Administration Guaifenesin 600 mg 11/12/19 21:00 11/21/19 08:36 Mucinex PO 600 mg Q12HR SHASHI Administration Ceftriaxone Sodium 1 gm/ 100 mls @ 200 mls/hr 11/19/19 09:00 11/21/19 08:36 Sodium Chloride IVPB 100 mls Q24HR SHASHI Administration Insulin Human Lispro 0 units 11/07/19 22:34 11/21/19 11:05 Humalog SC 2 unit .MODERATE SLIDING SC PRN Administration MODERATE SLIDING SCALE Protocol Insulin Human Lispro 0 units 11/14/19 21:38 11/17/19 21:57 Humalog SC 3 unit .BEDTIME SLIDING SC PRN Administration Bedtime Correctional Scale Metoprolol Tartrate 12.5 mg 11/12/19 21:00 11/21/19 08:36 Lopressor PO 12.5 mg BID SHASHI Administration Polyethylene Glycol 17 gm 11/13/19 09:00 11/21/19 08:36 Miralax PER TUBE 17 gm DAILY SHASHI Administration Prednisone 20 mg 11/20/19 09:00 11/21/19 08:36 Prednisone PO 20 mg DAILY SHASHI Administration Sodium Chloride 10 ml 11/12/19 09:00 11/21/19 08:36 Flush - Normal Saline IVF 10 ml Q12HR SHASHI Administration Ziprasidone 20 mg 11/20/19 07:45 11/20/19 14:49 Geodon IM 20 mg Q6H PRN Administration Agitation - Exam General Appearance: NAD, awake alert Eye: PERRL ENT: normocephalic atraumatic Neck: supple Heart: RRR Respiratory: CTAB, normal chest expansion Gastrointestinal: soft, normal bowel sounds Hosp A/P - Plan Hypercapnic resp failure acute resp failure requiring intubation---s/p extubation CHF exacerbation with diastolic dysfn and echo of 09/03 EF of 60% Worsening pulmoary edema --- on IV diamox, worsening Lung cancer -- RML and RLL --no abx necessary since admission as I admitted this pt w.. CHF exacerbation leading to worsening resp status - now he is off pressors, and BP seems to be better, started on iv diuresis --echo not needed as he had in aug 2019 Hypercapnic resp failure - will try bipap on the floor--------on -- pt had rough time using bipap. --- ----> moved to IMCU adn been wearing on01/19 nights and ambulating on with PT. - pulmonary following with us. Afib -cardiology following w.. us. - off amio drip, 400 mg bid-----------> 200 mg q d. and metoprolol 12.5 bid. NSCLC - stage 4 --appreciate Dr. albert's gp visit -- on chemo as OP LUE hematoma/venous throbosis, superficial vein, L cephalic -xray of 11/15 - no fx -on hold AC, warm compress. Anemia due to worsening lung cancer -monitor for now Hyperkalemia - K better at 5.0 from 5.9--->4.1 CKD 3 -- daily close monitoring, incl..urine output. Leukocytosis - pt without sign of infection at this point -rpt cxr -- shows slight improvement than prior one- - will fw UA study--------------->-benign - empiric CTX - ID help appreciated. his main issue not able to keep the biap and ongoing labile mentation etc.. due to hypercapnia and requires ongoing O2 supplement and/or bipap support - will keep in IMCU for another 24hrs. Chemo for his lung cancer - Gemzar was on hold since november 11. - paged Paras DVt ppx -heparin bid [has ckd] pepcid NEG. COVID Full code
--- NOTE | 2019-11-21 17:16 | PDOC.CPN ---
- Subjective Date: 11/21/19 Time: 17:15 Interval history: Doing much better. Wide awake and responding questions appropriately. Pain on right side of the chest with deep breath which is chronic for him. - Review of Systems General: denies: fever/chills, weight/appetite/sleep changes, night sweats, fatigue Respiratory: denies: cough, congestion, shortness of breath, exercise intolerance Cardiovascular: reports: chest pain. denies: palpitation, edema, paroxysmal nocturnal dyspnea, orthopnea Musculoskeletal: denies: pain, tenderness, stiffness, swelling, arthritis/ arthralgias Neurological: denies: numbness, syncope, seizure, weakness - Objective Allergies/Adverse Reactions: Allergies Allergy/AdvReac Type Severity Reaction Status Date / Time No Known Drug Allergies Allergy Verified 11/06/19 13:58 Visit Medications: Current Medications Acetaminophen (Tylenol) 650 mg PO Q4H PRN PRN Reason: Headache/Fever/Mild Pain (1-3) Last Admin: 11/20/19 18:07 Dose: 650 mg Acetazolamide (Diamox) 250 mg PO BID [facility] Last Admin: 11/21/19 08:36 Dose: 250 mg Albuterol/Ipratropium (Duoneb) 3 ml NEB [id number] [facility] Last Admin: 11/21/19 13:19 Dose: 3 ml Amiodarone HCl (Cordarone) 200 mg PO DAILY [facility] Last Admin: 11/21/19 08:36 Dose: 200 mg Dextrose/Water (Dextrose 50%) 25 gm IVP PRN PRN PRN Reason: HYPOGLYCEMIA PROTOCOL Famotidine (Pepcid) 20 mg PO BID [facility] Last Admin: 11/21/19 08:36 Dose: 20 mg Glucagon (Glucagon) 1 mg IM PRN PRN PRN Reason: HYPOGLYCEMIA PROTOCOL Guaifenesin (Mucinex) 600 mg PO Q12HR [facility] Last Admin: 11/21/19 08:36 Dose: 600 mg Dextrose/Water (D5w) 1,000 mls @ 0 mls/hr IV INF PRN PRN Reason: HYPOGLYCEMIA PROTOCOL Ceftriaxone Sodium 1 gm/ (Sodium Chloride) 100 mls @ 200 mls/hr IVPB Q24HR [facility] Last Admin: 11/21/19 08:36 Dose: 100 mls Insulin Human Lispro (Humalog) 0 units SC .MODERATE SLIDING SC PRN; Protocol PRN Reason: MODERATE SLIDING SCALE Last Admin: 04/08/20 16:42 Dose: 6 unit Insulin Human Lispro (Humalog) 0 units SC .BEDTIME SLIDING SC PRN PRN Reason: Bedtime Correctional Scale Last Admin: 11/17/19 21:57 Dose: 3 unit Metoprolol Tartrate (Lopressor) 12.5 mg PO BID [facility] Last Admin: 11/21/19 08:36 Dose: 12.5 mg Mineral Oil/White Petrolatum (Systane Nighttime Eye Ointment) 0 gm EA EYE PRN PRN PRN Reason: Dry Eyes Ondansetron HCl (Zofran) 4 mg IVP Q6H PRN PRN Reason: Nausea/Vomiting Polyethylene Glycol (Miralax) 17 gm PER TUBE DAILY [facility] Last Admin: 11/21/19 08:36 Dose: 17 gm Prednisone (Prednisone) 20 mg PO DAILY [facility] Last Admin: 11/21/19 08:36 Dose: 20 mg Sodium Chloride (Flush - Normal Saline) 10 ml IVF Q12HR [facility] Last Admin: 11/21/19 08:36 Dose: 10 ml Sodium Chloride (Flush - Normal Saline) 10 ml IVF PRN PRN PRN Reason: Saline Flush Sterile Water (Water For Injection) 1.2 ml FS PRN PRN PRN Reason: RECONSTITUTION Ziprasidone (Geodon) 20 mg IM Q6H PRN PRN Reason: Agitation Last Admin: 11/20/19 14:49 Dose: 20 mg Vital Signs & Weight: Vital Signs Temp Pulse Pulse Pulse Resp BP BP 11/21/19 15:10 98.4 F 11/21/19 13:19 67 22 H 11/21/19 11:09 98.6 F 11/21/19 10:03 65 61 143/81 H 156/78 H 11/21/19 08:00 11/21/19 07:19 68 18 11/21/19 07:17 98.2 F Pulse Ox Pulse Ox 11/21/19 15:10 11/21/19 13:19 94 L 11/21/19 11:09 11/21/19 10:03 97 11/21/19 08:00 97 11/21/19 07:19 95 11/21/19 07:17 Admit Weight 288 lb 12.889 oz Weight 278 lb 9 oz - Quality Measures Condition: Atrial Fibrillation/Flutter (hx or current), Heart Failure CV meds: Beta Elena: Yes, MILLA/ARB: No, Statin: No, ASA: No, Plavix/Effient/ Brilinta: No, Anticoagulant: No (on hold 2/2 hematoma) - Physical Exam General: alert & oriented x3 HEENT: mucus membranes moist Neck: supple neck Cardiac: regular rate and rhythm Lungs: absent breath sounds Neuro: grossly intact Abdomen: active bowel sounds Extremities: no edema Skin: clear Musculoskeletal: no pain - Labs Result Diagrams: 11/20/19 10:08 11/21/19 03:34 Troponin/CKMB Troponin I Less than 0.010 ng/mL (< 0.028) 11/07/19 10:15 - Telemetry Sinus rhythms and dysrhythmias: sinus rhythm - Assessment/Plan Assessment/Plan: 1. COPD with acute exacerbation. 2. Acute on chronic diastolic CHF. 3. Acute hypoxic hypercapnic respiratory insufficiency. Improved. 4. Non small cell lung Ca, RLL with volume loss. 5. CKD 6. Paroxysmal afib. 7. Superficial thrombosis of upper extremity with cellulitis. PLAN: - Maintaining SR - Continue amiodarone now at 200 mg daily. - Continue BB. - Will follow.
[2019-11-22 04:05] LABS: Anion Gap 8 mmol/L (10-20); BUN (Urea Nitrogen) 28 mg/dL (8.4-25.7); Calc. Creatinine Clearance 86 mL/min (70-130); Calcium 8.7 mg/dL (7.8-10.44); Carbon Dioxide 36 mmol/L (23-31); Chloride 105 mmol/L (98-107); Estimated GFR-MDRD 62; Glucose 134 mg/dL (83-110); Potassium 4.8 mmol/L (3.5-5.1); Sodium 144 mmol/L (136-145)
--- NOTE | 2019-11-22 08:12 | PRG ---
DATE OF SERVICE: 11/22/2019 SUBJECTIVE: The patient seems to be functioning well today, seems totally oriented. OBJECTIVE: VITAL SIGNS: Temperature 98.8, pulse 69, blood pressure 154/89. Intake 2655, output 1370. HEENT: Unremarkable. NECK: No JVD. LUNGS: Clear anteriorly. CARDIAC: S1, S2. Regular. ABDOMEN: Soft. EXTREMITIES: Left arm swelling. LABORATORY DATA: Sodium 144, potassium 4.8, chloride 105, CO2 of 36, BUN 28, creatinine 1.3, glucose 134. ASSESSMENT: 1. Improved encephalopathy. 2. Hypercapnic respiratory failure secondary to chronic obstructive pulmonary disease, lung cancer, diastolic heart failure, and obesity hypoventilation syndrome. PLAN: 1. Again avoid narcotic medications. 2. Continue acetazolamide. 3. Needs to wear BiPAP at night. 4. Likely able to go home in the next 48 hours if he does fine tonight. Job ID: [id number]
[2019-11-22] MEDS: Polyethylene Glycol 3350 17 GM Packet PER TUBE SCH (08:30)
[2019-11-22] MEDS ORDERED: Ketorolac Tromethamine 30 MG/ML VIAL IVP SCH (08:30)
[2019-11-22] MEDS: predniSONE 5 MG TAB PO SCH (08:31)
[2019-11-22] MEDS: AcetaZOLAMIDE 250 MG TAB PO SCH ×2 (08:32→21:34)
[2019-11-22] MEDS: cefTRIAXone\\ROCEPHIN 1 GM in Sodium Chloride 0.9% 100 ML IVPB SCH (08:32)
[2019-11-22] MEDS: Amiodarone 200 MG TAB PO SCH (08:32)
[2019-11-22] MEDS: guaiFENesin ER 600 MG TAB PO SCH ×2 (08:33→21:34)
[2019-11-22] MEDS: Famotidine 20 MG TAB PO SCH ×2 (08:33→21:33)
[2019-11-22] MEDS: Metoprolol Tartrate 25 MG TAB PO SCH ×2 (08:33→21:33)
--- NOTE | 2019-11-22 10:32 | PDOC.MOPN ---
Interval History: sitting in chair, breathing much better - Vital Signs Vital Signs: Vital Signs (12 hours) Temp Pulse Resp Pulse Ox 11/22/19 08:00 96 11/22/19 07:03 98.8 F 11/22/19 06:41 69 16 96 11/22/19 00:31 67 16 92 L Weight Admit Weight 288 lb 12.889 oz Weight 280 lb 6 oz Most Recent Monitor Data Heart Rate from ECG 68 NIBP 146/74 NIBP BP-Mean 98 Respiration from ECG 20 SpO2 95 - Physical Exam General: Alert Lungs: Other (diminished) Cardiovascular: Regular rate, Normal S1, Normal S2, No murmurs, Gallops, Rubs Abdomen: Normal bowel sounds, Soft, No tenderness, No hepatospenomegaly, No masses Extremities: Other (edema in extremities) Neurological: Normal speech - Labs Result Diagrams: 11/20/19 10:08 11/22/19 03:35 Lab results: Laboratory Results - last 24 hr 11/22/19 05:45: POC Glucose 112 H 11/22/19 03:35: Sodium 144, Potassium 4.8, Chloride 105, Carbon Dioxide 36 H, Anion Gap 8 L, BUN 28 H, Creatinine 1.37 H, Estimated GFR (MDRD) 62, Glucose 134 H, Calcium 8.7 11/21/19 20:40: POC Glucose 174 H 11/21/19 16:36: POC Glucose 298 H 11/21/19 10:41: POC Glucose 197 H Status: lab reviewed by me A/P - Problem (1) Acute exacerbation of CHF (congestive heart failure) Current Visit: No Code(s): I50.9 - HEART FAILURE, UNSPECIFIED Status: Acute Qualifiers: (2) Non-small cell lung cancer Current Visit: No Code(s): C34.90 - MALIGNANT NEOPLASM OF UNSP PART OF UNSP BRONCHUS OR LUNG Status: Chronic Qualifiers: (3) Respiratory failure, [id number] Current Visit: No Code(s): J96.20 - ACUTE AND CHR RESP FAILURE, UNSP W HYPOXIA OR HYPERCAPNIA Status: Chronic - Plan Plan: Home when cleared Follow-up 12/03/[address] Cummins
--- NOTE | 2019-11-22 15:52 | PDOC.HOSPP ---
- Subjective Encounter Date: 11/22/19 Encounter Time: 15:40 Subjective: f/u for COPD exacerbation, resp failure, NSCLC Stage IV and A-fib on Amiodarone. No new complaints currently. - Objective Vital Signs & Weight: Vital Signs (12 hours) Temp Pulse Resp Pulse Ox 11/22/19 15:04 98.9 F 11/22/19 13:04 71 16 11/22/19 11:10 97.5 F L 11/22/19 08:00 96 11/22/19 07:03 98.8 F 11/22/19 06:41 69 16 96 Weight Admit Weight 288 lb 12.889 oz Weight 280 lb 6 oz Most Recent Monitor Data Heart Rate from ECG 72 NIBP 126/87 NIBP BP-Mean 100 Respiration from ECG 30 SpO2 95 I&O: 11/21/19 11/22/19 11/23/19 06:59 06:59 06:59 Intake Total 1344 2655 Output Total 850 1370 Balance 494 1285 Result Diagrams: 11/20/19 10:08 11/22/19 03:35 Additional Labs: Accuchecks 11/22/19 11/22/19 11/21/19 10:41 05:45 20:40 POC Glucose 133 H 112 H 174 H 11/21/19 16:36 POC Glucose 298 H Microbiology 11/07/19 11:19 Nasopharyngeal swab Respiratory Panel (PCR) - Final 11/07/19 11:19 Nasal swab Influenza Types A,B Direct EIA - Final Laboratory Tests 11/07/19 11/16/19 11/17/19 11:19 03:58 04:34 WBC Hgb Carbon Dioxide 36 H 34 H Creatinine 1.20 COVID-19 PCR Not Detected 11/18/19 11/19/19 11/19/19 03:59 08:11 08:11 WBC 18.4 H 22.1 H Hgb 9.7 L 9.8 L Carbon Dioxide 37 H Creatinine 1.27 COVID-19 PCR 11/19/19 11/19/19 11/20/19 10:37 10:37 10:08 WBC 21.9 H Hgb 9.4 L Carbon Dioxide 37 H 35 H Creatinine 1.35 H 1.32 H COVID-19 PCR 11/21/19 03:34 WBC Hgb Carbon Dioxide 35 H Creatinine 1.28 COVID-19 PCR EKG Reviewed by me: Yes (Tele - SR in 70's) Hospitalist ROS - Medication Medications: Active Medications Generic Name Dose Route Start Last Admin Trade Name Freq PRN Reason Stop Dose Admin Acetaminophen 650 mg 11/07/19 13:37 11/20/19 18:07 Tylenol PO 650 mg Q4H PRN Administration Headache/Fever/Mild Pain (1-3) Acetazolamide 250 mg 11/16/19 21:00 11/22/19 08:32 Diamox PO 250 mg BID SHASHI Administration Albuterol/Ipratropium 3 ml 11/07/19 19:00 11/22/19 13:04 Duoneb NEB 3 ml [id number] SHASHI Administration Amiodarone HCl 200 mg 11/21/19 09:00 11/22/19 08:32 Cordarone PO 200 mg DAILY SHASHI Administration Famotidine 20 mg 11/12/19 09:00 11/22/19 08:33 Pepcid PO 20 mg BID SHASHI Administration Guaifenesin 600 mg 11/12/19 21:00 11/22/19 08:33 Mucinex PO 600 mg Q12HR SHASHI Administration Ceftriaxone Sodium 1 gm/ 100 mls @ 200 mls/hr 11/19/19 09:00 11/22/19 08:32 Sodium Chloride IVPB 100 mls Q24HR SHASHI Administration Insulin Human Lispro 0 units 11/07/19 22:34 11/21/19 16:42 Humalog SC 6 unit .MODERATE SLIDING SC PRN Administration MODERATE SLIDING SCALE Protocol Insulin Human Lispro 0 units 11/14/19 21:38 11/17/19 21:57 Humalog SC 3 unit .BEDTIME SLIDING SC PRN Administration Bedtime Correctional Scale Metoprolol Tartrate 12.5 mg 11/12/19 21:00 11/22/19 08:33 Lopressor PO 12.5 mg BID SHASHI Administration Polyethylene Glycol 17 gm 11/13/19 09:00 11/22/19 08:30 Miralax PER TUBE 17 gm DAILY SHASHI Administration Prednisone 10 mg 11/22/19 08:00 11/22/19 08:31 Prednisone PO 10 mg QAM-WM SHASHI Administration Sodium Chloride 10 ml 11/12/19 09:00 11/21/19 20:37 Flush - Normal Saline IVF 10 ml Q12HR SHASHI Administration Ziprasidone 20 mg 11/20/19 07:45 11/20/19 14:49 Geodon IM 20 mg Q6H PRN Administration Agitation - Exam General Appearance: NAD, awake alert Eye: PERRL, anicteric sclera ENT: normocephalic atraumatic, no oropharyngeal lesions Neck: supple, symmetric, no JVD, no thyromegaly Heart: RRR, no murmur, no gallops, no rubs, normal peripheral pulses Respiratory: CTAB, no wheezes, no rales, no ronchi, no tachypnea Gastrointestinal: soft, non-tender, non-distended, normal bowel sounds Gastrointestinal - other findings: obese Extremities: no cyanosis, no clubbing Extremities - other findings: LUE with edema Skin: normal turgor, no lesions Neurological: cranial nerve grossly intact, no new deficit Musculoskeletal: normal tone, normal strength Psychiatric: normal affect, A&O x 3 Hosp A/P (1) Acute respiratory failure with hypoxia and hypercapnia Code(s): J96.01 - ACUTE RESPIRATORY FAILURE WITH HYPOXIA; J96.02 - ACUTE RESPIRATORY FAILURE WITH HYPERCAPNIA Status: Acute Plan: Improved, nocturnal BiPAP, O2 via NC, Diamox (2) COPD with exacerbation Code(s): J44.1 - CHRONIC OBSTRUCTIVE PULMONARY DISEASE W (ACUTE) EXACERBATION Status: Acute Plan: Continue Prednisone, Duonebs (3) Non-small cell lung cancer Code(s): C34.90 - MALIGNANT NEOPLASM OF UNSP PART OF UNSP BRONCHUS OR LUNG Status: Chronic Qualifiers: Plan: Outpt chemotherapy (4) LEORA (acute kidney injury) Code(s): N17.9 - ACUTE KIDNEY FAILURE, UNSPECIFIED Status: Acute Plan: Improved, avoid nephrotoxic meds and limit contrast exposure (5) CKD (chronic kidney disease) stage 2, GFR 60-89 ml/min Code(s): N18.2 - CHRONIC KIDNEY DISEASE, STAGE 2 (MILD) Status: Chronic - Plan social work nurse, respiratory therapy, out of bed/ambulate, DVT proph w/SCDs Stable currently Continue Prednisone Continue Diamox OOB/ambulate continue Amiodarone Likely home in am 11/23/19
--- NOTE | 2019-11-22 16:00 | PDOC.CPN ---
- Subjective Date: 11/22/19 Time: 15:59 Interval history: He is a little more confused today. - Review of Systems ROS unobtainable: due to mental status - Objective Allergies/Adverse Reactions: Allergies Allergy/AdvReac Type Severity Reaction Status Date / Time No Known Drug Allergies Allergy Verified 11/06/19 13:58 Visit Medications: Current Medications Acetaminophen (Tylenol) 650 mg PO Q4H PRN PRN Reason: Headache/Fever/Mild Pain (1-3) Last Admin: 11/20/19 18:07 Dose: 650 mg Acetazolamide (Diamox) 250 mg PO BID [facility] Last Admin: 11/22/19 08:32 Dose: 250 mg Albuterol/Ipratropium (Duoneb) 3 ml NEB [id number] [facility] Last Admin: 11/22/19 13:04 Dose: 3 ml Amiodarone HCl (Cordarone) 200 mg PO DAILY [facility] Last Admin: 11/22/19 08:32 Dose: 200 mg Dextrose/Water (Dextrose 50%) 25 gm IVP PRN PRN PRN Reason: HYPOGLYCEMIA PROTOCOL Famotidine (Pepcid) 20 mg PO BID [facility] Last Admin: 11/22/19 08:33 Dose: 20 mg Glucagon (Glucagon) 1 mg IM PRN PRN PRN Reason: HYPOGLYCEMIA PROTOCOL Guaifenesin (Mucinex) 600 mg PO Q12HR [facility] Last Admin: 11/22/19 08:33 Dose: 600 mg Dextrose/Water (D5w) 1,000 mls @ 0 mls/hr IV INF PRN PRN Reason: HYPOGLYCEMIA PROTOCOL Ceftriaxone Sodium 1 gm/ (Sodium Chloride) 100 mls @ 200 mls/hr IVPB Q24HR [facility] Last Admin: 11/22/19 08:32 Dose: 100 mls Insulin Human Lispro (Humalog) 0 units SC .MODERATE SLIDING SC PRN; Protocol PRN Reason: MODERATE SLIDING SCALE Last Admin: 11/21/19 16:42 Dose: 6 unit Insulin Human Lispro (Humalog) 0 units SC .BEDTIME SLIDING SC PRN PRN Reason: Bedtime Correctional Scale Last Admin: 11/17/19 21:57 Dose: 3 unit Ketorolac Tromethamine (Toradol) 15 mg IVP Q6H PRN PRN Reason: Moderate Pain (4-6) Stop: 11/27/19 08:31 Metoprolol Tartrate (Lopressor) 12.5 mg PO BID [facility] Last Admin: 11/22/19 08:33 Dose: 12.5 mg Mineral Oil/White Petrolatum (Systane Nighttime Eye Ointment) 0 gm EA EYE PRN PRN PRN Reason: Dry Eyes Ondansetron HCl (Zofran) 4 mg IVP Q6H PRN PRN Reason: Nausea/Vomiting Polyethylene Glycol (Miralax) 17 gm PER TUBE DAILY [facility] Last Admin: 11/22/19 08:30 Dose: 17 gm Prednisone (Prednisone) 10 mg PO QAM-WM [facility] Last Admin: 11/22/19 08:31 Dose: 10 mg Sodium Chloride (Flush - Normal Saline) 10 ml IVF Q12HR [facility] Last Admin: 11/21/19 20:37 Dose: 10 ml Sodium Chloride (Flush - Normal Saline) 10 ml IVF PRN PRN PRN Reason: Saline Flush Sterile Water (Water For Injection) 1.2 ml FS PRN PRN PRN Reason: RECONSTITUTION Ziprasidone (Geodon) 20 mg IM Q6H PRN PRN Reason: Agitation Last Admin: 11/20/19 14:49 Dose: 20 mg Vital Signs & Weight: Vital Signs Temp Pulse Resp Pulse Ox 11/22/19 15:04 98.9 F 11/22/19 13:04 71 16 11/22/19 11:10 97.5 F L 11/22/19 08:00 96 11/22/19 07:03 98.8 F 11/22/19 06:41 69 16 96 Admit Weight 288 lb 12.889 oz Weight 280 lb 6 oz - Quality Measures Condition: Atrial Fibrillation/Flutter (hx or current), Heart Failure CV meds: Beta Elena: Yes, MILLA/ARB: No, Statin: No, ASA: No, Plavix/Effient/ Brilinta: No, Anticoagulant: No (on hold 2/2 hematoma) - Physical Exam General: no apparent distress HEENT: normocephaly Neck: supple neck Cardiac: regular rate and rhythm Lungs: absent breath sounds Neuro: no lateralizing findings Abdomen: active bowel sounds Extremities: no edema Skin: clear Musculoskeletal: no pain - Labs Result Diagrams: 11/20/19 10:08 11/22/19 03:35 Troponin/CKMB Troponin I Less than 0.010 ng/mL (< 0.028) 11/07/19 10:15 - Telemetry Sinus rhythms and dysrhythmias: sinus rhythm - Assessment/Plan Assessment/Plan: 1. COPD with acute exacerbation, improved. 2. Acute on chronic diastolic CHF. Improved 3. Acute hypoxic hypercapnic respiratory insufficiency. Improved. 4. Non small cell lung Ca, RLL with volume loss. Main reason for respiratory insufficiency now. 5. CKD 6. Paroxysmal afib. 7. Superficial thrombosis of upper extremity with cellulitis. PLAN: - Maintaining SR - Continue amiodarone now at 200 mg daily. - Continue BB at current dose. - Poor detention prognosis.
[2019-11-22] MEDS: HumaLOG 300 UNITS/3 ML VIAL SC PRN (16:51)
[2019-11-22] MEDS: Ketorolac Tromethamine 30 MG/ML VIAL IVP PRN ×2 (16:52→23:03)
[2019-11-23] MEDS: Ziprasidone 20 MG VIAL IM PRN (01:27)
[2019-11-23] MEDS: cefTRIAXone\\ROCEPHIN 1 GM in Sodium Chloride 0.9% 100 ML IVPB SCH (09:38)
[2019-11-23] MEDS: guaiFENesin ER 600 MG TAB PO SCH ×2 (09:39→21:16)
[2019-11-23] MEDS: AcetaZOLAMIDE 250 MG TAB PO SCH ×2 (09:39→21:15)
[2019-11-23] MEDS: predniSONE 5 MG TAB PO SCH (09:39)
[2019-11-23] MEDS: Metoprolol Tartrate 25 MG TAB PO SCH ×2 (09:39→21:16)
[2019-11-23] MEDS: Amiodarone 200 MG TAB PO SCH (09:39)
[2019-11-23] MEDS: Famotidine 20 MG TAB PO SCH ×2 (09:39→21:16)
[2019-11-23] MEDS: Polyethylene Glycol 3350 17 GM Packet PER TUBE SCH (09:54)
[2019-11-23] MEDS: HumaLOG 300 UNITS/3 ML VIAL SC PRN ×2 (10:40→17:26)
--- NOTE | 2019-11-23 11:15 | PRG ---
DATE OF SERVICE: 11/23/2019 Mr. Vera's heart rate in the 70s, blood pressure 136/87, respiratory rate 20. Says he feels fine. Lungs are distant and clear. Heart, regular rhythm. Abdomen is soft. Extremities with trace edema. IMPRESSION: 1. Hypercarbic respiratory failure secondary to chronic obstructive pulmonary disease. 2. Lung cancer. 3. Diastolic heart failure. 4. Sleep apnea. 5. Status post encephalopathy, felt to be related to sedative drugs. 6. Continue with nocturnal respiratory support. He maybe a candidate to go home in 24 hours. Job ID: [id number]
--- NOTE | 2019-11-23 12:15 | PDOC.CPN ---
- Subjective Date: 11/23/19 Time: 12:13 Interval history: He is wearing his BiPAP. No chest pain, no palpitations. - Review of Systems General: denies: fever/chills, weight/appetite/sleep changes, night sweats, fatigue Respiratory: denies: cough, congestion, shortness of breath, exercise intolerance Cardiovascular: denies: chest pain, palpitation, edema, paroxysmal nocturnal dyspnea, orthopnea Gastrointestinal: denies: nausea, vomiting, diarrhea, constipation, abd pain, GI bleeding Musculoskeletal: denies: pain, tenderness, stiffness, swelling, arthritis/ arthralgias Neurological: denies: numbness, syncope, seizure, weakness - Objective Allergies/Adverse Reactions: Allergies Allergy/AdvReac Type Severity Reaction Status Date / Time No Known Drug Allergies Allergy Verified 11/06/19 13:58 Visit Medications: Current Medications Acetaminophen (Tylenol) 650 mg PO Q4H PRN PRN Reason: Headache/Fever/Mild Pain (1-3) Last Admin: 11/20/19 18:07 Dose: 650 mg Acetazolamide (Diamox) 250 mg PO BID [facility] Last Admin: 11/23/19 09:39 Dose: 250 mg Albuterol/Ipratropium (Duoneb) 3 ml NEB [id number] [facility] Last Admin: 11/23/19 07:42 Dose: 3 ml Amiodarone HCl (Cordarone) 200 mg PO DAILY [facility] Last Admin: 11/23/19 09:39 Dose: 200 mg Dextrose/Water (Dextrose 50%) 25 gm IVP PRN PRN PRN Reason: HYPOGLYCEMIA PROTOCOL Famotidine (Pepcid) 20 mg PO BID [facility] Last Admin: 11/23/19 09:39 Dose: 20 mg Glucagon (Glucagon) 1 mg IM PRN PRN PRN Reason: HYPOGLYCEMIA PROTOCOL Guaifenesin (Mucinex) 600 mg PO Q12HR [facility] Last Admin: 11/23/19 09:39 Dose: 600 mg Dextrose/Water (D5w) 1,000 mls @ 0 mls/hr IV INF PRN PRN Reason: HYPOGLYCEMIA PROTOCOL Ceftriaxone Sodium 1 gm/ (Sodium Chloride) 100 mls @ 200 mls/hr IVPB Q24HR [facility] Last Admin: 11/23/19 09:38 Dose: 100 mls Insulin Human Lispro (Humalog) 0 units SC .MODERATE SLIDING SC PRN; Protocol PRN Reason: MODERATE SLIDING SCALE Last Admin: 11/23/19 10:40 Dose: 8 unit Insulin Human Lispro (Humalog) 0 units SC .BEDTIME SLIDING SC PRN PRN Reason: Bedtime Correctional Scale Last Admin: 11/17/19 21:57 Dose: 3 unit Ketorolac Tromethamine (Toradol) 15 mg IVP Q6H PRN PRN Reason: Moderate Pain (4-6) Stop: 11/27/19 08:31 Last Admin: 11/22/19 23:03 Dose: 15 mg Metoprolol Tartrate (Lopressor) 12.5 mg PO BID [facility] Last Admin: 11/23/19 09:39 Dose: 12.5 mg Mineral Oil/White Petrolatum (Systane Nighttime Eye Ointment) 0 gm EA EYE PRN PRN PRN Reason: Dry Eyes Ondansetron HCl (Zofran) 4 mg IVP Q6H PRN PRN Reason: Nausea/Vomiting Polyethylene Glycol (Miralax) 17 gm PER TUBE DAILY [facility] Last Admin: 11/23/19 09:54 Dose: 17 gm Prednisone (Prednisone) 10 mg PO QAM-WM [facility] Last Admin: 11/23/19 09:39 Dose: 10 mg Sodium Chloride (Flush - Normal Saline) 10 ml IVF Q12HR [facility] Last Admin: 11/23/19 09:54 Dose: 10 ml Sodium Chloride (Flush - Normal Saline) 10 ml IVF PRN PRN PRN Reason: Saline Flush Sterile Water (Water For Injection) 1.2 ml FS PRN PRN PRN Reason: RECONSTITUTION Ziprasidone (Geodon) 20 mg IM Q6H PRN PRN Reason: Agitation Last Admin: 11/23/19 01:27 Dose: 20 mg Vital Signs & Weight: Vital Signs Temp Pulse Pulse Pulse Resp BP BP 11/23/19 11:05 98.8 F 11/23/19 08:41 83 67 136/73 99/51 L 11/23/19 07:53 11/23/19 07:44 11/23/19 07:42 75 16 11/23/19 07:30 98.6 F 11/23/19 03:32 97.8 F 11/23/19 00:14 63 Pulse Ox 11/23/19 11:05 11/23/19 08:41 11/23/19 07:53 100 11/23/19 07:44 98 11/23/19 07:42 98 11/23/19 07:30 11/23/19 03:32 11/23/19 00:14 Admit Weight 288 lb 12.889 oz Weight 274 lb 3.2 oz - Quality Measures Condition: Atrial Fibrillation/Flutter (hx or current), Heart Failure CV meds: Beta Elena: Yes, MILLA/ARB: No, Statin: No, ASA: No, Plavix/Effient/ Brilinta: No, Anticoagulant: No (on hold 2/2 hematoma) - Physical Exam General: no apparent distress HEENT: mucus membranes moist Neck: supple neck Cardiac: regular rate and rhythm Lungs: normal breath sounds Neuro: grossly intact Abdomen: active bowel sounds Extremities: no edema Skin: clear Musculoskeletal: no pain - Labs Result Diagrams: 11/20/19 10:08 11/22/19 03:35 Troponin/CKMB Troponin I Less than 0.010 ng/mL (< 0.028) 11/07/19 10:15 - Telemetry Sinus rhythms and dysrhythmias: sinus rhythm - Assessment/Plan Assessment/Plan: 1. COPD with acute exacerbation, improved. 2. Acute on chronic diastolic CHF. Improved 3. Acute hypoxic hypercapnic respiratory insufficiency. Improved. 4. Non small cell lung Ca, RLL with volume loss. Main reason for respiratory insufficiency now. 5. CKD 6. Paroxysmal afib. 7. Superficial thrombosis of upper extremity with cellulitis. PLAN: - Maintaining SR - Continue amiodarone now at 200 mg daily. - Continue BB at current dose. - Poor intermediate accountant prognosis. - Will follow peripherally over the weekend.
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
[2019-11-23] MEDS: Acetaminophen 325 MG TAB PO PRN (15:38)
[2019-11-23] MEDS: Ketorolac Tromethamine 30 MG/ML VIAL IVP PRN (21:26)
[2019-11-24] MEDS: predniSONE 5 MG TAB PO SCH (08:45)
[2019-11-24] MEDS: Famotidine 20 MG TAB PO SCH ×2 (08:46→20:57)
[2019-11-24] MEDS: AcetaZOLAMIDE 250 MG TAB PO SCH ×2 (08:46→20:57)
[2019-11-24] MEDS: Metoprolol Tartrate 25 MG TAB PO SCH ×2 (08:46→20:57)
[2019-11-24] MEDS: guaiFENesin ER 600 MG TAB PO SCH ×2 (08:46→20:57)
[2019-11-24] MEDS: Amiodarone 200 MG TAB PO SCH (08:46)
[2019-11-24] MEDS: Polyethylene Glycol 3350 17 GM Packet PER TUBE SCH (08:48)
[2019-11-24] MEDS: Ketorolac Tromethamine 30 MG/ML VIAL IVP PRN ×3 (08:54→21:08)
[2019-11-24] MEDS: cefTRIAXone\\ROCEPHIN 1 GM in Sodium Chloride 0.9% 100 ML IVPB SCH (08:57)
[2019-11-24] MEDS: HumaLOG 300 UNITS/3 ML VIAL SC PRN (11:06)
--- NOTE | 2019-11-24 13:30 | PRG ---
DATE OF SERVICE: 11/24/2019 SUBJECTIVE: Jody is afebrile. OBJECTIVE: VITAL SIGNS: Heart rate in the 60s, blood pressure 134/100, and respiratory rate in the 20s. GENERAL: He is in a chair, wide awake, yesterday became somnolent. He keeps refusing BiPAP at night. I have asked the nurses to be sure that he is restrained. If he is taking his BiPAP off, he clearly will without it. He is not interested in a tracheostomy. LUNGS: Unchanged. HEART: Unchanged. ABDOMEN: Unchanged. IMPRESSION: 1. Obesity hypoventilation syndrome. 2. Medical noncompliance. PLAN: Continue supportive care. Job ID: [id number]
--- NOTE | 2019-11-24 15:21 | PDOC.HOSPP ---
- Subjective Encounter Date: 11/24/19 Encounter Time: 15:00 Subjective: f/u for hypoventilation syndrome/COPD/Lung CA. States feeling better overall. Intermittent use of BiPAP. More awake today. States he has home care/PT and CPAP unit. - Objective Vital Signs & Weight: Vital Signs (12 hours) Temp Pulse Resp Pulse Ox 11/24/19 13:14 72 16 97 11/24/19 11:17 98.4 F 11/24/19 08:00 95 11/24/19 07:26 98.4 F 11/24/19 06:23 72 97 11/24/19 06:21 68 16 97 11/24/19 03:43 98.2 F Weight Admit Weight 288 lb 12.889 oz Weight 275 lb 12.8 oz Most Recent Monitor Data Heart Rate from ECG 73 NIBP 109/82 NIBP BP-Mean 91 Respiration from ECG 25 SpO2 99 I&O: 11/23/19 11/24/19 11/25/19 06:59 06:59 06:59 Intake Total 120 280 Output Total 275 1245 Balance -155 -965 Result Diagrams: 11/20/19 10:08 11/22/19 03:35 Additional Labs: Accuchecks 11/24/19 11/24/19 11/23/19 10:44 05:57 20:26 POC Glucose 161 H 199 H 199 H 11/23/19 16:45 POC Glucose 163 H Microbiology 11/07/19 11:19 Nasopharyngeal swab Respiratory Panel (PCR) - Final 11/07/19 11:19 Nasal swab Influenza Types A,B Direct EIA - Final Laboratory Tests 11/07/19 11/16/19 11/17/19 11:19 03:58 04:34 WBC Hgb Carbon Dioxide 36 H 34 H Creatinine 1.20 COVID-19 PCR Not Detected 11/18/19 11/19/19 11/19/19 03:59 08:11 08:11 WBC 18.4 H 22.1 H Hgb 9.7 L 9.8 L Carbon Dioxide 37 H Creatinine 1.27 COVID-19 PCR 11/19/19 11/19/19 11/20/19 10:37 10:37 10:08 WBC 21.9 H Hgb 9.4 L Carbon Dioxide 37 H 35 H Creatinine 1.35 H 1.32 H COVID-19 PCR 11/21/19 03:34 WBC Hgb Carbon Dioxide 35 H Creatinine 1.28 COVID-19 PCR EKG Reviewed by me: Yes (Tele - SR) Hospitalist ROS - Medication Medications: Active Medications Generic Name Dose Route Start Last Admin Trade Name Freq PRN Reason Stop Dose Admin Acetaminophen 650 mg 11/07/19 13:37 11/23/19 15:38 Tylenol PO 650 mg Q4H PRN Administration Headache/Fever/Mild Pain (1-3) Acetazolamide 250 mg 11/16/19 21:00 11/24/19 08:46 Diamox PO 250 mg BID [facility] Administration Albuterol/Ipratropium 3 ml 11/07/19 19:00 11/24/19 13:14 Duoneb NEB 3 ml [id number] [facility] Administration Amiodarone HCl 200 mg 11/21/19 09:00 11/24/19 08:46 Cordarone PO 200 mg DAILY [facility] Administration Famotidine 20 mg 11/12/19 09:00 11/24/19 08:46 Pepcid PO 20 mg BID [facility] Administration Guaifenesin 600 mg 11/12/19 21:00 11/24/19 08:46 Mucinex PO 600 mg Q12HR [facility] Administration Ceftriaxone Sodium 1 gm/ 100 mls @ 200 mls/hr 11/19/19 09:00 11/24/19 08:57 Sodium Chloride IVPB 100 mls Q24HR [facility] Administration Insulin Human Lispro 0 units 11/07/19 22:34 11/24/19 11:06 Humalog SC 2 unit .MODERATE SLIDING SC PRN Administration MODERATE SLIDING SCALE Protocol Insulin Human Lispro 0 units 11/14/19 21:38 11/17/19 21:57 Humalog SC 3 unit .BEDTIME SLIDING SC PRN Administration Bedtime Correctional Scale Ketorolac Tromethamine 15 mg 11/22/19 08:30 11/24/19 08:54 Toradol IVP 11/27/19 08:31 15 mg Q6H PRN Administration Moderate Pain (4-6) Metoprolol Tartrate 12.5 mg 11/12/19 21:00 11/24/19 08:46 Lopressor PO 12.5 mg BID [facility] Administration Polyethylene Glycol 17 gm 11/13/19 09:00 11/24/19 08:48 Miralax PER TUBE 17 gm DAILY [facility] Administration Prednisone 10 mg 11/22/19 08:00 11/24/19 08:45 Prednisone PO 10 mg QAM-WM [facility] Administration Sodium Chloride 10 ml 11/12/19 09:00 11/24/19 08:48 Flush - Normal Saline IVF 10 ml Q12HR [facility] Administration - Exam General Appearance: NAD, awake alert Eye: PERRL, anicteric sclera ENT: normocephalic atraumatic, no oropharyngeal lesions Neck: supple, symmetric, no JVD, no thyromegaly Heart: RRR, no gallops, no rubs, normal peripheral pulses Respiratory: tachypneic Respiratory - other findings: diminished in bases, occasional exp wheeze Gastrointestinal: soft, non-tender, non-distended, normal bowel sounds, no palpable masses Gastrointestinal - other findings: obese Extremities: no cyanosis, no clubbing, 1+ LE edema Skin: normal turgor, no lesions Neurological: cranial nerve grossly intact, no new deficit Musculoskeletal: normal tone, generalized weakness Psychiatric: A&O x 3, flat affect Hosp A/P (1) Acute respiratory failure with hypoxia and hypercapnia Code(s): J96.01 - ACUTE RESPIRATORY FAILURE WITH HYPOXIA; J96.02 - ACUTE RESPIRATORY FAILURE WITH HYPERCAPNIA Status: Acute Plan: Continue pulm support, O2 support, nocturnal BiPAP (2) COPD with exacerbation Code(s): J44.1 - CHRONIC OBSTRUCTIVE PULMONARY DISEASE W (ACUTE) EXACERBATION Status: Acute Plan: See above, Prednisone, Omnicef (3) Non-small cell lung cancer Code(s): C34.90 - MALIGNANT NEOPLASM OF UNSP PART OF UNSP BRONCHUS OR LUNG Status: Chronic Qualifiers: Plan: f/u for outpt evaluation and chemotherapy (4) LEORA (acute kidney injury) Code(s): N17.9 - ACUTE KIDNEY FAILURE, UNSPECIFIED Status: Acute (5) CKD (chronic kidney disease) stage 2, GFR 60-89 ml/min Code(s): N18.2 - CHRONIC KIDNEY DISEASE, STAGE 2 (MILD) Status: Chronic - Plan continue antibiotics, PT/OT, group social worker, respiratory therapy, out of bed/ ambulate Continue BiPAP nocturnally and PRN Pt with home CPAP currently Continue Prednisone Continue Diamox OOB/ambulate continue Amiodarone CM for assist for home transport ? home in 24h
[2019-11-24 16:42] VITALS: BP 160/84
[2019-11-24] MEDS ORDERED: Clopidogrel Bisulfate 75 MG TAB ONE (18:43)
[2019-11-24] MEDS: Acetaminophen 325 MG TAB PO PRN ×2 (19:25→23:31)
[2019-11-24] MEDS: Cefdinir 300 MG CAP PO SCH (20:57)
[2019-11-25] MEDS: Ketorolac Tromethamine 30 MG/ML VIAL IVP PRN (04:39)
[2019-11-25] MEDS: Famotidine 20 MG TAB PO SCH (09:42)
[2019-11-25] MEDS: Amiodarone 200 MG TAB PO SCH (09:43)
[2019-11-25] MEDS: guaiFENesin ER 600 MG TAB PO SCH (09:43)
[2019-11-25] MEDS: predniSONE 5 MG TAB PO SCH (09:43)
[2019-11-25] MEDS: AcetaZOLAMIDE 250 MG TAB PO SCH (09:43)
[2019-11-25] MEDS: Cefdinir 300 MG CAP PO SCH (09:43)
[2019-11-25] MEDS: Polyethylene Glycol 3350 17 GM Packet PER TUBE SCH (09:44)
[2019-11-25] MEDS: Metoprolol Tartrate 25 MG TAB PO SCH (09:47)
[2019-11-25 11:29] VITALS: TEMP 98.3
--- NOTE | 2019-11-25 11:38 | DIS ---
DATE OF ADMISSION: 11/07/2019 DATE OF DISCHARGE: 11/25/2019 DISCHARGE DIAGNOSES: 1. Acute on chronic hypoxic hypercapnic respiratory failure. 2. Chronic obstructive pulmonary disease exacerbation, improved. 3. Non-small cell lung cancer, stage IV. 4. Acute kidney injury on chronic kidney disease. 5. Obesity hypoventilation syndrome. 6. Paroxysmal atrial fibrillation with current sinus mechanism. 7. Acute on chronic diastolic congestive heart failure with ejection fraction of 50% to 55%. 8. Superficial thrombosis of the left upper extremity. 9. Deconditioning. CONSULTATIONS: 1. Dr. Quinn, DR. Lynn, and Dr. Vides with Pulmonology Service. 2. Dr. Cummins with Medical Oncology Service. 3. Dr. Barton with Orthopedic Surgery Service. 4. Dr. Ryan Krishna with Infectious Disease Service. PERTINENT LABORATORY AND X-RAY FINDINGS: Creatinine ranged between 1.20 to 1.88. Estimated GFR ranged between 43 to 72. BNP ranged between 399 to 1270. Vitamin B12 level 337. Folate level 8.4. TSH 0.85. CBC showed a white blood cell count ranging between 5.9 to 22.1, hemoglobin ranged between 8.7 to 11.5. COVID-19 PCR negative on 11/07/2019. Influenza A and B antigen negative on 11/07/2019. Respiratory panel PCR dated 11/07/2019, negative. Portable chest x-ray dated 11/07/2019, showed patchy alveolar and interstitial opacities in the left mid lung zone with associated right-sided volume loss. Left upper extremity venous Doppler study dated 11/13/2019, showed superficial venous thrombosis of the cephalic vein. 2D transthoracic echocardiogram dated 11/09/2019, showed technically-limited exam with ejection fraction estimated 50% to 55%. Diastolic function indeterminate due to atrial fibrillation. Moderate biatrial enlargement. Right ventricular systolic pressure [address] of the brain without contrast dated 11/17/2019, showed no acute intracranial process. HOSPITAL COURSE: The patient initially presented with altered mentation with associated hypoxic respiratory failure in the context of chronic hypoxic respiratory failure on chronic oxygen supplementation. The patient was also treated for CHF exacerbation and initially managed with IV Lasix and placed on mechanical ventilation. The patient was monitored by the Pulmonology and Critical Care Service during this ICU stay and underwent evaluation by the Cardiology Service due to CHF exacerbation. The patient received IV Lasix, however, the patient improved clinically with aggressive pulmonary supportive management and diuresis. The patient also underwent COVID-19 rule out initially and received broad-spectrum IV antibiotic therapy. The patient also with a significant history of non-small cell lung cancer, stage IV, evaluated by Medical Oncology Service during his hospital course. No specific intervention was recommended with outpatient followup and to discuss further chemotherapy treatments and surveillance measures. The patient was noted with intermittent hypoxia and altered mental status due to hypercapnia and hypoxemia. The patient was placed on BiPAP noninvasive mechanical ventilation for nocturnal use with overall improvement in mentation and alertness. The patient was also treated for paroxysmal atrial fibrillation during the hospital course with initiation of amiodarone. The patient was not deemed appropriate candidate for oral anticoagulation due to thrombosis of the left upper extremity as well as fall risk. The patient did return to sinus mechanism with antiarrhythmic therapy and has maintained sinus mechanism for the remainder of the hospital course. Overall, the patient did clinically stabilize with aggressive pulmonary supportive management. The patient has been deemed appropriate to continue Home Health Care with associated physical therapy and daily monitoring. I have examined the patient at the time of discharge and discussed followup instructions. The patient verbalized understanding and in agreement and ready for discharge on 11/25/2019. DISCHARGE MEDICATIONS: 1. Plavix 75 mg p.o. daily. 2. Diamox 250 mg p.o. b.i.d. 3. Amiodarone 200 mg p.o. daily. 4. Omnicef 300 mg p.o. b.i.d. x5 days. 5. Lasix 40 mg p.o. daily. 6. Metformin 1000 mg p.o. b.i.d. 7. Metoprolol tartrate 12.5 mg p.o. b.i.d. 8. Prednisone 10 mg p.o. daily x10 days. FOLLOWUP: The patient may follow up with his primary care provider, Dr. Cheo Nichole on 11/26/2019 at 10:00 a.m. The patient may follow up with Dr. Cummins with Medical Oncology Service on 12/03/2019 at 09:30 a.m. The patient to follow up with Dr. Harrison Ritter with Cardiology Service. SPECIAL INSTRUCTIONS: Continue Home Health Services with [facility]. ACTIVITY: Ad-varun. DIET: ADA and heart healthy. CODE STATUS: Full. CONDITION ON DISCHARGE: Home on 11/25/2019. TIME SPENT: Total time preparing and coordinating discharge is 38 minutes. Job ID: [id number]
== END 2019-11-25 14:44 | disposition home health service (06) | DRG 208 ==
LOC: ERS 09:29 → CCU 13:04 → 2NO 11-12 09:39 → IMCU/EMU 11-19 10:46
PROVIDERS: ADMIT Internal Medicine; ATTEND Internal Medicine
PROC: 8E0ZXY6 Isolation (ICD-10-PCS; principal; 2019-11-07)
PROC: 5A1945Z Respiratory Ventilation, 24-96 Consecutive Hours (ICD-10-PCS; 2019-11-07)
PROC: 0BH17EZ Insertion of Endotracheal Airway into Trachea, Via Natural or Artificial Opening (ICD-10-PCS; 2019-11-07)
PROC: 02HV33Z Insertion of Infusion Device into Superior Vena Cava, Percutaneous Approach (ICD-10-PCS; 2019-11-07)
PROC: 3E043XZ Introduction of Vasopressor into Central Vein, Percutaneous Approach (ICD-10-PCS; 2019-11-07)
PROC: 5A09457 Assistance with Respiratory Ventilation, 24-96 Consecutive Hours, Continuous Positive Airway Pressure (ICD-10-PCS; 2019-11-07)
DX: J96.21 Acute and chronic respiratory failure with hypoxia (principal); I50.33 Acute on chronic diastolic (congestive) heart failure; G92 Toxic encephalopathy; I13.0 Hypertensive heart and chronic kidney disease with heart failure and stage 1 through stage 4 chronic kidney disease, or unspecified chronic kidney disease; J44.1 Chronic obstructive pulmonary disease with (acute) exacerbation; N17.9 Acute kidney failure, unspecified; E66.2 Morbid (severe) obesity with alveolar hypoventilation; I82.612 Acute embolism and thrombosis of superficial veins of left upper extremity; C79.51 Secondary malignant neoplasm of bone; C34.11 Malignant neoplasm of upper lobe, right bronchus or lung; J98.11 Atelectasis; L03.114 Cellulitis of left upper limb; Z51.5 Encounter for palliative care; J96.22 Acute and chronic respiratory failure with hypercapnia; I48.0 Paroxysmal atrial fibrillation; E78.00 Pure hypercholesterolemia, unspecified; E11.22 Type 2 diabetes mellitus with diabetic chronic kidney disease; E87.5 Hyperkalemia; N18.3 Chronic kidney disease, stage 3 (moderate); E86.1 Hypovolemia; M19.90 Unspecified osteoarthritis, unspecified site; N40.0 Benign prostatic hyperplasia without lower urinary tract symptoms; I25.5 Ischemic cardiomyopathy; D72.829 Elevated white blood cell count, unspecified; T42.75XA Adverse effect of unspecified antiepileptic and sedative-hypnotic drugs, initial encounter; D63.0 Anemia in neoplastic disease; Z79.84 Long term (current) use of oral hypoglycemic drugs; Z99.81 Dependence on supplemental oxygen; Z79.899 Other long term (current) drug therapy; Z85.038 Personal history of other malignant neoplasm of large intestine; Z87.891 Personal history of nicotine dependence; Z79.51 Long term (current) use of inhaled steroids; Z79.52 Long term (current) use of systemic steroids; Z91.19 Patient's noncompliance with other medical treatment and regimen; Z68.38 Body mass index [BMI] 38.0-38.9, adult
CPT/HCPCS: 31500; 36415; 36416; 51702; 70470; 71045; 80048; 80053; 80162; 81001; 82330; 82550; 82607; 82746; 82803; 82805; 83605; 83735; 83880; 84100; 84145; 84443; 84484; 85014; 85018; 85025; 85027; 85049; 87633; 87798; 87804; 93005; 93010; 93306; 94002; 94003; 94150; 94640; 94660; 94760; 96365; 96368; 96375; 99292; J0282; J0696; J1120; J1160; J1630; J1644; J1650; J1815; J1885; J1940; J1956; J2060; J2250; J2270; J2704; J2920; J3010; J3486; J3490; J7070; J7512; J7611; J7620; Q9967; S0028; U0001